=== PATIENT | female | born 2000 | race Caucasian/White ===

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

== ENCOUNTER 2019-03-15 00:27 | Outpatient (CLI) | payer OTHER ==
[~2019-03-15] VITALS: Ht 167.6 cm; Wt 113.6 kg
[~2019-03-15 00:27] MED LIST changes: -ALL10TAB28 PO; +ALL10TAB29 PO
[2019-03-15 00:36] VITALS: BP 109/69
[2019-03-15] MEDS ORDERED: MULTTAB20 PO (01:52)
[2019-03-15] MEDS ORDERED: VITA250T4 PO (01:52)
--- NOTE | 2019-03-15 02:44 | REPVR ---
PROCEDURE INFORMATION: Exam: US Biophysical Profile Without Non-Stress Test Exam date and time: 03/15/2019 2:12 AM Clinical history: 18 years old, female; Other: Contractions; ; Additional info: Non reactive nst TECHNIQUE: Imaging protocol: US biophysical profile without non-stress testing. COMPARISON: US OBS SINGEL GEST 12/10/2018 11:50 AM FINDINGS: Other findings: S/D ratio of cord is 2.59. Breathin/2 Gross body movements: 2/2 tone: 2/2 Qualitative amniotic fluid: 2/2 Biophysical Profile Score: 8/8 Gestation: Single intrauterine fetus in cephalic presentation Amniotic fluid: ABDIRIZAK of 10.5 cm. Placenta: Anterior placenta. heartbeat of 141 beats per minute. IMPRESSION: 1. Single live intrauterine fetus in cephalic presentation. 2. ABDIRIZAK 10.5 cm. 3. Normal biophysical profile score of 8/8. Electronically signed by: Jeffrey Ontiveros On 03/15/2019 02:43:41 AM
== END 2019-03-15 03:05 | disposition home or self-care (01) ==
LOC: M LDO 00:27
PROVIDERS: ATTEND Obstetrics & Gynecology
DX: O47.03 False labor before 37 completed weeks of gestation, third trimester (principal); Z3A.32 32 weeks gestation of pregnancy

== ENCOUNTER 2019-03-17 21:59 | Outpatient (CLI) | payer OTHER ==
[~2019-03-17] VITALS: Ht 157.5 cm; Wt 113.6 kg
[~2019-03-17 21:59] MED LIST changes: +VITA250T4 PO
[2019-03-17 22:16] VITALS: BP 113/65
[2019-03-17] MEDS ORDERED: ACETAMINOPHEN 500 MG TAB PO ONE (23:00)
--- NOTE | 2019-03-17 23:17 | IPN ---
DATE: 03/17/2019 A 18-year-old 2, para 1 female at 33-2/7 weeks gestation, estimated date of confinement (EDC) of 05/03/2019, presents by ambulance from [place], [place], for constant lower abdominal pressure, cramping. Denies vaginal bleeding. There is good movement. She was seen at [facility] 5 days prior to this evaluation for the same problem. She completed a course of betamethasone at that time. OBJECTIVE: Blood pressure 109/69, pulse 110, respiratory rate 16, afebrile, in no apparent distress. Head and neck exam: Normal. Lungs: Clear. Heart: Regular rate and rhythm. Abdomen: Nontender, gravid, soft. Mild pubic bone tenderness. Cervix: 1 cm, 50%, -3, vertex. heart tones: Category 1. Contractions: None. ASSESSMENT: A 18-year-old 2, para 1 female at 33-2/7 weeks gestation with pubic joint diastasis. PLAN: Tylenol for pain, rest. The patient will be sent home. She will followup with [facility] on 03/19/2019.
== END 2019-03-17 23:05 | disposition home or self-care (01) ==
LOC: M LDO 21:59
PROVIDERS: ATTEND Specialist
DX: O26.713 Subluxation of symphysis (pubis) in pregnancy, third trimester (principal); Z3A.33 33 weeks gestation of pregnancy

== ENCOUNTER 2019-12-07 19:16 | Emergency (ER) | payer OTHER ==
[~2019-12-07] VITALS: Ht 167.6 cm; Wt 121.7 kg
[2019-12-07] MEDS ORDERED: ARIP1TAB4 (19:30)
[2019-12-07] MEDS ORDERED: FLUO10CA15 (19:30)
[2019-12-07] MEDS ORDERED: FLUO20CA22 (19:30)
[2019-12-07] MEDS ORDERED: PREVTAB2 (19:30)
[2019-12-07] MEDS ORDERED: ALBU8.5H (19:30)
[2019-12-07 21:19] VITALS: BP 126/86
--- NOTE | 2019-12-08 08:00 | REP ---
Clinical: Trauma. Fall. Technique: AP and lateral views of the right tibia / fibula. Findings: Osseous structures, joint spaces, and surrounding soft tissues are normal. No acute fracture or dislocation. No subcutaneous emphysema or foreign body. Impression: No acute fracture or dislocation. Electronically Signed by Julio C Almeida MD 12/08/2019 07:52 A
== END 2019-12-07 21:20 | disposition home or self-care (01) ==
LOC: M ED 19:16
DX: S80.811A Abrasion, right lower leg, initial encounter (principal); W22.8XXA Striking against or struck by other objects, initial encounter; Y92.018 Other place in single-family (private) house as the place of occurrence of the external cause; Z79.3 Long term (current) use of hormonal contraceptives

== ENCOUNTER 2019-12-20 22:15 | Emergency (ER) | payer OTHER ==
[~2019-12-20 22:15] MED LIST changes: +ALBU8.5H; -ALL10TAB29 PO; +ARIP1TAB4; +CETI-24 PO; +FLUO10CA16; +FLUO20CA22; +PREVTAB2
[2019-12-20 22:58] LABS: HEMATOCRIT 38.9 % (36.0-47.0); HEMOGLOBIN 12.8 g/dl (12.0-15.5); MEAN CORPUSCULAR HEMOGLOBIN 27.1 pg (27.0-33.0); MEAN CORPUSCULAR HGB CONC 32.9 g/dl (32.0-36.5); MEAN CORPUSCULAR VOLUME 82.2 fl (80.0-96.0); PLATELET COUNT, AUTOMATED 281 10^3/uL (150-450); RED BLOOD COUNT 4.73 10^6/uL (4.00-5.40); WHITE BLOOD COUNT 9.1 10^3/uL (4.0-10.0)
[2019-12-20] MEDS ORDERED: IBUPROFEN 600MG TAB PO ONE (23:00)
[2019-12-20 23:16] LABS: BLOOD UREA NITROGEN 9 MG/DL (7-18); CALCIUM LEVEL 9.2 MG/DL (8.5-10.1); CARBON DIOXIDE LEVEL 25 MEQ/L (21-32); CHLORIDE LEVEL 105 MEQ/L (98-107); CREATININE FOR GFR 0.86 MG/DL (0.55-1.30); GLUCOSE, FASTING 112 MG/DL (70-100); SODIUM LEVEL 141 MEQ/L (136-145)
[2019-12-20] MEDS ORDERED: IBUP-1022 PO (23:17)
[2019-12-20] MEDS ORDERED: POTASSIUM CHLORIDE 10 MEQ SR TABLET PO ONE (23:30)
[2019-12-20 23:34] VITALS: BP 131/82
--- NOTE | 2019-12-21 08:44 | REP ---
REASON: Chest pain. COMPARISON: No priors. FINDINGS: The superior mediastinal structures are midline. The cardiac silhouette is unremarkable in size, shape, and position. The diaphragmatic surfaces of the lungs are regular, and the costophrenic angles are clear. The pulmonary molina are clear. The imaged osseous structures are intact. IMPRESSION: There is no acute cardiopulmonary disease. Electronically Signed by Ventura Perla DO 12/21/2019 09:55 A
== END 2019-12-21 00:17 | disposition home or self-care (01) ==
LOC: M ED 22:15
DX: R09.1 Pleurisy (principal); J45.909 Unspecified asthma, uncomplicated; Z79.899 Other long term (current) drug therapy; Z79.3 Long term (current) use of hormonal contraceptives

== ENCOUNTER 2020-01-06 09:15 | Emergency (ER) | payer OTHER ==
[~2020-01-06 09:15] MED LIST changes: +IBUP-1022 PO
[2020-01-06] MEDS ORDERED: MAALOX 30 ML SUSP *UDC As Ordered ONE (09:30)
[2020-01-06] MEDS ORDERED: KETOROLAC 60MG 2ML VIAL As Ordered ONE (10:42)
== END 2020-01-06 11:30 | disposition home or self-care (01) ==
LOC: M ED 09:15
DX: J06.9 Acute upper respiratory infection, unspecified (principal); B97.89 Other viral agents as the cause of diseases classified elsewhere; R11.2 Nausea with vomiting, unspecified; J45.909 Unspecified asthma, uncomplicated; K21.9 Gastro-esophageal reflux disease without esophagitis; E66.9 Obesity, unspecified; Z79.899 Other long term (current) drug therapy; Z79.2 Long term (current) use of antibiotics
CPT/HCPCS: 87486; 87581; 87633; 87798; 96372; 99283; J1885

== ENCOUNTER 2020-03-01 23:10 | Emergency (ER) | payer OTHER ==
[~2020-03-01] VITALS: Ht 167.6 cm; Wt 136.4 kg
[2020-03-01] MEDS ORDERED: ALPRAZolam 0.25 MG TAB PO ONE (23:45)
[2020-03-02 01:53] VITALS: BP 137/69
--- NOTE | 2020-03-02 17:28 | ECGEPIP ---
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
== END 2020-03-02 01:55 | disposition home or self-care (01) ==
LOC: M ED 23:10
DX: F45.0 Somatization disorder (principal); F41.9 Anxiety disorder, unspecified; E66.9 Obesity, unspecified; Z79.51 Long term (current) use of inhaled steroids; Z79.899 Other long term (current) drug therapy

== ENCOUNTER 2020-03-07 17:25 | Emergency (ER) | payer OTHER ==
[~2020-03-07] VITALS: Ht 167.6 cm; Wt 129.0 kg
[2020-03-07 17:25] VITALS: BP 126/72
[2020-03-07] MEDS ORDERED: BUPR1TAB52 (17:32)
[2020-03-07] MEDS ORDERED: VENTAER INH (20:03)
[2020-03-07] MEDS ORDERED: BENZ200C70 PO (20:03)
== END 2020-03-07 20:26 | disposition home or self-care (01) ==
LOC: M ED 17:25
DX: J06.9 Acute upper respiratory infection, unspecified (principal); B34.9 Viral infection, unspecified; Z11.59 Encounter for screening for other viral diseases; Z79.899 Other long term (current) drug therapy

== ENCOUNTER 2020-04-30 21:42 | Emergency (ER) | payer OTHER ==
[~2020-04-30] VITALS: Ht 167.6 cm; Wt 123.6 kg
[~2020-04-30 21:42] MED LIST changes: +BENZ200C70 PO; +BUPR1TAB52; +VENTAER INH
[2020-04-30] MEDS ORDERED: TRAZ-252 (21:56)
[2020-04-30] MEDS ORDERED: BUSP15TA47 (21:56)
[2020-04-30] MEDS ORDERED: BUPR150T3 (21:56)
[2020-04-30 22:08] LABS: BASO # 0.1 10^3/uL (0.0-0.2); BASO % 0.6 % (0.0-1.0); EOS # 0.2 10^3/uL (0.0-0.5); EOS % 2.5 % (0.0-3.0); HEMATOCRIT 36.1 % (36.0-47.0); HEMOGLOBIN 11.5 g/dl (12.0-15.5); LYMPH # 2.3 10^3/uL (1.5-5.0); LYMPH % 27.7 % (24.0-44.0); MEAN CORPUSCULAR HEMOGLOBIN 26.3 pg (27.0-33.0); MEAN CORPUSCULAR HGB CONC 31.9 g/dl (32.0-36.5); MEAN CORPUSCULAR VOLUME 82.4 fl (80.0-96.0); MONO # 0.7 10^3/uL (0.0-0.8); MONO % 8.3 % (0.0-5.0); NEUTROPHILS # 5.1 10^3/uL (1.5-8.5); NEUTROPHILS % 60.5 % (36.0-66.0); PLATELET COUNT, AUTOMATED 245 10^3/uL (150-450); RED BLOOD COUNT 4.38 10^6/uL (4.00-5.40); WHITE BLOOD COUNT 8.4 10^3/uL (4.0-10.0)
[2020-04-30] MEDS ORDERED: GI COCKTAIL 50ML BTL(HYOSCYAMINE/MAALOX/LIDOCAINE VISCOUS)(1:3:1) PO ONE (22:15)
[2020-04-30 22:38] LABS: HCG, SERUM QUALITATIVE NEGATIVE (NEGATIVE)
[2020-04-30 22:43] LABS: ALBUMIN 3.9 GM/DL (3.2-5.2); ALT/SGPT 44 U/L (12-78); BILIRUBIN,DIRECT < 0.1 MG/DL (0.0-0.2); BILIRUBIN,TOTAL 0.2 MG/DL (0.2-1.0); BLOOD UREA NITROGEN 10 MG/DL (7-18); CALCIUM LEVEL 8.6 MG/DL (8.5-10.1); CARBON DIOXIDE LEVEL 26 MEQ/L (21-32); CHLORIDE LEVEL 109 MEQ/L (98-107); CK-MB VALUE MASS 1.9 NG/ML (<3.6); CPK CREATINE PHOSPHOKINASE 92 U/L (26-192); CREATININE FOR GFR 0.72 MG/DL (0.55-1.30); GLUCOSE, FASTING 86 MG/DL (70-100); LIPASE 71 U/L (73-393); MB/CK RELATIVE INDEX 2.07 (< OR =4); POTASSIUM SERUM 3.8 MEQ/L (3.5-5.1); SODIUM LEVEL 141 MEQ/L (136-145); TOTAL PROTEIN 6.9 GM/DL (6.4-8.2); TROPONIN I < 0.02 NG/ML (< 0.10)
--- NOTE | 2020-04-30 22:59 | REPVR ---
PROCEDURE INFORMATION: Exam: US Duplex Lower Extremity Veins, Bilateral Exam date and time: 04/30/2020 10:48 PM Age: 19 years old Clinical indication: Pain; Leg, lower; Bilateral; Additional info: Leg pain R/O dvt TECHNIQUE: Imaging protocol: Real-time duplex ultrasound of the extremities with 2-D alicia scale, color Doppler flow and spectral waveform analysis with image documentation. Complete exam focused on the bilateral lower extremity veins. COMPARISON: US Duplex, Ext,LOWER veins,unilat 08/27/2018 4:59 PM FINDINGS: Right deep veins: Unremarkable. The common femoral, femoral, proximal profunda femoral and popliteal veins are patent without thrombus. Normal Doppler waveforms. Normal compressibility and/or augmentation response. Right superficial veins: Saphenofemoral junction is patent without thrombus. Left deep veins: Unremarkable. The common femoral, femoral, proximal profunda femoral and popliteal veins are patent without thrombus. Normal Doppler waveforms. Normal compressibility and/or augmentation response. Left superficial veins: Saphenofemoral junction is patent without thrombus. Soft tissues: Unremarkable. IMPRESSION: No evidence of deep vein thrombosis. Electronically signed by: Satya Alfaro On 04/30/2020 22:59:22 PM
[2020-04-30] MEDS ORDERED: ISOVUE-370 76% 100ML VIAL As Ordered ONE (23:10)
--- NOTE | 2020-04-30 23:55 | REPVR ---
PROCEDURE INFORMATION: Exam: CT Angiography Chest With Contrast Exam date and time: 04/30/2020 11:17 PM Age: 19 years old Clinical indication: Chest pain; Additional info: Pleuritic chest pain TECHNIQUE: Imaging protocol: Computed tomographic angiography of the chest with intravenous contrast. 3D rendering (Not supervised by radiologist): MIP and/or 3D reconstructed images were created by the technologist. Radiation optimization: All CT scans at this facility use at least one of these dose optimization techniques: automated exposure control; mA and/or kV adjustment per patient size (includes targeted exams where dose is matched to clinical indication); or iterative reconstruction. Contrast material: ISOVUE 370; Contrast volume: 75 ml; Contrast route: INTRAVENOUS (IV); COMPARISON: CR Chest, 2 view PA, Lat 12/20/2019 10:56 PM FINDINGS: Limitations: Examination is limited by motion artifact. Pulmonary arteries: No definite pulmonary emboli. Aorta: Unremarkable. No aortic aneurysm. No aortic dissection. Tracheobronchial tree: Visualized airway is unremarkable. Lungs: Unremarkable. No consolidation. No masses. Pleural space: Unremarkable. No pneumothorax. No pleural effusion. Heart: Unremarkable. No cardiomegaly. No pericardial effusion. Lymph nodes: Unremarkable. No enlarged lymph nodes. Bones/joints: Incidental left C7 rib. No acute fracture. Soft tissues: Unremarkable. IMPRESSION: 1. Limited evaluation. 2. No definite pulmonary emboli. 3. No CT findings to suggest source of chest pain. Electronically signed by: Reginald Moulton On 04/30/2020 23:54:56 PM
[2020-05-01] VITALS: BP 144/77
--- NOTE | 2020-05-01 06:40 | ECGEPIP ---
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
== END 2020-05-01 00:14 | disposition home or self-care (01) ==
LOC: M ED 21:42
DX: R07.9 Chest pain, unspecified (principal); R94.31 Abnormal electrocardiogram [ECG] [EKG]; J45.909 Unspecified asthma, uncomplicated; K21.9 Gastro-esophageal reflux disease without esophagitis; F33.9 Major depressive disorder, recurrent, unspecified; Z79.3 Long term (current) use of hormonal contraceptives; Z79.899 Other long term (current) drug therapy
CPT/HCPCS: 71275; 80048; 80076; 82550; 82553; 83690; 84703; 85025; 85379; 93005; 93041; 93970; 94760; 99285; Q9967

== ENCOUNTER 2020-05-13 22:10 | Emergency (ER) | payer OTHER ==
[~2020-05-13 22:10] MED LIST changes: +BUSP15TA47; +TRAZ-252
[2020-05-13] MEDS ORDERED: GI COCKTAIL 50ML BTL(HYOSCYAMINE/MAALOX/LIDOCAINE VISCOUS)(1:3:1) PO ONE (22:45)
[2020-05-13 23:02] LABS: BASO % 0.6 % (0.0-1.0); EOS # 0.2 10^3/uL (0.0-0.5); EOS % 2.8 % (0.0-3.0); HEMOGLOBIN 11.8 g/dl (12.0-15.5); LYMPH # 2.3 10^3/uL (1.5-5.0); LYMPH % 32.5 % (24.0-44.0); MEAN CORPUSCULAR HEMOGLOBIN 25.9 pg (27.0-33.0); MEAN CORPUSCULAR HGB CONC 31.1 g/dl (32.0-36.5); MEAN CORPUSCULAR VOLUME 83.3 fl (80.0-96.0); MONO # 0.6 10^3/uL (0.0-0.8); MONO % 8.5 % (0.0-5.0); NEUTROPHILS % 55.5 % (36.0-66.0); PLATELET COUNT, AUTOMATED 298 10^3/uL (150-450); RED BLOOD COUNT 4.56 10^6/uL (4.00-5.40); WHITE BLOOD COUNT 7.2 10^3/uL (4.0-10.0)
--- NOTE | 2020-05-13 23:06 | REPVR ---
PROCEDURE INFORMATION: Exam: XR Chest, 1 View Exam date and time: 05/13/2020 10:45 PM Age: 19 years old Clinical indication: Chest pain TECHNIQUE: Imaging protocol: XR of the chest Views: 1 view. COMPARISON: CT ANGIO CHEST 04/30/2020 11:13 PM FINDINGS: Lungs: Unremarkable. No consolidation. Pleural space: Unremarkable. No pleural effusion. No pneumothorax. Heart/Mediastinum: Unremarkable. No cardiomegaly. Bones/joints: Unremarkable. IMPRESSION: No acute findings. Electronically signed by: Satya Alfaro On 05/13/2020 23:06:32 PM
[2020-05-13 23:26] LABS: ERYTHROCYTE SEDIMENTATION RATE 13 mm/hr (0-20)
[2020-05-13 23:28] LABS: HCG, SERUM QUALITATIVE NEGATIVE (NEGATIVE)
[2020-05-13 23:29] LABS: ALBUMIN 3.3 GM/DL (3.2-5.2); ALT/SGPT 18 U/L (12-78); BILIRUBIN,DIRECT < 0.1 MG/DL (0.0-0.2); BILIRUBIN,TOTAL 0.1 MG/DL (0.2-1.0); BLOOD UREA NITROGEN 10 MG/DL (7-18); C REACTIVE PROTEIN QUANTITATIV 1.56 MG/DL (0.00-0.30); CARBON DIOXIDE LEVEL 27 MEQ/L (21-32); CHLORIDE LEVEL 108 MEQ/L (98-107); CK-MB VALUE MASS 1.1 NG/ML (<3.6); CPK CREATINE PHOSPHOKINASE 107 U/L (26-192); GLUCOSE, FASTING 96 MG/DL (70-100); LIPASE 84 U/L (73-393); MB/CK RELATIVE INDEX 1.03 (< OR =4); NT-PRO BNP 44 PG/ML (<125); POTASSIUM SERUM 3.9 MEQ/L (3.5-5.1); SODIUM LEVEL 141 MEQ/L (136-145); TOTAL PROTEIN 6.9 GM/DL (6.4-8.2); TROPONIN I < 0.02 NG/ML (< 0.10)
[2020-05-13 23:32] LABS: INR 0.92; PROTHROMBIN TIME 12.5 SECONDS (12.5-14.3)
[2020-05-13 23:33] LABS: PARTIAL THROMBOPLASTIN TIME 24.6 SECONDS (24.2-38.5)
[2020-05-13 23:35] LABS: D-DIMER QUANT 807.93 ng/ml (<500)
[2020-05-14] MEDS ORDERED: SUCR1TA PO (00:39)
[2020-05-14] MEDS ORDERED: OMEP40CA97 PO (00:39)
[2020-05-14] MEDS ORDERED: ISOVUE-370 76% 100ML VIAL As Ordered ONE (01:02)
--- NOTE | 2020-05-14 02:18 | REPVR ---
PROCEDURE INFORMATION: Exam: CT Abdomen And Pelvis With Contrast Exam date and time: 05/14/2020 1:30 AM Age: 19 years old Clinical indication: Abdominal pain; Localized; Upper; Additional info: Upper abdominal pain TECHNIQUE: Imaging protocol: Computed tomography of the abdomen and pelvis with intravenous contrast. Radiation optimization: All CT scans at this facility use at least one of these dose optimization techniques: automated exposure control; mA and/or kV adjustment per patient size (includes targeted exams where dose is matched to clinical indication); or iterative reconstruction. Contrast material: ISOVUE 370; Contrast volume: 100 ml; Contrast route: INTRAVENOUS (IV); COMPARISON: No relevant prior studies available. FINDINGS: Lungs: For details regarding the lungs, refer to the CTA chest report on 05/14/2020. Heart: For details regarding the heart, refer to the CTA chest report on 05/14/2020. Diaphragm: Intact. Liver: There are calcified granulomas in the liver. No liver mass is identified. The contour of the liver is smooth. No hepatomegaly. Gallbladder and bile ducts: No calcified gallstones are noted. No gallbladder wall thickening, pericholecystic fluid, or pericholecystic inflammatory changes are identified. No dilation of the bile ducts is noted. No calcified stones are seen in the common bile duct. Pancreas: Normal. No dilation of the main pancreatic duct is noted. There is no inflammatory fat stranding around the pancreas to suggest acute pancreatitis. Spleen: There is spleen is heterogeneous in appearance with multiple splenic lesions measuring up to 2 cm. The spleen is not enlarged and measures 9.5 cm. Adrenal glands: Normal. No adrenal mass is noted. Kidneys and ureters: The kidneys are normal in appearance. No renal lesion is noted. No stones are noted in the kidneys or ureters. There is no hydronephrosis or hydroureter. There are no wedge-shaped areas of low attenuation in the kidneys to suggest pyelonephritis. There is no renal abscess or perinephric fluid collection. Stomach and bowel: The stomach and small bowel are unremarkable. There is no evidence for a bowel obstruction, diverticulosis, diverticulitis, colitis, perforated viscus, pneumatosis intestinalis, intussusception, or volvulus. Appendix: Normal. There is no evidence for appendicitis. Intraperitoneal space: No free air. No ascites. No asbcess. Retroperitoneal space: No fluid collection. No mass. Vasculature: The abdominal aorta is patent, normal in caliber, and there is no dissection. The iliac arteries, common femoral arteries, renal arteries, celiac artery, superior mesenteric artery, and inferior mesenteric artery are patent. The iliac veins, inferior vena cava, portal veins, splenic vein, superior mesenteric vein, inferior mesenteric vein, and renal veins are patent. Lymph nodes: No enlarged lymph nodes. Urinary bladder: The urinary bladder is decompressed, limiting its optimal evaluation. No stones are seen in the bladder. Reproductive: The uterus is anterverted and unremarkable. The ovaries are unremarkable. Bones/joints: There is no fracture or dislocation. No suspicious osteolytic or osteoblastic lesion. There is a mild dextroscoliosis of the lumbar spine. Soft tissues: Unremarkable. No hernia. No soft tissue fluid collection. IMPRESSION: 1. No acute findings in the abdomen or pelvis. 2. Heterogeneous spleen with multiple splenic lesions. For patients without history of cancer, recommend follow-up MR in 6-12 months. With history of cancer, recommend evaluation with PET vs. MRI vs. biopsy. Electronically signed by: Cuauhtemoc Velásquez On 05/14/2020 02:18:39 AM
--- NOTE | 2020-05-14 02:18 | REPVR ---
PROCEDURE INFORMATION: Exam: CT Angiography Chest With Contrast Exam date and time: 05/14/2020 1:29 AM Age: 19 years old Clinical indication: Pain and abnormal findings; Abnormal diagnostic tests; Elevated d-dimer; Chest pain TECHNIQUE: Imaging protocol: Computed tomographic angiography of the chest with intravenous contrast. 3D rendering (Not supervised by radiologist): MIP and/or 3D reconstructed images were created by the technologist. Radiation optimization: All CT scans at this facility use at least one of these dose optimization techniques: automated exposure control; mA and/or kV adjustment per patient size (includes targeted exams where dose is matched to clinical indication); or iterative reconstruction. Contrast material: ISOVUE 370; Contrast volume: 100 ml; Contrast route: INTRAVENOUS (IV); COMPARISON: CT ANGIO CHEST 04/30/2020 11:13 PM FINDINGS: Pulmonary arteries: No pulmonary embolism. Aorta: The thoracic aorta is intact and patent. There is no thoracic aortic aneurysm, pseudoaneurysm, penetrating atherosclerotic ulcer, intramural hematoma, or dissection. Great vessels off aortic arch: The brachiocephalic artery, imaged proximal portions of the common carotid arteries, imaged proximal portions of the vertebral arteries, and left subclavian artery are intact. No stenosis or occlusion of these vessels is noted. 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 Tracheobronchial tree: Intact and patent. Lungs: The lungs are clear. There is no lung consolidation, pulmonary infarct, or mass. No emphysematous changes or interstitial lung disease is noted. Pleural space: Normal. No pneumothorax or pleural effusion. Heart: No cardiomegaly or pericardial effusion. The ratio of the diameter of the right ventricle to the diameter of the left ventricle measures less than 1, which is within normal limits and there is no CT evidence for a right ventricular strain. Mediastinal space: Incidental note is made of residual thymic tissue in the anterior mediastinum. No mediastinal fluid collection or pneumomediastinum is noted. Lymph nodes: No enlarged lymph nodes. Bones/joints: There is no fracture or dislocation. No suspicious osteolytic or osteoblastic lesion. There is a left cervical rib and hypertrophy of the right transverse process of C7. Soft tissues: Unremarkable. No soft tissue fluid collection. Other findings: For details regarding the abdominal and pelvic findings, refer to the CT abdomen and pelvis report on 05/14/2020. IMPRESSION: No acute findings in the chest. No pulmonary embolism. Electronically signed by: Cuauhtemoc Velásquez On 05/14/2020 02:18:56 AM
[2020-05-14 03:38] VITALS: BP 139/71
--- NOTE | 2020-05-14 08:55 | ED PDOC ---
Post-Departure [facility] faxed formal report of fu of ct antione/pTami Caballero MD May 14, 2020 08:55
--- NOTE | 2020-05-14 16:42 | ECGEPIP ---
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
== END 2020-05-14 03:45 | disposition home or self-care (01) ==
LOC: M ED 22:10
DX: R07.89 Other chest pain (principal); R93.5 Abnormal findings on diagnostic imaging of other abdominal regions, including retroperitoneum; J45.909 Unspecified asthma, uncomplicated; F33.9 Major depressive disorder, recurrent, unspecified; K21.9 Gastro-esophageal reflux disease without esophagitis; R01.1 Cardiac murmur, unspecified; Z79.899 Other long term (current) drug therapy; Z79.3 Long term (current) use of hormonal contraceptives
CPT/HCPCS: 36415; 71045; 71275; 74177; 80048; 80076; 82550; 82553; 83690; 83880; 84443; 84703; 85025; 85379; 85610; 85652; 85730; 86140; 93005; 93041; 94760; 99285; Q9967

== ENCOUNTER → 2020-06-17 | Outpatient (REF) | payer OTHER ==
[~2020-06-17] MED LIST changes: +OMEP40CA97 PO; +SUCR1TA PO
[2020-06-17 13:12] LABS: BASO # 0.1 10^3/uL (0.0-0.2); BASO % 0.7 % (0.0-1.0); EOS # 0.2 10^3/uL (0.0-0.5); EOS % 2.2 % (0.0-3.0); HEMOGLOBIN 12.5 g/dl (12.0-15.5); LYMPH # 2.8 10^3/uL (1.5-5.0); LYMPH % 28.5 % (24.0-44.0); MEAN CORPUSCULAR HEMOGLOBIN 26.9 pg (27.0-33.0); MEAN CORPUSCULAR HGB CONC 32.1 g/dl (32.0-36.5); MEAN CORPUSCULAR VOLUME 84.1 fl (80.0-96.0); MONO # 0.9 10^3/uL (0.0-0.8); MONO % 9.1 % (0.0-5.0); NEUTROPHILS # 5.8 10^3/uL (1.5-8.5); NEUTROPHILS % 59.3 % (36.0-66.0); PLATELET COUNT, AUTOMATED 258 10^3/uL (150-450); RED BLOOD COUNT 4.64 10^6/uL (4.00-5.40); WHITE BLOOD COUNT 9.7 10^3/uL (4.0-10.0)
[2020-06-17 13:17] LABS: APPEARANCE, URINE CLOUDY (CLEAR); BACTERIA, URINE AUTO NEGATIVE (NEGATIVE); BILIRUBIN, URINE AUTO NEGATIVE (NEGATIVE); BLOOD, URINE BLOOD NEGATIVE (NEGATIVE); COLOR, URINE YELLOW (YELLOW); GLUCOSE, URINE (UA) AUTO NEGATIVE (NEGATIVE); KETONE, URINE AUTO NEGATIVE (NEGATIVE); LEUKOCYTE ESTERASE, URINE AUTO 2+ (NEGATIVE); MUCUS, URINE SMALL (NEGATIVE); NITRITE, URINE AUTO NEGATIVE (NEGATIVE); PROTEIN, URINE AUTO NEGATIVE (NEGATIVE); RBC, URINE AUTO 3 /HPF (0-3); SPECIFIC GRAVITY URINE AUTO 1.024 (1.002-1.035); SQUAMOUS EPITHELIAL CELL UR AU 16 /HPF (0-6); UROBILINOGEN, URINE AUTO 0.2 mg/dL (0.0-2.0); WBC, URINE AUTO 8 /HPF (0-3)
[2020-06-17 13:37] LABS: ALT/SGPT 30 U/L (12-78); BILIRUBIN,TOTAL 0.3 MG/DL (0.2-1.0); BLOOD UREA NITROGEN 10 MG/DL (7-18); CALCIUM LEVEL 9.4 MG/DL (8.5-10.1); CARBON DIOXIDE LEVEL 27 MEQ/L (21-32); CHLORIDE LEVEL 107 MEQ/L (98-107); CHOLESTEROL LEVEL 209 MG/DL (<200); CHOLESTEROL RISK RATIO 4.446 (<5); CREATININE FOR GFR 0.62 MG/DL (0.55-1.30); FREE T4 0.94 NG/DL (0.76-1.46); GLOMERULAR FILTRATION RATE > 60.0 (>60); GLUCOSE, FASTING 84 MG/DL (70-100); HDL CHOLESTEROL 47 MG/DL (>40); LDL CHOLESTEROL 138 MG/DL (<100); NON-HDL-C 162 MG/DL; POTASSIUM SERUM 3.9 MEQ/L (3.5-5.1); SODIUM LEVEL 141 MEQ/L (136-145); TOTAL 25(OH) VITAMIN D 14.1 NG/ML (30.0-100.0); TOTAL PROTEIN 6.9 GM/DL (6.4-8.2); TRIGLYCERIDES LEVEL 118 MG/DL (<150)
[2020-06-17 13:56] LABS: HEMOGLOBIN A1c 5.3 %
== END ==
LOC: M SFHCPLAZ 09:21
PROVIDERS: ATTEND Nurse Practitioner Family
DX: Z13.228 Encounter for screening for other metabolic disorders (principal); Z13.220 Encounter for screening for lipoid disorders; R35.0 Frequency of micturition; E55.9 Vitamin D deficiency, unspecified

== ENCOUNTER → 2020-06-30 | Outpatient (REF) | payer OTHER ==
[~2020-06-30] MED LIST changes: -BUPR150T3; +BUPR150T4
[2020-06-30 17:43] LABS: HCG, SERUM QUALITATIVE POSITIVE (NEGATIVE)
== END ==
LOC: M SFHCPLAZ 14:31
PROVIDERS: ATTEND Physician Assistant Medical
DX: Z33.1 Pregnant state, incidental (principal)

== ENCOUNTER → 2020-07-26 | Outpatient (REF) | payer OTHER ==
[2020-07-26 13:34] LABS: HEMATOCRIT 36.5 % (36.0-47.0); HEMOGLOBIN 11.7 g/dl (12.0-15.5); MEAN CORPUSCULAR HEMOGLOBIN 26.4 pg (27.0-33.0); MEAN CORPUSCULAR HGB CONC 32.1 g/dl (32.0-36.5); MEAN CORPUSCULAR VOLUME 82.4 fl (80.0-96.0); PLATELET COUNT, AUTOMATED 255 10^3/uL (150-450); RED BLOOD COUNT 4.43 10^6/uL (4.00-5.40); WHITE BLOOD COUNT 8.7 10^3/uL (4.0-10.0)
[2020-07-26 14:04] LABS: HEMOGLOBIN A1c 5.3 %
[2020-07-26 14:17] LABS: FREE T4 0.74 NG/DL (0.76-1.46)
[2020-07-26 14:54] LABS: HEPATITIS C VIRUS ABY INDEX 0.1 INDEX (<0.8); HIV 1&2 SCREEN CENTAUR NEGATIVE (NEGATIVE)
[2020-07-26 15:44] LABS: CHLAMYDIA DNA AMPLIFICATION NEGATIVE (NEGATIVE); GC DNA AMPLIFICATION NEGATIVE (NEGATIVE)
== END ==
LOC: M PLALAB 11:46
PROVIDERS: ATTEND Advanced Practice Midwife
DX: Z36.89 Encounter for other specified antenatal screening (principal); Z3A.01 Less than 8 weeks gestation of pregnancy

== ENCOUNTER 2020-08-03 08:58 | Emergency (ER) | payer OTHER ==
[~2020-08-03] VITALS: Ht 167.6 cm; Wt 131.4 kg
[2020-08-03] MEDS ORDERED: PREN29CH2 PO (09:08)
[2020-08-03] MEDS ORDERED: ACETAMINOPHEN 325 MG TAB PO ONE (09:45)
[2020-08-03 09:50] LABS: BASO % 0.3 % (0.0-1.0); EOS # 0.2 10^3/uL (0.0-0.5); HEMATOCRIT 35.5 % (36.0-47.0); HEMOGLOBIN 11.8 g/dl (12.0-15.5); LYMPH # 1.8 10^3/uL (1.5-5.0); LYMPH % 19.4 % (24.0-44.0); MEAN CORPUSCULAR HEMOGLOBIN 27.1 pg (27.0-33.0); MEAN CORPUSCULAR HGB CONC 33.2 g/dl (32.0-36.5); MEAN CORPUSCULAR VOLUME 81.6 fl (80.0-96.0); MONO # 0.8 10^3/uL (0.0-0.8); MONO % 8.9 % (2.0-8.0); NEUTROPHILS # 6.3 10^3/uL (1.5-8.5); PLATELET COUNT, AUTOMATED 232 10^3/uL (150-450); RED BLOOD COUNT 4.35 10^6/uL (4.00-5.40); WHITE BLOOD COUNT 9.1 10^3/uL (4.0-10.0)
--- NOTE | 2020-08-03 10:06 | REP ---
INDICATION: fall, lower abd pain, 8 weeks . COMPARISON: None. TECHNIQUE: Transabdominal imaging FINDINGS: LMP 06/05/2020 = 8 weeks 3 days, This is a gestational sac in the body and fundus. The mean sac diameter is 30 mm corresponding to 8 weeks 5 days. There is a pole visible with a crown-rump length 22 mm corresponding to 9 weeks. heart rate 174 BPM. motion was observed. Posterior to the gestational sac is a curvilinear complex hypoechoic area measuring 3.6 x 1 x 1.5 cm suggestive of a subchorionic bleed. Cervix is 3.1 cm long. There is no free fluid in the cul-de-sac. Adnexal regions grossly unremarkable. IMPRESSION: 1. Gestational sac in the body and fundus the uterus with a pole consistent with 9 weeks gestational age. By LMP she is 8 weeks 3 days with EDC 03/12/2021. 2. Heart rate 174. motion observed. 3. Subchorionic bleed 3.6 x 1 x 1.5 cm around the posterior aspect of the gestational sac. Cervix 3.1 cm long and closed. No pelvic free fluid or adnexal abnormality suggested. <Electronically signed by Uriah Jose > 08/03/20 1002
--- NOTE | 2020-08-03 10:19 | REP ---
INDICATION: fall, knee double shield COMPARISON: None. TECHNIQUE: Four views left knee. FINDINGS: There is no evidence of acute fracture, dislocation, or intrinsic bone disease.There is no radiographic evidence of a significant joint effusion. IMPRESSION: No fracture or dislocation. <Electronically signed by Fabián Dias > 08/03/20 1016
--- NOTE | 2020-08-03 10:20 | REP ---
INDICATION: fall, please double shield. COMPARISON: None. TECHNIQUE: Four views with appropriate shielding provided. FINDINGS: Ankle mortise joint with symmetric and preserved. There is no talar dome osteochondral defect. Distal tibia and fibula without fracture. Some mild swelling about the ankle. Subtalar joints are intact. The talonavicular and calcaneocuboid joints are normal. No heel spurs. Tarsal bones and articulations as well as visualized portions of proximal metatarsals unremarkable. IMPRESSION: 1. Some soft tissue swelling about the ankle with no visible or displaced fracture, disruption of the ankle mortise joint, subtalar joint abnormality or other significant bony finding. <Electronically signed by Uriah Jose > 08/03/20 1016
--- OUTSIDE RECORDS SUMMARY | 2020-08-03 10:21 | CCD | Continuity of Care Document ---
Author Author Renee PAN Organization Unknown Address [address] [place] [id number] Phone [phone] Problems Description No Information Available Social History Type Date Description Comments Sex Unknown Tobacco Use Start: Unknown End: Unknown Quit Cigars Negative For Never Smoked Cigars Tobacco Use Start: Unknown Never Smoked A Pipe Tobacco Use Start: Unknown Never Used Smokeless Tobacco ETOH Use Denies alcohol use Tobacco Use Start: Unknown End: Unknown Patient is a former smoker quit 12/2016 Recreational Drug Use Denies Drug Use Exercise Type/Frequency Exercises sporadically Tattoo/Piercing Tattoo Tattoo/Piercing Pierced lower lip Tattoo/Piercing Pierced nasal area Tattoo/Piercing Pierced ears PRIYA: 05/03/2019 Estimated Date of Delivery Based on Final PRIYA Allergies, Adverse Reactions, Alerts Active Allergies Reaction Severity Comments Date NKDA 10/16/2018 NKFA 10/27/2018 Seasonal 10/27/2018 Medications Active Medications SIG Qnty Indications Ordering Provide r Date Albuterol Sulfate HFA 108(90Base) mcg/Act Aerosol Inhale 2 Puffs By Mouth Every 6 Hours as Needed Unknown Omeprazole 40mg Capsules DR Take One Capsule By Mouth Every Day Unknown Estarylla 0.25-35mg-mcg Tablets Take One Tablet By Mouth Every Day Unknown Buspirone HCL 15mg Tablets Take One Tablet By Mouth Twice A Day Unknown Trazodone HCL 50mg Tablets Take One Tablet By Mouth AT Bedtime as Needed Unknown Aripiprazole 2mg Tablets Take One Tablet By Mouth Every Day Unknown History Medications Cipro 250mg Tablets take one every 12 hour x 3 days 6tabs Masury F. Georgette, M.D. 11/25/19 20 - 2020 Immunizations CPT Code Status Date Vaccine Lot # [id number] Given 03/19/2019 Tdap (Boostrix/Adacel) Vacci ne [id number] Vital Signs Date Vital Result Comment 2020 10:36am BP Systolic 122 mmHg BP Diastolic 86 mmHg Heart Rate 88 /min Body Temperature 96.3 F Weight 290.00 lb Weight 131.544 kg Height 66 inches 5'6" BMI (Body Mass Index) 46.8 kg/m2 BSA (Body Surface Area) 2.34 m2 11/19/2019 10:56am BP Systolic 118 mmHg BP Diastolic 70 mmHg Heart Rate 62 /min Body Temperature 98.4 F Weight 274.00 lb Weight 124.286 kg Height 66 inches 5'6" BMI (Body Mass Index) 44.2 kg/m2 BSA (Body Surface Area) 2.29 m2 Results Test Acquired Date Facility Test Result H/L Range Note Affirm Vaginitis Panel 2020 [facility]#Other Observations <pending> Bacterial Vaginosis 2020 [facility] Source: Genital 1 Aileen species Negative Negative Gardnerella vaginalis Negative Negative Trichomonas vaginalis Negative Negative Cuture Urine 2020 [facility] Culture Urine (SEE NOTE) 2, 3 Laboratory test finding 2020 In Office Inhouse Urine Test negative 1 {SOURCE: Genital 2 {SPECIMEN TYPE: RANDOM~.~.~ R31.9 3 _CULTURE URINE_ ^$[id number] ^^[id number] $$[id number] ^^[id number] $$[id number] $$336610 $$026248 $$015465 $$560825 $$873794 $$087889 $$431439 $$706773 $$630518 $$[id number] $$514548 $$766522 $$306998 $$675291 $$724526 $$887212 $$403777 $$319133 $$008170 $$238283 $$128435 $$459442 ^^223363 $$186818 $$[id number] $$[id number] -- Continued on next page -- Patient: DORIAN Meyer: [id number] Page 2 Culture: CULTURE URINE Status: Final $$[id number] $$[id number] REPORTED DATE/TIME: 05/22/2020 07:05 Culture: CULTURE URINE Status: Final Urine Culture,Comprehensive: P1 Mixed urogenital jeff 10,000-25,000 colony forming units per m L P1 Test performed by: [facility] #: [id number] [address] [place] [address] [id number] [facility] [id number] Machine Ii Trimmer : Fransisco James MD NPI #: Commissions Analyst : 05/22/[email or web address] REF 05/22/20.07Edward. .to VAL ALFONSO via fax Procedures Description No Information Available Medical Devices Description No Information Available Encounters Type Date Location Provider Dx Diagnosis Office Visit 2020 10:45a [facility] Georgiana Nation NP B37.3 Candidiasis of vulva and vagina Assessments Date Code Description Provider 2020 B37.3 Candidiasis of vulva and vagina Georgiana Nation NP Plan of Treatment Future Appointment(s):* 06/09/2020 3:00 pm - Georgiana Nation NP at [facility] 2020 - Georgiana Nation NP* B37.3 Candidiasis of vulva and vagina* Follow up: * WW due , first pap * Recommendations:* I will notify lab result, continue bcp as neg test today Functional Status Description No Information Available Mental Status Description No Information Available Referrals Description No Information Available
--- OUTSIDE RECORDS SUMMARY | 2020-08-03 10:21 | CCD | Continuity of Care Document ---
Author Author Renee PAN Organization Unknown Address [address] [place] [address] Phone [phone] Problems Active Problems Provider Date Obesity Georgiana Nation NP Onset: 06/09/2020 Social History Type Date Description Comments Sex [...] Mouth Every Day Unknown Estarylla 0.25-35mg-mcg Tablets take one tablet by mouth every day 84tabs Patricia Damon Buspirone HCL 15mg Tablets Take One Tablet By Mouth Twice A Day Unknown Trazodone HCL 50mg Tablets Take One Tablet By Mouth AT Bedtime as Needed Unknown Aripiprazole 2mg Tablets Take One Tablet By Mouth Every Day Unknown Immunizations CPT Code Status Date Vaccine Lot # [id number] Given 03/19/2019 Tdap (Boostrix/Adacel) Vacci ne 2E3EH Vital Signs Date Vital Result Comment 06/09/2020 2:54pm BP Systolic 126 mmHg BP Diastolic 82 mmHg Heart Rate 78 /min Body Temperature 96.0 F Weight 285.25 lb Weight 129.389 kg Height 66 inches 5'6" BMI (Body Mass Index) 46.0 kg/m2 BSA (Body Surface Area) 2.33 m2 2020 10:36am BP Systolic 122 mmHg BP Diastolic 86 mmHg Heart Rate 88 /min Body Temperature 96.3 F Weight 290.00 lb Weight 131.544 kg Height 66 inches 5'6" BMI (Body Mass Index) 46.8 kg/m2 BSA (Body Surface Area) 2.34 m2 Results Test Acquired Date Facility Test Result H/L Range Note Laboratory test finding 06/09/2020 [facility] Pap Smear Thin Prep <pending> Affirm Vaginitis Panel 2020 [facility] Z#Other Observations <pending> Bacterial Vaginosis 2020 [facility] Source: Genital 1 Aileen species Negative Negative Gardnerella vaginalis Negative Negative Trichomonas vaginalis Negative Negative Cuture Urine 2020 [facility] Culture Urine (SEE NOTE) 2, 3 Laboratory test finding 2020 In Office Inhouse Urine Test negative 1 {SOURCE: Genital 2 {SPECIMEN TYPE: RANDOM~.~.~ R31.9 3 _CULTURE URINE_ ^$586472 ^^571667 $$063703 ^^160901 $$023142 $$183546 $$289865 $$227800 $$371470 $$716388 $$006969 $$643333 $$396909 $$526750 $$959182 $$907789 $$753527 $$384295 $$702582 $$166833 $$054329 $$516416 $$288202 $$467944 $$244106 $$692695 $$663344 ^^012681 $$415520 $$167923 $$342938 -- Continued on next page -- Patient: DORIAN Washington Order: [id number] Page 2 Culture: CULTURE URINE Status: Final $$[id number] $$[id number] REPORTED DATE/TIME: 05/22/2020 07:05 Culture: CULTURE URINE Status: Final Urine Culture,Comprehensive: P1 Mixed urogenital jeff 10,000-25,000 colony forming units per m L P1 [facility] #: [id number] [address] [place] [address] [id number] [facility] [address] Manager Engagement : Fransisco James MD NPI #: Orthopedically Impaired Teacher : 05/22/20.0726.XMT.SENT REF 05/22/2026. .to VAL ALFONSO via fax Procedures Description No Information Available Medical Devices Description No Information Available Encounters Type Date Location Provider Dx Diagnosis Office Visit 06/09/2020 3:[address] [facility] Georgiana Nation NP Z01.419 Encntr for hydrologic engineer exam (general) (routine) w/o abn findings Z30.41 Encounter for surveillance o f contraceptive pills Assessments Date Code Description Provider 06/09/2020 Z01.419 Encounter for gyneco logical examination (general) (routine) without abnormal findings Georgiana Nation NP 06/09/2020 Z30.41 Encounter for surveillance of co ntraceptive pills Georgiana Nation NP 2020 B37.3 Candidiasis of vulva and vagina Georgiana Nation NP Plan of Treatment 06/09/2020 - Georgiana Nation NP* Z01.419 Encounter for gynecological examination (general) (routine) without abnormal findings* Follow up:* 1 year. * Recommendations:* reviewed pap guidelines and SBE. * Instructions:* Call for problems or questions * Z30.41 Encounter for surveillance of contraceptive pills* Recommendations:* continue bcp as directed. Functional Status Description No Information Available Mental Status Description No Information Available Referrals Description No Information Available
--- OUTSIDE RECORDS SUMMARY | 2020-08-03 10:21 | CCD ---
Author Author [facility] Organization [facility] Address Unknown Phone Unavailable Care Team Providers Care Audiometrist Name Role Phone DougTaylor collins Unavailable PROBLEMS Type Condition ICD9-CM Code [id number] Code Onset Dates Condition S tatus SNOMED Code Notes Problem Major depressive disorder F32.9 Active 780830 000 Problem Hyperlipidemia E78.5 Active 58393656 Problem Vitamin D deficiency E55.9 Active 33696057 Problem Morbid (severe) obesity due to excess calories E66 .01 Active 841473166 Problem Body mass index [BMI] 45.0-49.9, adult Z68.42 A ctive 313780695 Problem KEVIN (generalized anxiety disorder) F41.1 Activ e 73078607 ALLERGIES No Known Allergies ENCOUNTERS from 1999 to 2020-07-07 Encounter Location Date Provider Diagnosis [address] [address] Jun, Taylor Jenkins IMMUNIZATIONS Vaccine Route Administration Date Status Influenza (36 months & up) (VFC) IM Intramuscular Mar 24, 2015 Administered Influenza (36 months & up) (VFC) IM Jul 28, 2013 Administered SOCIAL HISTORY Sex Assigned At : Social History Observation Description Sex Assigned At Unknown Education: Question Answer Notes Level of Education: Finished High School Language: Question Answer Notes Languages spoken: Armenian Sikhism: Question Answer Notes Sikhism 08 Amish Sexual Hx: Question Answer Notes Had sex in the last 12 months (vaginal, oral, or anal)? Yes LMP: 05/2020 with Men only Alcohol Screening: Question Answer Notes Did you have a drink containing alcohol in the past year? No Points 0 Interpretation Negative REASON FOR REFERRAL No Information VITAL SIGNS No information MEDICATIONS Medication SIG (Take, Route, Frequency, Duration) Notes Start Da te End Date Status BuPROPion HCl ER (XL) 150 MG TAKE ONE TABLET BY MOUTH EVERY MORNING FOR 15 DAYS Oral for 15 Active Albuterol Sulfate 108 (90 Base) MCG/ACT 1 puff as needed Inh alation every 4 hrs Active Vitamin D3 125 MCG (5000 UT) TAKE ONE CAPSULE BY MOUTH EVERY DAY DIRECTED Oral Active PROCEDURES No Information RESULTS No Results REASON FOR VISIT vitamin MEDICAL (GENERAL) HISTORY Type Description Date Medical History SEASONAL ALLERGIES/ALLERGIC RHINITIS Medical History URINARY URGENCY Medical History FREQ UTIS Medical History HX ADHD Medical History ACID REFLUX Medical History ASTHMA Medical History MDD Surgical History No Surgical history information Hospitalization History CHILD Goals Section No Information Health Concerns No Information MEDICAL EQUIPMENT No Information MENTAL STATUS No Information FUNCTIONAL STATUS No Information ASSESSMENTS No Information PLAN OF TREATMENT Medication Medication Name Sig Start Date Stop Date Vitamin D3 125 MCG (5000 UT) TAKE ONE CAPSULE BY MOUTH EVERY DAY DIRECTED Oral Next Appt Details Provider Name:She Serna, 2020-07-26 11:00:00 AM, [address] [place] [address], [phone], Provider Name:Mnóica Quinn, 07-07 02:30:00 PM, [address] [place] [address], [phone], Insurance Providers Payer Name Payer Address Payer Phone Insured Name Patient Relati onship to Insured Coverage Start Date Coverage End Date [facility] [address] [facility] [phone] DANA ALARCON self
--- OUTSIDE RECORDS SUMMARY | 2020-08-03 10:21 | CCD ---
Author Author [facility] Organization [facility] Address Unknown Phone Unavailable Care Team Providers Care Wound Nurse Name Role Phone Taylor Jenkins Unavailable PROBLEMS Type Condition ICD9-CM Code [id number] Code Onset Dates Condition S tatus SNOMED Code Notes Problem Vitamin D deficiency E55.9 Active 26386198 Problem Morbid (severe) obesity due to excess calories E66 .01 Active 871472092 Problem Body mass index [BMI] 45.0-49.9, adult Z68.42 A ctive 972607147 Problem KEVIN (generalized anxiety disorder) F41.1 Activ e 50463782 Problem Major depressive disorder F32.9 Active 735800 000 ALLERGIES No Known Allergies ENCOUNTERS from 1999 to 2020-07-02 Encounter Location Date Provider Diagnosis [address] [address] Jun, Taylor Jenkins test positive for incidental p regnancy Z33.1 IMMUNIZATIONS Vaccine Route Administration Date Status Influenza (36 months & up) (VFC) IM Intramuscular Mar 24, 2015 Administered Influenza (36 months & up) (VFC) IM Jul 28, 2013 Administered SOCIAL HISTORY Sex Assigned At : Social History Observation Description Sex Assigned At Unknown Education: Question Answer Notes Level of Education: Finished High School Language: Question Answer Notes Languages spoken: Turkmen Yazidism: Question Answer Notes Yazidism 08 Jewish Sexual Hx: Question Answer Notes Had sex [...] Notes Start Da te End Date Status Cholecalciferol 125 MCG (5000 UT) as directed Orally Daily for 9 0 day(s) Jun, Active Albuterol Sulfate 108 (90 Base) MCG/ACT 1 puff as needed Inh alation every 4 hrs Active PROCEDURES No Information RESULTS Component Value Reference Range HCG SERUM QUALITATIVE Reviewed date:07/01/2020 09:36:31 Interpretation: Performing Lab:[facility], [facility] [address] [facility] [address] , ,[place] [address] HCG, SERUM QUALITATIVE POSITIVE NEGATIVE REASON FOR VISIT blood work for MEDICAL (GENERAL) HISTORY Type Description Date Medical History SEASONAL ALLERGIES/ALLERGIC RHINITIS Medical History URINARY URGENCY Medical History FREQ UTIS Medical History HX ADHD Medical History ACID REFLUX Medical History ASTHMA Medical History MDD Surgical History No Surgical history information Hospitalization History CHILD Goals Section No Information Health Concerns No Information MEDICAL EQUIPMENT No Information MENTAL STATUS No Information FUNCTIONAL STATUS No Information ASSESSMENTS Encounter Date Diagnosis Assessment Notes Treatment Notes Treatm ent Clinical Notes Jun, test positive for incidental p regnancy (ICD-10 - Z33.1) PLAN OF TREATMENT Medication Medication Name Sig Start Date Stop Date Cholecalciferol 125 MCG (5000 UT) as directed Orally Daily f or 90 day(s) Jun, Next Appt Details Provider Name:Mónica Quinn, 07-06 10:45:00 AM, [address] [place], [address], Provider Name:She Serna, 2020-08-09 09:40:00 AM, [address] [place], [address], Insurance Providers Payer Name Payer Address Payer Phone Insured Name Patient Relati onship to Insured Coverage Start Date Coverage End Date [facility] [address] [facility] [address] [phone] DANA ALARCON self
--- OUTSIDE RECORDS SUMMARY | 2020-08-03 10:21 | CCD ---
Author Author [facility] Organization [facility] Address Unknown Phone Unavailable Care Team Providers Care Watch Crystal Cutter Name Role Phone Mónica Quinn Unavailable PROBLEMS Type Condition ICD9-CM Code DDA07-SI Code Onset Dates Condition S tatus SNOMED Code Notes Problem Vitamin D deficiency E55.9 Active 85316433 Problem Morbid (severe) obesity due to excess calories E66 .01 Active 235006125 Problem Body mass index [BMI] 45.0-49.9, adult Z68.42 A ctive 829890650 Problem KEVIN (generalized anxiety disorder) F41.1 Activ e 14594157 Problem Major depressive disorder F32.9 Active 450860 000 ALLERGIES No Known Allergies ENCOUNTERS from 1999 to 2020-06-24 Encounter Location Date Provider Diagnosis [address] [address] Jun, Mónica Quinn IMMUNIZATIONS Vaccine Route Administration Date Status Influenza (36 months & up) (VFC) IM Intramuscular Mar 24, 2015 Administered Influenza (36 months & up) (VFC) IM Jul 28, 2013 Administered SOCIAL HISTORY Sex Assigned At : Social History Observation Description Sex Assigned At Unknown Education: Question Answer Notes Level of Education: Finished High School Language: Question Answer Notes Languages spoken: Estonian Taoism: Question Answer Notes Taoism 08 Anabaptism Sexual Hx: Question Answer Notes Had sex [...] 4 hrs Active PROCEDURES No Information RESULTS No Results REASON FOR VISIT Vitamin D and something else from appointment 06/17/2020 MEDICAL (GENERAL) HISTORY Type Description Date Medical [...] Jun, Next Appt Details Provider Name:Mónica Quinn, 2020-0 07-06 10:45:00 AM, [address] [place], [address], Insurance Providers Payer Name Payer Address Payer Phone Insured Name Patient Relati onship to Insured Coverage Start Date Coverage End Date [facility] [address] [facility] [phone] DANA ALARCON
--- OUTSIDE RECORDS SUMMARY | 2020-08-03 10:21 | CCD | Continuity of Care Document ---
Author Author Renee PAN Organization Unknown Address [address] [place] [address] Phone [phone] Problems Description No Information Available Social History [...] CPT Code Status Date Vaccine Lot # [id number] Given 03/19/2019 Tdap (Boostrix/Adacel) Vacci ne 2E3EH [...] Choice Z#Other Observations <pending> Bacterial Vaginosis 2020 [facility] Source: Genital 1 Aileen species Negative Negative Gardnerella vaginalis Negative Negative Trichomonas vaginalis Negative Negative Cuture Urine 2020 [facility] Culture Urine (SEE NOTE) 2, 3 Laboratory test finding 2020 In Office Inhouse Urine Test negative 1 {SOURCE: Genital 2 {SPECIMEN TYPE: RANDOM~.~.~ R31.9 3 _CULTURE URINE_ ^$367449 ^^880069 $$043665 ^^717786 $$877384 $$326847 $$106935 $$715217 $$485960 $$026076 $$882308 $$126102 $$451134 $$477618 $$781900 $$692183 $$322139 $$451892 $$630625 $$425351 $$708238 $$620931 $$789457 $$499281 $$852910 $$664525 $$479318 ^^469996 $$628323 $$044200 $$445543 -- Continued on next page -- Patient: DORIAN Washington Order: [id number] Page 2 Culture: CULTURE URINE Status: Final $$106046 $$980444 REPORTED DATE/TIME: 05/22/2020 07:05 Culture: CULTURE URINE Status: Final Urine Culture,Comprehensive: P1 Mixed urogenital jeff 10,000-25,000 colony forming units per m L P1 Test performed by: [facility] #: [id number] [address] [id number] [facility] [address] Director Corporate : Fransisco James MD NPI #: Carpenter Helper : 05/22/20.725.XMT.SENT REF 05/22/20.725. .to VAL ALFONSO via fax Procedures Description No Information Available Medical Devices Description No Information Available Encounters Description No Information Available Assessments Date Code Description Provider 2020 B37.3 Candidiasis of vulva and vagina Georgiana Nation NP Plan of Treatment Future Appointment(s):* 06/09/2020 3:00 pm - Georgiana Nation NP [facility] 2020 - Georgiana Nation NP* B37.3 Candidiasis of vulva and vagina* Follow up: * WW due , first pap * Recommendations:* I will notify lab result, continue bcp as neg test today Functional Status Description No Information Available Mental Status Description No Information Available Referrals Description No Information Available
--- OUTSIDE RECORDS SUMMARY | 2020-08-03 10:21 | CCD ---
Author Author [facility] Organization [facility] Address Unknown Phone Unavailable Care Team Providers Care Research Administrator Name Role Phone Mónica Quinn Unavailable PROBLEMS Type Condition ICD9-CM Code PHZ39-DE Code Onset Dates Condition S tatus SNOMED Code Notes Problem Vitamin D deficiency E55.9 Active 55821257 Problem Morbid (severe) obesity due to excess calories E66 .01 Active 074929083 Problem Body mass index [BMI] 45.0-49.9, adult Z68.42 A ctive 455934011 Problem KEVIN (generalized anxiety disorder) F41.1 Activ e 05039370 Problem Major depressive disorder F32.9 Active 653066 000 ALLERGIES No Known Allergies ENCOUNTERS from 1999 to 2020-06-21 Encounter Location Date Provider Diagnosis [address] [address] 08 Jun, 2020 Mónica Lawtonoleg Major depressive disorder F32.9 ; KEVIN (g eneralized anxiety disorder) F41.1 ; Frequent urination R35.0 ; Morbid (severe) obesity due to excess calories E66.01 ; Body mass index [BMI] 45.0-49.9, adult Z68.42 ; Vitamin D deficiency E55.9 ; Screening for lipid disorders Z13.220 ; Encounter to establish care Z76.89 and Screening for metabolic disorder Z13.228 IMMUNIZATIONS Vaccine Route Administration Date Status Influenza (36 months & up) (VFC) IM Intramuscular Mar 24, 2015 Administered Influenza (36 months & up) (VFC) IM Jul 28, 2013 Administered SOCIAL HISTORY Sex Assigned At : Social History Observation Description Sex Assigned At Unknown Education: Question Answer Notes Level of Education: Finished High School Language: Question Answer Notes Languages spoken: Bruneian Jain: Question Answer Notes Jain 08 Jehovah'S Witness Sexual Hx: Question Answer Notes Had sex in the last 12 months (vaginal, oral, or anal)? Yes LMP: 05/2020 with Men only Alcohol Screening: Question Answer Notes Did you have a drink containing alcohol in the past year? No Points 0 Interpretation Negative REASON FOR REFERRAL No Information VITAL SIGNS Weight 291 lbs Jun, Height 64 in Jun, BMI 49.94 kg/m2 Jun, Heart Rate 110 /min Jun, Respiratory Rate 16 /min Jun, Temperature 98.5 degrees Fahrenheit Jun, Oximetry 99 Jun, Blood pressure systolic 124 mm Hg Jun, Blood pressure diastolic 78 mm Hg Jun, MEDICATIONS Medication SIG (Take, Route, Frequency, Duration) Notes Start Da te End Date Status Albuterol Sulfate 108 (90 Base) MCG/ACT 1 puff as needed Inh alation every 4 hrs Active PROCEDURES No Information RESULTS REASON FOR VISIT SPICE MIXER-To Establish Care MEDICAL (GENERAL) HISTORY Type Description Date Medical [...] Treatment Notes Treatm ent Clinical Notes Jun, Major depressive disorder (ICD-10 - F32.9) advised to comply with care [facility] Jun, KEVIN (generalized anxiety disorder) (ICD-10 - F41 .1) denies SI/HI Jun, Frequent urination (ICD-10 - R35.0) obtain UA/UC to r/o Jun, Morbid (severe) obesity due to excess calories ( ICD-10 - E66.01) Discussed life style changes/diet Needs jewel sorter consult to assist with choice of food groups Jun, Body mass index [BMI] 45.0-49.9, adult (ICD-10 - Z68.42) encouraged weight loss contingency: Foster Care Worker Jun, Vitamin D deficiency (ICD-10 - E55.9) screening Jun, Screening for lipid disorders (ICD-10 - Z13.220) screening Jun, Encounter to establish care (ICD-10 - Z76.89) Establishing care Jun, Screening for metabolic disorder (ICD-10 - Z13.2 28) screening PLAN OF TREATMENT Treatment Notes Assessment Notes Clinical Notes Major depressive disorder advised to com ply with care bartolome Marvin KEVIN (generalized anxiety disorder) denie s SI/HI Frequent urination obtain UA/UC to r/o Morbid (severe) obesity due to excess calories Discussed life style changes/dietNeeds jewel sorter consult to assist with choice of food groups Body mass index [BMI] 45.0-49.9, adult e ncouraged weight losscontingency: Foster Care Worker Vitamin D deficiency screening Screening for lipid disorders screening Encounter to establish care Establishing care Screening for metabolic disorder screeni ng Next Appt Details 2 Weeks Reason: Provider Name:Mónica Lawtonoleg, 07-06 10:45:00 AM, [address] [place], [address], Insurance Providers Payer Name Payer Address Payer Phone Insured Name Patient Relati onship to Insured Coverage Start Date Coverage End Date [facility] [address] [facility] [phone] DANA ALARCON self
--- OUTSIDE RECORDS SUMMARY | 2020-08-03 10:21 | CCD ---
Author Author [facility] Organization [facility] Address Unknown Phone Unavailable Care Team Providers Care Filter Worker Name Role Phone Mónica Quinn Unavailable PROBLEMS Type Condition ICD9-CM Code YPA38-DG Code Onset Dates Condition S tatus SNOMED Code Notes Problem Vitamin D deficiency E55.9 Active 68058502 Problem Morbid (severe) obesity due to excess calories E66 .01 Active 425282893 Problem Body mass index [BMI] 45.0-49.9, adult Z68.42 A ctive 128366843 Problem KEVIN (generalized anxiety disorder) F41.1 Activ e 48865555 Problem Major depressive disorder F32.9 Active 408969 000 ALLERGIES No Known Allergies ENCOUNTERS from 1999 to 2020-07-03 Encounter Location Date Provider Diagnosis [address] [address] Jun, Mónica Quinn IMMUNIZATIONS Vaccine Route Administration Date Status Influenza (36 months & up) (VFC) IM Intramuscular Mar 24, 2015 Administered Influenza (36 months & up) (VFC) IM Jul 28, 2013 Administered SOCIAL HISTORY Sex Assigned At : Social History Observation Description Sex Assigned At Unknown Education: Question Answer Notes Level of Education: Finished High School Language: Question Answer Notes Languages spoken: Irish Alevism: Question Answer Notes Alevism 08 Episcopal Sexual Hx: Question Answer Notes Had sex [...] Information RESULTS No Results REASON FOR VISIT HCG MEDICAL (GENERAL) HISTORY Type Description Date Medical [...] Details Provider Name:Mónica Quinn, 07-06 10:45:00 AM, [address] [place] [address], [address], Provider Name:She Serna, 2020-08-09 09:40:00 AM, [address] [place] [address], [address], Insurance Providers Payer Name Payer Address Payer Phone Insured Name Patient Relati onship to Insured Coverage Start Date Coverage End Date [facility] [address] [facility] [address] DANA ALARCON self
--- OUTSIDE RECORDS SUMMARY | 2020-08-03 10:21 | CCD ---
Author Author [facility] [employer] Organization [facility] [employer] Address Unknown Phone Unavailable Care Team Providers Care Senior Editor Name Role Phone Mónica Quinn Unavailable PROBLEMS Type Condition ICD9-CM Code [id number] Code Onset Dates Condition S tatus W/U Status Risk SNOMED Code Notes Problem Body mass index [BMI] 45.0-49.9, adult Z68.42 A ctive confirmed 359098640 Problem Vitamin D deficiency E55.9 Active confirmed 09894114 Problem Obesity complicating in first trimester O99.211 Active confirmed Problem Supervision of other normal Z34.80 Ac tive confirm 579468098 Problem Morbid (severe) obesity due to excess calories E66 .01 Active confirmed 730007025 Problem KEVIN (generalized anxiety disorder) F41.1 Activ e confirmed 50127464 Problem Major depressive disorder F32.9 Active confirmed 795893295 Problem Hyperlipidemia E78.5 Active confirmed 37135 004 ALLERGIES No Known Allergies ENCOUNTERS from 1999 to 2020-07-27 Encounter Location Date Provider Diagnosis [address] [address] 15 Jul, 2020 Mónica Aceyanna IMMUNIZATIONS Vaccine Route Administration Date Status Influenza (36 months & up) (VFC) IM Intramuscular Mar 24, 2015 Administered Influenza (36 months & up) (VFC) IM Jul 28, 2013 Administered SOCIAL HISTORY Sex Assigned At : Social History Observation Description Sex Assigned At Unknown Education: Question Answer Notes Level of Education: Finished High School Language: Question Answer Notes Languages spoken: Occitan Alevism: Question Answer Notes Alevism 08 Anglican REASON FOR REFERRAL No Information VITAL SIGNS No information MEDICATIONS Medication SIG (Take, Route, Frequency, Duration) Notes Start Da te End Date Status BuPROPion HCl ER (XL) 150 MG TAKE ONE TABLET BY MOUTH EVERY MORNING FOR 15 DAYS Oral for 15 Not-Taking 27-1 MG 1 tablet Orally Once a day Active Albuterol Sulfate 108 (90 Base) MCG/ACT 1 puff as needed Inh alation every 4 hrs Active Vitamin D3 125 MCG (5000 UT) TAKE ONE CAPSULE BY MOUTH EVERY DAY DIRECTED Oral Active PROCEDURES No Information RESULTS No Results REASON FOR VISIT sore throat/painful to swallow MEDICAL (GENERAL) HISTORY Type Description Date Medical History SEASONAL ALLERGIES/ALLERGIC RHINITIS Medical History URINARY URGENCY Medical History FREQ UTIS Medical History HX ADHD Medical History ACID REFLUX Medical History ASTHMA Medical History MDD Surgical History No know Surgical history Hospitalization History CHILD Goals Section No Information Health Concerns No Information MEDICAL EQUIPMENT No Information MENTAL STATUS No Information FUNCTIONAL STATUS No Information ASSESSMENTS No Information PLAN OF TREATMENT Next Appt Details Provider Name:Frances Escalante, 2020-08-24 03:40:00 PM, [address] [place] [address], [phone], Provider Name:Mónica Quinn, 07-07 02:30:00 PM, [address] [place], [address], Insurance Providers Payer Name Payer Address Payer Phone Insured Name Patient Relati onship to Insured Coverage Start Date Coverage End Date [facility] [address] [facility] [phone] DANA ALARCON self
--- OUTSIDE RECORDS SUMMARY | 2020-08-03 10:21 | CCD | Continuity of Care Document ---
Author Author Renee PAN Organization Unknown Address [address] [place] [address] Phone [phone] Problems Description No Information Available Social History [...] every 12 hour x 3 days 6tabs [place] F. Georgette, M.D. 11/25/19 20 - 2020 Immunizations CPT Code Status Date Vaccine Lot # [id number] Given 03/19/2019 Tdap (Boostrix/Adacel) Vacci ne 2E3EH [...] Result H/L Range Note Laboratory test finding 2020 In Office Inhouse Urine Test negative Laboratory test finding 11/19/2019 In Office Inhouse Wet Mount + wbcs Chlamydia GC/Trich 11/19/2019 [facility] Source: Random Void 1 Chlamydia by Myriam Negative Negative Gonococcus by Myriam Negative Negative Trich vag by Myriam Negative Negative Culture Urine 11/19/2019 [facility] Culture Urine (SEE NOTE) 2 Xray 11/19/[address] [place] [id number] [phone] US Breast Left <pending> 1 {SOURCE: Random Void 2 _CULTURE URINE_ ^$373499 ^^221921 $$797606 ^^193695 $$468848 $$615706 $$030479 $$775235 $$932295 $$665912 $$279558 $$109661 $$543699 $$004266 $$217204 $$124456 $$540767 $$665974 $$754760 $$885407 $$885841 $$474251 $$891275 $$304327 $$576379 $$823762 $$331215 ^^371914 $$556051 $$375179 $$259101 -- Continued on next page -- Patient: DORIAN Washington Order: [id number] Page 2 Culture: CULTURE URINE Status: Final -- Continued on next page -- Patient: DORIAN [place] Order: [id number] Page 2 Culture: CULTURE URINE Status: Prelim $$[id number] $$[id number] REPORTED DATE/TIME: 11/24/2019 12:06 Culture: CULTURE URINE Status: Final Isolate 1 Enterococcus faecalis Flag: A . . . . . . .7 50,000-100,000 colony forming units per mL Previous result entered on 11/22/2019 07:38 ET Microbiological testing to rule out the presence of possible pathogens is in progress. Urine Culture,Comprehensive: P1 Enterococcus faecalis Flag: A Patient: DORIAN Washington Order: [id number] Page 3 Culture: CULTURE URINE Status: Final ISOLATE 1 Enterococcus faecalis Isolate 1 Antibiotic CHARLENE Int Units ug/mL Ciprofloxacin S S . . . . . .185-9 Levofloxacin S S . . . . . .65109-9 Nitrofurantoin S S . . . . . .363-2 Penicillin S S . . . . . .6932-8 Tetracycline R R . . . . . .496-0 Vancomycin S S . . . . . .524-9 P1 Test performed by: [facility] #: [id number] [address] [place] [id number] [facility] [address] Payroll And Benefits Assistant : Fransisco James MD NPI #: Chain Splitter : 11/23/19.0620.XMT.SENT REF 11/24/19.1340.XMT.SENT REF 11/24/19.1340. .to VAL ALFONSO via fax Procedures Description No Information Available Medical Devices Description No Information Available Encounters Type Date Location Provider Dx Diagnosis Office Visit 2020 10:45a [facility] Georgiana Nation NP B37.3 Candidiasis of vulva and vagina Assessments Date Code Description Provider 2020 B37.3 Candidiasis of vulva and vagina Georgiana Nation NP 11/19/2019 R30.0 Dysuria Georgiana Nation NP 11/19/2019 N64.4 Mastodynia Georgiana Nation NP 11/19/2019 E66.9 Obesity, unspecified Georgiana echeverria NP 11/19/2019 Z30.41 Encounter for surveillance of co ntraceptive pills Georgiana Nation NP Plan of Treatment Future Appointment(s):* 06/09/2020 3:00 pm - Georgiana Nation NP at [facility] 2020 - Georgiana Nation NP* B37.3 Candidiasis of vulva and vagina* New Labs: * Affirm Vaginitis Panel, Ordered: 05/19/20 Functional Status Description No Information Available Mental Status Description No Information Available Referrals Refer to Reason for Referral Status Appt Date [facility] Nutrition Services WEIGHT GAIN Sent [address] [place] [address] [phone]
--- OUTSIDE RECORDS SUMMARY | 2020-08-03 10:21 | CCD ---
Author Author [facility] [employer] Organization [facility] [employer] Address Unknown Phone Unavailable Care Team Providers Care Block Press Operator Name Role Phone Mónica Quinn Unavailable PROBLEMS Type Condition ICD9-CM Code [id number] Code Onset Dates Condition S tatus SNOMED Code Notes Problem Vitamin D deficiency E55.9 Active 39741401 Problem Morbid (severe) obesity due to excess calories E66 .01 Active 055856791 Problem Body mass index [BMI] 45.0-49.9, adult Z68.42 A ctive 694089069 Problem KEVIN (generalized anxiety disorder) F41.1 Activ e 80109285 Problem Major depressive disorder F32.9 Active 907297 000 ALLERGIES No Known Allergies ENCOUNTERS from 1999 to 2020-06-30 Encounter Location Date Provider Diagnosis [address] [address] Jun, Mónica uQinn IMMUNIZATIONS Vaccine Route Administration Date Status Influenza (36 months & up) (VFC) IM Intramuscular Mar 24, 2015 Administered Influenza (36 months & up) (VFC) IM Jul 28, 2013 Administered SOCIAL HISTORY Sex Assigned At : Social History Observation Description Sex Assigned At Unknown Education: Question Answer Notes Level of Education: Finished High School Language: Question Answer Notes Languages spoken: Albanian Scientologist: Question Answer Notes Scientologist 08 Synagogue Sexual Hx: Question Answer Notes Had sex [...] Information RESULTS No Results REASON FOR VISIT 2014 form MEDICAL (GENERAL) HISTORY Type Description Date Medical [...] day(s) Jun, Next Appt Details Provider Name:Mónica Packerlavern, 2020-0 07-06 10:45:00 AM, [address] [place] [address], [phone], Insurance Providers Payer Name Payer Address Payer Phone Insured Name Patient Relati onship to Insured Coverage Start Date Coverage End Date [facility] [place] [address] [facility] [phone] DANA ALARCON self
--- OUTSIDE RECORDS SUMMARY | 2020-08-03 10:21 | CCD | Continuity of Care Document ---
Author Author Renee PAN Organization Unknown Address [address] [place] [address] Phone [phone] Problems Active Problems Provider Date Obesity Georgiana [...] CPT Code Status Date Vaccine Lot # [id number] Given 03/19/2019 Tdap (Boostrix/Adacel) Vacci ne 2E3EH [...] Date Facility Test Result H/L Range Note Chlamydia GC/Am 06/09/2020 [facility] Source: Genital 1 Chlamydia trachomatis,Myriam Negative Negative Neisseria gonorrhoeae,Myriam Negative Negative Affirm Vaginitis Panel 2020 [facility] Z#Other Observations <pending> Bacterial Vaginosis 2020 [facility] Source: Genital 2 Aileen species Negative Negative Gardnerella vaginalis Negative Negative Trichomonas vaginalis Negative Negative Cuture Urine 2020 [facility] Culture Urine (SEE NOTE) 3, 4 Laboratory test finding 2020 In Office Inhouse Urine Test negative 1 {SOURCE: Genital~.~.~<DG1.3 .1>Z01.419</DG1.3.1><DG1.3.1>Z01.419</DG1.3.1> 2 {SOURCE: Genital 3 {SPECIMEN TYPE: RANDOM~.~.~ R31.9 4 _CULTURE URINE_ ^$205524 ^^605828 $$393297 ^^676324 $$953311 $$442989 $$090910 $$081691 $$576749 $$040947 $$324264 $$067063 $$585059 $$981567 $$271999 $$409630 $$959858 $$190815 $$557764 $$043074 $$032206 $$876856 $$849604 $$507927 $$236097 $$591401 $$202981 ^^615877 $$939565 $$935278 $$313473 -- Continued on next page -- Patient: DORIAN Washington Order: [id number] Page 2 Culture: CULTURE URINE Status: Final $$[id number] $$762443 REPORTED DATE/TIME: 05/22/2020 07:05 Culture: CULTURE URINE Status: Final Urine Culture,Comprehensive: P1 Mixed urogenital jeff 10,000-25,000 colony forming units per m L P1 Test performed by: [facility] #: [id number] [address] [place] [id number] [facility] [address] School Child Care Attendant : Fransisco James MD NPI #: Vest Tailor : 05/22/20.0726.XMT.SENT REF 05/22/20.0726. .to VAL ALFONSO via fax Procedures Description No Information Available Medical Devices Description No Information Available Encounters Description No Information Available Assessments Date Code Description Provider 06/09/2020 Z01.419 Encounter for gyneco logical examination (general) (routine) without abnormal findings Georgiana Nation NP 06/09/2020 Z30.41 Encounter for surveillance of co ntraceptive pills Georgiana Nation NP 2020 B37.3 Candidiasis of vulva and vagina Georgiana Nation NP Plan of Treatment No Information Available Functional Status Description No Information Available Mental Status Description No Information Available Referrals Description No Information Available
--- OUTSIDE RECORDS SUMMARY | 2020-08-03 10:21 | CCD ---
Author Author [facility] [employer] Organization [facility] [employer] Address Unknown Phone Unavailable Care Team Providers Care Eap Clinician Name Role Phone KareemSilvioShe Unavailable PROBLEMS Type Condition ICD9-CM Code MVI31-WP Code Onset Dates Condition S tatus W/U Status Risk SNOMED Code Notes Problem Body mass index [BMI] 45.0-49.9, adult Z68.42 A ctive confirmed 629993297 Problem Vitamin D deficiency E55.9 Active confirmed 65900445 Problem Obesity complicating in first trimester O99.211 Active confirmed Problem Supervision of other normal Z34.80 Ac tive confirm 072979988 Problem Morbid (severe) obesity due to excess calories E66 .01 Active confirmed 617236551 Problem KEVIN (generalized anxiety disorder) F41.1 Activ e confirmed 06515988 Problem Major depressive disorder F32.9 Active confirmed 234439968 Problem Hyperlipidemia E78.5 Active confirmed 50366 004 ALLERGIES No Known Allergies ENCOUNTERS from 1999 to 2020-07-30 Encounter Location Date Provider Diagnosis [facility] [address] [place] [phone] 16 Jul, 2020 She Serna 7 weeks gestation of Z3A.01 and Obesity complicating in first trimester O99.211 IMMUNIZATIONS Vaccine Route Administration Date Status Influenza 36 months & up VFC IM Intramuscular Mar 24, 2015 Ad ministered Influenza 36 months & up VFC IM Jul 28, 2013 Adm inistered SOCIAL HISTORY Sex Assigned At : Social History Observation Description Sex Assigned At Unknown Education: Question Answer Notes Level of Education: Finished High School Language: Question Answer Notes Languages spoken: Israeli Church: Question Answer Notes Church 08 [employer] REASON FOR REFERRAL No Information VITAL SIGNS Weight 289.8 lbs Jul, Weight-kg 131.45 kg Jul, Height 64 in Jul, BMI 49.744 kg/m2 Jul, Blood pressure systolic 124 mm Hg Jul, Blood pressure diastolic 76 mm Hg Jul, MEDICATIONS Medication SIG (Take, Route, Frequency, Duration) [...] DIRECTED Oral Active PROCEDURES No Information RESULTS REASON FOR VISIT 1ST PN MEDICAL (GENERAL) HISTORY Type Description Date Medical [...] Notes Treatment Notes Treatm ent Clinical Notes Jul, 7 weeks gestation of (ICD-10 - Z3A.01) Jul, Obesity complicating pregnan cy in first trimester (ICD-10 - O99.211) PLAN OF TREATMENT Next Appt Details 4 Weeks Reason:return ob Provider Name:Frances Escalante, 2020-08-24 03:40:00 PM, [address] [place], [address], Provider Name:Mónica Quinn, 07-07 02:30:00 PM, [facility] [place], [address], Follow Up:4 Weeksreturn ob Insurance Providers Payer Name Payer Address Payer Phone Insured Name Patient Relati onship to Insured Coverage Start Date Coverage End Date [facility] [address] [facility] [phone] DANA ALARCON self
--- OUTSIDE RECORDS SUMMARY | 2020-08-03 10:21 | CCD ---
Author Author [employer] Organization [employer] Address Unknown Phone Unavailable Care Team Providers Care Shop Director Name Role Phone Mónica Quinn Unavailable PROBLEMS Type Condition ICD9-CM Code [id number] Code Onset Dates Condition S tatus W/U Status Risk SNOMED Code Notes Problem Major depressive disorder F32.9 Active confirmed 679808441 Problem Hyperlipidemia E78.5 Active confirmed 63076 004 Problem Vitamin D deficiency E55.9 Active confirmed 35212662 Problem Morbid (severe) obesity due to excess calories E66 .01 Active confirmed 216323557 Problem Body mass index [BMI] 45.0-49.9, adult Z68.42 A ctive confirmed 086389923 Problem KEVIN (generalized anxiety disorder) F41.1 Activ e confirmed 45289967 ALLERGIES No Known Allergies ENCOUNTERS from 1999 to 2020-07-11 Encounter Location Date Provider Diagnosis [address] [address] Jun, Mónica Quinn Vitamin D deficiency E55.9 ; Hyperlipide frantz E78.5 and First trimester Z34.91 IMMUNIZATIONS Vaccine Route Administration Date Status Influenza (36 months & up) (VFC) IM Intramuscular Mar 24, 2015 Administered Influenza (36 months & up) (VFC) IM Jul 28, 2013 Administered SOCIAL HISTORY Sex Assigned At : Social History Observation Description Sex Assigned At Unknown Education: Question Answer Notes Level of Education: Finished High School Language: Question Answer Notes Languages spoken: Irish Denominational: Question Answer Notes Denominational 08 Evangelical Sexual Hx: Question Answer Notes Had sex in the last 12 months (vaginal, oral, or anal)? Yes LMP: 05/2020 with Men only Alcohol Screening: Question Answer Notes Did you have a drink containing alcohol in the past year? No Points 0 Interpretation Negative REASON FOR REFERRAL No Information VITAL SIGNS Weight 294.6 lbs Jun, Height 64 in Jun, BMI 50.56 kg/m2 Jun, Heart Rate 96 /min Jun, Respiratory Rate 18 /min Jun, Temperature 97.6 degrees Fahrenheit Jun, Oximetry 99% Jun, Blood pressure systolic 118 mm Hg Jun, Blood pressure diastolic 77 mm Hg Jun, MEDICATIONS Medication SIG (Take, [...] Information RESULTS No Results REASON FOR VISIT 2WEEK F/U MEDICAL (GENERAL) HISTORY Type Description Date Medical [...] Treatment Notes Treatm ent Clinical Notes Jun, Vitamin D deficiency (ICD-10 - E55.9) 06/2020 14 Jun, Hyperlipidemia (ICD-10 - E78.5) continue diet/lifestyle modification 06/2020 138, 47, 118 Jun, First trimester (ICD-10 - Z34.91) 06/2020 HCG qualitative: positive continue vitamin And Vitamin D advised caution on Bupropion/Trazodone. PLAN OF TREATMENT Medication Medication Name Sig Start Date Stop Date Vitamin D3 125 MCG (5000 UT) TAKE ONE CAPSULE BY MOUTH EVERY DAY DIRECTED Oral Treatment Notes Assessment Notes Clinical Notes Vitamin D deficiency 06/2020 14 Hyperlipidemia continue diet/lifest yle modification06/2020 138, 47, 118 First trimester 06/2020 HCG kevyn litative: positivecontinue vitamin And Vitamin Dadvised caution on Bupropion/Trazodone. Next Appt Details 1 Year Reason: Provider Name:She Serna, 2020-07-26 11:00:00 AM, [address] [place], [address], Provider Name:Mónica Quinn, 07-07 02:30:00 PM, [address] [place], [address], Insurance Providers Payer Name Payer Address Payer Phone Insured Name Patient Relati onship to Insured Coverage Start Date Coverage End Date [facility] [address] [facility] [address] DANA ALARCON self
--- OUTSIDE RECORDS SUMMARY | 2020-08-03 10:23 | CCD ---
Author Author [facility] Organization [facility] Address Unknown Phone Unavailable Care Team Providers Care Owner Spa Director Name Role Phone ENAL SR, KARLEY WAN MD Unavailable Unavailable NEAL SR, KARLEY WAN MD Unavailable Unavailable NEAL SR, KARLEY WAN MD Unavailable Unavailable NEAL SR, KARLEY WAN MD Unavailable Unavailable NEAL SR, KARLEY WAN MD Unavailable Unavailable NEAL SR, KARLEY WAN MD Unavailable Unavailable NEAL SR, KARLEY WAN MD Unavailable Unavailable NEAL SR, KARLEY WAN MD Unavailable Unavailable NEAL SR, KARLEY WAN MD Unavailable Unavailable NEAL SR, KARLEY WAN MD Unavailable Unavailable NEAL SR, KARLEY WAN MD Unavailable Unavailable NEAL SR, KARLEY WAN MD Unavailable Unavailable NEAL SR, KARLEY WAN MD Unavailable Unavailable NEAL SR, KARLEY WAN MD Unavailable Unavailable NEAL SR, KARLEY WAN MD Unavailable Unavailable NEAL SR, KARLEY WAN MD Unavailable Unavailable NEAL SR, KARLEY WAN MD Unavailable Unavailable NEAL SR, KARLEY WAN MD Unavailable Unavailable NEAL SR, KARLEY WAN MD Unavailable Unavailable NEAL SR, KARLEY WAN MD Unavailable Unavailable NEAL SR, KARLEY WAN MD Unavailable Unavailable NEAL SR, KARLEY WAN MD Unavailable Unavailable NEAL SR, KARLEY WAN MD Unavailable Unavailable NEAL SR, KARLEY WAN MD Unavailable Unavailable NEAL SR, KARLEY WAN MD Unavailable Unavailable NEAL SR, KARLEY WAN MD Unavailable Unavailable NEAL SR, KARLEY WAN MD Unavailable Unavailable NEAL SR, KARLEY WAN MD Unavailable Unavailable NEAL SR, KARLEY WAN MD Unavailable Unavailable NEAL SR, KARLEY WAN MD Unavailable Unavailable NEAL SR, KARLEY WAN MD Unavailable Unavailable NEAL SR, KARLEY WAN MD Unavailable Unavailable NEAL SR, KARLEY WAN MD Unavailable Unavailable NEAL SR, KARLEY WAN MD Unavailable Unavailable NEAL SR, KARLEY WAN MD Unavailable Unavailable NEAL SR, KARLEY WAN MD Unavailable Unavailable NEAL SR, KARLEY WAN MD Unavailable Unavailable NEAL SR, KARLEY WAN MD Unavailable Unavailable NEAL SR, KARLEY WAN MD Unavailable Unavailable NEAL SR, KARLEY WAN MD Unavailable Unavailable NEAL SR, KARLEY WAN MD Unavailable Unavailable NEAL SR, KARLEY WAN MD Unavailable Unavailable NEAL SR, KARLEY WAN MD Unavailable Unavailable NEAL SR, KARLEY WAN MD Unavailable Unavailable NEAL SR, KARLEY WAN MD Unavailable Unavailable NEAL SR, KARLEY WAN MD Unavailable Unavailable NEAL SR, KARLEY WAN MD Unavailable Unavailable NEAL SR, KARLEY WAN MD Unavailable Unavailable NEAL SR, KARLEY WAN MD Unavailable Unavailable NEAL SR, KARLEY WAN MD Unavailable Unavailable NEAL SR, KARLEY WAN MD Unavailable Unavailable NEAL SR, KARLEY WAN MD Unavailable Unavailable NEAL SR, KARLEY WAN MD Unavailable Unavailable NEAL SR, KARLEY WAN MD Unavailable Unavailable HOBBS, W MARIELA PA Unavailable Unavailable HOBBS, W MARIELA PA Unavailable Unavailable HOBBS, W MARIELA PA Unavailable Unavailable HOBBS, W MARIELA PA Unavailable Unavailable HOBBS, W MARIELA PA Unavailable Unavailable HOBBS, W MARIELA PA Unavailable Unavailable HOBBS, W MARIELA PA Unavailable Unavailable HOBBS, W MARIELA PA Unavailable Unavailable HOBBS, W MARIELA PA Unavailable Unavailable HOBBS, W MARIELA PA Unavailable Unavailable HOBBS, W MARIELA PA Unavailable Unavailable HOBBS, W MARIELA PA Unavailable Unavailable HOBBS, W MARIELA PA Unavailable Unavailable HOBBS, W MARIELA PA Unavailable Unavailable KAMLA, CECE MARIA EUGENIA PA Unavailable Unavailable KAMLA, CECE MARIA EUGENIA PA Unavailable Unavailable KAMLA, CECE MARIA EUGENIA PA Unavailable Unavailable KAMLA, CECE MARIA EUGENIA PA Unavailable Unavailable KAMLA, CECE MARIA EUGENIA PA Unavailable Unavailable KAMLA, CECE MARIA EUGENIA PA Unavailable Unavailable KAMLA, CECE MARIA EUGENIA PA Unavailable Unavailable KAMLA, CECE MARIA EUGENIA PA Unavailable Unavailable KAMLA, CECE MARIA EUGENIA PA Unavailable Unavailable KAMLA, CECE MARIA EUGENIA PA Unavailable Unavailable KAMLA, CECE MARIA EUGENIA PA Unavailable Unavailable KAMLA, CECE MARIA EUGENIA PA Unavailable Unavailable KAMLA, CECE MARIA EUGENIA PA Unavailable Unavailable KAMLA, CECE MARIA EUGENIA PA Unavailable Unavailable KAMLA, CECE MARIA EUGENIA PA Unavailable Unavailable KAMLA, CECE MARIA EUGENIA PA Unavailable Unavailable KAMLA, CECE MARIA EUGENIA PA Unavailable Unavailable KAMLA, CECE MARIA EUGENIA PA Unavailable Unavailable KAMLA, CECE MARIA EUGENIA PA Unavailable Unavailable KAMLA, CECE MARIA EUGENIA PA Unavailable Unavailable KAMLA, CECE MARIA EUGENIA PA Unavailable Unavailable KAMLA, CECE MARIA EUGENIA PA Unavailable Unavailable ANEL GAMEZ Unavailable Unavailable MIKAYLA SHIRLEY MD Unavailable Unavailable MIKAYLA SHIRLEY MD Unavailable Unavailable MIKAYLA SHIRLEY MD Unavailable Unavailable MIKAYLA SHIRLEY MD Unavailable Unavailable MIKAYLA SHIRLEY MD Unavailable Unavailable MIKAYLA SHIRLEY MD Unavailable Unavailable MIKAYLA SHIRLEY MD Unavailable Unavailable MIKAYLA SHIRLEY MD Unavailable Unavailable MIKAYLA SHIRLEY MD Unavailable Unavailable MIKAYLA SHIRLEY MD Unavailable Unavailable MIKAYLA SHIRLEY MD Unavailable Unavailable MIKAYLA SHIRLEY MD Unavailable Unavailable MIKAYLA SHIRLEY MD Unavailable Unavailable MIKAYLA SHIRLEY MD Unavailable Unavailable MIKAYLA SHIRLEY MD Unavailable Unavailable MIKAYLA SHIRLEY MD Unavailable Unavailable MIKAYLA SHIRLEY MD Unavailable Unavailable MIKAYLA SHIRLEY MD Unavailable Unavailable MIKAYLA SHIRLEY MD Unavailable Unavailable MIKAYLA SHIRLEY MD Unavailable Unavailable MIKAYLA SHIRLEY MD Unavailable Unavailable MIKAYLA SHIRLEY MD Unavailable Unavailable MIKAYLA SHIRLEY MD Unavailable Unavailable MIKAYLA SHIRLEY MD Unavailable Unavailable MIKAYLA SHIRLEY MD Unavailable Unavailable MIKAYLA SHIRLEY MD Unavailable Unavailable MIKAYLA SHIRLEY MD Unavailable Unavailable MIKAYLA SHIRLEY MD Unavailable Unavailable MIKAYLA SHIRLEY MD Unavailable Unavailable MIKAYLA SHIRLEY MD Unavailable Unavailable MIKAYLA SHIRLEY MD Unavailable Unavailable MIKAYLA SHIRLEY MD Unavailable Unavailable MIKAYLA SHIRLEY MD Unavailable Unavailable MIKAYLA SHIRLEY MD Unavailable Unavailable MIKAYLA SHIRLEY MD Unavailable Unavailable MIKAYLA SHIRLEY MD Unavailable Unavailable MIKAYLA SHIRLEY MD Unavailable Unavailable FERN, MIKAYLA LAWRENCE MD Unavailable Unavailable FERN, MIKAYLA LAWRENCE MD Unavailable Unavailable FERN, MIKAYLA LAWRENCE MD Unavailable Unavailable NEAL SR, KARLEY WAN MD Unavailable Unavailable NEAL SR, KARLEY WAN MD Unavailable Unavailable NEAL SR, KARLEY WAN MD Unavailable Unavailable NEAL SR, KARLEY WAN MD Unavailable Unavailable NEAL SR, KARLEY WAN MD Unavailable Unavailable NEAL SR, KARLEY WAN MD Unavailable Unavailable NEAL SR, KARLEY WAN MD Unavailable Unavailable NEAL SR, KARLEY WAN MD Unavailable Unavailable NEAL SR, KARLEY WAN MD Unavailable Unavailable NEAL SR, KARLEY WAN MD Unavailable Unavailable NEAL SR, KARLEY WAN MD Unavailable Unavailable NEAL SR, KARLEY WAN MD Unavailable Unavailable NEAL SR, KARLEY WAN MD Unavailable Unavailable NEAL SR, KARLEY WAN MD Unavailable Unavailable NEAL SR, KARLEY WAN MD Unavailable Unavailable NEAL SR, KARLEY WAN MD Unavailable Unavailable NEAL SR, KARLEY WAN MD Unavailable Unavailable NEAL SR, KARLEY WAN MD Unavailable Unavailable NEAL SR, KARLEY WAN MD Unavailable Unavailable NEAL SR, KARLEY WAN MD Unavailable Unavailable NEAL SR, KARLEY WAN MD Unavailable Unavailable NEAL SR, KARLEY WAN MD Unavailable Unavailable NEAL SR, KARLEY WAN MD Unavailable Unavailable NEAL SR, KARLEY WAN MD Unavailable Unavailable NEAL SR, KARLEY WAN MD Unavailable Unavailable NEAL SR, KARLEY WAN MD Unavailable Unavailable NEAL SR, KARLEY WAN MD Unavailable Unavailable NEAL SR, KARLEY WAN MD Unavailable Unavailable NEAL SR, KARLEY WAN MD Unavailable Unavailable NEAL SR, KARLEY WAN MD Unavailable Unavailable NEAL SR, KARLEY WAN MD Unavailable Unavailable NEAL SR, KARLEY WAN MD Unavailable Unavailable NEAL SR, KARLEY WAN MD Unavailable Unavailable NEAL SR, KARLEY WAN MD Unavailable Unavailable NEAL SR, KARLEY WAN MD Unavailable Unavailable NEAL SR, KARLEY WAN MD Unavailable Unavailable NEAL SR, KARLEY WAN MD Unavailable Unavailable NEAL SR, KARLEY WAN MD Unavailable Unavailable NEAL SR, KARLEY WAN MD Unavailable Unavailable NEAL SR, KARLEY WAN MD Unavailable Unavailable NEAL SR, KARLEY WAN MD Unavailable Unavailable NEAL SR, KARLEY WAN MD Unavailable Unavailable NEAL SR, KARLEY WAN MD Unavailable Unavailable NEAL SR, KARLEY WAN MD Unavailable Unavailable NEAL SR, KARLEY WAN MD Unavailable Unavailable NEAL SR, KARLEY WAN MD Unavailable Unavailable NEAL SR, KARLEY WAN MD Unavailable Unavailable NEAL SR, KARLEY WAN MD Unavailable Unavailable NEAL SR, KARLEY WAN MD Unavailable Unavailable NEAL SR, KARLEY WAN MD Unavailable Unavailable NEAL SR, KARLEY WAN MD Unavailable Unavailable NEAL SR, KARLEY WAN MD Unavailable Unavailable NEAL SR, KARLEY WAN MD Unavailable Unavailable NEAL SR, KARLEY WAN MD Unavailable Unavailable BROOKLYN, F VANESSA Unavailable Unavailable BROOKLYN, F VANESSA Unavailable Unavailable BROOKLYN, F VANESSA MD Unavailable Unavailable BROOKLYN, F VANESSA MD Unavailable Unavailable BROOKLYN, F VANESSA MD Unavailable Unavailable BROOKLYN, F VANESSA MD Unavailable Unavailable BROOKLYN, F VANESSA MD Unavailable Unavailable BROOKLYN, F VANESSA MD Unavailable Unavailable BROOKLYN, F VANESSA MD Unavailable Unavailable BROOKLYN, F VANESSA MD Unavailable Unavailable BROOKLYN, F VANESSA MD Unavailable Unavailable BROOKLYN, F VANESSA MD Unavailable Unavailable BROOKLYN, F VANESSA MD Unavailable Unavailable BROOKLYN, F VANESSA MD Unavailable Unavailable BROOKLYN, F VANESSA MD Unavailable Unavailable BROOKLYN, F VANESSA MD Unavailable Unavailable BROOKLYN, F VANESSA MD Unavailable Unavailable BROOKLYN, F VANESSA MD Unavailable Unavailable BROOKLYN, F VANESSA MD Unavailable Unavailable BROOKLYN, F VANESSA MD Unavailable Unavailable BROOKLYN, F VANESSA Unavailable Unavailable BROOKLYN, F VANESSA MD Unavailable Unavailable BROOKLYN, F VANESSA Unavailable Unavailable BROOKLYN, F VANESSA Unavailable Unavailable BROOKLYN, F VANESSA Unavailable Unavailable BROOKLYN, F VANESSA MD Unavailable Unavailable BROOKLYN, F VANESSA Unavailable Unavailable BROOKLYN, F VANESSA Unavailable Unavailable DANIEL CHAPA MD Unavailable Unavailable DANIEL CHAPA MD Unavailable Unavailable DANIEL CHAPA MD Unavailable Unavailable DANIEL CHAPA MD Unavailable Unavailable DANIEL CHAPA MD Unavailable Unavailable DANIEL CHAPA MD Unavailable Unavailable DANIEL CHAPA MD Unavailable Unavailable DANIEL CHAPA MD Unavailable Unavailable DANIEL CHAPA MD Unavailable Unavailable DANIEL CHAPA MD Unavailable Unavailable MARGO GUPTA Unavailable Unavailable Shanta RIVERA Unavailable [phone] Shanta RIVERA Unavailable [phone] Shanta RIVERA Unavailable [phone] Shanta RIVERA Unavailable [phone] Shanta RIVERA Unavailable [phone] Husam Bal DO Unavailable Unavailable JepmaHusam DO Unavailable Unavailable Jepma, W Nino DO Unavailable Unavailable Jepma, W Nino DO Unavailable Unavailable Jepma, W Nino DO Unavailable Unavailable Jepma, W Nino DO Unavailable Unavailable Jepma, W Nino DO Unavailable Unavailable Jepma, W Nino DO Unavailable Unavailable Jepma, W Nino DO Unavailable Unavailable Jepma, W Nino DO Unavailable Unavailable Jepma, W Nino DO Unavailable Unavailable Jepma, W Nino DO Unavailable Unavailable Jepma, W Nino DO Unavailable Unavailable Jepma, W Nino DO Unavailable Unavailable Jepma, W Nino DO Unavailable Unavailable Jepma, W Nino DO Unavailable Unavailable Jepma, W Nino DO Unavailable Unavailable Jepma, W Nino DO Unavailable Unavailable Jepma, W Nino DO Unavailable Unavailable Jepma, W Nino DO Unavailable Unavailable Jepma, W Nino DO Unavailable Unavailable Jepma, W Nino DO Unavailable Unavailable Jepma, W Nino DO Unavailable Unavailable Jepma, W Nino DO Unavailable Unavailable Jepma, W Nino DO Unavailable Unavailable Jepma, W Nino DO Unavailable Unavailable Jepma, W Nino DO Unavailable Unavailable Jepma, W Nino DO Unavailable Unavailable Jepma, W Nino DO Unavailable Unavailable Jepma, W Nino DO Unavailable Unavailable Jepma, W Nino DO Unavailable Unavailable Jepma, W Nino DO Unavailable Unavailable Jepma, W Nino DO Unavailable Unavailable Jepma, W Nino DO Unavailable Unavailable Jepma, W Nino DO Unavailable Unavailable Jepma, W Nino DO Unavailable Unavailable Jepma, W Nino DO Unavailable Unavailable Jepma, W Nino DO Unavailable Unavailable Jepma, W Nino DO Unavailable Unavailable Jepma, W Nino DO Unavailable Unavailable Jepma, W Nino DO Unavailable Unavailable Jepma, W Nino DO Unavailable Unavailable Jepma, W Nino DO Unavailable Unavailable Jepma, W Nino DO Unavailable Unavailable Jepma, W Nino DO Unavailable Unavailable Jepma, W Nino DO Unavailable Unavailable Jepma, W Nino DO Unavailable Unavailable Jepma, W Nino DO Unavailable Unavailable Jepma, W Nino DO Unavailable Unavailable Jepma, W Nino DO Unavailable Unavailable Jepma, W Nino DO Unavailable Unavailable Jepma, W Nino DO Unavailable Unavailable Jepma, W Nino DO Unavailable Unavailable Jepma, W Nino DO Unavailable Unavailable Jepma, W Nino DO Unavailable Unavailable Jepma, W Nino DO Unavailable Unavailable Jepma, W Nino DO Unavailable Unavailable Jepma, W Nino DO Unavailable Unavailable Jepma, Husam Oneill DO Unavailable Unavailable CONTRERAS, KITTY EULALIA QUALITY COMPLIANCE COORDINATOR Unavailable Unavailable CONTRERAS, KITTY EULALIA QUALITY COMPLIANCE COORDINATOR Unavailable Unavailable CONTRERAS, KITTY EULALIA QUALITY COMPLIANCE COORDINATOR Unavailable Unavailable CONTRERAS, KITTY EULALIA QUALITY COMPLIANCE COORDINATOR Unavailable Unavailable CONTRERAS, KITTY EULALIA QUALITY COMPLIANCE COORDINATOR Unavailable Unavailable CONTRERAS, KITTY EULALIA QUALITY COMPLIANCE COORDINATOR Unavailable Unavailable CONTRERAS, KITTY EULALIA QUALITY COMPLIANCE COORDINATOR Unavailable Unavailable CONTRERAS, KITTY UELALIA QUALITY COMPLIANCE COORDINATOR Unavailable Unavailable CONTRERAS, KITTY EULALIA QUALITY COMPLIANCE COORDINATOR Unavailable Unavailable CONTRERAS, KITTY EULALIA QUALITY COMPLIANCE COORDINATOR Unavailable Unavailable CONTREARS, KITTY EULALIA QUALITY COMPLIANCE COORDINATOR Unavailable Unavailable CONTRERAS, KITTY EULALIA QUALITY COMPLIANCE COORDINATOR Unavailable Unavailable CONTRERAS, KITTY EULALIA QUALITY COMPLIANCE COORDINATOR Unavailable Unavailable CONTRERAS, KITTY EULALIA QUALITY COMPLIANCE COORDINATOR Unavailable Unavailable CONTRERAS, KITTY EULALIA QUALITY COMPLIANCE COORDINATOR Unavailable Unavailable CONTRERAS, KITTY EULALIA QUALITY COMPLIANCE COORDINATOR Unavailable Unavailable CONTRERAS, KITTY EULALIA QUALITY COMPLIANCE COORDINATOR Unavailable Unavailable CONTRERAS, KITTY EULALIA QUALITY COMPLIANCE COORDINATOR Unavailable Unavailable CONTRERAS, KITTY EULALIA QUALITY COMPLIANCE COORDINATOR Unavailable Unavailable CONTRERAS, KITTY EULALIA QUALITY COMPLIANCE COORDINATOR Unavailable Unavailable CONTRERAS, KITTY EULALIA QUALITY COMPLIANCE COORDINATOR Unavailable Unavailable CONTRERAS, KITTY EULALIA QUALITY COMPLIANCE COORDINATOR Unavailable Unavailable CONTRERAS, KITTY EULALIA QUALITY COMPLIANCE COORDINATOR Unavailable Unavailable SYMENOW, G CHRISTOPHER PA Unavailable Unavailable SYMENOW, G CHRISTOPHER PA Unavailable Unavailable SYMENOW, G CHRISTOPHER PA Unavailable Unavailable SYMENOW, G CHRISTOPHER PA Unavailable Unavailable SYMENOW, G CHRISTOPHER PA Unavailable Unavailable SYMENOW, G CHRISTOPHER PA Unavailable Unavailable SYMENOW, G CHRISTOPHER PA Unavailable Unavailable SYMENOW, G CHRISTOPHER PA Unavailable Unavailable SYMENOW, G CHRISTOPHER PA Unavailable Unavailable SYMENOW, G CHRISTOPHER PA Unavailable Unavailable SYMENOW, G CHRISTOPHER PA Unavailable Unavailable SYMENOW, G CHRISTOPHER PA Unavailable Unavailable SYMENOW, G CHRISTOPHER PA Unavailable Unavailable SYMENOW, G CHRISTOPHER PA Unavailable Unavailable SYMENOW, G CHRISTOPHER PA Unavailable Unavailable SYMENOW, G CHRISTOPHER PA Unavailable Unavailable SYMENOW, G CHRISTOPHER PA Unavailable Unavailable CRICKET, L RAPHAEL PA Unavailable Unavailable CRICKETDimitri PA Unavailable Unavailable CRICKETDimitri PA Unavailable Unavailable CRICKETDimitri PA Unavailable Unavailable CRICKET, Dimitri LIM PA Unavailable Unavailable CRICKET, L RAPHAEL PA Unavailable Unavailable CRICKET, L RAPHAEL PA Unavailable Unavailable CRICKET, Dimitri LIM PA Unavailable Unavailable CRICKET, L RAPHAEL PA Unavailable Unavailable CRICKET, Dimitri LIM PA Unavailable Unavailable CRICKET, L RAPHAEL PA Unavailable Unavailable CRICKET, L RAPHAEL PA Unavailable Unavailable CRICKET, L RAPHAEL PA Unavailable Unavailable CRICKET, L RAPHAEL PA Unavailable Unavailable CRICKET, L RAPHAEL PA Unavailable Unavailable CRICKET, L RAPHAEL PA Unavailable Unavailable CRICKET, L RAPHAEL PA Unavailable Unavailable CRICKET, L RAPHAEL PA Unavailable Unavailable CRICKET, L RAPHAEL PA Unavailable Unavailable KRISTI CHEUNG MD Unavailable Unavailable KRISTI CHEUNG MD Unavailable Unavailable KRISTI CHEUNG MD Unavailable Unavailable KRISTI CHEUNG MD Unavailable Unavailable KRISTI CHEUNG MD Unavailable Unavailable KRISTI CHEUNG MD Unavailable Unavailable KRISTI CHEUNG MD Unavailable Unavailable KRISTI CHEUNG MD Unavailable Unavailable KRISTI CHEUNG MD Unavailable Unavailable LUCY DILLON Unavailable Unavailable Dimitri PARRA BELKIS Unavailable Unavailable CAT OREILLY Unavailable Unavailable Dille, E Judy DDS Unavailable Unavailable Dille, E Judy DDS Unavailable Unavailable Dille, E Judy DDS Unavailable Unavailable Dille, E Judy DDS Unavailable Unavailable Marin, L Marcos CNM Unavailable Unavailable Mairn, L Marcos CNM Unavailable Unavailable Marin, L Marcos CNM Unavailable Unavailable Marin, L Marcos CNM Unavailable Unavailable Marin, L Marcos CNM Unavailable Unavailable Marin, L Marcos CNM Unavailable Unavailable Marin, L Marcos CNM Unavailable Unavailable Marin, L Marcos CNM Unavailable Unavailable Marin, L Marcos CNM Unavailable Unavailable Marin, L Marcos CNM Unavailable Unavailable Marin, L Marcos CNM Unavailable Unavailable Marin, L Marcos CNM Unavailable Unavailable Marin, L Marcos CNM Unavailable Unavailable Marin, L Marcos CNM Unavailable Unavailable Marin, L Marcos CNM Unavailable Unavailable Marin, L Marcos CNM Unavailable Unavailable Marin, L Marcos CNM Unavailable Unavailable Marin, L Marcos CNM Unavailable Unavailable Marin, L Marcos CNM Unavailable Unavailable Marin, L Marcos CNM Unavailable Unavailable Marin, L Marcos CNM Unavailable Unavailable Marin, L Marcos CNM Unavailable Unavailable Marin, L Marcos CNM Unavailable Unavailable Marin, L Marcos CNM Unavailable Unavailable Marin, L Marcos CNM Unavailable Unavailable Marin, L Marcos CNM Unavailable Unavailable Marin, L Marcos CNM Unavailable Unavailable Marin, L Marcos CNM Unavailable Unavailable Glenda HARRISON DO Unavailable Unavailable JEREMYIZEGlenda SHIRLEYON DO Unavailable Unavailable HUIZENGAGlendaON DO Unavailable Unavailable HUIZENGAGlenda NICO DO Unavailable Unavailable HUIZENGAGlenda NICO DO Unavailable Unavailable HUIZENGA, Glenda WALSH DO Unavailable Unavailable HUIZENGA, Glenda WALSH DO Unavailable Unavailable HUIZENGA, Glenda WALSH DO Unavailable Unavailable HUIZENGA, Glenda WALSH DO Unavailable Unavailable HUIZENGA, Glenda WALSH DO Unavailable Unavailable HUIZENGA, Glenda WALSH DO Unavailable Unavailable HUIZENGA, Glenda WALSH DO Unavailable Unavailable HUIZENGA, Glenda WALSH DO Unavailable Unavailable HUIZENGA, Glenda WALSH DO Unavailable Unavailable HUIZENGA, Glenda WALSH DO Unavailable Unavailable HUIZENGA, Glenda WALSH DO Unavailable Unavailable HUIZENGA, Glenda WALSH DO Unavailable Unavailable HUIZENGA, Glenda WALSH DO Unavailable Unavailable HUIZENGA, Glenda WALSH DO Unavailable Unavailable HUIZENGA, Glenda WALSH DO Unavailable Unavailable HUIZENGA, Glenda WALSH DO Unavailable Unavailable HUIZENGA, Glenda WALSH DO Unavailable Unavailable HUIZENGA, Glenda WALSH DO Unavailable Unavailable HUIZENGA, Glenda WALSH DO Unavailable Unavailable HUIZENGA, Glenda WALSH DO Unavailable Unavailable HUIZENGA, Glenda WALSH DO Unavailable Unavailable HUIZENGA, Glenda WALSH DO Unavailable Unavailable HUIZENGA, Glenda WALSH DO Unavailable Unavailable HUIZENGA, Glenda WALSH DO Unavailable Unavailable HUIZENGA, Glenda WALSH DO Unavailable Unavailable HUIZENGA, Glenda WALSH DO Unavailable Unavailable HUIZENGA, Glenda WALSH DO Unavailable Unavailable HUIZENGA, Glenda WALSH DO Unavailable Unavailable HUIZENGA, Glenda WALSH DO Unavailable Unavailable HUIZENGA, Glenda WALSH DO Unavailable Unavailable HUIZENGA, Glenda WALSH DO Unavailable Unavailable HUIZENGA, Glenda WALSH DO Unavailable Unavailable HUIZENGA, Glenda WALSH DO Unavailable Unavailable HUIZENGA, Glenda WALSH DO Unavailable Unavailable HUIZENGA, Glenda WALSH DO Unavailable Unavailable HUIZENGA, Glenda WALSH DO Unavailable Unavailable HUIZENGA, Glenda WALSH DO Unavailable Unavailable HUIZENGA, Glenda WALSH DO Unavailable Unavailable HUIZENGA, Glenda WALSH DO Unavailable Unavailable HUIZENGA, Glenda WALSH DO Unavailable Unavailable HUIZENGA, Glenda WALSH DO Unavailable Unavailable HUIZENGA, Glenda WALSH DO Unavailable Unavailable HUIZENGA, Glenda WALSH DO Unavailable Unavailable HUIZENGA, Glenda WALSH DO Unavailable Unavailable HUIZENGA, Glenda WALSH DO Unavailable Unavailable HUIZENGA, Glenda WALSH DO Unavailable Unavailable HUIZENGA, Glenda WALSH DO Unavailable Unavailable HUIZENGA, Glenda WALSH DO Unavailable Unavailable HUIZENGA, Glenda WALSH DO Unavailable Unavailable HUIZENGA, Glenda WALSH DO Unavailable Unavailable HUIZENGA, Glenda WALSH DO Unavailable Unavailable HUIZENGA, Glenda WALSH DO Unavailable Unavailable HUIZENGA, Glenda WALSH DO Unavailable Unavailable HUIZENGA, Glenda WALSH DO Unavailable Unavailable HUIZENGA, Glenda WALSH DO Unavailable Unavailable HUIZENGA, Glenda WALSH DO Unavailable Unavailable HUIZENGA, Glenda WALSH DO Unavailable Unavailable HUIZENGA, Glenda WALSH DO Unavailable Unavailable HUIZENGA, Glenda WALSH DO Unavailable Unavailable HUIZENGA, Glenda WALSH DO Unavailable Unavailable HUIZENGA, Glenda WALSH DO Unavailable Unavailable HUIZENGA, Glenda WALSH DO Unavailable Unavailable HUIZENGA, Glenda WALSH DO Unavailable Unavailable HUIZENGA, Glenda WALSH DO Unavailable Unavailable HUIZENGA, Glenda WALSH DO Unavailable Unavailable HUIZENGA, Glenda WALSH DO Unavailable Unavailable HUIZENGA, Glenda WALSH DO Unavailable Unavailable HUIZENGA, Glenda WALSH DO Unavailable Unavailable DESJARLAIS, MARGARITA QUALITY COMPLIANCE COORDINATOR Unavailable Unavailable DESJARLAIS, MARGARITA QUALITY COMPLIANCE COORDINATOR Unavailable Unavailable DESJARLAIS, MARGARITA QUALITY COMPLIANCE COORDINATOR Unavailable Unavailable DESJARLAIS, MARGARITA QUALITY COMPLIANCE COORDINATOR Unavailable Unavailable DESJARLAIS, MARGARITA QUALITY COMPLIANCE COORDINATOR Unavailable Unavailable DESJARLAIS, MARGARITA QUALITY COMPLIANCE COORDINATOR Unavailable Unavailable DESJARLAIS, MARGARITA QUALITY COMPLIANCE COORDINATOR Unavailable Unavailable DESJARLAIS, MARGARITA QUALITY COMPLIANCE COORDINATOR Unavailable Unavailable DESJARLAIS, MARGARITA QUALITY COMPLIANCE COORDINATOR Unavailable Unavailable Molly CASAS MD Unavailable Unavailable Molly CASAS MD Unavailable Unavailable Molly CASAS MD Unavailable Unavailable Molly CASAS MD Unavailable Unavailable Molly CASAS MD Unavailable Unavailable Molly CASAS MD Unavailable Unavailable Molly CASAS MD Unavailable Unavailable Molly CASAS MD Unavailable Unavailable Molly CASAS MD Unavailable Unavailable HONG, F RICHARD DO Unavailable Unavailable HONG, F RICHARD DO Unavailable Unavailable HONG, F RICHARD DO Unavailable Unavailable HONG, F RICHARD DO Unavailable Unavailable HONG, F RICHARD DO Unavailable Unavailable HONG, F RICHARD DO Unavailable Unavailable HONG, F RICHARD DO Unavailable Unavailable HONG, F RICHARD DO Unavailable Unavailable HONG, F RICHARD DO Unavailable Unavailable HONG, F RICHARD DO Unavailable Unavailable HONG, F RICHARD DO Unavailable Unavailable HONG, F RICHARD DO Unavailable Unavailable HONG, F RICHARD DO Unavailable Unavailable HONG, F RICHARD DO Unavailable Unavailable HONG, F RICHARD DO Unavailable Unavailable HONG, F RICHARD DO Unavailable Unavailable HONG, F RICHARD DO Unavailable Unavailable HONG, F RICHARD DO Unavailable Unavailable HONG, F RICHARD DO Unavailable Unavailable HONG, F RICHARD DO Unavailable Unavailable HONG, F RICHARD DO Unavailable Unavailable HONG, F RICHARD DO Unavailable Unavailable HONG, F RICHARD DO Unavailable Unavailable HONG, F RICHARD DO Unavailable Unavailable HONG, F RICHARD DO Unavailable Unavailable HONG, F RICHARD DO Unavailable Unavailable HONG, F RICHARD DO Unavailable Unavailable HONG, F RICHARD DO Unavailable Unavailable HONG, F RICHARD DO Unavailable Unavailable HONG, F RICHARD DO Unavailable Unavailable HONG, F RICHARD DO Unavailable Unavailable HONG, F RICHARD DO Unavailable Unavailable CABELLO, ANAHI Unavailable Unavailable Re-disclosure Warning The records that you are about to access may contain information from federally-assisted alcohol or drug abuse programs. If such information is present, then the following federally mandated warning applies: This information has been disclosed to you from records protected by federal confidentiality rules (42 CFR part 2). The federal rules prohibit you from making any further disclosure of this information unless further disclosure is expressly permitted by the written consent of the person to whom it pertains or as otherwise permitted by 42 CFR part 2. A general authorization for the release of medical or other information is NOT sufficient for this purpose. The Federal rules restrict any use of the information to criminally investigate or prosecute any alcohol or drug abuse patient.The records that you are about to access may contain highly sensitive health information, the redisclosure of which is protected by Article 27-F of the [place] State Public Health law. If you continue you may have access to information: Regarding HIV / AIDS; Provided by facilities licensed or operated by the [facility] Office of Mental Health; or Provided by the [facility] Office for People With Developmental Disabilities. If such information is present, then the following [facility] mandated warning applies: This information has been disclosed to you from confidential records which are protected by state law. State law prohibits you from making any further disclosure of this information without the specific written consent of the person to whom it pertains, or as otherwise permitted by law. Any unauthorized further disclosure in violation of state law may result in a fine or skilled nursing sentence or both. A general authorization for the release of medical or other information is NOT sufficient authorization for further disc losure. Allergies and Adverse Reactions Type Description Substance Reaction Status Data Source(s ) No Known Drug Allergies No Known Drug Allergies [facility] No Known Food Allergies No Known Food Allergies [facility] ENVIRONMENTAL seasonal seasonal SNEEZING [facility] seasonal seasonal seasonal Unknown Active eCW1 ([facility]) Family History Family Member Name Family Member Gender Family Member Status Date o f Status Description Data Source(s) Unknown Male Problem MEDENT ([facility]) Unknown Male Problem MEDENT ([facility] ) Encounters Encounter Providers Location Date Indications Data Source(s ) Outpatient Attender: FERNANDO GAMEZ 07/29/2020 04:00:00 PM [facility] ( [facility]) [facility] OB Visit [address] [place] [address] 07/26/2020 12:00:00 AM EST eCW1 ([facility]) Unknown [address] [facility] [place] [address] 07/25/2020 12:00:00 AM EST eCW1 ([facility]) Outpatient Attender: FERNANDO GAMEZ 07/12/2020 10:00:00 AM [facility] Unknown [address] [facility] [place] [address] 07/07/2020 12:00:00 AM EST [facility]CW1 [facility]) Outpatient Attender: MARGARITA BARNARD NP 07/06/2020 02: 00:00 PM [facility] Outpatient [address] [facility] [place] [address] 07/06/2020 12:00:00 AM EST eCW1 ([facility]) Unknown [address] [facility] [place] [address] 07/01/2020 12:00:00 AM EST eCW1 ([facility]) Unknown [address] [facility] [place] [address] 06/30/2020 12:00:00 AM EST eCW1 ([facility]) Unknown [address] [facility] [place] [address] 06/29/2020 12:00:00 AM EST eCW1 ([facility]) Outpatient Attender: FERNANDO GAMEZ 06/24/2020 08:11:00 AM [facility] Unknown [address] [facility] [place] [address] 06/24/2020 12:00:00 AM EST eCW1 ([facility]) Outpatient [address] [facility] [place] [address] 06/17/2020 12:00:00 AM EST eCW1 ([facility]) Outpatient Attender: EULALIA CONTRERAS NPConsultant: SOCO Prieto SR 06/09/2020 02:53:00 PM EST - 06/09/2020 02:53:00 PM [facility] Outpatient Attender: EULALIA CONTRERAS NP Family Practice 06/09/2020 02 :00:00 PM EST MEDENT ([facility]) Outpatient Attender: FERNANDO GAMEZ 06/08/2020 08:05:00 AM [facility] Outpatient Attender: FERNANDO GAMEZ 05/20/2020 03:00:00 PM [facility] Outpatient Attender: EULALIA CONTRERAS NPConsultant: SOCO Prieto SR 2020 10:32:00 AM EST - 2020 10:32:00 AM [facility] Outpatient Attender: EULALIA CONTRERAS NP Family Practice 2020 09 :45:00 AM EST MEDENT ([facility]) Outpatient Attender: FERNANDO GAMEZ 05/04/2020 03:00:00 PM [facility] Outpatient Attender: ANAHI CABELLO 04/25/2020 02:30:00 PM [facility] Outpatient Attender: FERNANDO GAMEZ 04/15/2020 09:10:00 AM [facility] Outpatient Attender: FERNANDO GAMEZ 04/07/2020 10:00:00 AM [facility] Outpatient Attender: ANAHI CABELLO 03/14/2020 10:30:00 AM ED [facility] Outpatient Attender: FERNANDO GAMEZ 02/25/2020 01:00:00 PM E [facility] Emergency Attender: RICHARD PITTS DOConsultant: SOCO LEONG SR 01/16/2020 09:00:00 PM EDT - 01/16/2020 11:53:00 PM EDT [facility] Patient discharged. Emergency Attender: ITALO CASAS MDConsultant: SOCO ANGELA ACE SR 01/10/2020 12:56:00 PM EDT - 01/10/2020 02:26:00 PM EDT [facility] Patient discharged. Outpatient [facility] 01/07/2020 12:00:00 AM EDT eCW1 ([facility]) Outpatient Attender: ANAHI CABELLO 01/04/2020 03:30:00 PM ED [facility] Emergency Attender: RICHARD PITTS DOConsultant: SOCO LEONG SR 01/02/2020 05:10:00 PM EDT - 01/03/2020 12:34:00 AM EDT [facility] Patient discharged. Outpatient Attender: FERNANDO GAMEZ 12/23/2019 11:00:00 AM E [facility] Outpatient Attender: ANAHI CABELLO 12/21/2019 04:30:00 PM ED [facility] Outpatient Attender: FERNANDO GAMEZ 12/01/2019 10:00:00 AM E [facility] Outpatient Attender: ANAHI CABELLO 11/23/2019 02:25:00 PM ED [facility] Outpatient Attender: EULALIA CONTRERAS Family Practice 11/19/2019 11 :00:00 AM EDT MEDENT ([facility]) Outpatient Attender: EULALIA CONTRERAS NPConsultant: SOCO Prieto SR 11/19/2019 10:35:00 AM EDT - 11/19/2019 10:35:00 AM EDT [facility] Outpatient Attender: Judy HERNANDEZ 11/17/2019 07:54:22 P M EDT [facility] Outpatient Attender: MARGO GUPTA 11/16/2019 10:00:00 AM EDT [facility] 11/16/2019 12:00:00 AM EDT eCW1 ([facility]) [facility] 10/28/2019 12:00:00 AM EDT eCW1 ([facility]) Outpatient Attender: SOCO NEAL 10/02/2019 09:29:00 AM EDT [facility] C ENTER 10/02/2019 12:00:00 AM EDT eCW1 ([facility]) [facility] 08/31/2019 12:00:00 AM EDT eCW1 ([facility]) Outpatient Attender: Marcos ARMIJOMConsultant: SOCO LEONG 08/05/2019 09:44:00 AM EST - 08/05/2019 09:44:00 AM [facility] Outpatient Attender: Marcos ARMIJO Family Practice 08/05/2019 0 9:00:00 AM [facility] Outpatient Attender: Marcos ARMIJOMConsultant: SOCO LEONG 06/04/2019 10:53:00 AM EST - 06/04/2019 10:53:00 AM [facility] Outpatient Attender: SOCO NEAL 05/29/2019 08:13:00 AM [facility] Outpatient Attender: Marcos JONESonsultant: SOCO LEONG 05/13/2019 11:04:00 AM EST - 05/13/2019 11:04:00 AM [facility] Outpatient Attender: SOCO NEAL 04/30/2019 09:26:00 AM [facility] Inpatient Attender: BELKIS PARRAConsultant: SOCO NEAL 04/22/2019 12:40:00 AM EST - 04/24/2019 01:15:00 PM [facility] Patient discharged. Outpatient Attender: VANESSA BARAHONA MDConsultant: SOCO MILLER 04/21/2019 02:38:00 PM EST - 04/21/2019 03:38:00 PM [facility] Outpatient Attender: VANESSA BARAHONA MDConsultant: SOCO MILLER 04/20/2019 02:26:00 PM EST - 04/20/2019 02:26:00 PM [facility] Outpatient Attender: SOCO NEAL 02/27/2019 10:44:00 AM [facility] Emergency Attender: SAL OREILLYReferrer: SOCO Brasher EMERGENCY ROOM-ER 12/25/2018 09:33:00 PM EDT - 12/25/2018 10:30:00 PM [facility] Outpatient Attender: MARIA EUGENIA REEVESeferrer: SOCO MILLER 08/28/2018 10:00:00 AM EDT - 08/28/2018 10:00:00 AM EDT [facility] Emergency Attender: MARIA EUGENIA CASON PAReferrer: SOCO MILLER 08/27/2018 10:35:00 PM EDT - 08/27/2018 11:19:00 PM EDT [facility] Emergency Attender: MARIA EUGENIA REEVESeferrer: SOCO MILLER 08/22/2017 03:18:00 PM EDT - 08/22/2017 04:57:00 PM EDT [facility] Emergency Attender: RAPHAEL REEVESeferrer: PEDRO NEAL EMERGENCY ROOM-ER 07/27/2017 09:35:00 AM [facility] - 07/11/2017 10:05:00 PM [facility] Emergency Attender: KRISTI RIVERAReferrer: SOCO NEAL SR EMERGENCY ROOM-ER 07/24/2017 02:04:00 PM [facility] - 07/21/2017 08:22:00 PM [facility] Emergency Attender: RAPHAEL HARLEY [place] EMERGENCY ROOM-ER 08:55:00 AM [facility] - 07/02/2017 11:29:00 PM [facility] Emergency Attender: ZOHREH PIZARRO EMERGENCY ROOM- ER 05/08/2017 11:02:00 PM [facility] - 05/06/2017 09:09:00 PM [facility] Emergency Attender: ZOHREH PIZARRO EMERGENCY ROOM- ER 03/05/2017 09:23:00 AM EDT - 03/04/2017 12:35:00 AM [facility] Emergency Attender: ZOHREH PIZARRO EMERGENCY ROOM- ER 06/29/2016 05:05:00 PM [facility] - 06/29/2016 09:10:00 PM [facility] Emergency Attender: MARIELA Hill tiff: MARIA EUGENIA REEVESeferrer: Nino aBl DO EMERGENCY ROOM-ER 02/07/2015 08:32:00 PM EDT - 02/07/2015 09:32:00 PM [facility] Emergency Attender: ZOHREH REEVESeferrer : Nino Bal DO EMERGENCY ROOM-ER 10/19/2014 08:44:00 PM EDT - 10/19/2014 10:00:00 PM [facility] Emergency Attender: ZOHREH Burnetterrer : Nino Bal DO EMERGENCY ROOM-ER 12/26/2013 12:07:00 PM EDT - 12/26/2013 01:03:00 PM [facility] Emergency Attender: ANGEL CHEUNG MD 2012 10:40:00 AM EST - 05/21/2013 11:46:00 AM [facility] Outpatient Attender: DANIEL CHAPA MD 02/26/2013 04:21:00 PM [facility] Emergency Attender: ANGEL CHEUNG MD 2012 10:32:00 AM EDT - 02/22/2013 05:40:00 PM [facility] Emergency Attender: LUCY DILLON 3 07:36:00 PM EDT - 11/08/2012 09:20:00 PM [facility] Emergency Attender: ZOHREH PIZARRO 09/05/2012 09:33:00 AM EDT - 09/05/2012 11:09:00 AM [facility] Outpatient Attender: HOWARD SHIRLEY MD 08/21/2012 03:32:00 P M [facility] Emergency Attender: ZOHREH REEVESeferrer : NICO HARRISON DO EMERGENCY ROOM-ER 06/19/2012 10:11:00 AM EST - 06/19/2012 11:00:00 AM [facility] Medications Medication Brand Name Start Date Product Form Dose Route Admi nistrative Instructions Pharmacy Instructions Status Indications Reaction Description Data Source(s) 1,250 mcg (50,000 unit) 08/02/2020 12:00:00 AM EST capsule 4 TAKE ONE CAPSULE BY MOUTH ONCE WEEKLY DIRECTED TAKE ONE CAPSULE BY MOUTH ONCE WEEKLY DIRECTED SOLD: 08/02/2020 [facility] 0.25-35 mg-mcg 07/19/2020 12:00:00 AM EST tablet 84 TAKE ONE TABLET BY MOUTH EVERY DAY TAKE ONE TABLET BY MOUTH EVERY DAY SOLD: 08/02/2020 [facility] Cholecalciferol 125 MCG (5000 UT) UNK 06/24/2020 12:00:00 AM EST active Cholecalciferol 125 MCG (5000 UT ) eCW1 ([facility]) 50 mg 06/24/2020 12:00:00 AM EST tablet 15 TAKE ONE-HALF TO ONE TABLET BY MOUTH AT BEDTIME TAKE ONE-HALF TO ONE TABLET BY MOUTH AT BEDTIME SOLD: 06/25/2020 [facility] Cholecalciferol 125 MCG (5000 UT) UNK 06/24/2020 12:00:00 AM EST active Cholecalciferol 125 MCG (5000 UT ) eCW1 ([facility]) 125 mcg (5,000 unit) 06/24/2020 12:00:00 AM EST capsule 30 TAKE ONE CAPSULE BY MOUTH EVERY DAY DIRECTED TAKE ONE CAPSULE BY MOUTH EVERY DAY DIRECTED SOLD: 06/25/2020 [facility] Cholecalciferol 125 MCG (5000 UT) UNK 06/24/2020 12:00:00 AM EST active Cholecalciferol 125 MCG (5000 UT ) eCW1 ([facility]) Cholecalciferol 125 MCG (5000 UT) UNK 06/24/2020 12:00:00 AM EST active Cholecalciferol 125 MCG (5000 UT ) eCW1 ([facility]) 24 HR Bupropion Hydrochloride 150 MG Extended Release Oral T ablet BUPROPION HCL 06/24/2020 12:00:00 AM EST tablet extended release 24 hr 15 TAKE ONE TABLET BY MOUTH EVERY MORNING FOR 15 DAYS TAKE ONE TABLET BY MOUTH EVERY MORNING F OR 15 DAYS SOLD: 06/25/2020 [facility] meloxicam 7.5 MG Oral Tablet MELOXICAM 05/30/2020 12:00:00 AM EST tabl et 20 TAKE 1 TABLET BY MOUTH ONCE PER DAY FOR 20 DAYS TAKE 1 TABLET BY MOUTH ONCE PER DAY FOR 20 DAYS SOLD: 05/31/2020 [facility] 1 gram 05/14/2020 12:00:00 AM EST tablet 40 TAKE ONE TABLET BY MOUTH FOUR TIMES A DAY TAKE ONE TABLET BY MOUTH FOUR TIMES A DAY SOLD: 05/14/2020 [facility] 40 mg 05/14/2020 12:00:00 AM EST capsule,delayed release (DR/EC) 30 TAKE ONE CAPSULE BY MOUTH EVERY DAY TAKE ONE CAPSULE BY MOUTH EVERY DAY SOLD: 05/14/2020 [facility] buspirone hydrochloride 15 MG Oral Tablet BUSPIRONE HCL 05/03/2020 12:00:00 AM EST tablet 60 TAKE ONE TABLET BY MOUTH TWI CE A DAY TAKE ONE TABLET BY MOUTH TWICE A DAY SOLD: 05/13/2020 [facility] 24 HR Bupropion Hydrochloride 150 MG Extended Release Oral T ablet BUPROPION HCL 04/27/2020 12:00:00 AM EST tablet extended release 24 hr 30 TAKE ONE TABLET BY MOUTH EVERY MORNING TAKE ONE TABLET BY MOUTH EVERY MORNING SOLD: 04/27/2020 [facility] 50 mg 04/26/2020 12:00:00 AM EST tablet 30 TAKE ONE TABLET BY MOUTH AT BEDTIME NEEDED TAKE ONE TABLET BY MOUTH AT BEDTIME NEEDED SOLD: [facility] buspirone hydrochloride 15 MG Oral Tablet BUSPIRONE HCL 04/07/2020 12:00:00 AM EDT tablet 60 TAKE ONE TABLET BY MOUTH TWI CE A DAY TAKE ONE TABLET BY MOUTH TWICE A DAY SOLD: 04/07/2020 [facility] 2 mg 03/15/2020 12:00:00 AM EDT tablet 30 TAKE ONE TABLET BY MOUTH EVERY DAY TAKE ONE TABLET BY MOUTH EVERY DAY SOLD: 04/07/2020 [facility] 200 mg 03/08/2020 12:00:00 AM EDT capsule 30 TAKE ONE CAPSULE BY MOUTH THREE TIMES A DAY NEEDED FOR COUGH TAKE ONE CAPSULE BY MOUTH THREE TIMES A DAY NEEDED FOR COUGH SOLD: 03/08/2020 [facility] 90 mcg/actuation 03/08/2020 12:00:00 AM EDT HFA aerosol inha ler 18 INHALE 2 PUFFS BY MOUTH EVERY 4 TO 6 HOURS NEEDED FOR WHEEZING INHALE 2 PUFFS BY MOUTH EVERY 4 TO 6 HOURS NEEDED FOR WHEEZING SOLD: 03/08/2020 [facility] 250 mg 01/17/2020 12:00:00 AM EDT tablet 4 TAKE ONE TABLET BY MOUTH EVERY DAY TAKE ONE TABLET BY MOUTH EVERY DAY SOLD: 01/17/2020 [facility] 50 mg 01/17/2020 12:00:00 AM EDT tablet 5 TAKE ONE TABLET BY MOUTH EVERY DAY TAKE ONE TABLET BY MOUTH EVERY DAY SOLD: 01/17/2020 [facility] 4 mg 01/10/2020 12:00:00 AM EDT tablets,dose pack 21 TAKE BY MOUTH DIRECTED TAKE BY MOUTH DIRECTED SOLD: 01/10/2020 [facility] 800 mg 01/10/2020 12:00:00 AM EDT tablet 45 TAKE ONE TABLET BY MOUTH THREE TIMES A DAY TAKE ONE TABLET BY MOUTH THREE TIMES A DAY SOLD: 01/10/2020 [facility] 100 mcg 01/10/2020 12:00:00 AM EDT tablet 30 TAKE ONE TABLET BY MOUTH EVERY DAY TAKE ONE TABLET BY MOUTH EVERY DAY SOLD: 01/10/2020 [facility] buspirone hydrochloride 15 MG Oral Tablet BusPIRone HC l 15 MG BusPIRone HCl 15 MG 01/04/2020 12:00:00 AM EDT 1.0 {tablet} activ e BusPIRone HCl 15 MG eCW1 ([facility]) 12 HR Bupropion Hydrochloride 100 MG Ext ended Release Oral Tablet [Wellbutrin] Wellbutrin SR 100 MG Wellbutrin SR 100 MG 12/21/2019 12:00:00 AM EDT 1.0 {tablet_in_the_morning} active Wellbutr in SR 100 MG eCW1 ([facility]) Ciprofloxacin 250 MG Oral Tablet [Cipro] Cipro 11/25/2019 12:00:00 AM EDT completed MEDENT ([facility]) aripiprazole 2 MG Oral Tablet [Abilify] Abilify 2 MG Abilify 2 MG 11/23/2019 12:00:00 AM EDT 1.0 {tablet} active Ab ilify 2 MG eCW1 ([facility]) Fluoxetine 20 MG Oral Capsule [Prozac] Prozac 20 MG Prozac 2 0 MG 10/29/2019 12:00:00 AM EDT active 1 capsul e eCW1 ([facility]) 0.25-35 mg-mcg 06/22/2019 12:00:00 AM EST tablet 168 TAKE ONE TABLET BY MOUTH EVERY DAY TAKE ONE TABLET BY MOUTH EVERY DAY SOLD: 06/22/2019 [facility] Sprintec 28 Sprintec 28 06/04/2019 12:00:00 AM EST ORAL completed MEDENT ([facility]) Insurance Providers Payer name Policy type / Coverage type Policy ID Covered alliance party ID Covered alliance party's relationship to azul Policy Azul Plan Information [employer] COMMUNITY PLAN MCDHMO [id number] SP [id number] UNHC FBH [id number] S [id number] [facility] MED[facility] [id number] S [id number] SELF PAY ONLY [id number] [place] [id number] 18 [id number] [facility] COMMUNTY PLAN [id number] 18 [id number] UNHC COMMUNITY PLAN XIX [id number] 18 [id number] [facility](MCA[facility]) O [id number] S [id number] [employer] COMMUNITY PLAN MCDHMO [id number] SP [id number] [employer] COMMUNITY PLAN MCDHMO [id number] SP [id number] [facility] MEDICAID [id number] S [id number] [facility] MEDICAID [id number] S [id number] [facility] MEDICAID [id number] S [id number] [facility] MEDICAID [id number] S [id number] MEDICAID [id number] S [id number] [facility] [id number] S [id number] BCBS [facility] PLUS [id number] S [id number] [facility] MEDICAID [id number] S [id number] [facility] MEDICAID [id number] S [id number] [facility] MEDICAID [id number] S [id number] PUPILS BENEFIT PLAN [id number] S [id number] UNHC COMMUNITY PLAN XIX -I/P [id number] 18 [id number] [employer] COMMUNITY PLAN XIX [id number] 18 [id number] [facility] Communty Plan Medicaid [id number] Self [id number] [facility] Communty Plan Medicaid [id number] Self 10 [id number] [facility]-Medicaid [id number] [facility]-Medicaid [id number] [facility]-Medicaid [id number] [facility] Commun Plan Medicaid [id number] Self [id number] ANSI-Medicaid [id number] ANSI-Commercial [id number] ANSI-Medicaid [id number] ANSI-Commercial [id number] ANSI-Medicaid [id number] ANSI-Medicaid [id number] ANSI-Medicaid [id number] ANSI-Medicaid [id number] ANSI-Commercial [id number] ANSI-Medicaid [id number] ANSI-Commercial [id number] ANSI-Medicaid [id number] ANSI-Medicaid [id number] ANSI-Commercial [id number] ANSI-Medicaid [id number] ANSI-Medicaid [id number] ANSI-Medicaid [id number] ANSI-Commercial [id number] ANSI-Medicaid [id number] ANSI-Medicaid [id number] ANSI-Commercial [id number] ANSI-Medicaid [id number] ANSI-Medicaid [id number] ANSI-Commercial [id number] ANSI-Medicaid [id number] ANSI-Commercial [id number] ANSI-Medicaid [id number] ANSI-Commercial [id number] ANSI-Medicaid [id number] ANSI-Medicaid [id number] ANSI-Medicaid [id number] ANSI-Medicaid [id number] ANSI-Commercial [id number]-i223-3p8f-[id number] ANSI-Commercial [id number]-[id number]-[id number]-[id number]-h1rw-02a0-3f00-[id number] ANSI-Medicaid [id number] ANSI-Medicaid [id number] ANSI-Medicaid [id number] ANSI-Medicaid [id number] ANSI-Commercial [id number]-[id number]-[id number]-hjwr-[id number] ANSI-Commercial [id number]-[id number] ANSI-Medicaid [id number] ANS-Medicaid [id number] ANSI-Commercial [id number] [facility]-Medicaid [id number] [facility]-Medicaid [id number] [facility]-Medicaid [id number] [facility]-Medicaid [id number] ANSI-Commercial [id number] [facility]-Medicaid [id number] ANSI-Commercial [id number] [facility]-Medicaid [id number] ANSI-Commercial [id number] ANSI-Medicaid [id number] ANSI-Commercial [id number] ANSI-Medicaid [id number] [facility] [id number] S [id number] [employer] MEDICAID [id number] S [id number] ANSI-Commercial [id number] ANSI-Medicaid [id number] ANSI-Medicaid [id number] ANSI-Medicaid [id number] ANSI-Medicaid [id number] ANSI-Commercial [id number] [facility] [id number] SP [id number] SELF PAY [id number] S [id number] SELF-PAY [id number] S [id number] SELF-PAY UNAVAILABLE M UNAVAILA BLE Pupil Benefits (pr) Commercial [id number] Family Dependent [id number] BS Mel Hmo Blue Option Commercial [id number] Family Depend ent [id number] MEDICAID [id number] SP [id number] MEDICAID [id number] SP [id number] Problems, Conditions, and Diagnoses Code Display Name Description Problem Type Effective Dates Data Source(s) O99.211 Obesity complicating , first tr imester Obesity complicating in first trimester Problem 07/26/2020 12:00:00 AM EST eCW1 ([facility]) Z34.80 care Supervision of other normal P lounba 07/25/2020 12:00:00 AM EST eCW1 ([facility]) E78.5 Hyperlipidemia Hyperlipidemia Problem 07/06/2020 12:00: 00 AM EST eCW1 ([facility]) F32.9 Major depressive disorder Major depressive disorder Pr oblem 06/17/2020 12:00:00 AM EST eCW1 ([facility]) F41.1 [id number] KEVIN (generalized anxiety disorder) Proble m 06/17/2020 12:00:00 AM EST eCW1 ([facility]) E66.01 [id number] Morbid (severe) obesity due to excess sreekanth ories Problem 06/17/2020 12:00:00 AM EST eCW1 ([facility]) E55.9 Vitamin D deficiency Vitamin D deficiency Problem 06/17/2020 12:00:00 AM EST eCW1 ([facility]) Z68.42 [id number] Body mass index [BMI] 45.0-49.9, adult Pr oblem 06/17/2020 12:00:00 AM EST eCW1 ([facility]) [id number] Obesity Obesity Problem 06/09/2020 12:00:00 AM ES Lillian MEDKALEIGH ([facility]) F41.9 [id number] Anxiety disorder, unspecified type Proble m 01/04/2020 12:00:00 AM EDT eCW1 ([facility]) F32.3 [id number] Major depressive disorder with psychotic features Problem 12/01/2019 12:00:00 AM EDT eCW1 ([facility]) Z68.42 267023986 Body mass index (BMI) 45.0-49.9, adult Pr oblem 10/02/2019 12:00:00 AM EDT eCW1 ([facility]) Z68.42 758935839 Body mass index (BMI) 45.0-49.9, adult Pr oblem 10/02/2019 12:00:00 AM EDT eCW1 ([facility]) Z3A.00 Weeks of gestation of not spec ified WEEKS OF GESTATION OF NOT SPECIFIED Diagnosis 07/12/2020 10:00:00 AM [facility] F32.3 Major depressive disorder, single episod e, severe with psychotic features MAJOR DEPRESSV DISORD, SINGLE EPSD, SEVERE W PSYCH Diagnosis 07/2020 10:00:00 AM [facility] O99.340 Other mental disorders complicating preg robbi, unspecified trimester OTH MENTAL DISORDERS COMPLICATING , UNSP TRIMESTER Diagnosis 07/12/2020 10:00:00 AM [facility] B373 Candidiasis of vulva and vagina Candidiasis of vulva a nd vagina Diagnosis 2020 10:32:00 AM [facility] F32.9 Major depressive disorder, single episod e, unspecified MAJOR DEPRESSIVE DISORDER, SINGLE EPISODE, UNSPECIFIED Diagnosis 04/25/2020 02:30:00 PM [facility] F41.9 Anxiety disorder, unspecified ANXIETY DISORDER, UNSPEC IFIED Diagnosis 03/14/2020 10:30:00 AM [facility] E039 Hypothyroidism, unspecified Hypothyroidism, unspecifie d Diagnosis 01/16/2020 09:00:00 PM [facility] L56092 Unspecified asthma, uncomplicated Unspecified as thma, uncomplicated Diagnosis 01/16/2020 09:00:00 PM [facility] B9689 Other specified bacterial ag ents as the cause of diseases classified elsewhere Other specified bacterial agents as the cause of diseases classified elsewhere Diagnosis 01/16/2020 09:00:00 PM [facility] R0781 Pleurodynia Pleurodynia Diagnosis 01/16/2020 09:00:00 PM EDT [facility] J208 Acute bronchitis due to other specified organisms Acute bronchitis due to other specified organisms Diagnosis 01/16/2020 09:00:00 PM EDT [facility] R0789 Other chest pain Other chest pain Diagnosis 01/16/2020 09 :00:00 PM EDT [facility] J69459 Personal history of nicotine dependence Personal history of nicotine dependence Diagnosis 01/10/2020 12:56:00 PM EDT [facility] E031 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 Diagnosis 01/10/2020 12:56:00 PM EDT [facility] M940 Chondrocostal junction syndrome [Tietze] Chondrocostal junction syndrome [Tietze] Diagnosis 01/10/2020 12:56:00 PM EDT [facility] R946 Abnormal results of thyroid function ameya dies Abnormal results of thyroid function studies Diagnosis 01/02/2020 05:10:00 PM EDT [facility] N3090 Cystitis, unspecified without hematuria Cystitis, unspecified without hematuria Diagnosis 01/02/2020 05:10:00 PM EDT [facility] J069 Acute upper respiratory infection, unspe cified Acute upper respiratory infection, unspecified Diagnosis 01/02/2020 05:10:00 PM EDT [facility] R0600 Dyspnea, unspecified Dyspnea, unspecified Diagnosis 01/02/2020 05:10:00 PM EDT [facility] Z3041 Encounter for surveillance of contracept prerna pills Encounter for surveillance of contraceptive pills Diagnosis 11/19/2019 10:35:00 AM E [facility] Z6841 Body mass index (BMI) 40.0-44.9, adult B chris mass index (BMI) 40.0-44.9, adult Diagnosis 11/19/2019 10:35:00 AM EDT [facility] E669 Obesity, unspecified Obesity, unspecified Diagnosis 11/19/2019 10:35:00 AM EDT [facility] N644 Mastodynia Mastodynia Diagnosis 11/19/2019 10:35:00 AM ED T [facility] R300 Dysuria Dysuria Diagnosis 11/19/2019 10:35:00 AM ED T [facility] Z71.89 Other specified counseling OTHER SPECIFIED COUNSELING Diagnosis 10/02/2019 09:29:00 AM [facility] Z13.220 Encounter for screening for lipoid disor ders ENCOUNTER FOR SCREENING FOR LIPOID DISORDERS Diagnosis 10/02/2019 09:29:[facility] Z[facility].42 Body mass index (BMI) 45.0-49.9, adult B CHRIS MASS INDEX (BMI) 45.0-49.9, ADULT Diagnosis 10/02/2019 09:29:00 AM [facility] E66.01 Morbid (severe) obesity due to excess ca lories MORBID (SEVERE) OBESITY DUE TO EXCESS CALORIES Diagnosis 10/02/2019 09:29:00 AM [facility] J06.9 Acute upper respiratory infection, unspe cified ACUTE UPPER RESPIRATORY INFECTION, UNSPECIFIED Diagnosis 10/02/2019 09:29:00 AM [facility] Z00.00 Encounter for general adult medical examination without abnormal findings ENCNTR FOR GENERAL ADULT MEDICAL EXAM W/O ABNORMAL FINDINGS Diagnosis 10/02/2019 09:29:00 AM [facility] N926 Irregular menstruation, unspecified Irregular me nstruation, unspecified Diagnosis 08/05/2019 09:44:00 AM EST [facility] Surgeries/Procedures Procedure Description Date Indications Data Source(s) TOBACCO NON-USER 10/02/2019 12:00:00 AM EDT eCW1 ([facility]) Results ID Date Data Source HBSAG 07/26/2020 12:00:00 AM EST eCW1 ([facility]) Name Value Range Interpretation Code Description Data Candy rce(s) Supporting Document(s) NEGATIVE NEGATIVE eCW1 ([facility]) ID Date Data Source URINE CULTURE 07/26/2020 12:00:00 AM EST eCW1 ([facility]) Name Value Range Interpretation Code Description Data Candy rce(s) Supporting Document(s) eCW1 ([facility]) ID Date Data Source FREE T4 & TSH PANEL 07/26/2020 12:00:00 AM EST eCW1 ([facility]) Name Value Range Interpretation Code Description Data Candy rce(s) Supporting Document(s) 0.74 0.76-1.46 eCW1 ([facility]) 2.220 0.358-3.740 eCW1 ([facility]) ID Date Data Source [id number] 07/26/2020 12:00:00 AM EST eCW1 ([facility]) Name Value Range Interpretation Code Description Data Candy rce(s) Supporting Document(s) Hemoglobin A1c/Hemoglobin.total in Blood 5.3 eCW1 ([facility]) ID Date Data Source HEPATITIS C ANTIBODY INDEX 07/26/2020 12:00:00 AM EST eCW1 ( [facility]) Name Value Range Interpretation Code Description Data Candy rce(s) Supporting Document(s) 0.1 <0.8 W1 ([facility]) ID Date Data Source RUBELLA IMMUNE STATUS IgG 07/26/2020 12:00:00 AM EST eCW1 ([facility]) Name Value Range Interpretation Code Description Data Candy rce(s) Supporting Document(s) IMMUNE IMMUNE eCW1 ([facility]) ID Date Data Source SYPHILIS ANTIBODY (RPR SCREEN) 07/26/2020 12:00:00 AM EST eC W1 ([facility]) Name Value Range Interpretation Code Description Data Candy rce(s) Supporting Document(s) NONREACTIVE NONREACTIVE eCW1 ([facility]) ID Date Data Source [id number] 07/26/2020 12:00:00 AM EST eCW1 ([facility]) Name Value Range Interpretation Code Description Data Candy rce(s) Supporting Document(s) eCW1 ([facility]) ID Date Data Source CHLAMYDIA & GC DNA AMPLIFICAT 07/26/2020 12:00:00 AM EST eCW 1 ([facility]) Name Value Range Interpretation Code Description Data Candy rce(s) Supporting Document(s) Chlamydia trachomatis rRNA [Presence] in Unspecified specimen by Probe and target amplification method NEGATIVE NEGATIVE eCW1 ([facility]) ID Date Data Source CBC - Complete Blood Count 07/26/2020 12:00:00 AM EST eCW1 ( [facility]) Name Value Range Interpretation Code Description Data Candy rce(s) Supporting Document(s) 8.7 4.0-10.0 eCW1 ([facility]) 11.7 12.0-15.5 eCW1 ([facility]) 4.43 4.00-5.40 eCW1 ([facility]) 26.4 27.0-33.0 eCW1 ([facility]) 32.1 32.0-36.5 eCW1 ([facility]) 82.4 80.0-96.0 eCW1 ([facility]) 36.5 36.0-47.0 eCW1 ([facility]) 13.3 11.5-14.5 eCW1 ([facility]) 255 150-450 eCW1 ([facility]) ID Date Data Source Type and Screen Prenatal1 07/26/2020 12:00:00 AM EST eCW1 ([facility]) Name Value Range Interpretation Code Description Data Candy rce(s) Supporting Document(s) NEGATIVE eCW1 ([facility]) ID Date Data Source HCG SERUM QUALITATIVE 06/30/2020 12:00:00 AM EST eCW1 [facility] Name Value Range Interpretation Code Description Data Candy rce(s) Supporting Document(s) POSITIVE NEGATIVE HCG, SERUM QUALITATIVE eC W1 ([facility]) ID Date Data Source VITAMIN D 25-HYDROXY 06/17/2020 12:00:00 AM EST eCW1 ([facility]) Name Value Range Interpretation Code Description Data Candy rce(s) Supporting Document(s) 14.1 30.0-100.0 eCW1 ([facility]) ID Date Data Source LIPID PANEL (CARDIAC RISK) 06/17/2020 12:00:00 AM EST eCW1 ( [facility]) Name Value Range Interpretation Code Description Data Candy rce(s) Supporting Document(s) Triglyceride [Mass/volume] in Serum or Plasma by calculation 118 <150 eCW1 ([facility]) Cholesterol [Moles/volume] in Serum or Plasma 209 <200 eCW1 ([facility]) Cholesterol in HDL [Moles/volume] in Serum or Plasma 47 >40 eCW1 ([facility]) 162 eCW1 ([facility]) Cholesterol in LDL [Mass/volume] in Serum or Plasma by calculation 13 8 <100 eCW1 ([facility]) 4.446 <5 eCW1 ([facility]) ID Date Data Source UA URINALYSIS 06/17/2020 12:00:00 AM EST eCW1 ([facility]) Name Value Range Interpretation Code Description Data Candy rce(s) Supporting Document(s) eCW1 ([facility]) ID Date Data Source Comprehensive Metabolic Profile (CMP) 06/17/2020 12:00:00 AM EST eCW1 ([facility]) Name Value Range Interpretation Code Description Data Candy rce(s) Supporting Document(s) 10 7-18 eCW1 ([facility]) 84 70-100 eCW1 ([facility]) 107 98-107 eCW1 ([facility]) > 60.0 >60 eCW1 ([facility]) 141 136-145 eCW1 ([facility]) 3.9 3.5-5.1 eCW1 ([facility]) 0.62 0.55-1.30 eCW1 ([facility]) 75 45-117 eCW1 ([facility]) 27 21-32 eCW1 ([facility]) 30 12-78 eCW1 ([facility]) 10 7-37 eCW1 ([facility]) 9.4 8.5-10.1 eCW1 ([facility]) 1.4 1.2-2.2 eCW1 ([facility]) 6.9 6.4-8.2 [facility]CW1 [facility]) 4.0 3.2-5.2 [facility]CW1 [facility] 0.3 0.2-1.0 eCW1 [facility]) ID Date Data Source CBC with Differential 06/17/2020 12:00:00 AM EST eCW1 ([facility] Name Value Range Interpretation Code Description Data Candy rce(s) Supporting Document(s) 39.0 36.0-47.0 [facility]CW1 [facility] 12.5 12.0-15.5 eCW1 ([facility]) 9.7 4.0-10.0 eCW1 ([facility]) 84.1 80.0-96.0 eCW1 ([facility]) 4.64 4.00-5.40 eCW1 ([facility]) 32.1 32.0-36.5 eCW1 [facility] 258 150-450 eCW1 ([facility]) 12.8 11.5-14.5 eCW1 ([facility]) 26.9 27.0-33.0 eCW1 ([facility]) 9.1 0.0-5.0 eCW1 ([facility]) 59.3 36.0-66.0 eCW1 ([facility]) 2.2 0.0-3.0 eCW1 ([facility]) 28.5 24.0-44.0 eCW1 ([facility]) 0.2 0.0-0.5 eCW1 ([facility]) 5.8 1.5-8.5 eCW1 ([facility]) 0.9 0.0-0.8 eCW1 ([facility]) 2.8 1.5-5.0 eCW1 [facility]) 0.7 0.0-1.0 eCW1 ([facility]) 0.1 0.0-0.2 eCW1 ([facility]) ID Date Data Source [id number] 06/09/2020 03:30:00 PM EST MEDENT ([facility]) Name Value Range Interpretation Code Description Data Candy rce(s) Supporting Document(s) Source: Laboratory test result MEDENT ([facility]) {SOURCE: Genital~.~.~Z01.419Z01.419 Neisseria gonorrhoeae,Myriam Laboratory test result [facility] ([facility]) {SOURCE: Genital~.~.~Z01.419Z01.419 Chlamydia trachomatis,Myriam Laboratory test result [facility] ([facility]) {SOURCE: Genital~.~.~Z01.419Z01.419 ID Date Data Source [id number] 06/09/2020 03:30:00 PM EST [facility] ([facility]) Name Value Range Interpretation Code Description Data Candy rce(s) Supporting Document(s) Cytology report of Cervical or vaginal smear or scrapi ng Cyto stain.thin prep Laboratory test result [facility] ([facility]) ID Date Data Source [id number] 06/12/2020 02:22:00 PM EST [facility] Name Value Range Interpretation Code Description Data Candy rce(s) Supporting Document(s) SOURCE: Genital [facility] Chlamydia trachomatis rRNA [Presence] in Unspecified specimen by Probe and target amplification method Negative Negative [facility] Neisseria gonorrhoeae rRNA [Presence] in Unspecified specimen by Probe and target amplification method Negative Negative [facility] ID Date Data Source [id number] 05/30/2020 12:00:00 AM EST [facility] Name Value Range Interpretation Code Description Data Candy rce(s) Supporting Document(s) SARS coronavirus 2 RNA [Presence] in Res piratory specimen by MYRIAM with probe detection [facility] This lab was ordered by Anne Mills and reported by [employer]. ID Date Data Source [id number] 2020 11:12:00 AM EST [facility] ([facility]) Name Value Range Interpretation Code Description Data Candy rce(s) Supporting Document(s) Source: Laboratory test result [facility] ([facility]) {SOURCE: Genital Aileen species Laboratory test result [facility] ([facility]) {SOURCE: Genital Gardnerella vaginalis Laboratory test result [facility] ([facility]) {SOURCE: Genital Trichomonas vaginalis Laboratory test result [facility] ([facility]) {SOURCE: Genital ID Date Data Source [id number] 2020 11:12:00 AM EST [facility] ([facility]) Name Value Range Interpretation Code Description Data Candy rce(s) Supporting Document(s) Z#Other Observations Laboratory test result [facility] ([facility]) ID Date Data Source [id number] 05/21/2020 04:33:00 PM [facility] Name Value Range Interpretation Code Description Data Candy rce(s) Supporting Document(s) SOURCE: Genital [facility] Aileen sp rRNA [Presence] in Vaginal fluid by DNA probe Negative N egative [facility] Gardnerella vaginalis rRNA [Presence] in Genital specimen by DNA probe Negative Negative [facility] Trichomonas vaginalis rRNA [Presence] in Genital specimen by DNA probe Negative Negative [facility] ID Date Data Source [id number] 2020 11:05:00 AM EST [facility] ([facility]) Name Value Range Interpretation Code Description Data Candy rce(s) Supporting Document(s) Culture Urine Laboratory test result [facility] ([facility]) {SPECIMEN TYPE: RANDOM~.~.~R31.9 ID Date Data Source [id number] 05/22/2020 07:26:00 AM [facility] Name Value Range Interpretation Code Description Data Candy rce(s) Supporting Document(s) CULTURE URINE [facility] _CULTURE URINE_$$[id number]$$[id number]$$858348$$791406$$965183$$734278$$903617$$330438$$814738$$ 518254$$184858$$629571$$852094$$396058$$951164$$430824$$060105$$376529$$592142$$ 857012$$534689$$438587$$723373$$536464$$513838$$028065$$646273 -- Continued on next page --Patient: DORIAN [place] Order: [id number] Page 2Culture: CULTURE URINE Status: Final ====$$[id number]$$[id number] DATE/TIME: 05/22/2020 07:05Culture: CULTURE URINE Status: FinalUrine Culture,Comprehensive: G0Smxnl urogenital flora10,000-25,000 colony forming units per mLP1 Test performed by: [facility] #: [id number] [address] [place] [address] [id number] [facility] [id number] Director : Fransisco James MD NPI #:Cotton Machine Operator : 05/22/20.0726.XMT.SENT REF 05/22/20.0726.MD De Leonto VAL ALFONSO via fax ID Date Data Source [id number] 2020 10:55:00 AM EST [facility] ([facility]) Name Value Range Interpretation Code Description Data Candy rce(s) Supporting Document(s) Inhouse Urine Test [facility] ID Date Data Source [id number] 01/18/2020 09:35:00 AM EDT [facility] [address] [place] [address] PHONE: [phone] FAX: [phone] Name .................. : DORIAN [place] Acct Number.................. : [id number] ROOM. ................. : TR-08 Number ................... : [id number] Stay type ............. : E/R Discharge Date......... ... : 01/16/20 Admit Date ......... : 01/16/20 Admit Phys .................... : HONG PIZARRO Date of ....... : 2000 Family Phys ................... : VAL ALFONSO Phone .................. : [phone] Age ................................ : 19 Film# .................. .:[id number] Sex ................................. : F Unsigned transcriptions are preliminary reports and do not represent a medical or legal document CHEST 2 VIEWS [id number] COMPLETE:01/16/20 22:30 KJE 50309 Reas on(s): Chest Pain CHEST X-RAY: 2-VIEWS COMPARISON: 01/10/20 FINDINGS: The cardiac and mediastinal silhouettes appear normal and the lungs are clear. The bones and soft tissues are normal. The upper abdomen is unremarkable. IMPRESSION: No acute disease identifiable. Electronically Reviewed and Signed By Aminata Shukla MD , 01/18/20 09:35, KGG Transcribe Initials: DANIEL , Transcribe Date: 01/17/20 10:50, Dictation Date: Copy for: [facility] via fax Copy for: EMERGENCY DEPT via modem Copy for: 710 MED REC DISCHARGED Page 1 of 1 Name Value Range Interpretation Code Description Data Candy rce(s) Supporting Document(s) ID Date Data Source [id number] 01/17/2020 02:49:00 [place] [address] RESPIRATORY CARE REPORT ==== ---------NAME------- NUMBER SEX AGE ADMIT DISC. XRAY# F/C TYPEDORIAN [place] [id number] 01/16/20 01/16/20 [id number] X6B E/R DATE OF : 2000 M/R# [id number] #: [id number] TR-08 LOCATION: EMERGENCY DEPT EKG 61666 COMP LETE:01/17/20 01:26 T [id number] PHYSICIAN: HONG PIZARRO Name Value Range Interpretation Code Description Data Candy rce(s) Supporting Document(s) ID Date Data Source [id number] 01/16/2020 09:00:00 PM EDT [facility] 1 OrderSheet [facility] Emergency Department [address] [place] [address] Phone #: ext- [phone] 01/16/2020 20:56 Patient: DANA ALARCON Sex: F : 2000 Age: 19yWEIGHT:123.3 kg (S) HEIGHT:66 inches (S) BMI:43.9ALLERGIES: No Known Drug AllergyCHIEF COMPLAINT: chest painDIAGNOSIS: Bronchitis, PleurisyLAB ORDERSOrder Description Priority Entered Acknowledged InitialedBeta-HCG, Qual STAT 21:18 01/16/2020 Initialed: 21:40 Eulalia [place]as R.N.Urine Richard Pitts Cancelled: Wrong Order 21:53 Richard Physician; Hong WhiteC w Diff STAT 21:18 01/16/2020 21:40 Eulalia [place]as R.N. Physician;CMP STAT 21:01/16/2020 21:40 Eulalia [place]as R.N. Physician;D-Dimer STAT 21:18 01/16/2020 21:40 Eulalia [place]as R.N. Physician;Beta-HCG, Qual STAT 21:01/16/2020 21:40 Eulalia [place]as R.N. Physician;Sed. Rate STAT :01/16/2020 21:40 Eulalia [place]as R.N. Physician;Troponin-T STAT 21:01/16/2020 21:40 Eulalia [place]as R.N. Physician;Urinalysis (Clean STAT :01/16/2020 Ack'd: 21:40 Eulalia 21:54 NikhilenCatch) Richard [place]as RN Physician;DIAGNOSTIC STUDY ORDERSOrder Description Priority Entered Acknowledged InitialedChest 2 View STAT :01/16/2020 Ack'd: 21:32 21:54 Alejandro(Oxygen?(No)) Richard [place]as RN Physician; Reason for Study: Chest Pain 2 OrderSheet [facility] Emergency Department [address] [place] [address] Phone #: ext- [phone] 01/16/2020 20:56 Patient: DANA ALARCON Sex: F : 2000 Age: 19yCT Chest W/O Cont STAT 22:10 01/16/2020 Ack'd: 22:11 22:13 Eulalia Egan(Oxygen?(No)) Richard Salas R.N. Physician; Reason for Study: Chest PainMEDICATION/IV/DRIP/FLUID ORDERSOrder Description Priority Entered Acknowledged InitialedAzithromycin PO 23:35 01/16/2020 00:03 01/17/2020500 mg X1 Dose: Richard Salas500 mg (NOW x1) Physician; R.NMoisespredniSONE PO 50 23:35 01/16/2020 00:02 01/17/2020mg (NOW) Richard Salas Physician; R.N.GENERAL ORDERSOrder Description Priority Entered Acknowledged InitialedEKG 21:18 01/16/2020 21:32 Alejandro Salas RN Physician;[Electronically signed by Richard Pitts (00:43 01/17/2020)][Electronically signed by Eulalia Rivera R.N. (03:28 01/17/2020)][Electronically locked by Eulalia Rivera R.N. (03:01/17/2020)] Name Value Range Interpretation Code Description Data Candy rce(s) Supporting Document(s) ID Date Data Source [id number] 01/16/2020 09:00:00 PM EDT [facility] 1 Medication Reconciliation Report [facility] Emergency Department [address] [place] [address] Phone #: ext- [phone] 01/16/2020 20:56 Patient: DANA ALARCON Sex: F : 2000 Age: 19yWeight: 123.3 kgHeight/Length: 66 in.BMI: 43.9ALLERGIES: No Known Drug AllergyThe patient's Home Medications are listed below:CONTINUE TAKING THE FOLLOWING MEDICATIONS: Albuterol Sulfate ER Oral Buprenorphine HCl Sublingual busPIRone HCl Oral Levothyroxine Sodium OralThe source(s) of the original Home Medication information:Not obtained.The following Medications were given to the patient in the Emergency Department:Prednisone [PO] PO 50 mg, administered: 01/16/2020 11:52:00 PMZithromax [PO] PO 500 mg, administered: 01/16/2020 11:53:00 PMThe following Medications were prescribed to the patient:azithromycin 250 mg tablet Take 1 tablet once a day for 4 days -- Dispense 4 tablet. Refills: 0.Substitution permitted.[facility] #80 - [id number] ; [place], [place] [id number]. .prednisone 50 mg tablet Take 1 tablet once a day for 5 days -- Dispense 5 tablet. Refills: 0.Substitution permitted.[facility] #05 - [id number] ; [place], [place] [id number]. Phone: . -- Richard Pitts, Physician Name Value Range Interpretation Code Description Data Candy rce(s) Supporting Document(s) ID Date Data Source [id number] 01/16/2020 09:00:00 PM EDT [facility] 1 Medication Administration Record [facility] Emergency Department [address] [place] [address] Phone #: ext- [phone] 01/16/2020 20:56 Patient: DANA ALARCON Sex: F : 2000 Age: 19yWeight: 123.3 kgHeight/Length: 66 inBMI: 43.9ALLERGIES: No Known Drug Allergy Date/Time Medication Administered Medication OrderedGiven ZITHROMAX [PO] (AZITHROMYCIN) Azithromycin PO 500 mg X1 Dose:23:53 01/16/2020 Dose: 500 mg Tablets PO 500 mg (NOW x1)Eulalia Salas R.N.Given PREDNISONE [PO] predniSONE PO 50 mg (NOW)23:52 01/16/2020 Dose: 50 mg Tablets Martinez Salas R.N. Name Value Range Interpretation Code Description Data Candy e(s) Supporting Document(s) ID Date Data Source [id number] 01/16/2020 09:00:00 PM EDT [facility] 1 General Instructions [facility] Emergency Department [address] [place] [address] Phone #: ext- [phone] 01/16/2020 20:56 Patient: DANA ALARCON Sex: F : 2000 Age: 19yAcute bacterial bronchitis.Pleurisy. No effusion.INSTRUCTIONSNo strenuous activity.(Prednisone with food, finish all antibiotics.).Warnings: Further evaluation is necessary.GENERAL WARNINGS: Return or contact your physician immediately if your condition worsens orchanges unexpectedly, if not improving as expected, or if other problems arise.Your Current Medications: Your current home medications have been reviewed.CONTINUE TAKING THE FOLLOWING MEDICATIONS:Albuterol Sulfate ER Oral.Buprenorphine HCl Sublingual.busPIRone HCl Oral.Levothyroxine Sodium Oral.Prescription Medications:azithromycin 250 mg tablet Take 1 tablet once a day for 4 days -- Dispense 4 tablet. Refills: 0.Substitution permitted.[facility] #23 - [id number] ; [place], [place] [id number]. FaxNumber: [phone].prednisone 50 mg tablet Take 1 tablet once a day for 5 days -- Dispense 5 tablet. Refills: 0.Substitution permitted.[facility] #58 - [address] ; [place], [place] [id number]. .Follow-up:Follow up with your doctor Saturday. Call for the next available appointment. Reason for referral: evaluation.Summary of care provided to patient via paper.Understanding of the discharge instructions verbalized by patient. ADDITIONAL INFORMATION 2 General Instructions [facility] Emergency Department [address] [place] [address] Phone #: ext- [phone] 01/16/2020 20:56 Patient: DANA ALARCON Sex: F : 2000 Age: 19yBronchitis, Antibiotic Treatment (Adult)Bronchitis is an infection of the air passages (bronchial tubes) in your lungs. It often occurs when youhave a cold. This illness is contagious during the first few days and is spread through the air bycoughing and sneezing, or by direct contact (touching the sick person and then touching your owneyes, nose, or mouth).Symptoms of bronchitis include cough with mucus (phlegm) and low-grade fever. Bronchitis usuallylasts 7 to 14 days. Mild cases can be treated with simple home remedies. More severe infection istreated with an antibiotic.Home careFollow these guidelines when caring for yourself at home: If your symptoms are severe, rest at home for the first 2 to 3 days. When you go back to your usual activities, don't let yourself get too tired. 3 General Instructions [facility] Emergency Department [address] [place] [address] Phone #: ext- [phone] 01/16/2020 20:56 Patient: DANA ALARCON Sex: F : 2000 Age: 19y Don't smoke. Also stay away from secondhand smoke. You may use qcdz-xws-peyegyc medicines to control fever or pain, unless another medicine was prescribed. If you have chronic liver or kidney disease or have ever had a stomach ulcer or gastrointestinal bleeding, talk with your healthcare provider before using these medicines. Also talk to your provider if you are taking medicine to prevent blood clots. Aspirin should never be given to anyone younger than 18 who is ill with a viral infection or fever. It may cause severe liver or brain damage. Your appetite may be low, so a light diet is fine. Stay well hydrated by drinking 6 to 8 glasses of fluids per day. This includes water, soft drinks, sports drinks, juices, tea, or soup. Extra fluids will help loosen mucus in your nose and lungs. Weip-qlp-wtbtjww cough, cold, and sore-throat medicines will not shorten the length of the illness, but they may be helpful to reduce your symptoms. Don't use decongestants if you have high blood pressure. Finish all antibiotic medicine. Do this even if you are feeling better after only a few days.Follow-up careFollow up with your healthcare provider, or as advised. If you had an X-ray or ECG(electrocardiogram), a specialist will review it. You will be told of any new test results that may affectyour care.If you are age 65 or older, if you smoke, or if you have a chronic lung disease or condition that affectsyour immune system, ask your healthcare provider about getting a pneumococcal vaccine and ayearly flu shot (influenza vaccine).When to seek medical adviceCall your healthcare provider right away if any of these occur: Fever of 100.4F (38C) or higher, or as directed by your healthcare provider Coughing up more sputum Weakness, drowsiness, headache, facial pain, ear pain, or a stiff neckCall 911Call 911 if any of these occur. Coughing up blood Weakness, drowsiness, headache, or stiff neck that get worse 4 General Instructions [facility] Emergency Department [address] [place] [address] Phone #: ext- [phone] 01/16/2020 20:56 Patient: DANA ALARCON Sex: F : 2000 Age: 19y Trouble breathing, wheezing, or pain with breathing [phone] [employer]. [address] [place] [address]. All rights reserved. This information is not intended as asubstitute for professional medical care. Always follow your healthcare professional's instructions.PleurisyIf you have pleurisy, the lining around your lungs is inflamed. This is most often due to a viral infectionor pneumonia. It usually lasts for 10 to 14 days. It may cause sharp pain with breathing, coughing,sneezing, and movement. Antibiotics are usually not prescribed for this condition unless bacterialpneumonia is also present.The following tips will help you care for your condition at home: If symptoms are severe, rest at home for the first 2 to 3 days. When you resume activity, don't let yourself get too tired. Don't smoke. Also stay away from secondhand smoke. You may use lvmz-wtp-yzsyvoe medicines to control pain, unless another pain medicine was prescribed. (Note: If you have chronic liver or kidney disease or have ever had a stomach ulcer or gastrointestinal bleeding, talk with your healthcare provider before using these medicines. Also talk to your provider if you are taking medicine to prevent blood clots.) Aspirin should never be given to anyone younger than 18 years of age who is ill with a viral infection or fever. It may cause severe liver or brain damage.Follow- up care 5 General Instructions [facility] Emergency Department [address] [place] [address] Phone #: ext- [phone] 01/16/2020 20:56 Patient: DANA ALARCON Sex: F : 2000 Age: 19yFollow up with your healthcare provider, or as advised.When to seek medical adviceCall your healthcare provider right away if any of these occur: Fever of 100.4F (38C) or higher, or as directed by your healthcare provider Coughing up lots of colored sputum (mucus) or light, blood-tinged sputum Redness, pain, or swelling of the legCall 911Call 911 if any of these occur: Increasing shortness of breath Increasing chest pain, or pain that spreads to the neck, arm, or back Coughing up blood [phone] [employer]. [address] [place] [address]. All rights reserved. This information is not intended as asubstitute for professional medical care. Always follow your healthcare professional's instructions. You have been given the following additional inform ation: Bronchitis, Antibiotic Treatment (Adult) Pleurisy No strenuous activity.(Electronically signed by Richard Pitts, Physician 01/17/2020 00:43) Name Value Range Interpretation Code Description Data Candy rce(s) Supporting Document(s) ID Date Data Source [id number] 01/16/2020 09:00:00 PM EDT [facility] 1 Clinical Report - Nurses [facility] Emergency Department [address] [place] [address] Phone #: ext- [phone] 01/16/2020 20:56 Patient: DANA ALARCON Sex: F : 2000 Age: 19yTRIAGEArrived by EMS. Historian: patient.Acuity: LEVEL 3.Chief Complaint: CHEST PAIN and DISCOMFORT.Alert. No acute distress.This started yesterday. Reports experiencing sweating episodes. She has had nausea. --21:06 01/16/20Nino Garcia R.N.20:58 01/16/20. BP: 139/87. MAP: 104. HR: 81. RR: 14. O2 saturation: 98%. Temp: 98.1 F. Pain levelnow: 02/17. --21:06 01/16/20 Nino Garcia R.N.Weight: 123.3 kg stated. Height/Length: 66 inches Per Patient. BMI: 43.9. --21:00 01/16/20 Nino Garcia R.N.MedicationsAlbuterol Sulfate ER Oral. --21:05 01/16/20 Nino Garcia R.N. Levothyroxine Sodium Oral. --21:01/16/20 Nino Garcia R.N. Buprenorphine HCl Sublingual. --21:01/16/20 Nino Garcia R.N. busPIRone HCl Oral. --21:06 01/16/20 Nino Garcia R.N.AllergiesNo Known Drug Allergy. --21:07 01/16/20 Nino Garcia R.N.PROBLEMS:Asthma.Depression. --22:00 01/16/20 Physician PadmaThe following entry was modified by Physician Padma, 22:00 01/16/20Depression. --21:01/16/20 Nino Garcia R.N.The following entry was modified by Physician Padma, 22:00 01/16/20Asthma. --21:01/16/20 Nino Garcia R.N..HistoryPAST MEDICAL HX: Lung disease. No history of diabetes mellitus, hypertension or heart disease.SOCIAL HX: Never smoker. No alcohol use or drug use. She has not traveled outside the [place]Infectious disease exposure: No infectious disease exposure.ABUSE ASSESSMENT: Abuse assessment. No report of abuse. 2 Clinical Report - Nurses [facility] Emergency Department [address] [place] [address] Phone #: ext- [phone] 01/16/2020 20:56 Patient: DANA ALARCON [facility]#: [id number] Sex: F : 2000 Age: 19y NUTRITIONAL RISK ASSESSMENT: The nutritional risk assessment revealed no deficiencies. FUNCTIONAL ASSESSMENT: Functional assessment: no impairments noted . LEARNING NEEDS ASSESSMENT: The learning needs assessment revealed no barriers. FALL RISK ASSESSMENT: Fall risk assessment completed. No risk factors identified. SKIN INTEGRITY ASSESSMENT: Skin integrity risk assessment completed. No skin integrity risk identified. --21:01/16/20 Nino Garcia R.N. SELF HARM ASSESSMENT: Self harm assessment was performed. The patient answered "no" to the question(s) "Have you recently felt down, depressed, or hopeless?" and "Do you have thoughts of harming or killing yourself?". --21:01/16/20 Nino Garcia R.N. FAMILY HX: Negative - denies family medical history. --22:01 01/16/20 Richard Pitts Physician.PHYSICAL QOEKTNINBJ27:49 01/16/20. Ambulatory to room.GENERAL / NEURO / PSYCH: Alert. Oriented X 4. Appears in no acute distress.HEENT: Mucous membranes are pink.RESPIRATORY: Respirations not labored.CVS: Pulses within normal limits. Capillary refill less than 2 seconds.GI / : Abdomen soft.SKIN: Skin is warm and dry. --22:14 01/16/20 Eulalia Salas R.N.NURSING PROGRESS NOTESBed placed in lowest position. Brakes of bed on. --21:07 01/16/20 Nino Garcia R.N. Patient transported to CT by wheelchair with photographic laboratory technician. --22:14 01/16/20 Eulalia Salas R.N. 21:49 01/16/20. Call light placed in reach. Bed placed in lowest position. Brakes of bed on. --22:14 01/16/20 Eulalia Salas R.N. Patient transported to CT by wheelchair with photographic laboratory technician. ( (Prior trip with [employer] was to xray.)). --22:20 01/16/20 Eulalia Salas R.N. 23:52 01/16/2020 Prednisone PO Tablets 50 mg given. Allergies verified and confirmed 5 rights. Information reviewed with patient including reason for taking this medication. Verbalizes understanding. --00:02 01/17/20 Eulalia Salas R.N. 23:53 01/16/2020 Zithromax (Azithromycin) PO Tablets 500 mg given. Allergies verified and confirmed 5 rights. Information reviewed with patient including reason for taking this medication. Verbalizes understanding. --00:03 01/17/20 Eulalia Salas R.N. 3 Clinical Report - Nurses [facility] Emergency Department [address] [place] [address] Phone #: ext- [phone] 01/16/2020 20:56 Patient: DANA ALARCON Sex: F : 2000 Age: 19yDISPOSITION / DISCHARGE Departure time: 22:53 01/17/2020. Condition at [facility]: improved and stable. Reviewed medication(s). Prescription(s) sent electronically to pharmacy. Medication(s) for home use given to the patient per protocol. Patient verbalized understanding. Written instructions provided in Vietnamese. The patient was discharged by the physician. She was discharged home. She left ambulatory and via taxi. --00:15 01/17/20 Eulalia Salas R.N. 23:50 01/16/20. BP: 118/75. MAP: 89. HR: 79. RR: 22. O2 saturation: 99%. Temp: 98 F. Pain level now: 0/10. --00:15 01/17/20 Eulalia Salas R.N.Locked/Released at 01/17/2020 03:28 by Eulalia Salas R.N. Name Value Range Interpretation Code Description Data Candy rce(s) Supporting Document(s) ID Date Data Source [id number] 01/16/2020 09:00:00 PM EDT [facility] 1 Clinical Report - Physicians/Mid Levels [facility] Emergency Department [address] [place] [address] Phone #: ext- [phone] 01/16/2020 20:56 Patient: DANA ALARCON Sex: F : 2000 Age: 19y Time Seen: 21:15 01/16/2020. Arrived- By ambulance. Historian- patient. Disposition decision: 23:38 01/16/2020.HISTORY OF PRESENT ILLNESS Chief Complaint: CHEST PAIN. It is described as sharp and it is described as located in the right chest and left chest area. This started yesterday and is still present and worsening. It is not gone now. At its maximum, severity described as 6 / 10. When seen in the E.D., severity described as 4 / 10. No nausea, vomiting, difficulty breathing or diaphoresis. No additional chest pain. Similar symptoms previously. None. Recent medical care: The patient was seen recently in the office.REVIEW OF SYSTEMS Denies current . No fever, chills, cough, pedal edema or missed periods. No fainting episodes, headache, sore throat, blurred vision or abdominal pain. No black stools, difficulty with urination, skin rash, enlarged lymph nodes or joint pain. No bloody stools. The patient has had calf pain.PAST HISTORY See nurses notes. Problems: Bronchitis. Hypothyroidism. Cystitis. Medications: bus PIRone HCl Oral. Buprenorphine HCl Sublingual. Levothyroxine Sodium Oral. Albuterol Sulfate ER Oral. Allergies: No Known Drug Allergy.SOCIAL HISTORY Never smoker. No alcohol use or drug use. No recent travel.FAMILY HISTORY Negative - denies family medical history.ADDITIONAL NOTES 2 Clinical Report - Physicians/Mid Levels [facility] Emergency Department [address] [place] [address] Phone #: ext- [phone] 01/16/2020 20:56 Patient: DANA ALARCON Sex: F : 2000 Age: 19y The nursing notes have been reviewed with agreement regarding the chief complaint, HPI, ROS, PMH and patient medications and allergies.PHYSICAL EXAM Vital Signs: 01/16/2020 20:58 BP: 139/87. MAP: 104. HR: 81. RR: 14. O2 saturation: 98%. Temp: 98.1 F. Pain level now: 02/17. Have been reviewed as normal. Blood pressure normal. Heart rate normal. Respiratory rate normal. Temperature normal. Oxygen saturation normal. Appearance: Alert. Eyes: Pupils equal, round and reactive to light. Eyes normal inspection. ENT: Ears normal. Nose normal. Pharynx normal. Neck: Normal inspection. Neck supple. CVS: Normal heart rate and rhythm. Heart sounds normal. Pulses normal. Respiratory: No respiratory distress. Chest pain reproducible. Breath sounds normal. Abdomen: Soft and nontender. Bowel sounds normal. No organomegaly. No mass. Femoral pulses equal. Back: Normal external inspection. Skin: Skin warm and dry. Normal skin color. No rash. Normal skin turgor. Extremities: Mild right-sided and left- sided calf tenderness. Extremities exhibit normal ROM. No lower extremity edema. Neuro: Oriented X 3. No motor deficit. No sensory deficit.LABS, X-RAYS, AND EKG EKG: EKG time: 21:04 01/16/2020. Normal sinus rhythm. Rate: 81. Normal P waves. Normal EMILY. Normal QRS complex. Normal axis. Normal ST and T waves. The study has been interpreted contemporaneously by me. The EKG appears to be a good tracing. I agree with and confirm the computer reading of the EKG. Interpretation time: 21:15 01/16/2020. Laboratory Tests: Laboratory tests have been ordered, with results reviewed and considered in the medical decision making process. CT Chest W/O Cont: (COLLIN: 01/16/2020 22:10) ( MsgRcvd 01/16/2020 23:31) Final results Exam CT THORAX W/O CONTRAST [facility] [address] [place] [address] ---------NAME--------- NUMBER SEX AGE ADMIT DISC. XRAY# F/C TYPE DORIAN [place] [id number] F 19 01/16/20 [id number] [id number] E/R DATE OF : 2000 M/R# [id number] #: [id number] TR-08 LOCATION: EMERGENCY DEPT TRANSCRIBED: 01/16/20 23:[address] THORAX W/O CONTRAST [id number] COMPLETED:01/16/20 22:34 KJE [id number] Reason(s): Chest Pain PHYSICIAN: HONG PIZARRO R A D I O L O G Y R E P O R T PATIENT HISTORY: Chest Pain [facility] DLP- 662.6mGy*cm 3 Clinical Report - Physicians/Mid Levels [facility] Emergency Department [address] [place] [address] Phone #: ext- [phone] 01/16/2020 20:56 Patient: DANA ALARCON Sex: F : 2000 Age: 19y PT NEG BETA. VERIFIED 2 IDENTIFIERS. SENT TO [facility] CLARISSA / LUNG (DICOM Hx) EXAM: CT Chest Without IV contrast. CLINICAL HISTORY: Chest Pain ACC DLP- 662.6mGy*cm PT NEG BETA. VERIFIED 2 IDENTIFIERS. SENT TO [facility] CLARISSA TECHNIQUE: Axial computed tomography images of the chest without intravenous contrast. COMPARISON: None provided. FINDINGS: LUNGS: No pulmonary mass. The lungs appear essentially clear. PLEURAL SPACES: No pneumothorax evident. No pleural effusions. HEART: No cardiomegaly. No significant pericardial effusion. LYMPH NODES: No lymphadenopathy is evident. UPPER ABDOMEN: Prominent liver noted in the upper abdomen. BONES: No acute osseous abnormality. MISCELLANEOUS: Noncontrast study without direct assessment of vascular structures. IMPRESSIONS: Unremarkable noncontrast CT of the chest. While performing the above CT examination, radiation dose reduction was accomplished utilizing automated exposure control, adjusting of the mA and kV based on the patient's body size and/or the use of imperative reconstructive techniques. Electronically Signed By: Heath Michaels M.D. , Radiologist Date/Time: 01/16/20 23:.2331.KJE.to EMERGENCY via modemBeta-HCG, Qual Urine: (COLLIN: 01/16/2020 21:45) ( MsgRcvd 01/16/2020 21:53) CanceledCBC w Diff: (COLLIN: 01/16/2020 21:45) ( MsgRcvd 01/16/2020 22:57) Correction to results Test Result Flag Units (Reference) CBC W/AUTOMATED DIFF CORRECTED REPORT COMPLETE BLOOD COUNT WBC 18.1 H 10/uL (4.2 - 11.0) RBC 4.34 10/uL (4.20 - 5.40) HEMOGLOBIN 11.7 L g/dL (12.0 - 16.0) HEMATOCRIT 35.9 L % (37.0 - 47.0) MCV 82.7 fL (81.0 - 101) MCH 27.0 pg (27.0 - 34.0) MCHC 32.6 g/dL (31.0 - 36.0) RDW 13.3 % (11.5 - 14.5) 4 Clinical Report - Physicians/Mid Levels [facility] Emergency Department [address] [place] [address] Phone #: ext- [phone] 01/16/2020 20:56 Patient: DANA ALARCON Sex: F : 2000 Age: 19y PLATELETS 297 10/uL (150 - 450) MPV 11.3 H fL (7.4 - 10.4) NEUT 73.9 % (37.0 - 80.0) LYMPH 15.9 L % (25.0 - 40.0) MONO 7.6 % (3.0 - 8.0) EOS 0.4 % (0.0 - 7.0) BASO 0.5 % (0.0 - 2.5) %IG 1.7 H % (0.0 - 0.0) %NRBC 0.0 % (0.0 - 0.0) #NEUT 13.37 H 10/uL (2.00 - 6.90) #LYMPH 2.87 10/uL (0.60 - 3.40) #MONO 1.38 H 10/uL (0.00 - 0.90) #EOS 0.08 10/uL (0.00 - 0.70) #BASO 0.09 10/uL (0.00 - 0.20) #IG 0.31 H 10/uL (0.00 - 0.10) #NRBC 0.00 10/uL (0.00 - 0.00) MANUAL DIFF SEE BELOW Above is a corrected result. Previously reported on ( MsgRcvd 01/16/2020 21:57) as: MANUAL DIFF NOT INDICATED SEGS 76 % (37 - 80) BAND 2 % (0 - 5) %LYMPH 13 L % (25 - 40) %MONO 9 H % (3 - 8) RBC MORPH MORPH IS NORMAL FOLLOWING RESULTS REPORTED IN ERROR MANUAL DIFFRBC MORPH { CORRECT INDICATEDCMP: (COLLIN: 01/16/2020 21:45) ( MsgRcvd 01/16/2020 22:09) Final results Test Result Flag Units (Reference) COMPREHENSIVE METABOLIC PANEL COMPREHENSIVE METABOLIC PANEL SODIUM 135 mEq/L (134 - 153) POTASSIUM 3.9 mEq/L (3.6 - 5.0) CHLORIDE 100 mEq/L (98 - 107) CO2 23 MEQ/L (22 - 30) GLUCOSE 108 MG/DL (65 - 110) BUN 18 MG/DL (7 - 21) CREATININE 0.6 L MG/DL (0.7 - 1.5) BUN/CREAT 30 H (8 - 27) TOTAL PROTEIN 6.7 G/DL (6.3 - 8.2) ALBUMIN 4.3 G/DL (3.9 - 5.0) GLOBULIN 2.4 GM/DL (2.4 - 3.2) A/G RATIO 1.8 (0.8 - 2.0) CALCIUM 9.2 MG/DL (8.4 - 10.2) TOTAL BILI <0.7 MG/DL (0.2 - 1.3) ALKALINE PHOS 63 U/L (38 - 126) SGOT/AST 8 U/L (5 - 40) SGPT/ALT 14 U/L (7 - 56) ANION GAP 12.0 mmol/L (8.0 - 16.0) AGE 19 yrs NON-AA GFR >60 mL/min AFR AMER GFR >60 mL/min Male GFR Interprentation 20-49 yrs >60 mL/min Malwom20-07 yrs >56 mL/min Normal 60-69 yrs >49 mL/min Normal 70-79yrs>42 mL/min Normal 80 and above >35 mL/min Normal Female GFRInterpretation 20-39 yrs >60 mL/min Normal 40-49 yrs >58 mL/minNormal 50-59 yrs >51 mL/min Normal 60-69 yrs >45 mL/min Normal 5 Clinical Report - Physicians/Mid Levels [facility] Emergency Department [address] [place] [address] Phone #: ext- [phone] 01/16/2020 20:56 Patient: DANA ALARCON Sex: F : 2000 Age: 19y 70-79 yrs >39 mL/min Normal 80 and above >32 mL/min Normal D-Dimer: (COLLIN: 01/16/2020 21:45) ( MsgRcvd 01/16/2020 22:03) Final results Test Result Flag Units (Reference) D-DIMER QUANT 0.49 ug/mL (0.27 - 0.50) Beta- HCG, Qual Serum: (COLLIN: 01/16/2020 21:45) ( MsgRcvd 01/16/2020 22:03) Final results Test Result Flag Units (Reference) HCG SERUM QUAL NEGATIVE (NORMAL: NEGAT HCG SERUM QL REENTER NEGATIVE (NORMAL: NEGAT { KIT LOT # [id number] ){ KIT EXP DATE 03-22-21 ){ PROCEDURAL CONTROL VALID ) Sed. Rate: (COLLIN: 01/16/2020 21:45) ( MsgRcvd 01/16/2020 22:39) Final results Test Result Flag Units (Reference) SED RATE 9 mm/hr (0 - 20) SED RATE REENTER 9 Troponin-T: (COLLIN: 01/16/2020 21:45) ( MsgRcvd 01/16/2020 22:22) Final results Test Result Flag Units (Reference) TROPONIN T <0.01 NG/ML (0.00 - 0.10) TROPONIN T0.1 ng/ml Recommended as the clinical threshold value forTroponin T. Urinalysis: (COLLIN: 01/16/2020 21:50) ( MsgRcvd 01/16/2020 22:00) Final results Test Result Flag Units (Reference) URINALYSIS URINALYSIS SOURCE R COLOR yellow (NORMAL: Yello CLARITY clear (NORMAL: Clear SPEC GRAVITY 1.015 (1.001 - 1.030 pH 6.5 (5 - 9) GLUCOSE NORM (NORMAL: Negat BILIRUBIN NEG (NORMAL: Negat KETONE NEG (NORMAL: Negat PROTEIN NEG (NORMAL: Negat NITRITE NEG (NORMAL: Negat BLOOD NEG (NORMAL: Negat LEUK EST NEG (NORMAL: Negat UROBILINOGEN NOR (less than 1.0 MICROSCOPIC Not Indicate Chest 2 View: (COLLIN: 01/16/2020 21:28) ( MagRcvd 01/16/2020 22:30) In Progress CHEST 2 VIEWS Reason(s): Chest Pain TRANSPORTATION: IV? O2? Oxygen?(No) Room: ED. 6 Clinical Report - Physicians/Mid Levels [facility] Emergency Department [address] [place] [address] Phone #: ext- [phone] 01/16/2020 20:56 Patient: DANA ALARCON Sex: F : 2000 Age: 19yPROGRESS AND PROCEDURES Course of Care: 22:06 Jan 16 2020. (Patient's history obtained and exam completed. Treatment plan discussed and agreed upon.. Work up including EKG chest x-ray labs ordered.). 23:35 Jan 16 2020. (reviewed labs and studies. Diagnosis discussed. Will treat with Zithromax 500 mg now and prednisone 50 mg now. With follow up rx's sent in. Will return if worsen and follow up on Saturday with her doctor.). Disposition: Condition: stable.CLINICAL IMPRESSION Acute bacterial bronchitis. Pleurisy. No effusion.INSTRUCTIONS No strenuous activity. (Prednisone with food, finish all antibiotics.). Warnings: Further evaluation is necessary. GENERAL WARNINGS: Return or contact your physician immediately if your condition worsens or changes unexpectedly, if not improving as expected, or if other problems arise. Your Current Medications: Your current home medications have been reviewed. CONTINUE TAKING THE FOLLOWING MEDICATIONS: Albuterol Sulfate ER Oral. Buprenorphine HCl Sublingual. busPIRone HCl Oral. Levothyroxine Sodium Oral. Prescription Medications: azithromycin 250 mg tablet Take 1 tablet once a day for 4 days -- Dispense 4 tablet. Refills: 0. Substitution permitted. [facility] #[facility] - [id number] ; [place] [address]. . prednisone 50 mg tablet Take 1 tablet once a day for 5 days -- Dispense 5 tablet. Refills: 0. Substitution permitted. [facility] #02 - [id number] ; [place] [address]. . 7 Clinical Report - Physicians/Mid Levels [facility] Emergency Department [address] [place] [address] Phone #: ext- [phone] 01/16/2020 20:56 Patient: DANA ALARCON Sex: F : 2000 Age: 19y Follow-up: Follow up with your doctor Saturday. Call for the next available appointment. Reason for referral: evaluation. Summary of care provided to patient via paper. Understanding of the discharge instructions verbalized by patient.(Electronically signed by Richard Pitts, Physician 01/17/2020 00:43) Name Value Range Interpretation Code Description Data Candy rce(s) Supporting Document(s) ID Date Data Source [id number] 01/16/2020 11:31:00 PM EDT [facility] [address] [place] [address] ---------NAME--------- NUMBER SEX AGE ADMIT DISC. XRAY# F/C TYPE DORIAN [place] [id number] F 19 01/16/[id number] X6B E/R DATE OF : 2000 M/R# [id number] #: [id number] TR-08 LOCATION: EMERGENCY DEPT TRANSCRIBED: 01/16/20 23:[address] THORAX W/O CONTRAST [id number] COMPLETED:01/16/20 22:34 KJE [id number] Reason(s): Chest Pain PHYSICIAN: HONG PA R A D I O L O G Y R E P O R T PATIENT HISTORY:Chest Pain ACC DLP- 662.6mGy*cmPT NEG BETA. VERIFIED 2 IDENTIFIERS. SENT TO [facility]. CLARISSA / LUNG (DICOM Hx)EXAM: CT Chest Without IV contrast.CLINICAL HISTORY: Chest Pain ACC DLP- 662.6mGy*cm PT NEG BETA. VERIFIED 2IDENTIFIERS. SENT TO [facility] TERRIEETECHNIQUE: Axial computed tomography images of the chest without intravenouscontrast.COMPARISON: None provided.FINDINGS:LUNGS: No pulmonary mass. The lungs appear essentially clear.PLEURAL SPACES: No pneumothorax evident. No pleural effusions.HEART: No cardiomegaly. No significant pericardial effusion.LYMPH NODES: No lymphadenopathy is evident.UPPER ABDOMEN: Prominent liver noted in the upper abdomen.BONES: No acute osseous abnormality.MISCELLANEOUS: Noncontrast study without direct assessment of vascularstructures.IMPRESSIONS:Unremarkable no ncontrast CT of the chest.While performing the above CT examination, radiation dose reduction wasaccomplished utilizing automated exposure control, adjusting of the mA and kVbased on the patient's body size and/or the use of imperative reconstructivetechniques.Electronically Signed By:Heath Michaels M.D. , RadiologistDate/Time: 01/16/20 23:31 01/16/[email or web address].to EMERGENCY via modem Name Value Range Interpretation Code Description Data Candy rce(s) Supporting Document(s) ID Date Data Source [id number] 01/16/2020 10:00:00 PM EDT [facility] Name Value Range Interpretation Code Description Data Candy rce(s) Supporting Document(s) URINALYSIS [facility] kali URINALYSIS SOURCE R [facility] COLOR yellow NORMAL: Yellow [facility] CLARITY clear NORMAL: Clear [facility] Specific gravity of Urine by Test strip 1.015 1.001 - 1.030 [facility] pH 6.5 5 - 9 [facility] Glucose [Mass/volume] in Urine by Test strip NORM NORMAL: Negat [facility] Bilirubin.total [Presence] in Urine by Test strip NEG NORMAL: Negative [facility] Ketones [Presence] in Urine by Test strip NEG NORMAL: Negative [facility] Protein [Mass/volume] in Urine by Test strip NEG NORMAL: Negat [facility] Nitrite [Presence] in Urine by Test strip NEG NORMAL: Negative [facility] BLOOD NEG NORMAL: Negative [facility] Leukocyte esterase [Presence] in Urine by Test strip NEG SÁNCHEZ L: Negative [facility] Urobilinogen [Mass/volume] in Urine by Test strip NOR less wu n 1.0 mg/dL [facility] MICROSCOPIC Not Indicate [facility] ID Date Data Source [id number] 01/16/2020 10:57:00 PM EDT [facility] Name Value Range Interpretation Code Description Data Candy rce(s) Supporting Document(s) CBC W/AUTOMATED DIFF [facility] CORRECTE D REPORT COMPLETE BLOOD COUNT Leukocytes [#/volume] in Blood by Automated count 18.1 10^3/uL 4.2 - 11.0 H [facility] Erythrocytes [#/volume] in Blood by Automated count 4.34 10^6/uL 4. 20 - 5.40 [facility] Hemoglobin [Mass/volume] in Blood 11.7 g/dL 12.0 - 16.0 L [facility] Hematocrit [Volume Fraction] of Blood by Automated count 35.9 % 3 7.0 - 47.0 L [facility] Erythrocyte mean corpuscular volume [Entitic volume] by Auto mated count 82.7 fL 81.0 - 101 [facility] Erythrocyte mean corpuscular hemoglobin [Entitic mass] by Automated count 27.0 pg 27.0 - 34.0 [facility] Erythrocyte mean corpuscular hemoglobin concentration [Mass/volume] by Automated count 32.6 g/dL 31.0 - 36.0 [facility] Erythrocyte distribution width [Ratio] by Automated count 13.3 % 11.5 - 14.5 [facility] Platelets [#/volume] in Blood by Automated count 297 10^3/uL 150 - 45 0 [facility] Platelet mean volume [Entitic volume] in Blood by Automated count 11.3 fL 7.4 - 10.4 H [facility] Neutrophils/100 leukocytes in Blood by Automated count 73.9 % 37. 0 - 80.0 [facility] Lymphocytes/100 leukocytes in Blood by Manual count 15.9 % 25.0 - 40.0 L [facility] Monocytes/100 leukocytes in Blood by Automated count 7.6 % 3.0 - 8.0 [facility] Eosinophils/100 leukocytes in Blood by Automated count 0.4 % 0.0 - 7.0 [facility] Basophils/100 leukocytes in Blood by Automated count 0.5 % 0.0 - 2.5 [facility] %IG 1.7 % 0.0 - 0.0 H [facility] %NRBC 0.0 % 0.0 - 0.0 [facility] Neutrophils [#/volume] in Blood by Automated count 13.37 10^3/uL 2. 00 - 6.90 H [facility] Lymphocytes [#/volume] in Blood by Automated count 2.87 10^3/uL 0.60 - 3.40 [facility] Monocytes [#/volume] in Blood by Automated count 1.38 10^3/uL 0.00 - 0.90 H [facility] Eosinophils [#/volume] in Blood by Automated count 0.08 10^3/uL 0.00 - 0.70 [facility] Basophils [#/volume] in Blood by Automated count 0.09 10^3/uL 0.00 - 0.20 [facility] #IG 0.31 10^3/uL 0.00 - 0.10 H [facility] #NRBC 0.00 10^3/uL 0.00 - 0.00 [facility] MANUAL DIFF SEE BELOW [facility] Segmented neutrophils/100 leukocytes in Blood by Manual count 76 % 37 - 80 [facility] BAND 2 % 0 - 5 [facility] %LYMPH 13 % 25 - 40 L [facility] %MONO 9 % 3 - 8 H [facility] RBC MORPH MORPH IS NORMAL [facility] FOLLOWING RESULTS REPORTED IN ERROR MANUAL DIFF RBC MORPH { CORRECT INDICATED ID Date Data Source [id number] 01/16/2020 10:39:00 PM EDT [facility] Name Value Range Interpretation Code Description Data Candy rce(s) Supporting Document(s) Erythrocyte sedimentation rate by Westergren method 9 mm/hr 0 - 20 [facility] SED RATE REENTER 9 [facility] ID Date Data Source [id number] 01/16/2020 10:22:00 PM EDT [facility] Name Value Range Interpretation Code Description Data Candy rce(s) Supporting Document(s) TROPONIN T <0.01 NG/ML 0.00 - 0.10 [facility] TROPONIN T0.1 ng/ml Recommended as the c linical threshold value forTroponin T. ID Date Data Source [id number] 01/16/2020 10:09:00 PM EDT [facility] Name Value Range Interpretation Code Description Data [facility](s) Supporting Document(s) COMPREHENSIVE METABOLIC PANEL [facility] COMPREHENSIVE METABOLIC PANEL Sodium [Moles/volume] in Serum or Plasma 135 mEq/L 134 - 153 [facility] Potassium [Moles/volume] in Serum or Plasma 3.9 mEq/L 3.6 - 5.0 [facility] Chloride [Moles/volume] in Serum or Plasma 100 mEq/L 98 - 107 [facility] Carbon dioxide, total [Moles/volume] in Serum or Plasma 23 MEQ/L 22 - 30 [facility] Glucose [Mass/volume] in Serum or Plasma 108 MG/DL 65 - 110 [facility] BUN 18 MG/DL 7 - 21 [facility] Creatinine [Mass/volume] in Serum or Plasma 0.6 MG/DL 0.7 - 1.5 L [facility] BUN/CREAT 30 8 - [address] [facility] Protein [Mass/volume] in Serum or Plasma 6.7 G/DL 6.3 - 8.2 [facility] Albumin [Mass/volume] in Serum or Plasma 4.3 G/DL 3.9 - 5.0 [facility] Globulin [Mass/volume] in Serum by calculation 2.4 GM/DL 2.4 - 3.2 [facility] A/G RATIO 1.8 0.8 - 2.0 [facility] Calcium [Mass/volume] in Serum or Plasma 9.2 MG/DL 8.4 - 10.2 [facility] Bilirubin.total [Mass/volume] in Serum or Plasma <0.7 MG/DL 0.2 - 1.3 [facility] Alkaline phosphatase [Enzymatic activity/volume] in Serum or Plasma 63 U/L 38 - 126 [facility] Aspartate aminotransferase [Enzymatic activity/volume] in Se rum or Plasma 8 U/L 5 - 40 [facility] Alanine aminotransferase [Enzymatic activity/volume] in Seru m or Plasma 14 U/L 7 - 56 [facility] Anion gap 3 in Serum or Plasma 12.0 mmol/L 8.0 - 16.0 [facility] AGE 19 yrs [facility] NON-AA GFR >60 mL/min [facility] AFR AMER GFR >60 mL/min [facility] Male GFR In terprentation 20-49 yrs >60 mL/min Normal 50-59 yrs >56 mL/min Normal 60-69 yrs >49 mL/min Normal 70-79yrs >42 mL/min Normal 80 and above >35 mL/min Normal Female GFR Interpretation 20-39 yrs >60 mL/min Normal 40-49 yrs >58 mL/min Normal 50-59 yrs >51 mL/min Normal 60-69 yrs >45 mL/min Normal 70-79 yrs >39 mL/min Normal 80 and above >32 mL/min Normal ID Date Data Source [id number] 01/16/2020 10:03:00 PM EDT [facility] Name Value Range Interpretation Code Description Data Candy rce(s) Supporting Document(s) Fibrin D-dimer FEU [Mass/volume] in Platelet poor plasma 0.49 ug /mL 0.27 - 0.50 [facility] ID Date Data Source [id number] 01/16/2020 10:03:00 PM EDT [facility] Name Value Range Interpretation Code Description Data Candy rce(s) Supporting Document(s) HCG SERUM QUAL NEGATIVE NORMAL: NEGATIVE [facility] HCG SERUM QL REENTER NEGATIVE NORMAL: NEGATIVE [facility] { KIT LOT # [id number] ){ KIT EXP DATE 03-22-21 ){ PROCEDURAL CONTROL VALID ) ID Date Data Source [id number] 01/02/2020 05:10:00 PM EDT [facility] 1 OrderSheet [facility] Emergency Department [address] [place] [address] Phone #: ext- [phone] 01/02/2020 17:09 Patient: DANA ALARCON Sex: F : 2000 Age: 19yWEIGHT:123.3 kg (S) HEIGHT:66 inches (S) BMI:43.9ALLERGIES: No Known Drug AllergyCHIEF COMPLAINT: dyspneaDIAGNOSIS: Problem, Severe acute respiratory syndrome coronavirus, CystitisLAB ORDERSOrder Description Priority Entered Acknowledged InitialedCBC w Diff STAT 18:19 01/02/2020 19:24 Luz Cox RN P.A.-C;CMP STAT 18:19 01/02/2020 19:24 Luz Cox RN P.A.-C;Lipase STAT 18:19 01/02/2020 19:24 Luz Cox RN P.A.-C;PT/PTT STAT 18:19 01/02/2020 19:24 Luz Cox RN P.A.-C;Troponin-T STAT 18:19 01/02/2020 19:24 Luz Cox RN P.A.-C;D-Dimer STAT 18:19 01/02/2020 19:24 Luz Cox RN P.A.-C;PT/INR STAT 18:19 01/02/2020 19:24 Luz Cox RN P.A.-C;Lactic Acid STAT 18:19 01/02/2020 19:24 Luz Cox RN P.A.-C;TSH STAT 18:19 01/02/2020 19:24 Luz Cox RN P.A.-C;Urinalysis (Clean STAT 18:19 01/02/2020 22:29 StevenCatch) Zohreh Salas RN P.A.-C;CORONAVIRUS STAT 18:19 01/02/2020 19:24 Luz 2 OrderSheet [facility] Emergency Department [address] [place] [address] Phone #: ext- [phone] 01/02/2020 17:09 Patient: DANA ALARCON Sex: F : 2000 Age: 19yCOVID-19 Zohreh Cox RN P.A.-C;Venous Blood Gas STAT 18:19 01/02/2020 19:24 Luz Cox RN P.A.-C;HCG Serum Qual STAT 19:15 01/02/2020 19:24 Luz Cox RN P.A.-C;Culture, Urine STAT 22:50 01/02/2020 22:52 Alejandro(Urine, Clean Zohreh Salas RNCatisaac) P.A.-C;DIAGNOSTIC STUDY ORDERSOrder Description Priority Entered Acknowledged InitialedCT CTA CHEST STAT 19:30 01/02/2020 Ack'd: 20:18 22:29 Chino reymundo(NONCOR) W CON Zohreh Salas RNINC PAVITHRA P.A.-C;(Oxygen?(No))(IV?(Yes)) Reason for Study: dyspnea w/ chest discofort with elevated d- dimerMEDICATION/IV/DRIP/FLUID ORDERSOrder Description Priority Entered Acknowledged InitialedIV NS : Bolus 500 18:19 01/02/2020 19:26 DorismL, then 100 mL/hr Zohreh Cox RN P.A.-C;Zofran IVP 4 mg 18:19 01/02/2020 19:26 Luz Cox RN P.A.-C;Macrobid PO 100 22:50 01/02/2020 23:02 Kirsty Salas RN P.A.- C;GENERAL ORDERSOrder Description Priority Entered Acknowledged InitialedBlood Pressure 18:19 01/02/2020 19:24 DorisMonitor Zohreh Cox RN P.A.-C;Metal Finisher 18:19 01/02/2020 19:24 Luz(continuous) Zohreh Cox RN P.A.-C;EKG 18:19 01/02/2020 19:31 Luz Cox RN 3 OrderSheet [facility] Emergency Department [address] [place] [address] Phone #: ext- [phone] 01/02/2020 17:09 Patient: DANA ALARCON Sex: F : 2000 Age: 19y P.A.-C;NPO 18:19 01/02/2020 19:24 Luz Cox RN P.A.-C;Obtain Old EKG 18:19 01/02/2020 19:28 Luz Cox RN P.A.-C;Obtain Old Records 18:19 01/02/2020 19:28 Luz Cox RN P.A.-C;Pulse oximeter 18:19 01/02/2020 19:24 Luz(Continuous) Zohreh Cox RN P.A.-C;Saline Lock 18:19 01/02/2020 19:24 Luz Cox RN P. A.-C;Vitals 18:19 01/02/2020 19:24 Luz Cox RN P.A.- C;[Electronically signed by Alejandro Salas RN (00:34 01/03/2020)][Electronically signed by Zohreh Pinedo P.A.-C (11:26 01/03/2020)][Electronically locked by Alejandro Salas RN (00:34 01/03/2020)] Name Value Range Interpretation Code Description Data Candy rce(s) Supporting Document(s) ID Date Data Source [id number] 01/02/2020 05:10:00 PM EDT [facility] 1 Medication Reconciliation Report [facility] Emergency Department [address] [place] [address] Phone #: ext [phone] 01/02/2020 17:09 Patient: DANA ALARCON Sex: F : 2000 Age: 19yWeight: 123.3 kgHeight/Length: 66 in.BMI: 43.9ALLERGIES: No Known Drug AllergyThe patient's Home Medications are listed below:THE FOLLOWING MEDICATIONS NEED TO BE RECONCILED: Abilify Oral (2 mg) 1 tablet, daily Albuterol Sulfate HFA Inhalation (108 (90 Base) mcg/act) 2 puffs, last dose: 1100, prn Control Pills 1 pill, dailyThe source(s) of the original Home Medication information:Not obtained.The following Medications were given to the patient in the Emergency Department:IV NS IV Fluids bolus 500 mL over 30 minute(s), then 100 mL/hr, administered: 01/02/2020 7:12:00 PMZofran [IVP] IVP 4 mg, administered: 01/02/2020 7:11:00 PMMacrobid [PO] PO 100 mg, administered: 01/02/2020 11:02:00 PMThe following Medications were prescribed to the patient:Macrobid 100 mg capsule Take 1 capsule twice a day for 7 days -- Dispense 14 capsule. Refills: 0.Substitution permitted.Pharmacy - [facility] - [id number] ; [place], [place] [id number]. . -- Zohreh Pinedo P.A.-C Name Value Range Interpretation Code Description Data Candy rce(s) Supporting Document(s) ID Date Data Source [id number] 01/02/2020 05:10:00 PM EDT [facility] 1 Medication Administration Record [facility] Emergency Department [address] [place] [address] Phone #: ext- [phone] 01/02/2020 17:09 Patient: DANA ALARCON Sex: F : 2000 Age: 19yWeight: 123.3 kgHeight/Length: 66 inBMI: 43.9ALLERGIES: No Known Drug Allergy Date/Time Medication Administered Medication OrderedStart IV NS IV NS : Bolus 500 mL, then 85172:12 01/02/2020 Dose: IV Fluids mL/hrLuz Cox RN Rate: 100 mL/hr over 5 hour(s)---- Bolus: 500 mL over 30 minute(s)Stop Dispensed: 1000 mL bag22:52 01/02/2020 Site: #1 right Sourav Salas RNGiven ZOFRAN [IVP] (ONDANSETRON HCL) Zofran IVP 4 mg19:11 01/02/2020 Dose: 4 mg IVPDlobo Cox RN Site: #1 right ACGiven MACROBID [PO] (NITROFURANTOIN Macrobid PO 100 mg23:02 01/02/2020 MONOHYD MACRO)Alejandro Salas RN Dose: 100 mg Capsules PO Name Value Range Interpretation Code Description Data Candy rce(s) Supporting Document(s) ID Date Data Source [id number] 01/02/2020 05:10:00 PM EDT [facility] 1 General Instructions [facility] Emergency Department [address] [place] [address] Phone #: ext [phone] 01/02/2020 17:09 Patient: DANA ALARCON Sex: F : 2000 Age: 19y Coronavirus COVID-19 presumed (confirmatory testing pending) with upper respiratory infection. Acute cystitis. No hematuria present. Abnormal tests; (TSH slighly elevated. recommend to f/u with PCP for repeat.).INSTRUCTIONS Take Tylenol (Acetaminophen) or Motrin (Ibuprofen) as needed for fever control. Take medication according to label instructions. Rest at home for one weeks (You are on a self quarantine x 1 week. This may be extended or decreased by [facility].). Follow a low cholesterol diet. ([facility]: [phone]. Please contact them in approx 3-4 days if you have not heard from them. You are on a self quarantine x 1 week. This may be extended or decreased by [facility]. I recommend to purchase a small finger pulse oximeter to monitor your O2 saturation at home. If becomes too low (<90%), please contact your PCP or return to the ER. F/U wiht PCP for repeat TSH). Warnings: GENERAL WARNINGS: Return or contact your physician immediately if your condition worsens or changes unexpectedly, if not improving as expected, or if other problems arise. Prescription Medications: Macrobid 100 mg capsule Take 1 capsule twice a day for 7 days -- Dispense 14 capsule. Refills: 0. Substitution permitted. Pharmacy - [facility] - [id number] ; [place], [place] [id number]. . Follow-up: Return to the emergency department. Follow up with your healthcare provider in about two days if not better. Call for an appointment. Understanding of the discharge instructions verbalized by patient. ADDITIONAL INFORMATION 2 General Instructions [facility] Emergency Department [address] [place] [address] Phone #: ext- [phone] 01/02/2020 17:09 Patient: DANA ALARCON Sex: F : 2000 Age: 19yBladder Infection, Female (Adult)Urine is normally doesn't have any bacteria in it. But bacteria can get into the urinary tract from theskin around the rectum. Or they can travel in the blood from elsewhere in the body. Once they are inyour urinary tract, they can cause infection in the urethra (urethritis), the bladder (cystitis), or thekidneys (pyelonephritis).The most common place for an infection is in the bladder. This is called a bladder infection. This isone of the most common infections in women. Most bladder infections are easily treated. They arenot serious unless the infection spreads to the kidney.The phrases "bladder infection," "UTI," and "cystitis" are often used to describe the same thing. Butthey are not always the same. Cystitis is an inflammation of the bladder. The most common cause ofcystitis is an infection.SymptomsThe infection causes inflammation in the urethra and bladder. This causes many of the symptoms.The most common symptoms of a bladder infection are: Pain or burning when urinating Having to urinate more often than usual Urgent need to urinate Only a small amount of urine comes out 3 General Instructions [facility] Emergency Department [address] [place] [address] Phone #: ext- [phone] 01/02/2020 17:09 Patient: DANA ALARCON Sex: F : 2000 Age: 19y Blood in urine Abdominal discomfort. This is usually in the lower abdomen above the pubic bone. Cloudy urine Strong- or bad- smelling urine Unable to urinate (urinary retention) Unable to hold urine in (urinary incontinence) Fever Loss of appetite Confusion (in older adults)CausesBladder infections are not contagious. You can't get one from someone else, from a toilet seat, orfrom sharing a bath.The most common cause of bladder infections is bacteria from the bowels. The bacteria get onto theskin around the opening of the urethra. From there, they can get into the urine and travel up to thebladder, causing inflammation and infection. This usually happens because of: Wiping improperly after urinating. Always wipe from front to back. Bowel incontinence Procedures such as having a catheter inserted Older age Not emptying your bladder. This can allow bacteria a chance to grow in your urine. Dehydration Constipation Sex Use of a diaphragm for controlTreatmentBladder infections are diagnosed by a urine test. They are treated with antibiotics and usually clear up 4 General Instructions [facility] Emergency Department [address] [place] [address] Phone #: ext- [phone] 01/02/2020 17:09 Patient: DANA ALARCON Sex: F : 2000 Age: 19yquickly without complications. Treatment helps prevent a more serious kidney infection.MedicinesMedicines can help in the treatment of a bladder infection: Take antibiotics until they are used up, even if you feel better. It is important to finish them to make sure the infection has cleared. You can use acetaminophen or ibuprofen for pain, fever, or discomfort, unless another medicine was prescribed. If you have chronic liver or kidney disease, talk with your healthcare provider before using these medicines. Also talk with your provider if you've ever had a stomach ulcer or gastrointestinal bleeding, or are taking blood-thinner medicines. If you are given phenazopydridine to reduce burning with urination, it will cause your urine to become a bright orange color. This can stain clothing.Care and preventionThese self-care steps can help prevent future infections: Drink plenty of fluids to prevent dehydration and flush out your bladder. Do this unless you must restrict fluids for other health reasons, or your doctor told you not to. Proper cleaning after going to the bathroom is important. Wipe from front to back after using the toilet to prevent the spread of bacteria. Urinate more often. Don't try to hold urine in for a long time. Wear loose-fitting clothes and cotton underwear. Avoid tight-fitting pants. Improve your diet and prevent constipation. Eat more fresh fruit and vegetables, and fiber, and less junk and fatty foods. Avoid sex until your symptoms are gone. Avoid caffeine, alcohol, and spicy foods. These can irritate your bladder. Urinate right after intercourse to flush out your bladder. If you use control pills and have frequent bladder infections, discuss it with your doctor.Follow-up careCall your healthcare provider if all symptoms are not gone after 3 days of treatment. This is especiallyimportant if you have repeat infections.If a culture was done, you will be told if your treatment needs to be changed. If directed, you can 5 General Instructions [facility] Emergency Department [address] [place] [address] Phone #: ext- [phone] 01/02/2020 17:09 Patient: DANA ALARCON Sex: F : 2000 Age: 19ycall to find out the results.If X-rays were done, you will be told if the results will affect your treatment.Call [phone] if any of the following occur: Trouble breathing Hard to wake up or confusion Fainting or loss of consciousness Rapid heart rateWhen to seek medical adviceCall your healthcare provider right away if any of these occur: Fever of 100.4F (38.0C) or higher, or as directed by your healthcare provider Symptoms are not better by the third day of treatment Back or belly (abdominal) pain that gets worse Repeated vomiting, or unable to keep medicine down Weakness or dizziness Vaginal discharge Pain, redness, or swelling in the outer vaginal area (labia) [id number] [employer]. [address] [place] [address], [place] [address]. All rights reserved. This information is not intended as asubstitute for professional medical care. Always follow your healthcare professional's instructions. Prevention steps for People with confirmed or suspected COVID-19 (including persons under investigation) who do not need to be hospitalized A nd People with confirmed COVID-19 who were hospitalized and determined to be medically stable to go home Your healthcare provider and public health staff will evaluate whether you can be cared for at home. If it isdetermined that you do not need to be hospitalized and can be iso lated at home, you will [facility]. You should follow the prevention steps below until a healthcare provider orlds hospital or critical access hospital health department says you can return to your normal activities. 6 General Instructions [facility] Emergency Department [address] [place] [address] Phone #: ext- [phone] 01/02/2020 17:09 Patient: DANA ALARCON Sex: F : 2000 Age: 19y and water are not readily available, use an alcohol-based hand Stay home except to get medical care security checker with at least 60% alcohol, covering all surfaces of your hands People who are mildly ill with COVID-19 a re able to isolate at and rubbing them together until they feel dry.home during their illness. You should restrict activities outside your Soap and water are the best option if hands are visibl y dirty.home, except for getting medical care. Do not go to work, school, or Avoid touching your eyes, nose, and mouth with unwashedpublic areas. Avoid using public transportation, ride-sharing, or hands.taxis. Separate yourself fro m other people and animals in your Flu Like Symptoms / Coronavirus Exposure - 30a Page 1 of 2home People: As much as possible, you should stay in a specificroom and away from other people in your home. Also, you shoulduse a separate bathroom, if available.Animals: You should restrict contact with pets and othe r animalswhile you are sick with COVID-19, just like you would around otherpeople. Although there have not been reports of pets or other animalsbecoming sick with COVID-19, it is still recommended that people sickwith COVID-19 limit contact with anima l s until more information isknown about the virus. When possible, have another member of yourhousehold care for your animals while you are sick. If you are sickwith COVID-19, avoid contact with your pet, including petting,snuggling, being kissed or lic ked, and sharing food. If you must carefor your pet or be around animals while you are sick, wash yourhands before and after you interact with pets and wear a facemask.See https:// www.cdc.gov/coronavirus/2019-ncov/faq.html#0826-zXhF-kus-animals for more information. Call ahead before visiting your doctor If you have a medical appointment, call the healthcare providerand tell them that you have or may have COVID-19. This will helpthe healthcare pro vider's office take steps to keep other peoplefrom getting infected or exposed. Wear a facemask You should wear a facemask when you are around otherpeople {e.g., sharing a room or vehicle} or pets and before youenter a healthcare provider' s office. If you are not able to weara facemask {for example, because it causes trouble breathing},then people who live with you should not stay in the same roomwith you, or they should wear a facemask if they enter yourroom. Cover your coughs and sneezes Cover your mouth and nose with a tissue when you cough orsneeze. Throw used tissues in a lined trash can. Immediatelywash your hands with soap and water for at least 20 seconds or, ifsoap and water are not available, clean your hands with an alcohol-based hand security checker that contains at least 60% alcohol. Clean your hands often Wash your hands often with soap and water for at least 20seconds, especially after blowing your nose, coughing, or sneezing;going to the bathroom; and before eating or prepa ring food. If soap 7 General Instructions [facility] Emergency Department [address] [place] [address] Phone #: ext- [phone] 01/02/2020 17:09 Patient: DANA ALARCON Sex: F : 2000 Age: 19yAvoid sharing personal household items hours. You should not share dishes, drinking glasses, cups, eating If you have a medical emergency and need to call 911, notify theutensils, towels, or bedding with other people or pets in your dispatch personnel that you have, or are being evaluated forhome. After using these items, they should be washed COVID-19. If possible, put on a facemask before emergencythoroughly with soap and water. medical services arrive.Clean all "high-touch" surfaces everyday Discontinuing home isolationHigh to uch surfaces include counters, tabletops, doorknobs,bathroom fixtures, toilets, phones, keyboards, tablets, and Patients with confirmed COVID-19 should remain under homebedside tables. Also, clean any surfaces that may have blood, isolation precautions until the risk of secondary transmission tostool, or body fluids on them. Use a household cleaning spray or others is thought to be low. The decision to discontinue homewipe, according to the label instructions. isolation precautions should be made on a [id number] basis, inLabels contain instructions for safe and effective use of the consultation with healthcarecleaning product including precautions you should take when providers and state and local health departments.applying the product, such as wearing gloves and making sure Contactsyou have good ventilation during use of the pr oduct. Online information 2020 T System,Monitor your symptoms https:// www.cdc.gov/coronavirus/2019-ncov/about/index.html Seek prompt medical attention if your illness is worsening {e.g., difficulty breathing}. Before seeking care, call yourhealthcare provider and tell them that you have, or are beingevaluated for, COVID-19. Put on a facemask before you enterthe facility. These steps will help the healthcare provider's officeto keep other people in the office or wa i ting room from gettinginfected or exposed. Ask your healthcare provider to call [facility] or [facility] department. Persons who are placed underactive monitoring or facilitated self-monitoring should followinstructions provided by their local health department or Content source: National Center for Immunization andoccupational health professionals, as appropriate. When Respiratory Diseases (NCIRD), Division of Viral Diseasesworking with your local health department check their available https://www.Apartment List.ITegris/index.php 8 General Instructions [facility] Emergency Department [address] [place] [address] Phone #: ext- [phone] 01/01 17:09 Patient: DANA ALARCON Sex: F : 2000 Age: 19y Recommended precautions for household members,intimate partners, and caregivers in a nonhealthcare setting1 of A patient with symptomatic laboratory- confirmed COVID-19 or A patient under investigation Household members, intimate partners, and caregivers in a nonhealthcare setting may have close contact2 with a person with symptomatic, laboratory-confirmed COVID-19 or a person under investigation. Closecontacts should monitor their health; they should call their healthcare provider right away if they develop symptoms suggestive of COVID-19 {e.g., fever, cough, shortness of breath}{see Interim [place] Guidance for Risk Assessment and Public Health Management of Persons with Potential Coronavirus Disease 2019 { COVID-19} Exposure in Travel-associated or Community Settings.}Close contacts should also follow these recommendations: Avoid touching your eyes, nose, and mouth with unwashed hands. Make sure that you understand and can help the patient follow their healthcare provider's instructions for medication{s} The patient sh ould wear a facemask when you are around other and care. You should help the patient with basic needs in the people. If the patient is not able to wear a facemask {for home and provide support for getting groceries, prescriptions, example, because it causes trouble breathing}, you, as the and other personal needs. caregiver, should wear a mask when you are in the same room Monitor the patient's symptoms. If the patient is getting sicker, as the patient. call his or her healthcare provider and tell them that the patient Wear a disposab le facemask and gloves when you touch or have has laboratory-confirmed COVID-19. This will help the contact with the patient's blood, stool, or body fluids, such as healthcare provider' s office take steps to keep other people in saliva, sputum, nasal mucus, vomit, urine. the office or waiting room from getting infected. Ask the Throw out disposable facemasks and gloves after using healthcare provider to call the local or critical access hospital health department them. Do not reuse. for additional guidance. If the patient has a medical emergency When removing personal prote ctive equipment, first remove and you need to call 911 , notify the dispatch personnel that and dispose of gloves. Then, immediately clean your hands the patient has, or is being evaluated for COVID-19. with soap and water or alcohol-based hand security checker. Next, Household members should stay in another room or be remove and dispose of facemask, and immediately clean your hands again with soap and water or alcohol-based from the patient as much as possible. Household hand security checker. members should use a separate bedroom and bathroom, if Avoid sharing household items with the patient. You should not available. share dishes, drinking glasses, cups, eating utensils, towels, Prohibit visitors who do not have an essential need to be bedding, or other items. After the patient uses these items, you in the home. should wash them thoroughly {see below " Wash laundry Household members should care for any pets in the home. thoroughly"}. Do not handle pets or other animals while sick. For more information, see COVID-19 and Animals. Flu Like Symptoms / Coronavirus Exposure - 30a Page 2 of Make sure that shared sp aces in the home have good air flow, such as by an air conditioner or an opened window, weather permitting. Perform hand hygiene frequently. Wash your hands often with soap and water for at least 20 seconds or use an alcohol-based hand security checker that conta ins 60 to 95% alcohol, covering all surfaces of your hands and rubbing them together until they feel dry. Soap and water should be used preferentially if hands are visibly dirty. 9 General Instructions [facility] Emergency Department [address] [place] [address] Phone #: ext- [phone] 01/02/2020 17:09 Patient: DANA ALARCON Sex: F : 2000 Age: 19y Clean all "high-touch" surfaces, such as counters, soap and water or an alcohol-based hand security checker} tabletops, doorknobs, bathroom fixtures, toilets, immediately after handling these items. Soap and water should phones, keyboards, tablets, and bedside tables, every be used preferentially if hands are visibly dirty. day. Also, clean any surfaces that may have blood, Discuss any additional questions with your state or local stool, or body fluids on them. health department or healthcare provider. Check available Use a household cleaning spray or wipe, hours when contacting your local health department. according to the label instructions. Labels contain Contacts instructions for safe and effective use of the Online information cleaning product including precautions you should https:// www.cdc.gov/coronavirus/2019-ncov/about/index.html take when applying the product, such as wearing gloves and making sure you have good ventilation during use of the product. Wash laundry thoroughly. 2019 T System, Immediately remove and wash clothes or bedding that have blood, stool, or body fluids on them. Content source: National Center for Immunization and Respiratory Diseases Wear disposable gloves while handling soiled (NCIRD), Division of Viral Diseases items and keep soiled items away from your body. Clean your hands {with soap and water or an Footnotes alcohol-based hand security checker} immediately after 1 Home healthcare personnel should refer to I nterim Infection Prevention and removing your gloves. Read and follow directions on labels of laundry Control Recommendations for Patients with Known or Patients Under Investigation for Coronavirus Disease 2019 (COVID-19) in a Healthcare Setting . or clothing items and detergent. In general, using a normal laundry detergent according to washing 2Cl os e con ta ct i s defi sherry a s- machine instructions and dry thoroughly using the warmest temperatures recommended on the being within approximately 6 feet (2 meters) of a COVID-19 case for a prolonged period of time; close contact can occur while caring for, living clothing label. with, visiting, or sharing a health care waiting area or room with a COVID-[address] all used disposable gloves, facemasks, and other case - or - www.Apartment List.ITegris/index.php contaminated items in a lined container before disposing of h aving direct contact with infectious secretions of a COVID-19 case (e.g., being them with other household waste. Clean your hands {with coughed on https:// You have been given the following additional information: Bladder Infection, Female (Adult) COVID-19 Rest at home for one weeks (You are on a self quarantine x 1 week. This may be extended or decreased by [facility].).(Electronically signed by Zohreh Pinedo P.A.-C 01/03/2020 11:26) 10 General Instructions [facility] Emergency Department [address] [place] [address] Phone #: ext- [phone] 01/02/2020 17:09 Patient: DANA ALARCON Sex: F : 2000 Age: 19y Name Value Range Interpretation Code Description Data Candy rce(s) Supporting Document(s) ID Date Data Source [id number] 01/02/2020 05:10:00 PM EDT [facility] 1 Clinical Report - Nurses [facility] Emergency Department [address] [place] [address] Phone #: ext- [phone] 01/02/2020 17:09 Patient: DANA ALARCON Sex: F : 2000 Age: 19yTRIAGEArrived by EMS. Historian: patient.Triage time: 17:17 01/02/2020. Acuity: LEVEL 3.Chief Complaint: COUGH and SORE THROAT.17:17 01/02/20. Alert. No acute distress.This started yesterday. ( Ate this am then vomited). She has had chest congestion, nasal congestionand vomiting. The vomiting has occurred only once. She has had pleuritic central chest pain (with deepbreath).SEPSIS SCREEN: SIRS Screen negative. Sepsis Screen negative. No suspected or confirmed signs ofinfection present. --17:44 01/02/20 Luz Cox RN17:34 01/02/20. BP: 109/66. MAP: 80. HR: 107. RR: 18. O2 saturation: 97%. Temp: 98.1 F. Pain levelnow: 12/17. --17:44 01/02/20 Luz Cox RN.Weight: 123.3 kg stated. Hei ght/Length: 66 inches Per Patient. BMI: 43.9. --17:33 01/02/20 CAS Blas.MedicationsAbilify Oral (Tablet 2 mg) 1 tablet, daily. --17:48 01/02/20 Luz Cox RN Control Pills 1 pill, daily. --17:48 01/02/20 Luz Cox RN Albuterol Sulfate HFA Inhalation (Aerosol Solution 108 (90 Base) mcg/act) 2 puffs, as needed, last [id number]. --17:49 01/02/20 Luz Cox RN.AllergiesNo Known Drug Allergy. --17:48 01/02/20 Luz Cox RN.PROBLEMS:Asthma.Anxiety Reaction.Depression. --17:50 01/02/20 Luz Cox RN.ADDITIONAL SURGERIES:no known surgeries.Epmyeee72:17 01/02/20.PAST MEDICAL HX: Immunizations: up-to-date. 2 Clinical Report - Nurses [facility] Emergency Department [address] [place] [address] Phone #: ext- [phone] 01/02/2020 17:09 Patient: DANA ALARCON Sex: F : 2000 Age: 19y SOCIAL HX: Never smoker. Occasional alcohol use. No drug use. She was offered HIV testing but declined and hepatitis C testing but declined. She has not traveled outside the [place] Infectious disease exposure: No infectious disease exposure. (Denies contact with PUI for COVID-19). Patient is not a known carrier of tuberculosis, hepatitis, HIV, MRSA or VRE. Patient is not a known carrier of CRE. SELF HARM ASSESSMENT: Self harm assessment was performed. The patient answered "no" to the question(s) "Do you have thoughts of harming or killing yourself?" and "Have you recently had thoughts about harming or killing others?". ABUSE ASSESSMENT: Abuse assessment. The patient had positive responses to the question(s) "Do you feel safe in your home?" (yes). No report of abuse. NUTRITIONAL RISK ASSESSMENT: The nutritional risk assessment revealed no deficiencies. FUNCTIONAL ASSESSMENT: Functional assessment: no impairments noted. LEARNING NEEDS ASSESSMENT: The learning needs assessment revealed no barriers. FALL RISK ASSESSMENT: Fall risk assessment completed. No risk factors identified. SKIN INTEGRITY ASSESSMENT: Skin integrity risk assessment completed. No skin integrity risk identified. --17:44 01/02/20 Luz Cox RN.PHYSICAL NNTKEFLFNK52:39 01/02/20. Ambulatory to room.GENERAL / NEURO / PSYCH: Alert. Oriented X 4. Appears in no acute distress.HEENT: Nares within normal limits. Mouth within normal limits upon inspection. Pharyngeal erythema.Voice within normal limits. Mucous membranes are pink.RESPIRATORY: Respirations not labored. Decreased breath sounds bilaterally.CVS: Cardiac rhythm: normal sinus rhythm; no ectopy noted (97).SKIN: Skin is warm and dry. Normal skin turgor. --17:48 01/02/20 Luz Cox RN.NURSING PROGRESS NOTES17:20 01/02/20. manager monitoring, NIBP monitor and pulse oximeter placed on patient; cardiac exercise specialist-Lead II; monitor alarms on; see monitor strips. Patient gowned. Head of bed elevated. Two patientidentifiers checked. Call light placed in reach. Side rails up. Bed placed in lowest position. Brakes ofbed on. Patient ready for evaluation- ED physician and PA notified. --17:44 01/02/20 uLz Cox RN 18:00 01/02/20. The patient reports no complaints and she is calm and resting quietly. CVS: Cardiac rhythm: normal sinus rhythm; (97). --19:33 01/02/20 Luz Cox RN 18:20 01/02/20. The patient is calm. ( Patient on stretcher ,8 month old lying on chest, 1 year old lying 3 Clinical Report - Nurses [facility] Emergency Department [address] [place] [address] Phone #: ext- [phone] 01/02/2020 17:09 Patient: DANA ALARCON Sex: F : 2000 Age: 19yon stretcher at patient's side (both children also being seen for cold s ymptoms)).RESPIRATORY: No respiratory distress. Breath sounds normal.SKIN: Skin is warm and dry. --19:38 01/02/20 Luz Cox RN19:10 01/02/2020 Site #1 started via IV in the right antecubital space with an 20g angiocath, with aseptictechnique and good blood return; one attempt. Saline lock flushed with 10 mL saline. --19:25 01/02/20Luz Cox RN19:11 01/02/2020 Zofran (Ondansetron HCl) IVP 4 mg given over 1 minute(s) via site #1. Allergies verifiedand confirmed 5 rights. IV patency established. IV site checked: no pain, redness, or swelling. IV flushedthoroughly pre- and post-medication ad ministration. IVP given by RN. Information reviewed with patientincluding reason for taking this medication, signs of allergic reaction and precautions. Verbalizesunderstanding. --19:26 01/02/20 Luz Cox RN19:12 01/02/2020 Started bag #1 1000 mL IV Fluids IV NS; bolus of 500 mL over 30 minute(s) then at 100mL/hr over 5 hour(s) via site #1 via IV pump. Allergies verified and confirmed 5 rights. IV patencyestablished. IV site checked: no pain, redness, or swelling. IV flushed thoroughly pre- and post-medicationadministration. Information reviewed with patient including reason for taking this medication, signs ofallergic reaction and precautions. Verbalizes understanding. Completed per protocol. --19:26 01/02/20Luz Cox RN18:15 01/02/20. BP: 104/78. MAP: 86. HR: 102. RR: 16. O2 saturation: 99%. Pain level now: 11/17.--19:38 01/02/20 Luz Cox RN19:15 01/02/20. Patient ID band checked for patient name and birthdate: patient confirmed. COVID-19specimen obtained by RN via nasopharyngeal swab. Labeled in the presence of the patient and sent to lab.Reassessment after medication administered and fluids administered. She has had no adverse reaction.--19:39 01/02/20 Luz Cox RN19:01/02/20. Care transferred and report given (to Raji Salas RN). --19:39 01/02/20 CAS Blas20:18 01/02/2020 IV Fluids IV NS via IV site #1 Rate Changed: bag #2 100 mL/hr via IV pump. IV patencyestablished. IV site checked: no pain, redness, or swelling. IV flushed thoroughly. --20:18 01/02/20 PIYUSH Guerreroatikaleigh transported to [place] by wheelchair with photographic laboratory technician. --21:45 01/02/20 PIYUSH Hillatikaleigh returned from [place] by wheelchair with photographic laboratory technician. --21:55 01/02/20 Alejandro Salas RN22:52 01/02/2020 IV Fluids IV NS via IV site #1 Discontinued: bag #2 discontinued upon discharge. Totalamount infused: 400 mL. IV patency established. IV site checked: no pain, redness, or swelling. IV flushedthoroughly. --23:02 01/02/20 Alejandro Salas RN 4 Clinical Report - Nurses [facility] Emergency Department [address] [place] [address] Phone #: ext- [phone] 01/02/2020 17:09 Patient: DANA ALARCON Sex: F : 2000 Age: 19y 23:02 01/02/2020 Macrobid (Nitrofurantoin Monohyd Macro) PO Capsules 100 mg given. Allergies verified and confirmed 5 rights. Information reviewed with patient including reason for taking this medication, signs of allergic reaction and precautions. Verbalizes understanding. --23:02 01/02/20 Alejandro Salas RN.DISPOSITION / DISCHARGE 23:03 01/02/2020 Site #1 removed upon discharge. Bandage applied. --23:03 01/02/20 Alejandro Salas RN Condition at departure: improved. No learning barriers present. Reviewed medication(s) side effects, precautions, dosing and course information. Prescription(s) sent electronically to pharmacy. Reviewed referral to family practice for followup. Activity restrictions reviewed (quarantine x 1 week). Patient verbalized understanding. Written instructions provided in Vietnamese. The patient was discharged home. She left ambulatory and via taxi. --23:05 01/02/20 Alejandro Salas RN 23:03 01/02/20. BP: 134/78 (regular adult cuff) taken on the left arm, via an automated monitor, while lying. MAP: 96. HR: 72 (regular, normal rate and strong). RR: 16 (regular, unlabored and normal). O2 saturation: 98% on room air. Temp: 98.2 F (oral). Pain level now: 0/10. --23:05 01/02/20 Alejandro Salas RN Departure time: 23:05 01/02/2020. --23:05 01/02/20 Alejandro Salas RN.Locked/Released at 12/09 00:34 by Alejandro Salas RN Name Value Range Interpretation Code Description Data Candy rce(s) Supporting Document(s) ID Date Data Source [id number] 01/02/2020 05:10:00 PM EDT [facility] 1 Clinical Report - Physicians/Mid Levels [facility] Emergency Department [address] [place] [address] Phone #: ext- [phone] 01/02/2020 17:09 Patient: DANA ALARCON Sex: F : 2000 Age: 19y Time Seen: 18:17 01/02/2020; initial patient contact, initial documentation. Arrived- By private vehicle. Historian- patient.HISTORY OF PRESENT ILLNESS Chief Complaint: DYSPNEA. This started yesterday and is still present. The dyspnea is described as mild. The patient has had a cough and chest discomfort. No sputum production, fever, wheezing, calf pain or foot swelling. (Pt sts that s/s started yesterday. Has had a chest congestion with nasal discharge and only vomited once. Sts that she has a chest discomfort; especially with a deep breath. [facility], but indicates that she did go out to [employer] store. ? exposure.). Similar symptoms previously. None. Recent medical care: Not recently seen/assessed.REVIEW OF SYSTEMSThe patient has had a nasal discharge and nausea but not had weight loss. No muscle aches, eyeirritation, sore throat, sinus drainage or abdominal pain. No diarrhea, black stools, bloody stools,headache or fainting episodes. No blurred vision, difficulty with urination, excessive urination, skin rash orenlarged lymph nodes. No joint pain. All other systems reviewed and are negative.PAST HISTORYSee nurses notes. Problems: Bronchitis. Gastritis. Asthma. Anxiety Reaction. Depression. Pharyngitis [Resolved]. [Resolved]. Sinusitis [Resolved]. Additional Surgeries: no known surgeries. Medications: Albuterol Sulfate HFA Inhalation (Aerosol Solution 108 (90 Base) mcg/act) 2 puffs, as needed, last dose 1100. 2 Clinical Report - Physicians/Mid Levels [facility] Emergency Department [address] [place] [address] Phone #: ext- [phone] 01/02/2020 17:09 Patient: DANA ALARCON Sex: F : 2000 Age: 19y Control Pills 1 pill, daily. Abilify Oral (Tablet 2 mg) 1 tablet, daily. Allergies: No Known Drug Allergy.SOCIAL HISTORYNever smoker. Occasional alcohol use. No drug use.ADDITIONAL NOTESThe nursing notes have been reviewed.PHYSICAL EXAMVital Signs: 01/02/2020 17:34 BP: 109/66. MAP: 80. HR: 107. RR: 18. O2 saturation: 97%. Temp: 98.1 F.Pain level now: 12/17. Have been reviewed. Tachycardic. Oxygen saturation normal.Appearance: Alert. No acute distress.Eyes: Eyelids appear normal to inspection. Conjunctivae and sclerae appear normal to inspection.Corneas appear normal to inspection. Pupils equal, round and reactive to light. EOMs intact. Periorbitalareas appear normal to inspection. Anterior chambers clear.ENT: Normal ENT inspection. Airway intact. Ears normal. Nose normal. Nares normal. Pharynxnormal. Moist mucous membranes. Uvula midline. Voice normal.Neck: Normal inspection. No jugular venous distention. Neck supple.CVS: Normal heart rate and rhythm. No JVD present. Pulses normal. Capillary refill normal. Strongperipheral pulses. Heart sounds normal. Pulses: right radial 2+; left radial 2+; right dorsalis pedis 2+; leftdorsalis pedis 2+; right posterior tibial 2+; left posterior tibial 2+.Respiratory: Chest normal on inspection. No respiratory distress. Unlabored respirations. Lungs clear.Good chest movement. Breath sounds normal and equal. Chest nontender.Abdomen: Normal inspection. Soft and nontender. Bowel sounds normal. No distention.Skin: Skin warm and dry.Extremities: Extremities exhibit normal ROM. No lower extremity edema. No calf tenderness. No lowerextremity edema.Neuro: Awake. Alert. Mood/affect normal. Speech normal. No motor deficit. No sensory deficit.Psych: Cognition normal. Thought process and content normal. Insight and judgement normal.LABS, X-RAYS, AND EKGEKG: Normal sinus rhythm. Rate: 96. NSR; cannot r/o anterioer infarct, age undetermined; abnormalECG. Discussed and reviewed with/by attending. CTA Pulmonary Arteries: EXAM: CTA Chest with Intravenous Contrast for PE evaluation CLINICAL HISTORY: DYSPNEA WITH CHEST DISCOMFORT, ELEVATED D-DIMER, CT DOSE- 894.7mGy*cm, 75ML ISOVUE 370 LOT [id number] EXP 07/2022 USED. VERIFIED 2 IDENTIFIERS, TIMEOUT PERFORMED, NEG HCG, SENT TO [facility]. 3 Clinical Report - Physicians/Mid Levels [facility] Emergency Department [address] [place] [address] Phone #: ext- [phone] 01/02/2020 17:09 Patient: DANA ALARCON Sex: F : 2000 Age: 19yTECHNIQUE: Axial CTA images of the chest with intravenous contrast using a pulmonary embolismprotocol. Multiplanar reconstructed images were created and reviewed.CONTRAST: With; 75ML ISOVUE 370 LOT [id number] EXP 07/2022 was administered without incident.COMPARISON: None provided.FINDINGS:PULMONARY ARTERIES: No evidence of central or segmental pulmonary embolism is seen.AORTA: There is no evidence for aneurysm or dissection of the thoracic aorta.LUNGS: The lungs appear clear.PLEURAL SPACES: No evidence of pneumothorax. No pleural effusion.HEART: Heart size is within normal limits. No significant pericardial effusion.LYMPH NODES: No lymphadenopathy is evident.BONES: No focal osseous abnormality or acute fracture.UPPER ABDOMEN: Images of the upper abdomen are unremarkable.ImpressionNo evidence of pulmonary embolus.Electronically signed on Jan 02, 2020 10:30:11 PM EDT by:Elton Barfield, [place] [employer]. The study was interpreted by the radiologist.Laboratory Tests:CT CTA CHEST NON-CORONARY W CON INC PP: (COLLIN: 01/02/2020 19:30) ( MsgRcvd 01/02/2020 22:30)Final results Test Result Flag Units (Reference) CT CTA CHEST NON- CORONARY [place] [address] ---------NAME--------- NUMBER SEX AGE ADMIT DISC. XRAY# F/C TYPE DORIAN [place] [id number] F 19 01/02/20 [id number] X6B E/R DATE OF : 2000 M/R# [id number] PH#: [phone] TR-1B LOCATION: EMERGENCY DEPT TRANSCRIBED: 01/02/20 22:[address] CTA CHEST NON-CORONARY W [id number] COMPLETED:01/02/20 22:08 TRAVIS [id number] Reason(s): dyspnea w/ chest discofort with elevated d-dimer -- PHYSICIAN: HONG PINEDO CH -- 4 Clinical Report - Physicians/Mid Levels [facility] Emergency Department [address] [place] [address] Phone #: ext- [phone] 01/02/2020 17:09 Patient: DANA ALARCON [facility]#: [id number] Sex: F : 2000 Age: 19y -- R A D I O L O G Y R E P O R T -- PATIENT HISTORY: DYSPNEA WITH CHEST DISCOMFORT, ELEVATED D-DIMER, CT DOSE- 894.7mGy*cm, 75ML ISOVUE 370 LOT [id number] EXP 07/2022 USED. VERIFIED 2 IDENTIFIERS, TIMEOUT PERFORMED, NEG HCG, SENT TO [facility]. / [facility] (DICOM Hx) EXAM: CTA Chest with Intravenous Contrast for PE evaluation -- CLINICAL HISTORY: DYSPNEA WITH CHEST DISCOMFORT, ELEVATED D-DIMER, CT DOSE- 894.7mGy*cm, 75ML ISOVUE 370 LOT [id number] EXP 07/2022 USED. VERIFIED 2 IDENTIFIERS, TIMEOUT PERFORMED, NEG HCG, SENT TO [facility]. -- TECHNIQUE: Axial CTA images of the chest with intravenous contrast using a pulmonary embolism protocol. Multiplanar reconstructed images were created and -- reviewed. -- CONTRAST: With; 75ML ISOVUE 370 LOT [id number] EXP 07/2022 was administered without -- incident. -- COMPARISON: None provided. -- -- FINDINGS: -- PULMONARY ARTERIES: No evidence of central or segmental pulmonary embolism is -- seen. -- AORTA: There is no evidence for aneurysm or dissection of the thoracic aorta. -- LUNGS: The lungs appear clear. -- PLEURAL SPACES: No evidence of pneumothorax. No pleural effusion. -- HEART: Heart size is within normal limits. No significant pericardial effusion. -- LYMPH NODES: No lymphadenopathy is evident. -- BONES: No focal osseous abnormality or acute fracture. -- UPPER ABDOMEN: Images of the upper abdomen are unremarkable. -- -- IMPRESSIONS: -- No evidence of pulmonary embolus. -- While performing the above CT examination, radiation dose reduction was accomplished utilizing automated exposure control, adjusting of the mA and kV based on the patient's body size and/or the use of imperative reconstructive -- techniques. -- -- -- Electronically Signed By: Heath Michaels M.D. , Radiologist Date/Time: 01/02/20 22:.[facility]AVIS.to [facility] via fax01/02/20.TRAVIS.to EMERGENCY via [employer] 5 Clinical Report - Physicians/Mid Levels [facility] Emergency Department [address] [place] [address] Phone #: ext- [phone] 01/02/2020 17:09 Patient: DANA ALARCON Sex: F : 2000 Age: 19yBeta-HCG, Qual Serum: (COLLIN: 01/02/2020 18:30) ( [facility] 01/02/2020 19:25) Final results Test Result Flag Units (Reference) HCG SERUM QUAL NEGATIVE (NORMAL: NEGAT HCG SERUM QL REENTER NEGATIVE (NORMAL: NEGAT { KIT LOT # [id number] ){ KIT EXP [id number] ){ PROCEDURAL CONTROL VALID)CBC w Diff: (COLLIN: 01/02/2020 18:30) ( MsgRcvd 01/02/2020 18:51) Final results Test Result Flag Units (Reference) CBC W/AUTOMATED DIFF COMPLETE BLOOD COUNT WBC 11.8 H 10/uL (4.2 - 11.0) RBC 4.84 10/uL (4.20 - 5.40) HEMOGLOBIN 12.9 g/dL (12.0 - 16.0) HEMATOCRIT 40.2 % (37.0 - 47.0) MCV 83.1 fL (81.0 - 101) MCH 26.7 L pg (27.0 - 34.0) MCHC 32.1 g/dL (31.0 - 36.0) RDW 13.2 % (11.5 - 14.5) PLATELETS 299 10/uL (150 - 450) MPV 11.0 H fL (7.4 - 10.4) NEUT 74.6 % (37.0 - 80.0) LYMPH 16.6 L % (25.0 - 40.0) MONO 7.2 % (3.0 - 8.0) EOS 1.0 % (0.0 - 7.0) BASO 0.4 % (0.0 - 2.5) %IG 0.2 H % (0.0 - 0.0) %NRBC 0.0 % (0.0 - 0.0) #NEUT 8.82 H 10/uL (2.00 - 6.90) #LYMPH 1.96 10/uL (0.60 - 3.40) #MONO 0.85 10/uL (0.00 - 0.90) #EOS 0.12 10/uL (0.00 - 0.70) #BASO 0.05 10/uL (0.00 - 0.20) #IG 0.02 10/uL (0.00 - 0.10) #NRBC 0.00 10/uL (0.00 - 0.00) MANUAL DIFF NOT INDICATED RBC MORPH NOT INDICATEDCMP: (COLLIN: 01/02/2020 18:30) ( MsgRcvd 01/02/2020 19:09) Final results Test Result Flag Units (Reference) COMPREHENSIVE METABOLIC PANEL COMPREHENSIVE METABOLIC PANEL SODIUM 137 mEq/L (134 - 153) POTASSIUM 3.9 mEq/L (3.6 - 5.0) CHLORIDE 102 mEq/L (98 - 107) CO2 24 MEQ/L (22 - 30) GLUCOSE 85 MG/DL (65 - 110) BUN 14 MG/DL (7 - 21) CREATININE 0.6 L MG/DL (0.7 - 1.5) BUN/CREAT 23 (8 - 27) TOTAL PROTEIN 6.9 G/DL (6.3 - 8.2) ALBUMIN 4.2 G/DL (3.9 - 5.0) GLOBULIN 2.7 GM/DL (2.4 - 3.2) A/G RATIO 1.6 (0.8 - 2.0) CALCIUM 9.5 MG/DL (8.4 - 10.2) 6 Clinical Report - Physicians/Mid Levels [facility] Emergency Department [address] [place] [address] Phone #: ext- [phone] 01/02/2020 17:09 Patient: DANA ALARCON Sex: F : 2000 Age: 19y TOTAL BILI <0.7 MG/DL (0.2 - 1.3) ALKALINE PHOS 59 U/L (38 - 126) SGOT/AST 11 U/L (5 - 40) SGPT/ALT 16 U/L (7 - 56) ANION GAP 11.0 mmol/L (8.0 - 16.0) AGE 20 yrs NON-AA GFR >60 mL/min AFR AMER GFR >60 mL/min Male GFR Interprentation 20-49 yrs >60 mL/min Ppxbbu86-30 yrs >56 mL/min Normal 60-69 yrs >49 mL/min Normal 70-79yrs>42 mL/min Normal 80 and above >35 mL/min Normal Female GFRInterpretation 20-39 yrs >60 mL/min Normal 40-49 yrs >58 mL/minNormal 50-59 yrs >51 mL/min Normal 60-69 yrs >45 mL/min Dfbwes85-96 yrs >39 mL/min Normal 80 and above >32 mL/min NormalLipase: (COLLIN: 01/02/2020 18:30) ( [facility] 01/02/2020 19:06) Final results Test Result Flag Units (Reference) LIPASE 18 U/L (13 - 60)PT/PTT: (COLLIN: 01/02/2020 18:30) ( [facility] 01/02/2020 19:01) Final results Test Result Flag Units (Reference) PROTIME 12.2 SECONDS (11.0 - 15.5) INR 0.90 L (0.93 - 1.23) PTT 25.2 SECONDS (24.8 - 36.7) \\BLDo\\INR INTERPRETATION\\BLDx\\ Therapeutic range for Coumadin andrelated oral anticoagulants. -International Normalized Ratio (INR): 2.0 - 3.0 for VenousThrombosis, Pulmonary Embolus, Tissue heart valves, Acute IN Atrial Fibrillation, Valvular heart diseaseand recurrent Systemic Embolism. -International Normalized Ratio (INR): 2.5 - 3.5 forMechanical Prosthetic valve.Troponin-T: (COLLIN: 18:30) ( [facility] 01/02/2020 19:09) Final results Test Result Flag Units (Reference) TROPONIN T <0.01 NG/ML (0.00 - 0.10) TROPONIN T0.1 ng/ml Recommended as the clinical threshold value forTroponin T.D-Dimer: (COLLIN: 01/02/2020 18:30) ( [facility] 01/02/2020 19:09) Final results Test Result Flag Units (Reference) D- DIMER QUANT 0.68 H ug/mL (0.27 - 0.50)PT/INR: (COLLIN: 01/02/2020 18:30) ( [facility] 01/02/2020 19:01) Final results Test Result Flag Units (Reference) PROTIME 12.2 SECONDS (11.0 - 15.5) INR 0.90 L (0.93 - 1.23) \\BLDo\\INR INTERPRETATION\\BLDx\\ Therapeutic range for Coumadin andrelated oral anticoagulants. -International Normalized Ratio (INR): 2.0 - 3.0 for VenousThrombosis, Pulmonary Embolus, Tissue heart valves, Acute IN, Atrial Fibrillation, Valvular heartdisease and recurrent Systemic Embolism. -International Normalized Ratio (INR): 2.5 - 3.5for Mechanical Prosthetic valve.Lactic Acid: (COLLIN: 01/02/2020 18:30) ( [facility] 01/02/2020 18:51) Final results Test Result Flag Units (Reference) LACTIC ACID 1.4 MMOL/L (0.2 - 2.2) 7 Clinical Report - Physicians/Mid Levels [facility] Emergency Department [address] [place] [address] Phone #: ext- [phone] 01/02/2020 17:09 Patient: DANA ALARCON Sex: F : 2000 Age: 19y TSH: (COLLIN: 01/02/2020 18:30) ( [facility] 01/02/2020 20:23) Final results Test Result Flag Units (Reference) TSH 6.31 H uIU/mL (0.47 - 5.01) Urinalysis: (COLLIN: 01/02/2020 21:10) ( MsgRcvd 01/02/2020 21:22) Final results Test Result Flag Units (Reference) URINALYSIS URINALYSIS SOURCE R COLOR yellow (NORMAL: Yello CLARITY clear (NORMAL: Clear SPEC GRAVITY 1.020 (1.001 - 1.030 pH 6 (5 - 9) GLUCOSE NORM (NORMAL: Negat BILIRUBIN NEG (NORMAL: Negat KETONE NEG (NORMAL: Negat PROTEIN NEG (NORMAL: Negat NITRITE NEG (NORMAL: Negat BLOOD NEG (NORMAL: Negat LEUK EST 100 A (NORMAL: Negat UROBILINOGEN NOR (less than 1.0 MICROSCOPIC See Below WBC 7 - 10 A (NORMAL: NONE RBC None Seen (NORMAL: NONE EPITHELIAL MODERATE A (NORMAL: NONE BACTERIA Trace (NORMAL: NONE Venous Blood Gas: (COLLIN: 01/02/2020 18:30) ( MsgRcvd 01/02/2020 18:51) Final results Test Result Flag Units (Reference) pH V 7.40 (7.32 - 7.43) pCO2 V 36.1 L mm/HG (38.0 - 51.0) pO2 V 46.4 mm/HG (30.0 - 55.0) HCO3 V 21.9 L meq/L (22.0 - 29.0) TCO2 V 23.0 meq/L (22.0 - 29.0) BASE EXCESS -2.3 L (-2.0 - 2.0) O2 SAT V 81.8 % (40.0 - 85.0).PROGRESS AND PROCEDURESCourse of Care: VSS, NAD, AOx3, interacting well and appropriately, no use of accessory muscle, able tospeak full sentences, stable, non-toxic looking. Enter room and pt lying peacefully in bed in NAD. Patient stable. Denies any new issues, concerns, or complaints. PE demos NV intact b/l UE. Noted chest discomfort as per pt yesterday that has not improved. Will botina labs and imaging for furhter eval. Pending resutls. Reviewed resutls. 8 Clinical Report - Physicians/Mid Levels [facility] Emergency Department [address] [place] [address] Phone #: ext- [phone] 01/02/2020 17:09 Patient: DANA ALARCON Sex: F : 2000 Age: 19y Enter room and patient lying peacefully in bed in NAD. Patient stable. Denies any new issues, concerns, or complaints. Discussed results with pt. Discussed tx plan with pt. Discussed and counseled on stable condition. Discussed importance of a f/u with PCP. Discussed return to ER criteria. Answered their questions. Indicates and verbalizes that they understand, agree, and will comply with above. Denies any new questions or concerns. Patient has capacity to understand. Discharge decision based on the following: patient's condition is stable; patient's exam is stable; social support is adequate; transportation is available; follow-up is available. Discussed of OTC Motrin and Tylenol to control inflammation and pain management. Informed to follow directions on bottle that are appropriate for age and/or weight. Discussed case with health care provider (Hong). Disposition: Discharged home in good and improved condition. Condition: good and stable.CLINICAL IMPRESSION Coronavirus COVID-19 presumed (confirmatory testing pending) with upper respiratory infection. Acute cystitis. No hematuria present. Abnormal tests; (TSH slighly elevated. recommend to f/u with PCP for repeat.).INSTRUCTIONS Take Tylenol (Acetaminophen) or Motrin (Ibuprofen) as needed for fever control. Take medication according to label instructions. Rest at home for one weeks (You are on a self quarantine x 1 week. This may be extended or decreased by [facility].). Follow a low cholesterol diet. ([facility]: [phone]. Please contact them in approx 3-4 days if you have not heard from them. You are on a self quarantine x 1 week. This may be extended or decreased by [facility]. I recommend to purchase a small finger pulse oximeter to monitor your O2 saturation at home. If becomes too low (<90%), please contact your PCP or return to the ER. F/U wiht PCP for repeat TSH). Warnings: GENERAL WARNINGS: Return or contact your physician immediately if your condition worsens or changes unexpectedly, if not improving as expected, or if other problems arise. 9 Clinical Report - Physicians/Mid Levels [facility] Emergency Department [address] [place] [address] Phone #: ext- [phone] 01/02/2020 17:09 Patient: DANA ALARCON Sex: F : 2000 Age: 19y Prescription Medications: Macrobid 100 mg capsule Take 1 capsule twice a day for 7 days -- Dispense 14 capsule. Refills: 0. Substitution permitted. Pharmacy - [facility] - [id number] ; [place], [place] [id number]. . Follow-up: Return to the emergency department. Follow up with your healthcare provider in about two days if not better. Call for an appointment. Understanding of the discharge instructions verbalized by patient.(Electronically signed by Zohreh Pinedo P.A.-C 01/03/2020 11:26) Name Value Range Interpretation Code Description Data Candy e(s) Supporting Document(s) ID Date Data Source [id number] 01/02/2020 05:10:00 PM EDT [facility] for DANA ALARCON VisitID: [id number] Date: 11:23urine culture positive for enterococcus faecalis, sensitive to macrobid which pt was d/c on(Electronically signed by Merna Dow RN - 01/08/2020 11:23)01/11/2020 20:03urine culture grew out Enteroccus faecalis pt sent home on Macrobid 100mg bid(Electronically signed by Rahel Mayers R.N. - 01/11/2020 20:03) Name Value Range Interpretation Code Description Data Candy rce(s) Supporting Document(s) ID Date Data Source [id number] 01/11/2020 08:54:00 [place] [address] PHONE: [phone] FAX: [phone] Name .................. : DORIAN [place] Acct Number.................. : [id number] ROOM. ................. : [id number] MR Number ................... : [id number] Stay type ............. : E/R Discharge Date......... ... : 01/10/20 Admit Date ......... : 01/10/20 Admit Phys .................... : AUGUSTO SALTER Date of ....... : 2000 Family Phys ................... : [employer] Phone .................. : [phone] Age ................................ : 19 Film# .................. .:[id number] Sex ................................. : F Unsigned transcriptions are preliminary reports and do not represent a medical or legal document CHEST PORTABLE [id number] COMPLETE:01/10/20 14:17 [facility] [place] [facility] [address] Reason(s): Chest Pain PORTABLE CHEST X-RAY: INDICATION: Chest pain. FINDINGS: The cardiac and mediastinal silhouettes appear normal and the lungs are clear. The bones and soft tissues are normal. The upper abdomen is unremarkable. IMPRESSION: No acute disease identifiable. Electronically Reviewed and Signed By Erfa Garcia MD , 01/11/20 08:54, VITA Transcribe Initials: DANIEL , Transcribe Date: 01/10/20 15:22, Dictation Date: Copy for: ARTURO LOERA via fax Copy for: VAL CRANDALL via fax Copy for: EMERGENCY DEPT via modem Copy for: 710 MED REC DISCHARGED Page 1 of 1 Name Value Range Interpretation Code Description Data Candy rce(s) Supporting Document(s) ID Date Data Source [id number] 01/11/2020 02:36:00 [place] [address] RESPIRATORY CARE REPORT ==== ---------NAME------- NUMBER SEX AGE ADMIT DISC. XRAY# F/C TYPEKRGURWINDER [place] [id number] 01/10/20 01/10/20 [id number] X6B E/R DATE OF : 2000 M/R# [id number] #: [id number] TR-08 LOCATION: EMERGENCY DEPT EKG [id number] COMP LETE:01/10/20 14:43 [facility] [id number] PHYSICIAN: AUGUSTO JENKINS Name Value Range Interpretation Code Description Data Candy rce(s) Supporting Document(s) ID Date Data Source [id number] 01/10/2020 12:56:00 PM EDT [facility] 1 OrderSheet [facility] Emergency Department [address] [place] [address] Phone #: ext- [phone] 01/10/2020 12:53 Patient: DANA ALARCON Sex: F : 2000 Age: 19yWEIGHT:130.9 kg (M) HEIGHT:66 inches (S) BMI:46.6ALLERGIES: No Known Drug AllergyCHIEF COMPLAINT: chest painDIAGNOSIS: Costal chondritis, HypothyroidismLAB ORDERSOrder Description Priority Entered Acknowledged InitialedCBC w Diff STAT 13:08 01/10/2020 13:10 Valentino Gary RN PA;CMP STAT 13:08 01/10/2020 13:10 Valentino Gary RN PA;Lipase STAT 13:08 01/10/2020 13:10 Valentino Gary RN PA;PT/PTT STAT 13:08 01/10/2020 13:10 Valentino Gary RN PA;Troponin-T STAT 13:08 01/10/2020 13:10 Valentino Gary RN PA;TSH STAT 13:08 01/10/2020 13:10 Valentino Gary RN PA;Urinalysis (Clean STAT 13:08 01/10/2020 14:24 Gurvinderch) Devin Gary RN PA;D-Dimer STAT 13:08 01/10/2020 13:10 Valentino Gary RN PA;Beta-HCG, Qual STAT 13:08 01/10/2020 13:10 Zion Gary RN PA;DIAGNOSTIC STUDY ORDERSOrder Description Priority Entered Acknowledged InitialedChest Portable 1 STAT 13:08 01/10/2020 13:10 Valentino Lloyd OrderSheet [facility] Emergency Department [address] [place] [address] Phone #: ext- [phone] 01/10/2020 12:53 Patient: DANA ALARCON Sex: F : 2000 Age: 19yViehusam Gary RN(Oxygen?(No)) PA; Reason for Study: Chest PainMEDICATION/IV/DRIP/FLUID ORDERSOrder Description Priority Entered Acknowledged InitialedAspirin PO 13:08 01/10/2020 13:15 ValentinoChewable 81 mg Devin Gary RN324 mg PA;Morphine IVP 2 mg 13:08 01/10/2020 13:16 Valentino(HIGH ALERT Devin Gary RNMEDICATION) PA;Zofran IVP 8 mg 13:08 01/10/2020 13:16 Valentino Gary RN PA;GENERAL ORDERSOrder Description Priority Entered Acknowledged InitialedBlood Pressure 13:08 01/10/2020 13:10 Monica Gary RN PA;Metal Finisher 13:08 01/10/2020 13:10 Valentino(continuous) Devin Gary RN PA;EKG 13:08 01/10/2020 13:10 Valentino Gary RN PA;Obtain Old EKG 13:08 01/10/2020 13:10 Valentino Gary RN PA;Pulse oximeter 13:08 01/10/2020 13:10 Valentino(Continuous) Devin Gary RN PA;Saline Lock 13:08 01/10/2020 13:10 Valentino Gary RN PA;Vitals 13:01/10/2020 13:10 Valentino Gary RN PA;[Electronically signed by Valentino Gary RN (14:26 01/10/2020)][Electronically signed by Devin Jenkins (21:34 01/10/20 20)][Electronically locked by Valentino Gary RN (14:01/10/2020)] 3 OrderSheet [facility] Emergency Department [address] [place] [address] Phone #: ext- [phone] 01/10/2020 12:53 Patient: DANA ALARCON Sex: F : 2000 Age: 19y Name Value Range Interpretation Code Description Data Candy rce(s) Supporting Document(s) ID Date Data Source [id number] 01/10/2020 12:56:00 PM EDT [facility] 1 Medication Reconciliation Report [facility] Emergency Department [address] [place], [place] [id number] Phone #: ext- [phone] 01/10/2020 12:53 Patient: DANA ALARCON Sex: F : 2000 Age: 19yWeight: 130.9 kgHeight/Length: 66 in.BMI: 46.6ALLERGIES: No Known Drug AllergyThe patient's Home Medications are listed below:CONTINUE TAKING THE FOLLOWING MEDICATIONS: Abilify Oral (2 mg) 1 tablet, daily Albuterol Sulfate HFA Inhalation (108 (90 Base) mcg/act) 2 puffs, last dose: 1100, prn Control Pills 1 pill, dailyThe source(s) of the original Home Medication information:Not obtained.The following Medications were given to the patient in the Emergency Department:ASPIRIN CHEWABLE 81 MG [PO] PO 324 mg, administered: 01/10/2020 1:15:00 PMZofran [IVP] IVP 8 mg, administered: 01/10/2020 1:16:00 PMMorphine [IVP] IVP 2 mg, administered: 01/10/2020 1:16:00 PMThe following Medications were prescribed to the patient:Medrol (Skip) 4 mg tablets in a dose pack Take 1 tablet as directed for 6 days -- Dispense 1 pack.Refills: 0. Substitution permitted.[facility] #02 - [address] ; [place], [place] [id number]. .IBU 800 mg tablet Take 1 tablet three times a day for 15 days -- Dispense 45 tablet. Refills: 0.Substitution permitted.[facility] #64 - [address] ; [place], [place] [id number]. FaxNumber: [phone]. 2 Medication Reconciliation Report [facility] Emergency Department [address] [place] [address] Phone #: ext- [phone] 01/10/2020 12:53 Patient: DANA ALARCON Sex: F : 2000 Age: 19ySynthroid 100 mcg tablet Take 1 tablet once a day for 30 days -- Dispense 30 tablet. Refills: 0.Substitution permitted.Pharmacy - [facility] #08 - [address] ; [place], [place] [id number]. . -- JUARZE Armendariz Name Value Range Interpretation Code Description Data Candy rce(s) Supporting Document(s) ID Date Data Source [id number] 01/10/2020 12:56:00 PM EDT [facility] 1 Medication Administration Record [facility] Emergency Department [address] [place] [address] Phone #: ext- [phone] 01/10/2020 12:53 Patient: DANA ALARCON Sex: F : 2000 Age: 19yWeight: 130.9 kgHeight/Length: 66 inBMI: 46.6ALLERGIES: No Known Drug Allergy Date/Time Medication Administered Medication OrderedGiven ASPIRIN CHEWABLE 81 MG [PO] Aspirin PO Chewable 81 mg 07663:15 01/10/2020 Dose: 324 mg Tablets PO Sarah Gary RNGiven MORPHINE [IVP] Morphine IVP 2 mg (HIGH ALERT13:16 01/10/2020 Dose: 2 mg IVP MEDICATION)Valentino Gary RN Site: #1 left ACGiven ZOFRAN [IVP] (ONDANSETRON HCL) Zofran IVP 8 mg13:16 01/10/2020 Dose: 8 mg IVPPeter CAS Gary Site: #1 left AC Name Value Range Interpretation Code Description Data Candy rce(s) Supporting Document(s) ID Date Data Source [id number] 01/10/2020 12:56:00 PM EDT [facility] 1 General Instructions [facility] Emergency Department [address] [place] [address] Phone #: ext- [phone] 01/10/2020 12:53 Patient: DANA ALARCON Sex: F : 2000 Age: 19yCostochondritisCongenital hypothyroidism without goiter.INSTRUCTIONSYour Current Medications: Your current home medications have been reviewed.CONTINUE TAKING THE FOLLOWING MEDICATIONS:Abilify Oral : Tablet 2 mg, 1 tablet daily.Albuterol Sulfate HFA Inhalation : Aerosol Solution 108 (90 Base) mcg/act, 2 puffs, Last: 1100, prn. Control Pills* : 1 pill daily.Prescription Medications:Medrol (Skip) 4 mg tablets in a dose pack Take 1 tablet as directed for 6 days -- Dispense 1 pack.Refills: 0. Substitution permitted.[facility] #14 - [address] ; [place], [place] [id number]. .IBU 800 mg tablet Take 1 tablet three times a day for 15 days -- Dispense 45 tablet. Refills: 0.Substitution permitted.[facility] #47 - [address] ; [place], [place] [phone]. FaxNumber: .Synthroid 100 mcg tablet Take 1 tablet once a day for 30 days -- Dispense 30 tablet. Refills: 0.Substitution permitted.[facility] #86 - [address] ; [place], [place] [id number]. .Follow-up:Follow up with your doctor Saturday. Call for an appointment. Reason for referral: evaluation and treatment.Summary of care provided to patient.Understanding of the discharge instructions verbalized by patient. ADDITIONAL INFORMATIONChest Wall Pain: Costochondritis 2 General Instructions [facility] Emergency Department [address] [place] [address] Phone #: ext- [phone] 01/09 12:53 Patient: DANA ALARCON Sex: F : 2000 Age: 19yThe chest pain that you have had today is caused by costochondritis. This condition is caused by aninflammation of the cartilage joining your ribs to your breastbone. It is not caused by heart or lungproblems. Your healthcare team has made sure that the chest pain you feel is not from a lifethreatening cause of chest pain such as heart attack, collapsed lung, blood clot in the lung, tear in theaorta, or esophageal rupture. The inflammation may have been brought on by a blow to the chest,lifting heavy objects, intense exercise, or an illness that made you cough and sneeze a lot. It oftenoccurs during times of emotional stress. It can be painful, but it is not dangerous. It usually goes awayin 1 to 2 weeks. But it may happen again. Rarely, a more serious condition may cause symptomssimilar to costochondritis. That's why it's important to watch for the warning signs listed below.Home careFollow these guidelines when caring for yourself at home: If you feel that emotional stress is a cause of your condition, try to figure out the sources of that stress. It may not be obvious. Learn ways to deal with the stress in your life. This can include regular exercise, muscle relaxation, meditation, or simply taking time out for yourself. You may use acetaminophen, ibuprofen, or naproxen to control pain, unless another pain medicine was prescribed. If you have liver or kidney disease or ever had a stomach ulcer, talk with your healthcare provider before using these medicines. You can also help ease pain by using a hot, wet compress or heating pad. Use this with or without a medicated skin cream that helps relieves pain. Do stretching exercise as advised by your provider. 3 General Instructions [facility] Emergency Department [address] [place] [address] Phone #: ext- [phone] 01/10/2020 12:53 [id number] Sex: F : 2000 Age: 19y Take any prescribed medicines as directed.Follow- up careFollow up with your healthcare provider, or as advised, if you do not start to get better in the next 2days.When to seek medical adviceCall your healthcare provider right away if any of these occur: A change in the type of pain. Call if it feels different, becomes more serious, lasts longer, or spreads into your shoulder, arm, neck, jaw, or back. Shortness of breath or pain gets worse when you breathe Weakness, dizziness, or fainting Cough with dark-colored sputum (phlegm) or blood Abdominal pain Dark red or black stools Fever of 100.4F (38C) or higher, or as directed by your healthcare provider [phone] [employer]. [address] [place] [address], [place] [address]. All rights reserved. This information is not intended as asubstitute for professional medical care. Always follow your healthcare professional's instructions.Hypothyroidism 4 General Instructions [facility] Emergency Department [address] [place] [address] Phone #: ext- [phone] 01/10/2020 12:53 Patient: DANA ALARCON Sex: F : 2000 Age: 19yYou have hypothyroidism. This means your thyroid gland is not making enough thyroid hormone. Thishormone is vital to body growth and metabolism. If you don't make enough, many body processesslow down. This can cause symptoms throughout the body. Hypothyroidism can range from mild tosevere. The most severe form is called myxedema.There are a number of causes of hypothyroidism. A common cause is Yeimi's disease. Thisdisease causes the body's own immune system to attack the thyroid gland. When you have certaintreatments, such as surgery to remove the thyroid gland, this can also cause hypothyroidism.Sometimes the thyroid gland is not functioning because of lack of stimulation from the pituitary gland.Symptoms of hypothyroidism can include: Fatigue Trouble concentrating or thinking clearly; forgetfulness Dry skin Hair loss Weight gain Low tolerance to cold Constipation Depression Personality changes Tingling or prickling of the hands or feet 5 General Instructions [facility] Emergency Department [address] [place] [address] Phone #: ext- [phone] 01/10/2020 12:53 Patient: DANA ALARCON Sex: F : 2000 Age: 19y Heavy, absent, or irregular periods (women only)Older adults may sometimes have other symptoms. These can include: Muscle aches and weakness Confusion Incontinence (unable to control urine or stool) Trouble moving around FallingTreatment for hypothyroidism involves taking thyroid hormone pills daily. These pills replace thehormone your thyroid doesn't make. You will likely need to take a daily pill for the rest of your life.Tips for taking this medicine are given below.Home careTips for taking your medicine Take your thyroid hormone pills as prescribed by your healthcare provider. This is most often 1 pill a day on an empty stomach. Use a pillbox labeled with the days of the week. This will help you remember to take your pill each day. Don't take products that contain iron and calcium or antacids within 4 hours of taking your thyroid hormone pills. Don't take other medicines with your thyroid hormone pill without checking with your provider first. Tell your provider if you have any side effects from your medicines that bother you, especially any chest pain or irregular heartbeats. Never change the dosage or stop taking your thyroid pills without talking to your provider first.General care Always talk with your provider before trying other medicines or treatments for your thyroid problem. If you see other healthcare providers, be sure to let them know about your thyroid problem. Let your healthcare provider know if you become because your dose of thyroid hormone will need to be adjusted. 6 General Instructions [facility] Emergency Department [address] [place] [address] Phone #: ext- [phone] 01/10/2020 12:53 Patient: DANA ALARCON Sex: F : 2000 Age: 19yFollow-up careSee your healthcare provider for checkups as advised. You may need regular tests to check the levelof thyroid hormone in your blood.When to seek medical adviceCall your healthcare provider right away if any of these occur: New symptoms develop Symptoms return, continue, or worsen even after treatment Extreme fatigue Puffy hands, face, or feet Fast or irregular heartbeat ConfusionCall 911Call 911 if any of these occur: Fainting Chest pain Shortness of breath or trouble breathing [phone] [employer]. [address] [place] [address], [place] [address]. All rights reserved. This information is not intended as asubstitute for professional medical care. Always follow your healthcare professional's instructions. You have been given the following additional information: Chest Wall Pain, Costochondritis Hypothyroidism(Electronically signed by JUAREZ Armendariz 01/10/2020 21:34) Name Value Range Interpretation Code Description Data Candy rce(s) Supporting Document(s) ID Date Data Source [id number] 01/10/2020 12:56:00 PM EDT [facility] 1 Clinical Report - Nurses [facility] Emergency Department [address] [place] [address] Phone #: ext- [phone] 01/10/2020 12:53 Patient: DANA ALARCON Sex: F : 2000 Age: 19yTRIAGEArrived by private vehicle. Historian: patient.Triage time: 12:54 01/10/2020. Acuity: LEVEL 3.Chief Complaint: CHEST PAIN.12:54 01/10/20. Alert. No acute distress.This started last night. Onset. (2229). ( Recurrent chest pain x 2 weeks, no provoking or relievingfactors, denies injury). Reports experiencing sweating episodes (since last night). She has had vomiting(this am). The vomiting has occurred twice.Treatment MENTAL RETARDATION AIDE:Took Tylenol. (Seen here 2 weeks ago, seen at [facility] all for same complaint).EMS Treatment MENTAL RETARDATION AIDE:Received prehospital notification of patient arrival. EMS treatment verbally communicated. Thepre-hospital EKG has been interpreted by the ED nurse. The pre- hospital EKG appears to be a goodtracing. Normal sinus rhythm.SEPSIS SCREEN: SIRS Screen negative. Sepsis Screen negative. No suspected or confirmed signs ofinfection present. --13:04 01/10/20 Luz Cox RN12:54 01/10/20. BP: 133/83. MAP: 99. HR: 64. RR: 18. O2 saturation: 98%. Temp: 97.6 F. Pain level now:8/10. Describes the quality as sharp (stabbing). It has been constant. Pain level at maximum: 8/10.(occasionally radiates from left anterior chest to right anterior chest). (pain increases with palpation).--13:04 01/10/20 Luz Cox RN.Weight: 130.9 kg measured. Height/Length: 66 inches Per Patient. BMI: 46.6. --12:53 01/10/20 CAS Blas.MedicationsAbilify Oral (Tablet 2 mg) 1 tablet, daily. Albuterol Sulfate HFA Inhalation (Aerosol Solution 108 (90 Base) mcg/act) 2 puffs, as needed, last [id number]. Control Pills 1 pill, daily. --13:06 01/10/20 Luz Cox RN.AllergiesNo Known Drug Allergy. --13:06 01/10/20 Luz Cox RN.PROBLEMS:Depression. 2 Clinical Report - Nurses [facility] Emergency Department [address] [place] [address] Phone #: ext- [phone] 01/10/2020 12:53 Patient: DANA ALARCON Sex: F : 2000 Age: 19y Anxiety Reaction. --13:19 01/10/20 JUAREZ Armendariz The following entry was modified by JUAREZ Armendariz, 13:19 01/10/20 Depression. --12:56 01/10/20 Luz Cox RN The following entry was modified by JUAREZ Armendariz, 13:19 01/10/20 Anxiety Reaction. --12:56 01/10/20 Luz Cox RN. ADDITIONAL DEMETRIUS GERIES: no known surgeries. History 12:54 01/10/20. PAST MEDICAL HX: Immunizations: up-to-date. SOCIAL HX: Never smoker. No alcohol use or drug use. She was offered HIV testing but declined and hepatitis C testing but declined. She has not traveled outside the [place] Infectious disease exposure: No infectious disease exposure. (Negative COVID-19 screen, tested last week results negative). Patient is not a known carrier of tuberculosis, hepatitis, HIV, MRSA or VRE. Patient is not a known carrier of CRE. SELF HARM ASSESSMENT: Self harm assessment was performed. The patient answered "no" to the question(s) "Do you have thoughts of harming or killing yourself?" and "Have you recently had thoughts about harming or killing others?". ABUSE ASSESSMENT: Abuse assessment. The patient had positive responses to the question(s) "Do you feel safe in your home?" (yes). No report of abuse. NUTRITIONAL RISK ASSESSMENT: The nutritional risk assessment revealed no deficiencies. FUNCTIONAL ASSESSMENT: Functional assessment: no impairments noted. LEARNING NEEDS ASSESSMENT: The learning needs assessment revealed no barriers. FALL RISK ASSESSMENT: Fall risk assessment completed. No risk factors identified. SKIN INTEGRITY ASSESSMENT: Skin integrity risk assessment completed. No skin integrity risk identified. --13:04 01/10/20 Luz Cox RN PAST MEDICAL HX: Last normal menstrual period- January 06. SOCIAL HX: Former smoker, end date 2016. --13:06 01/10/20 Luz Cox RN.PHYSICAL ASSESSMENTTo room via stretcher.GENERAL / NEURO / PSYCH: Alert. Oriented X 4. Appears in pain. 3 Clinical Report - Nurses [facility] Emergency Department [address] [place] [address] Phone #: ext- [phone] 01/10/2020 12:53 Patient: DANA ALARCON Sex: F : 2000 Age: 19y HEENT: Mucous membranes are pink. RESPIRATORY: Respirations not labored. Chest pain reproducible. Left upper, mid- and anterior chest wall tenderness. Breath sounds within normal limits. CVS: Normal sinus rhythm noted. Heart sounds within normal limits. Pulses within normal limits. Capillary refill less than 2 seconds. GI / : Abdomen soft and nontender. EXTREMITIES: No lower extremity edema. SKIN: Skin is warm and dry. Normal skin turgor. Skin is non-tender. --13:09 01/10/20 Valentino Gary RN.NURSING PROGRESS NOTES12:54 01/10/20. manager monitoring, NIBP monitor and pulse oximeter placed on patient; cardiac exercise specialist-Lead II; monitor alarms on; see monitor strips. Patient gowned. Head of bed elevated. Two patientidentifiers checked. Call light placed in reach. Side rails up. Bed placed in lowest position. Brakes ofbed on. Patient ready for evaluation- ED physician and PA notified. --13:05 01/10/20 Luz Cox RN EKG time: (12:56 01/10/2020). EKG was ordered, performed by a tech and shown to the PA. --13:01/10/20 Luz Cox RN 13:10 01/10/2020 Site #1 started via IV in the left antecubital space with an 20g angiocath, with aseptic technique and good blood return; one attempt. Blood drawn: rainbow set and green tube(s). Sent to the lab. Saline lock flushed with 10 mL saline. --13:10 01/10/20 Valentino Gary RN 13:15 01/10/2020 ASPIRIN CHEWABLE 81 MG PO Tablets 324 mg given. Allergies verified and confirmed 5 rights. Information reviewed with patient including reason for taking this medication. Verbalizes understanding. --13:15 01/10/20 Valentino Gary RN 13:16 01/10/2020 Zofran (Ondansetron HCl) IVP 8 mg given over 3 minute(s) via site #1. Allergies verified and confirmed 5 rights. IV patency established. IV site checked: no pain, redness, or swelling. IV flushed thoroughly pre- and post-medication administration. IVP given by RN. Information reviewed with patient including reason for taking this medication. Verbalizes understanding. --13:16 01/10/20 Valentino Gary RN 13:16 01/10/2020 Morphine IVP 2 mg given over 3 minute(s) via site #1. Allergies verified and confirmed 5 rights. IV patency established. IV site checked: no pain, redness, or swelling. IV flushed thoroughly pre- and post-medication administration. IVP given by RN. Information reviewed with patient including reason for taking this medication and sedative warning. Verbalizes understanding. --13:16 01/10/20 Valentino Gary RN 13:58 01/10/20. BP: 120/70. MAP: 86. HR: 69. RR: 16. O2 saturation: 98%. Pain level now: 12/17. --13:59 01/10/20 Valentino Gary RN ( pt remains awake, waiting on final labs results, voices she still has chest pressure, medication did help some). --13:59 01/10/20 Valentino Gary RN 13:59 01/10/2020 Morphine IVP Response: pain is improving. Symptoms have improved the patient feels 4 Clinical Report - Nurses [facility] Emergency Department [address] [place] [address] Phone #: ext- [phone] 01/10/2020 12:53 ------ Patient: DANA ALARCON Sex: F : 2000 Age: 19y better. --13:59 01/10/20 Valentino Gary RN 14:24 01/10/2020 Site #1 removed upon discharge. Catheter intact. Manual pressure and bandage applied. --14:24 01/10/20 Valentino Gary RN.DISPOSITION / DISCHARGE Condition at departure: improved and stable. Discharge instructions provided and reviewed with the patient. Reviewed medication(s). Prescription(s) sent electronically to pharmacy. Patient verbalized understanding. Written instructions provided in Vietnamese. The patient was discharged by the physician pastry assistant. She was discharged home and accompanied by churn tender. She left ambulatory and via private vehicle. [employer]oom Starter driving. --14:25 01/10/20 Valentino Gary RN 14:24 01/10/20. BP: 133/51. MAP: 78. HR: 59. RR: 16. O2 saturation: 98%. Pain level now: 12/17. --14:25 01/10/20 Valentino orellana RN.Locked/Released at 01/10/2020 14:26 by Valentino Gary RN Name Value Range Interpretation Code Description Data Candy rce(s) Supporting Document(s) ID Date Data Source [id number] 01/10/2020 12:56:00 PM EDT [facility] 1 Clinical Report - Physicians/Mid Levels [facility] Emergency Department [address] [place] [address] Phone #: ext- [phone] 01/10/2020 12:53 Patient: DANA ALARCON Sex: F : 2000 Age: 19y Time Seen: 13:06 01/10/2020. Arrived- By ambulance. Historian- patient and EMS personnel.HISTORY OF PRESENT ILLNESS Chief Complaint: CHEST PAIN. It is described as pressure and it is described as located in the left chest area. This started last night and is still present. It was abrupt in onset and has been constant. At its maximum, severity described as moderate. When seen in the E.D., severity described as moderate. The patient has had nausea and vomiting. No difficulty breathing or diaphoresis. (Recurrent chest pain x 2 weeks, no provoking or relieving factors, denies injury). Reports experiencing sweating episodes (since last night). She has had vomiting (this am). The vomiting has occurred twice.). Similar symptoms previously. Patient has had similar symptoms several times. Recent medical care: The patient was seen recently at this facility and another facility in the emergency department.REVIEW OF SYSTEMSLast normal menstrual period now. No fever, chills, cough, pedal edema or calf pain. No faintingepisodes, headache, sore throat, blurred vision or abdominal pain. No black stools, difficulty withurination, skin rash, enlarged lymph nodes or joint pain. No bloody stools.PAST HISTORYAdditional Surgeries:no known surgeries. Medications: Abilify Oral (Tablet 2 mg) 1 tablet, daily. Albuterol Sulfate HFA Inhalation (Aerosol Solution 108 (90 Base) mcg/act) 2 puffs, as needed, last dose 1100. Control Pills 1 pill, daily. Allergies: No Known Drug Allergy.SOCIAL HISTORYFormer smoker. No alcohol use or drug use.PHYSICAL EXAMVital Signs: 01/10/2020 12:54 BP: 133/83. MAP: 99. HR: 64. RR: 18. O2 saturation: 98%. Temp: 97.6 F.Pain level now: 01/17. Have been reviewed as normal. Oxygen saturation normal.Appearance: Alert. Oriented X3. No acute distress. 2 Clinical Report - Physicians/Mid Levels [facility] Emergency Department [address] [place] [address] Phone #: ext- [phone] 01/10/2020 12:53 Patient: DANA ALARCON Sex: F : 2000 Age: 19y Eyes: Pupils equal, round and reactive to light. Eyes normal inspection. ENT: Ears normal. Nose normal. Pharynx normal. Neck: Normal inspection. CVS: Normal heart rate. Heart sounds normal. Respiratory: No respiratory distress. Chest pain reproducible. Breath sounds normal. Abdomen: Soft and nontender. Bowel sounds normal. No organomegaly. No mass. Back: Normal external inspection. Skin: Skin warm and dry. Normal skin color. No rash. Normal skin turgor. Extremities: Extremities exhibit normal ROM. No lower extremity edema. Neuro: Oriented X 3.LABS, X-RAYS, AND EKGChest X-ray: No acute disease. Views: AP (portable). The X-rays were interpreted by the radiologistand contemporaneously by me. Interpretation time: 14:13 01/10/2020.Laboratory Tests: Laboratory tests have been ordered, with results reviewed and considered in themedical decision making process. CBC w Diff: (COLLIN: 01/10/2020 13:00) ( MsgRcvd 01/10/2020 13:23) Final results Test Result Flag Units (Reference) CBC W/AUTOMATED DIFF COMPLETE BLOOD COUNT WBC 7.1 10/uL (4.2 - 11.0) RBC 4.50 10/uL (4.20 - 5.40) HEMOGLOBIN 12.1 g/dL (12.0 - 16.0) HEMATOCRIT 37.3 % (37.0 - 47.0) MCV 82.9 fL (81.0 - 101) MCH 26.9 L pg (27.0 - 34.0) MCHC 32.4 g/dL (31.0 - 36.0) RDW 13.1 % (11.5 - 14.5) PLATELETS 283 10/uL (150 - 450) MPV 11.1 H fL (7.4 - 10.4) NEUT 64.0 % (37.0 - 80.0) LYMPH 23.8 L % (25.0 - 40.0) MONO 9.3 H % (3.0 - 8.0) EOS 2.2 % (0.0 - 7.0) BASO 0.4 % (0.0 - 2.5) %IG 0.3 H % (0.0 - 0.0) %NRBC 0.0 % (0.0 - 0.0) #NEUT 4.56 10/uL (2.00 - 6.90) #LYMPH 1.70 10/uL (0.60 - 3.40) #MONO 0.66 10/uL (0.00 - 0.90) #EOS 0.16 10/uL (0.00 - 0.70) #BASO 0.03 10/uL (0.00 - 0.20) #IG 0.02 10/uL (0.00 - 0.10) #NRBC 0.00 10/uL (0.00 - 0.00) MANUAL DIFF NOT INDICATED RBC MORPH NOT INDICATED CMP: (COLLIN: 01/10/2020 13:00) ( MsgRcvd 01/10/2020 13:45) Final results Test Result Flag Units (Reference) COMPREHENSIVE METABOLIC PANEL COMPREHENSIVE METABOLIC PANEL 3 Clinical Report - Physicia ns/Mid Levels [facility] [facility] [address] [place] [address] Phone #: ext- [phone] 01/10/2020 12:53 [id number] Sex[facility] F : 2000 Age: 19y SODIUM 138 mEq/L (134 - 153) POTASSIUM 5.0 mEq/L (3.6 - 5.0) CHLORIDE 103 mEq/L (98 - 107) CO2 25 MEQ/L (22 - 30) GLUCOSE 76 MG/DL (65 - 110) BUN 12 MG/DL (7 - 21) CREATININE 0.8 MG/DL (0.7 - 1.5) BUN/CREAT 15 (8 - 27) TOTAL PROTEIN 7.2 G/DL (6.3 - 8.2) ALBUMIN 4.3 G/DL (3.9 - 5.0) GLOBULIN 2.9 GM/DL (2.4 - 3.2) A/G RATIO 1.5 (0.8 - 2.0) CALCIUM 9.8 MG/DL (8.4 - 10.2) TOTAL BILI <0.7 MG/DL (0.2 - 1.3) ALKALINE PHOS 78 U/L (38 - 126) SGOT/AST 17 U/L (5 - 40) SGPT/ALT 16 U/L (7 - 56) ANION GAP 10.0 mmol/L (8.0 - 16.0) AGE 19 yrs NON-AA GFR >60 mL/min AFR AMER GFR >60 mL/min Male GFR Interprentation 20-49 yrs >60 mL/min Normal 50-59 yrs >56 mL/min Normal 60- 69 yrs >49 mL/min Normal 70-79yrs >42 mL/min Normal 80 and above >35 mL/min Normal Female GFR Interpretation 20-39 yrs >60 mL/min Normal 40-49 yrs >58 mL/min Normal 50-59 yrs >51 mL/min Normal 60-69 yrs >45 mL/min Normal 70-79 yrs >39 mL/min Normal 80 and above >32 mL/min Normal Lipase: (COLLIN: 01/10/2020 13:00) ( MsgRcvd 01/10/2020 13:45) Final results Test Result Flag Units (Reference) LIPASE 15 U/L (13 - 60) PT/PTT: (COLLIN: 01/10/2020 13:00) ( [facility] 01/10/2020 13:35) Final results Test Result Flag Units (Reference) PROTIME 12.5 SECONDS (11.0 - 15.5) INR 0.92 L (0.93 - 1.23) PTT 26.5 SECONDS (24.8 - 36.7) \\BLDo\\INR INTERPRETATION\\BLDx\\ Therapeutic range for Coumadin and related oral anticoagulants. -International Normalized Ratio (INR): 2.0 - 3.0 for Venous Thrombosis, Pulmonary Embolus, Tissue heart valves, Acute IN Atrial Fibrillation, Valvular heart disease and recurrent Systemic Embolism. -International Normalized Ratio (INR): 2.5 - 3.5 for Mechanical Prosthetic valve. Troponin-T: (COLLIN: 01/10/2020 13:00) ( [facility] 01/10/2020 13:45) Final results Test Result Flag Units (Reference) TROPONIN T <0.01 NG/ML (0.00 - 0.10) TROPONIN T0.1 ng/ml Recommended as the clinical threshold value forTroponin T. TSH: (COLLIN: 01/10/2020 13:00) ( [facility] 01/10/2020 13:56) Final results Test Result Flag Units (Reference) TSH 8.63 H uIU/mL (0.47 - 5.01). 4 Clinical Report - Physicians/Mid Levels [facility] Emergency Department [address] [place] [address] Phone #: ext- [phone] 01/10/2020 12:53 Patient: DANA ALARCON Sex: F : 2000 Age: 19yPROGRESS AND PROCEDURESCourse of Care: 14:13 Jan 10 2020. Evaluation after cardiac monitoring and test results returned.(Discussed risk, benefit options a nd pt needs to follow up with her PCP.). Patient counseled in person regarding the patient's stable condition, test results, diagnosis and need for follow-up. Patient agrees with plan of care. 14:Jan 10 2020. Disposition: Discharged home in good and improved condition (14:Jan 10 2020).CLINICAL IMPRESSION Costochondritis Congenital hypothyroidism without goiter.INSTRUCTIONS Your Current Medications: Your current home medications have been reviewed. CONTINUE TAKING THE FOLLOWING MEDICATIONS: Abilify Oral : Tablet 2 mg, 1 tablet daily. Albuterol Sulfate HFA Inhalation : Aerosol Solution 108 (90 Base) mcg/act, 2 puffs, Last: 1100, prn. Control Pills* : 1 pill daily. Prescription Medications: Medrol (Skip) 4 mg tablets in a dose pack Take 1 tablet as directed for 6 days -- Dispense 1 pack. Refills: 0. Substitution permitted. [facility] #[phone] - [id number] ; [place] [address]. . IBU 800 mg tablet Take 1 tablet three times a day for 15 days -- Dispense 45 tablet. Refills: 0. Substitution permitted. [facility] #66 - [id number] ; [place] [address]. . Synthroid 100 mcg tablet Take 1 tablet once a day for 30 days -- Dispense 30 tablet. Refills: 0. Substitution permitted. [facility] #61 - [id number] ; [place] [address]. . Follow-up: Follow up with your doctor Saturday. Call for an appointment. Reason for referral: evaluation and treatment. Summary of care provided to patient. 5 Clinical Report - Physicians/Mid Levels [facility] Emergency Department [address] [place] [address] Phone #: ext- [phone] 01/10/2020 12:53 Patient: DANA ALARCON [facility]#: [id number] Sex: F : 2000 Age: 19y Understanding of the discharge instructions verbalized by patient.(Electronically signed by JUAREZ Armendariz 01/10/2020 21:34) Name Value Range Interpretation Code Description Data Candy rce(s) Supporting Document(s) ID Date Data Source [id number] 01/10/2020 03:25:00 PM EDT [facility] Name Value Range Interpretation Code Description Data Candy rce(s) Supporting Document(s) Fibrin D-dimer FEU [Mass/volume] in Platelet poor plasma 0.53 ug /mL 0.27 - 0.50 H [facility] ID Date Data Source [id number] 01/10/2020 01:56:00 PM EDT [facility] Name Value Range Interpretation Code Description Data Candy rce(s) Supporting Document(s) Thyrotropin [Units/volume] in Serum or Plasma by Detec tion limit <= 0.05 mIU/L 8.63 uIU/mL 0.47 - 5.01 H [facility] ID Date Data Source [id number] 01/10/2020 01:45:00 PM EDT [facility] Name Value Range Interpretation Code Description Data Candy rce(s) Supporting Document(s) Lipase [Enzymatic activity/volume] in Serum or Plasma 15 U/L 13 - 60 [facility] ID Date Data Source [id number] 01/10/2020 01:45:00 PM EDT [facility] Name Value Range Interpretation Code Description Data Candy rce(s) Supporting Document(s) COMPREHENSIVE METABOLIC PANEL [facility] COMPREHENSIVE METABOLIC PANEL Sodium [Moles/volume] in Serum or Plasma 138 mEq/L 134 - 153 [facility] Potassium [Moles/volume] in Serum or Plasma 5.0 mEq/L 3.6 - 5.0 [facility] Chloride [Moles/volume] in Serum or Plasma 103 mEq/L 98 - 107 [facility] Carbon dioxide, total [Moles/volume] in Serum or Plasma 25 MEQ/L 22 - 30 [facility] Glucose [Mass/volume] in Serum or Plasma 76 MG/DL 65 - 110 [facility] BUN 12 MG/DL 7 - 21 [facility] Creatinine [Mass/volume] in Serum or Plasma 0.8 MG/DL 0.7 - 1.5 [facility] BUN/CREAT 15 8 - 27 [facility] Protein [Mass/volume] in Serum or Plasma 7.2 G/DL 6.3 - 8.2 [facility] Albumin [Mass/volume] in Serum or Plasma 4.3 G/DL 3.9 - 5.0 [facility] Globulin [Mass/volume] in Serum by calculation 2.9 GM/DL 2.4 - 3.2 [facility] A/G RATIO 1.5 0.8 - 2.0 [facility] Calcium [Mass/volume] in Serum or Plasma 9.8 MG/DL 8.4 - 10.2 [facility] Bilirubin.total [Mass/volume] in Serum or Plasma <0.7 MG/DL 0.2 - 1.3 [facility] Alkaline phosphatase [Enzymatic activity/volume] in Serum or Plasma 78 U/L 38 - 126 [facility] Aspartate aminotransferase [Enzymatic activity/volume] in Serum or Plasma 17 U/L 5 - 40 [facility] Alanine aminotransferase [Enzymatic activity/volume] in Seru m or Plasma 16 U/L 7 - 56 [facility] Anion gap 3 in Serum or Plasma 10.0 mmol/L 8.0 - 16.0 [facility] AGE [address] [facility] al NON-AA GFR >60 mL/min [facility] ital AFR AMER GFR >60 mL/min [facility] Male GFR In terprentation 20-49 yrs >60 mL/min Normal 50-59 yrs >56 mL/min Normal 60-69 yrs >49 mL/min Normal 70-79yrs >42 mL/min Normal 80 and above >35 mL/min Normal Female GFR Interpretation 20-39 yrs >60 mL/min Normal 40-49 yrs >58 mL/min Normal 50-59 yrs >51 mL/min Normal 60-69 yrs >45 mL/min Normal 70-79 yrs >39 mL/min Normal 80 and above >32 mL/min Normal ID Date Data Source [id number] 01/10/2020 01:45:00 PM EDT [facility] Name Value Range Interpretation Code Description Data Candy rce(s) Supporting Document(s) TROPONIN T <0.01 NG/ML 0.00 - 0.10 [facility] ospital TROPONIN T0.1 ng/ml Recommended as the c linical threshold value forTroponin T. ID Date Data Source [id number] 01/10/2020 01:35:00 PM EDT [facility] Name Value Range Interpretation Code Description Data Candy rce(s) Supporting Document(s) Prothrombin time (PT) 12.5 SECONDS 11.0 - 15.5 [facility] INR in Platelet poor plasma by Coagulation assay 0.92 0.93 - 1. 23 L [facility] aPTT in Blood by Coagulation assay 26.5 SECONDS 24.8 - 36.7 [facility] \\BLDo\\INR INTERPRETATION\\BLDx\\ Therapeutic range for Coumadin and related oral anticoagulants. - International Normalized Ratio (INR): 2.0 - 3.0 for Venous Thrombosis, Pulmonary Embolus, Tissue heart valves, Acute IN Atrial Fibrillation, Valvular heart disease and recurrent Systemic Embolism. - International Normalized Ratio (INR): 2.5 - 3.5 for Mechanical Prosthetic valve. ID Date Data Source [id number] 01/10/2020 01:23:00 PM EDT [facility] Name Value Range Interpretation Code Description Data Candy e(s) Supporting Document(s) CBC W/AUTOMATED DIFF [facility] COMPLETE BLOOD COUNT Leukocytes [#/volume] in Blood by Automated count 7.1 10^3/uL 4.2 - 1 1.0 [facility] Erythrocytes [#/volume] in Blood by Automated count 4.50 10^6/uL 4. 20 - 5.40 [facility] Hemoglobin [Mass/volume] in Blood 12.1 g/dL 12.0 - 16.0 [facility] Hematocrit [Volume Fraction] of Blood by Automated count 37.3 % 3 7.0 - 47.0 [facility] Erythrocyte mean corpuscular volume [Entitic volume] by Auto mated count 82.9 fL 81.0 - 101 [facility] Erythrocyte mean corpuscular hemoglobin [Entitic mass] by Automated count 26.9 pg 27.0 - 34.0 L [facility] Erythrocyte mean corpuscular hemoglobin concentration [Mass/volume] by Automated count 32.4 g/dL 31.0 - 36.0 [facility] Erythrocyte distribution width [Ratio] by Automated count 13.1 % 11.5 - 14.5 [facility] Platelets [#/volume] in Blood by Automated count 283 10^3/uL 150 - 45 0 [facility] Platelet mean volume [Entitic volume] in Blood by Automated count 11.1 fL 7.4 - 10.4 H [facility] Neutrophils/100 leukocytes in Blood by Automated count 64.0 % 37. 0 - 80.0 [facility] Lymphocytes/100 leukocytes in Blood by Manual count 23.8 % 25.0 - 40.0 L [facility] Monocytes/100 leukocytes in Blood by Automated count 9.3 % 3.0 - 8.0 H [facility] Eosinophils/100 leukocytes in Blood by Automated count 2.2 % 0.0 - 7.0 [facility] Basophils/100 leukocytes in Blood by Automated count 0.4 % 0.0 - 2.5 [facility] %IG 0.3 % 0.0 - 0.[address] [facility] %NRBC 0.0 % 0.0 - 0.0 [facility] Neutrophils [#/volume] in Blood by Automated count 4.56 10^3/uL 2.00 - 6.90 [facility] Lymphocytes [#/volume] in Blood by Automated count 1.70 10^3/uL 0.60 - 3.40 [facility] Monocytes [#/volume] in Blood by Automated count 0.66 10^3/uL 0.00 - 0.90 [facility] Eosinophils [#/volume] in Blood by Automated count 0.16 10^3/uL 0.00 - 0.70 [facility] Basophils [#/volume] in Blood by Automated count 0.03 10^3/uL 0.00 - 0.20 [facility] #IG 0.02 10^3/uL 0.00 - 0.10 [facility] #NRBC 0.00 10^3/uL 0.00 - 0.00 [facility] MANUAL DIFF NOT INDICATED [facility] RBC MORPH NOT INDICATED [facility] ID Date Data Source [id number] 01/06/2020 10:35:00 AM EDT [facility] Name Value Range Interpretation Code Description Data Candy rce(s) Supporting Document(s) LAB - SPECIMEN REJECTION [facility] Specimen Integrity/Specimen Recollection The patient sample needs to be resubmitted for the following reason: Test(s) Ordered COVID [facility] Rejection Reason Wrong transport Tube [facility] { One or more of the tests you ordered cannot be performed.{ Please recollect, reorder, and resubmit if needed. ID Date Data Source [id number] 01/03/2020 01:15:00 [place] [address] RESPIRATORY CARE REPORT ==== ---------NAME------- NUMBER SEX AGE ADMIT DISC. XRAY# F/C TYPEKRAUSE DANA M [id number] 01/02/20 01/03/[id number] X6B E/R DATE OF : 2000 M/R# [id number] #: [id number] TR-1B LOCATION: EMERGENCY DEPT EKG [id number] COMP LETE:01/03/20 01:05 T [id number] PHYSICIAN: HONG PINEDO CH Name Value Range Interpretation Code Description Data Candy rce(s) Supporting Document(s) ID Date Data Source [id number] 01/02/2020 10:30:00 PM EDT [facility] [place] [address] ---------NAME--------- NUMBER SEX AGE ADMIT DISC. XRAY# F/C TYPE DORIAN [place] [id number] F 01/02/[id number] X6B E/R DATE OF : 2000 M/R# [id number] PH#: [phone] TR-1B LOCATION: EMERGENCY DEPT TRANSCRIBED: 01/02/20 22:[address] CTA CHEST NON-CORONARY W [id number] COMPLETED:01/02/20 22:08 TRAVIS [id number] Reason(s): dyspnea w/ chest discofort with elevated d-dimer PHYSICIAN: HONG PINEDO CH = R A D I O L O G Y R E P O R T PATIENT HISTORY:DYSPNEA WITH CHEST DISCOMFORT, ELEVATED D-DIMER, CT DOSE- 894.7mGy*cm, 75MLISOVUE 370 LOT [id number] EXP 07/2022 USED.VERIFIED 2 IDENTIFIERS, TIMEOUT PERFORMED, NEG HCG, SENT TO [place]. /Executed [place] (DICOM Hx)EXAM: CTA Chest with Intravenous Contrast for PE evaluationCLINICAL HISTORY: DYSPNEA WITH CHEST DISCOMFORT, ELEVATED D- DIMER, CT DOSE-894.7mGy*cm, 75ML ISOVUE 370 LOT [id number] EXP 07/2022 USED. VERIFIED 2IDENTIFIERS, TIMEOUT PERFORMED, NEG HCG, SENT TO [place].TECHNIQUE: Axial CTA images of the chest with intravenous contrast using apulmonary embolism protocol. Multiplanar reconstructed images were created andreviewed.CONTRAST: With; 75ML ISOVUE 370 LOT [id number] EXP 07/2022 was administered withoutincident.COMPARISON: None provided.FINDINGS:PULMONARY ARTERIES: No evidence of central or segmental pulmonary embolism isseen.AORTA: There is no evidence for aneurysm or dissection of the thoracic aorta.LUNGS: The lungs appear clear.PLEURAL SPACES: No evidence of pneumothorax. No pleural effusion.HEART: Heart size is within normal limits. No significant pericardial effusion.LYMPH NODES: No lymphadenopathy is evident.BONES: No focal osseous abnormality or acute fracture.UPPER ABDOMEN: Images of the upper abdomen are unremarkable.IMPRESSIONS:No evidence of pulmonary embolus.While performing the above CT examination, radiation dose reduction wasaccomplished utilizing automated exposure control, adjusting of the mA and kVbased on the patient's body size and/or the use of imperative reconstructivetechniques.Electronically Signed By:Heath Michaels M.D. , RadiologistDate/Time: 01/02/20 22:30 01/02/20.[email or web address].to [facility] via fax 01/02/20.[email or web address] EMERGENCY via modem Name Value Range Interpretation Code Description Data Candy rce(s) Supporting Document(s) ID Date Data Source [id number] 01/07/2020 02:29:00 PM EDT [facility] Name Value Range Interpretation Code Description Data Candy rce(s) Supporting Document(s) CULTURE URINE [facility] spital _CULTURE URINE_$$[id number]$$[id number]$$946881$$350951$$653031$$293401$$669744$$365904$$444850$$ 097577$$814549$$452684$$469939$$867327$$067313$$882057$$476869$$763765$$654967$$ 060758$$227471$$983176$$139087$$877355$$075557$$052334$$208968 -- Continued on next page --Patient: DORIAN Washington Order: [id number] Page 2Culture: CULTURE URINE Status: Final ==== -- Continued on next page --Patient: DORIAN Washington Order: [id number] Page 2Culture: CULTURE URINE Status: Prelim =====$$[id number]$$[id number] DATE/TIME: 01/07/2020 13:06Culture: CULTURE URINE Status: FinalIsolate 1 Enterococcus faecalis Flag: A . . . . . . .710,000-25,000 colony forming units per mL Previous result entered on 01/06/2020 05:02 ET Microbiological testing to rule out the presence of possible pathogensis in progress.Urine Culture,Comprehensive: M1Flnybffxgfut faecalis Flag: APatient: DORIAN Washington Order: [id number] Page 3Culture: CULTURE URINE Status: Final ISOLATE 1 Enterococcus faecalis Isolate 1Antibiotic CHARLENE IntUnits ug/mL Ciprofloxacin S S . . . . . .185-9Levofloxacin S S . . . . . .78388- 8Nitrofurantoin S S . . . . . .363-2Penicillin S S . . . . . .6932-8Tetracycline R R . . . . . .496-0Vancomycin S S . . . . . .524-9P1 Test performed by: [facility] #: [id number] [address] [id number] [facility] [id number] Director : Fransisco James MD NPI #:Cotton Machine Operator : 01/06/20.28.XMT.SENT REF 01/07/20.1429.XMT.SENT REF 01/11/20.0658.XMT.SENT REF ID Date Data Source [id number] 01/02/2020 09:22:00 PM EDT [facility] Name Value Range Interpretation Code Description Data Candy rce(s) Supporting Document(s) URINALYSIS [facility] UR[facility]ALYSIS SOURCE R [facility] COL[facility] yellow NORMAL: Yellow [facility] CLARITY clear NORMAL: Clear [facility] Specific gravity of Urine by Test strip 1.020 1.001 - 1.030 [facility] pH 6 5 - [address] [facility] Glucose [Mass/volume] in Urine by Test strip NORM NORMAL: Negat [facility] Bilirubin.total [Presence] in Urine by Test strip NEG NORMAL: Negative [facility] Ketones [Presence] in Urine by Test strip NEG NORMAL: Negative [facility] Protein [Mass/volume] in Urine by Test strip NEG NORMAL: Negat [facility] Nitrite [Presence] in Urine by Test strip NEG NORMAL: Negative [facility] BLOOD NEG NORMAL: Negative [facility] Leukocyte esterase [Presence] in Urine by Test strip 100 SÁNCHEZ L: Negative [facility] Urobilinogen [Mass/volume] in Urine by Test strip NOR less wu n 1.0 mg/dL [facility] MICROSCOPIC See Below [facility] ital WBC 7 - 10 NORMAL: NONE SEEN A Health system Erythrocytes [#/volume] in Urine by Test strip None Seen NORMAL: NON E SEEN [facility] EPITHELIAL MODERATE NORMAL: NONE SEEN A [facility] Bacteria [Presence] in Urine sediment by Light microscopy Tr halley NORMAL: NONE SEEN [facility] ID Date Data Source [id number] 01/06/2020 06:22:00 AM EDT [facility] Name Value Range Interpretation Code Description Data Candy rce(s) Supporting Document(s) SARS-CoV-2, MYRIAM COMMENT [facility] The specimen submitted does not meet the laboratory's criteria foracceptability. Refer to [facility]'s Directory of Services for specimenacceptability criteria. ID Date Data Source [id number] 01/02/2020 08:23:00 PM EDT [facility] Name Value Range Interpretation Code Description Data Candy rce(s) Supporting Document(s) Thyrotropin [Units/volume] in Serum or Plasma by Detec tion limit <= 0.05 mIU/L 6.31 uIU/mL 0.47 - 5.01 H [facility] ID Date Data Source [id number] 01/02/2020 07:24:00 PM EDT [facility] Name Value Range Interpretation Code Description Data Candy rce(s) Supporting Document(s) HCG SERUM QUAL NEGATIVE NORMAL: NEGATIVE [facility] HCG SERUM QL REENTER NEGATIVE NORMAL: NEGATIVE [facility] { KIT LOT # [id number] ){ KIT EXP DATE 03-22-21 ){ PROCEDURAL CONTROL VALID ) ID Date Data Source [id number] 01/02/2020 07:09:00 PM T [facility] Name Value Range Interpretation Code Description Data Candy rce(s) Supporting Document(s) TROPONIN T <0.01 NG/ML 0.00 - 0.10 [facility] ospital TROPONIN T0.1 ng/ml Recommended as the c linical threshold value forTroponin T. ID Date Data Source [id number] 01/02/2020 07:09:00 PM [facility] Name Value Range Interpretation Code Description Data Candy rce(s) Supporting Document(s) COMPREHENSIVE METABOLIC PANEL [facility] COMPREHENSIVE METABOLIC PANEL Sodium [Moles/volume] in Serum or Plasma 137 mEq/L 134 - 153 [facility] Potassium [Moles/volume] in Serum or Plasma 3.9 mEq/L 3.6 - 5.0 [facility] Chloride [Moles/volume] in Serum or Plasma 102 mEq/L 98 - 107 [facility] Carbon dioxide, total [Moles/volume] in Serum or Plasma 24 MEQ/L 22 - 30 [facility] Glucose [Mass/volume] in Serum or Plasma 85 MG/DL 65 - 110 [facility] BUN 14 MG/DL 7 - 21 [facility] Creatinine [Mass/volume] in Serum or Plasma 0.6 MG/DL 0.7 - 1.5 L [facility] BUN/CREAT 23 8 - 27 [facility] Protein [Mass/volume] in Serum or Plasma 6.9 G/DL 6.3 - 8.2 [facility] Albumin [Mass/volume] in Serum or Plasma 4.2 G/DL 3.9 - 5.0 [facility] Globulin [Mass/volume] in Serum by calculation 2.7 GM/DL 2.4 - 3.2 [facility] A/G RATIO 1.6 0.8 - 2.0 [facility] Calcium [Mass/volume] in Serum or Plasma 9.5 MG/DL 8.4 - 10.2 [facility] Bilirubin.total [Mass/volume] in Serum or Plasma <0.7 MG/DL 0.2 - 1.3 [facility] Alkaline phosphatase [Enzymatic activity/volume] in Serum or Plasma 59 U/L 38 - 126 [facility] Aspartate aminotransferase [Enzymatic activity/volume] in Serum or Plasma 11 U/L 5 - 40 [facility] Alanine aminotransferase [Enzymatic activity/volume] in Seru m or Plasma 16 U/L 7 - 56 [facility] Anion gap 3 in Serum or Plasma 11.0 mmol/L 8.0 - 16.0 [facility] AGE [address] [facility] NON-AA GFR >60 mL/min [facility] ital AFR AMER GFR >60 mL/min [facility] Male GFR In terprentation 20-49 yrs >60 mL/min Normal 50-59 yrs >56 mL/min Normal 60-69 yrs >49 mL/min Normal 70-79yrs >42 mL/min Normal 80 and above >35 mL/min Normal Female GFR Interpretation 20-39 yrs >60 mL/min Normal 40-49 yrs >58 mL/min Normal 50-59 yrs >51 mL/min Normal 60-69 yrs >45 mL/min Normal 70-79 yrs >39 mL/min Normal 80 and above >32 mL/min Normal ID Date Data Source [id number] 01/02/2020 07:09:00 PM EDT [facility] Name Value Range Interpretation Code Description Data Candy rce(s) Supporting Document(s) Fibrin D-dimer FEU [Mass/volume] in Platelet poor plasma 0.68 ug /mL 0.27 - 0.50 H [facility] ID Date Data Source [id number] 01/02/2020 07:06:00 PM EDT [facility] Name Value Range Interpretation Code Description Data Candy rce(s) Supporting Document(s) Lipase [Enzymatic activity/volume] in Serum or Plasma 18 U/L 13 - 60 [facility] ID Date Data Source [id number] 01/02/2020 07:01:00 PM EDT [facility] Name Value Range Interpretation Code Description Data Candy rce(s) Supporting Document(s) Prothrombin time (PT) 12.2 SECONDS 11.0 - 15.5 [facility] INR in Platelet poor plasma by Coagulation assay 0.90 0.93 - 1. 23 L [facility] aPTT in Blood by Coagulation assay 25.2 SECONDS 24.8 - 36.7 [facility] \\BLDo\\INR INTERPRETATION\\BLDx\\ Therapeutic range for Coumadin and related oral anticoagulants. - International Normalized Ratio (INR): 2.0 - 3.0 for Venous Thrombosis, Pulmonary Embolus, Tissue heart valves, Acute IN Atrial Fibrillation, Valvular heart disease and recurrent Systemic Embolism. - International Normalized Ratio (INR): 2.5 - 3.5 for Mechanical Prosthetic valve. ID Date Data Source [id number] 01/02/2020 07:01:00 PM EDT [facility] Name Value Range Interpretation Code Description Data Candy rce(s) Supporting Document(s) Prothrombin time (PT) 12.2 SECONDS 11.0 - 15.5 [facility] INR in Platelet poor plasma by Coagulation assay 0.90 0.93 - 1. 23 L [facility] \\BLDo\\INR INTERPRETATION\\BLDx\\ Therapeutic range for Coumadin and related oral anticoagulants. - International Normalized Ratio (INR): 2.0 - 3.0 for Venous Thrombosis, Pulmonary Embolus, Tissue heart valves, Acute IN, Atrial Fibrillation, Valvular heart disease and recurrent Systemic Embolism. -International Normalized Ratio (INR): 2.5 - 3.5 for Mechanical Prosthetic valve. ID Date Data Source [id number] 01/02/2020 06:51:00 PM EDT [facility] Name Value Range Interpretation Code Description Data Candy rce(s) Supporting Document(s) pH of Serum or Plasma 7.40 7.32 - 7.43 [facility] pCO2 V 36.1 mm/HG 38.0 - 51.0 L [facility] pO2 V 46.4 mm/HG 30.0 - 55.0 [facility] Bicarbonate [Moles/volume] in Venous blood 21.9 meq/L 22.0 - 29.0 L [facility] TCO2 V 23.0 meq/L 22.0 - 29.0 [facility] Base excess in Blood by calculation -2.3 -2.0 - 2.0 L [facility] O2 SAT V 81.8 % 40.0 - 85.0 [facility] ID Date Data Source [id number] 01/02/2020 06:51:00 PM EDT [facility] Name Value Range Interpretation Code Description Data Candy rce(s) Supporting Document(s) Lactate [Moles/volume] in Serum or Plasma 1.4 MMOL/L 0.2 - 2.2 [facility] ID Date Data Source [id number] 01/02/2020 06:51:00 PM EDT [facility] Name Value Range Interpretation Code Description Data Candy rce(s) Supporting Document(s) CBC W/AUTOMATED DIFF [facility] COMPLETE BLOOD COUNT Leukocytes [#/volume] in Blood by Automated count 11.8 10^3/uL 4.2 - 11.0 H [facility] Erythrocytes [#/volume] in Blood by Automated count 4.84 10^6/uL 4. 20 - 5.40 [facility] Hemoglobin [Mass/volume] in Blood 12.9 g/dL 12.0 - 16.0 [facility] Hematocrit [Volume Fraction] of Blood by Automated count 40.2 % 3 7.0 - 47.0 [facility] Erythrocyte mean corpuscular volume [Entitic volume] by Auto mated count 83.1 fL 81.0 - 101 [facility] Erythrocyte mean corpuscular hemoglobin [Entitic mass] by Automated count 26.7 pg 27.0 - 34.0 L [facility] Erythrocyte mean corpuscular hemoglobin concentration [Mass/volume] by Automated count 32.1 g/dL 31.0 - 36.0 [facility] Erythrocyte distribution width [Ratio] by Automated count 13.2 % 11.5 - 14.5 [facility] Platelets [#/volume] in Blood by Automated count 299 10^3/uL 150 - 45 0 [facility] Platelet mean volume [Entitic volume] in Blood by Automated count 11.0 fL 7.4 - 10.4 H [facility] Neutrophils/100 leukocytes in Blood by Automated count 74.6 % 37. 0 - 80.0 [facility] Lymphocytes/100 leukocytes in Blood by Manual count 16.6 % 25.0 - 40.0 L [facility] Monocytes/100 leukocytes in Blood by Automated count 7.2 % 3.0 - 8.0 [facility] Eosinophils/100 leukocytes in Blood by Automated count 1.0 % 0.0 - 7.0 [facility] Basophils/100 leukocytes in Blood by Automated count 0.4 % 0.0 - 2.5 [facility] %IG 0.2 % 0.0 - 0.[address] [facility] %NRBC 0.0 % 0.0 - 0.0 [facility] Neutrophils [#/volume] in Blood by Automated count 8.82 10^3/uL 2.00 - 6.90 H [facility] Lymphocytes [#/volume] in Blood by Automated count 1.96 10^3/uL 0.60 - 3.40 [facility] Monocytes [#/volume] in Blood by Automated count 0.85 10^3/uL 0.00 - 0.90 [facility] Eosinophils [#/volume] in Blood by Automated count 0.12 10^3/uL 0.00 - 0.70 [facility] Basophils [#/volume] in Blood by Automated count 0.05 10^3/uL 0.00 - 0.20 [facility] #IG 0.02 10^3/uL 0.00 - 0.10 [facility] #NRBC 0.00 10^3/uL 0.00 - 0.00 [facility] MANUAL DIFF NOT INDICATED [facility] RBC MORPH NOT INDICATED [facility] spital ID Date Data Source [id number] 11/19/2019 11:55:00 AM EDT [facility] ([facility]) Name Value Range Interpretation Code Description Data Candy rce(s) Supporting Document(s) Inhouse Wet Mount Laboratory test result [facility] ([facility]) ID Date Data Source [id number] 11/19/2019 11:53:00 AM EDT [facility] ([facility]) Name Value Range Interpretation Code Description Data Candy rce(s) Supporting Document(s) US Breast Left Laboratory test result [facility] ([facility]) ID Date Data Source [id number] 11/19/2019 11:51:00 AM EDT [facility] ([facility]) Name Value Range Interpretation Code Description Data Candy rce(s) Supporting Document(s) Chlamydia sp DNA [Presence] in Urine by Probe and targ et amplification method Laboratory test result [facility] ([facility]) ID Date Data Source [id number] 11/19/2019 11:40:00 AM EDT [facility] ([facility]) Name Value Range Interpretation Code Description Data Candy rce(s) Supporting Document(s) Culture Urine Laboratory test result [facility] ([facility]) {SOURCE: Random Void ID Date Data Source [id number] 11/19/2019 11:40:00 AM EDT [facility] ([facility]) Name Value Range Interpretation Code Description Data Candy rce(s) Supporting Document(s) Source: Laboratory test result [facility] ([facility]) {SOURCE: Random Void Gonococcus by Myriam Laboratory test result [facility] ([facility]) {SOURCE: Random Void Chlamydia by Myriam Laboratory test result [facility] ([facility]) {SOURCE: Random Void Trich vag by Myriam Laboratory test result [facility] ([facility]) {SOURCE: Random Void ID Date Data Source [id number] 11/24/2019 01:40:00 PM EDT [facility] Name Value Range Interpretation Code Description Data Candy rce(s) Supporting Document(s) CULTURE URINE [facility] _CULTURE URINE_$$[id number]$$[id number]$$[id number]$$[id number]$$[id number]$$[id number]$$[id number]$$[id number]$$[id number]$$ [id number]$$888669$$726926$$089028$$[id number]$$577576$$031927$$051404$$029424$$770710$$ 094250$$199280$$468923$$875900$$880158$$879266$$544515$$[id number] -- Continued on next page --Patient: DORIAN Washington Order: [id number] Page 2Culture: CULTURE URINE Status: Final ==== -- Continued on next page --Patient: DORIAN Washington Order: [id number] Page 2Culture: CULTURE URINE Status: Prelim =====$$[id number]$$[id number] DATE/TIME: 11/24/2019 12:06Culture: CULTURE URINE Status: FinalIsolate 1 Enterococcus faecalis Flag: A . . . . . . .750,000-100,000 colony forming units per mL Previous result entered on 11/22/2019 07:38 ET Microbiological testing to rule out the presence of possible pathogensis in progress.Urine Culture,Comprehensive: [id number] faecalis Flag: APatient: DORIAN Washington Order: [id number] Page 3Culture: CULTURE URINE Status: Final ISOLATE 1 Enterococcus faecalis Isolate 1Antibiotic CHARLENE IntUnits ug/mL Ciprofloxacin S S . . . . . .185-9Levofloxacin S S . . . . . .95432- 8Nitrofurantoin S S . . . . . .363-2Penicillin S S . . . . . .6932-8Tetracycline R R . . . . . .496-0Vancomycin S S . . . . . .524-9P1 Test performed by: [facility] #: [id number] [address] [place] [address] [id number] [facility] [id number] Director : Fransisco James MD NPI #:Cotton Machine Operator : 11/23/19.0620.XMT.SENT REF 11/24/19.1340.DAVID.SENT REF 11/24/191340. .to VAL ALFONSO via fax ID Date Data Source [id number] 11/22/2019 08:31:00 AM EDT [facility] Name Value Range Interpretation Code Description Data Candy rce(s) Supporting Document(s) SOURCE: Random Void [facility] Chlamydia trachomatis rRNA [Presence] in Unspecified specimen by Probe and target amplification method Negative Negative [facility] Neisseria gonorrhoeae rRNA [Presence] in Unspecified specimen by Probe and target amplification method Negative Negative [facility] Trichomonas vaginalis DNA [Presence] in Unspecified specimen by Probe and target amplification method Negative Negative [facility] Procedure Vital Signs ID Date Data Source [id number] Name Value Range Interpretation Code Description Data Source(s) Diastolic blood pressure 76 mm[Hg] 76 mm[Hg] eCW1 ([facility]) Systolic blood pressure 124 mm[Hg] 124 mm[Hg] e CW1 ([facility]) Body mass index (BMI) [Ratio] 49.744 kg/m2 49.7 44 kg/m2 W1 ([facility]) Body height 64 [in_i] 64 [in_i] eCW1 ([facility]) Body weight 131.45 kg 131.45 kg eCW1 ([facility]) Body weight 289.8 [lb_av] 289.8 [lb_av] eCW1 ([facility]) Diastolic blood pressure 77 mm[Hg] 77 mm[Hg] eCW1 ([facility]) Systolic blood pressure 118 mm[Hg] 118 mm[Hg] e CW1 ([facility]) Body temperature 97.6 [degF] 97.6 [degF] eCW1 ( [facility]) Respiratory rate 18 /min 18 /min eCW1 ([facility]) Heart rate 96 /min 96 /min eCW1 ([facility] Body mass index (BMI) [Ratio] 50.56 kg/m2 50.56 kg/m2 W1 ([facility]) Body height 64 [in_i] 64 [in_i] eCW1 ([facility]) Body weight 294.6 [lb_av] 294.6 [lb_av] eCW1 ([facility]) Diastolic blood pressure 78 mm[Hg] 78 mm[Hg] eCW1 ([facility]) Systolic blood pressure 124 mm[Hg] 124 mm[Hg] e CW1 ([facility]) Body temperature 98.5 [degF] 98.5 [degF] eCW1 ( [facility]) Respiratory rate 16 /min 16 /min eCW1 ([facility]) Heart rate 110 /min 110 /min eCW1 ([facility]) Body mass index (BMI) [Ratio] 49.94 kg/m2 49.94 kg/m2 eCW1 ([facility]) Body height 64 [in_i] 64 [in_i] eCW1 ([facility]) Body weight 291 [lb_av] 291 [lb_av] eCW1 ([facility]) Body surface area Derived from formula 2.33 m2 2.33 m2 [facility] Body mass index (BMI) [Ratio] 46.0 kg/m2 46.0 k g/m2 [facility] ([facility]) Body height 66 [in_i] 66 [in_i] [facility] 5'6" Body weight 129.389 kg 129.389 kg [facility] ([facility]) Body weight 285.25 [lb_av] 285.25 [lb_av] MEDEN T ([facility]) Body temperature 96.0 [degF] 96.0 [degF] [facility] Heart rate 78 /min 78 /min [facility] ([facility]) Diastolic blood pressure 82 mm[Hg] 82 mm[Hg] [facility] ([facility]) Systolic blood pressure 126 mm[Hg] 126 mm[Hg] M EDENT ([facility]) Body mass index (BMI) [Ratio] 46.8 kg/m2 46.8 k g/m2 [facility] ([facility]) Body height 66 [in_i] 66 [in_i] [facility] ([facility]) 5'6" Body weight 131.544 kg 131.544 kg [facility] ([facility]) Body weight 290.00 [lb_av] 290.00 [lb_av] MEDEN T ([facility]) Body temperature 96.3 [degF] 96.3 [degF] [facility] ([facility]) Heart rate 88 /min 88 /min [facility] ([facility]) Diastolic blood pressure 86 mm[Hg] 86 mm[Hg] [facility] ([facility]) Systolic blood pressure 122 mm[Hg] 122 mm[Hg] M EDENT ([facility]) Body surface area Derived from formula 2.34 m2 2.34 m2 [facility] ([facility]) Body surface area Derived from formula 2.29 m2 2.29 m2 [facility] Body mass index (BMI) [Ratio] 44.2 kg/m2 44.2 k g/m2 [facility] ([facility]) Body height 66 [in_i] 66 [in_i] [facility] ([facility]) 5'6" Body weight 124.286 kg 124.286 kg [facility] ([facility]) Body weight 274.00 [lb_av] 274.00 [lb_av] MEDEN T ([facility]) Body temperature 98.4 [degF] 98.4 [degF] [facility] ([facility]) Heart rate 62 /min 62 /min [facility] ([facility]) Diastolic blood pressure 70 mm[Hg] 70 mm[Hg] [facility] ([facility]) Systolic blood pressure 118 mm[Hg] 118 mm[Hg] M EDENT ([facility]) Body surface area 2.29 m2 2.29 m2 [facility] ([facility]) Deprecated Oxygen saturation in Capillary blood by Oximetry 98 % 98 % eCW1 ([facility]) Respiratory rate 20 /min 20 /min eCW1 ([facility]) Heart rate 85 /min 85 /min eCW1 ([facility]) Body temperature 98.5 [degF] 98.5 [degF] eCW1 ( [facility]) Body mass index (BMI) [Ratio] 45.19 kg/m2 45.19 kg/m2 eCW1 ([facility]) Body weight Measured 271.6 [lb_av] 271.6 [lb_av ] eCW1 ([facility]) Body height 65 [in_us] 65 [in_us] eCW1 ([facility]) Body surface area 2.26 m2 2.26 m2 [facility] ([facility]) Body mass index (BMI) [Ratio] 42.9 kg/m2 42.9 k g/m2 [facility] ([facility]) Body height 66 [in_i] 66 [in_i] [facility] ([facility]) 5'6" Body weight 120.658 kg 120.658 kg [facility] ([facility]) Body weight 266.00 [lb_av] 266.00 [lb_av] MEDEN T ([facility]) Heart rate 70 /min 70 /min [facility] ([facility]) Diastolic blood pressure 80 mm[Hg] 80 mm[Hg] [facility] ([facility]) Systolic blood pressure 122 mm[Hg] 122 mm[Hg] M EDENT ([facility]) Body surface area 2.22 m2 2.22 m2 [facility] ([facility]) Body mass index (BMI) [Ratio] 41.3 kg/m2 41.3 k g/m2 [facility] ([facility]) Body height 66 [in_i] 66 [in_i] [facility] ([facility]) 5'6" Body weight 116.122 kg 116.122 kg [facility] ([facility]) Body weight 256.00 [lb_av] 256.00 [lb_av] MEDEN T ([facility]) Heart rate 75 /min 75 /min [facility] ([facility]) Diastolic blood pressure 71 mm[Hg] 71 mm[Hg] [facility] ([facility]) Systolic blood pressure 119 mm[Hg] 119 mm[Hg] M EDENT ([facility]) ID Date Data Source [id number] 06/04/2019 10:53:33 AM EST [facility] Name Value Range Interpretation Code Description Data Source(s) WEIGHT RECORDED 260.[address] [facility] Height 66 Inches 066 Inches [facility] ID Date Data Source [id number] 11/25/2019 03:58:00 PM EDT [facility] Name Value Range Interpretation Code Description Data Source(s) WEIGHT 83.824783 kilos 83.304435 [facility] HEIGHT 157.48 centimeters 157.48 centimeter [facility] WEIGHT 83.000198 kilos 83.799487 [facility] HEIGHT 157.48 centimeters 157.48 centimeter [facility] ID Date Data Source [id number] 12/23/2019 12:13:00 PM T [facility] Name Value Range Interpretation Code Description Data Source(s) WEIGHT 68.94 kilos 68.94 kilos [facility] HEIGHT 157.48 centimeters 157.48 centimeter [facility] WEIGHT 68.94 kilos 68.94 kilos [facility] HEIGHT 157.48 centimeters 157.48 centimeter [facility] ID Date Data Source [id number] 12/23/2019 12:13:00 PM [facility] Name Value Range Interpretation Code Description Data Source(s) WEIGHT 81.64 [facility] 81.[facility] HEIGHT 160.02 centimeters 160.02 centimeter [facility] HEIGHT 160.02 centimeters 160.02 centimeter [facility] WEIGHT 81.64 kilos 81.64 kilos [facility] ID Date Data Source [id number] 12/23/2019 12:13:00 PM [facility] Name Value Range Interpretation Code Description Data Source(s) WEIGHT 77.2418[address] [facility] HEIGHT 160.02 centimeters 160.02 centimeter [facility] WEIGHT 77.3866[address] [facility] HEIGHT 160.02 centimeters 160.02 centimeter [facility] Patient Treatment Plan of Care Planned Activity Planned Date Details Description Data Source (s) Cholecalciferol 125 MCG (5000 UT) 06/24/2020 12:00:00 AM EST eCW1 ([facility]) Cholecalciferol 125 MCG (5000 UT) 06/24/2020 12:00:00 AM EST eCW1 ([facility]) Cholecalciferol 125 MCG (5000 UT) 06/24/2020 12:00:00 AM EST eCW1 ([facility]) Cholecalciferol 125 MCG (5000 UT) 06/24/2020 12:00:00 AM EST eCW1 ([facility]) buspirone hydrochloride 15 MG Oral Tablet 01/04/2020 12:00:00 AM ED T eCW1 ([facility]) 12 HR Bupropion Hydrochloride 100 MG Extended Release Oral Tablet [Wellbutrin] 12/21/2019 12:00:00 AM EDT eCW1 ([facility]) aripiprazole 2 MG Oral Tablet [Abilify] 11/23/2019 12:00:00 AM EDT eCW1 ([facility]) Fluoxetine 20 MG Oral Capsule [Prozac] 10/29/2019 12:00:00 AM EDT eCW1 ([facility])
[2020-08-03 10:27] LABS: BLOOD UREA NITROGEN 8 MG/DL (7-18); CALCIUM LEVEL 9.1 MG/DL (8.5-10.1); CARBON DIOXIDE LEVEL 22 MEQ/L (21-32); CHLORIDE LEVEL 109 MEQ/L (98-107); CREATININE FOR GFR 0.62 MG/DL (0.55-1.30); GLOMERULAR FILTRATION RATE > 60.0 (>60); GLUCOSE, FASTING 106 MG/DL (70-100); HCG, SERUM QUANTITATIVE 45247 MIU/ML; POTASSIUM SERUM 3.9 MEQ/L (3.5-5.1); SODIUM LEVEL 140 MEQ/L (136-145)
[2020-08-03 10:57] VITALS: BP 124/64
== END 2020-08-03 11:03 | disposition home or self-care (01) ==
LOC: M ED 08:58 → EDBD 08:58 → M ED 11:03
DX: O9A.211 Injury, poisoning and certain other consequences of external causes complicating pregnancy, first trimester (principal); S83.92XA Sprain of unspecified site of left knee, initial encounter; S93.402A Sprain of unspecified ligament of left ankle, initial encounter; W00.0XXA Fall on same level due to ice and snow, initial encounter; Y92.480 Sidewalk as the place of occurrence of the external cause; O99.511 Diseases of the respiratory system complicating pregnancy, first trimester; J45.909 Unspecified asthma, uncomplicated; O99.341 Other mental disorders complicating pregnancy, first trimester; F33.9 Major depressive disorder, recurrent, unspecified; F41.9 Anxiety disorder, unspecified; O99.611 Diseases of the digestive system complicating pregnancy, first trimester; K21.9 Gastro-esophageal reflux disease without esophagitis; Z3A.08 8 weeks gestation of pregnancy

== ENCOUNTER 2020-08-08 00:03 | Emergency (ER) | payer OTHER ==
[~2020-08-08] VITALS: Ht 167.6 cm; Wt 127.3 kg
[~2020-08-08 00:03] MED LIST changes: +BUPR150T12; -BUPR150T4; +PREN29CH2 PO
[2020-08-08] MEDS ORDERED: NOXI1TAB PO (00:22)
[2020-08-08] MEDS ORDERED: ACET-897 PO (00:22)
[2020-08-08] MEDS ORDERED: ACETAMINOPHEN TAB 650MG DOSE (2X325MG) PO ONE (00:55)
[2020-08-08 01:41] LABS: HEMATOCRIT 37.4 % (36.0-47.0); HEMOGLOBIN 12.2 g/dl (12.0-15.5); MEAN CORPUSCULAR HEMOGLOBIN 26.7 pg (27.0-33.0); MEAN CORPUSCULAR HGB CONC 32.6 g/dl (32.0-36.5); MEAN CORPUSCULAR VOLUME 81.8 fl (80.0-96.0); PLATELET COUNT, AUTOMATED 243 10^3/uL (150-450); RED BLOOD COUNT 4.57 10^6/uL (4.00-5.40); WHITE BLOOD COUNT 9.7 10^3/uL (4.0-10.0)
--- NOTE | 2020-08-08 01:45 | REPVR ---
PROCEDURE INFORMATION: Exam: US First Trimester, Transabdominal Exam date and time: 08/08/2020 1:20 AM Age: 20 years old Clinical indication: Lmp or gestational age (in weeks): 10w 1d; Other: Bleeding; ; Additional info: Vaginal bleeding TECHNIQUE: Imaging protocol: Real-time transabdominal obstetrical ultrasound of the maternal pelvis and a first trimester , less than 14 weeks 0 days, with image documentation. COMPARISON: No relevant prior studies available. FINDINGS: Gestation: Single live intrauterine gestation. Embryonic/ heart rate: heart rate measures 163 bpm. Placenta: Placenta is located posterior and to the left. Amniotic fluid: Amniotic fluid is normal for gestational age. BIOMETRY: Gestational age (AUA): Estimated gestational age is 10 weeks 0 days. Estimated due date (AUA): Estimated due date is 03/12/2021. Mean sac diameter: Mean sac diameter is 36 mm. Matador-Rump length: Matador rump length measures 30 mm. MATERNAL: Uterus: Uterus measures 10.9 x 6.0 x 7.5 cm. Uterus is anteverted. No uterine masses. Cervix: Cervix measures 3.2 cm in length. Cervix is closed. Right adnexa: Right ovary measures 2.8 x 1.5 x 2.6 cm. No masses. Left adnexa: Left ovary measures 2.5 x 2.3 x 2.6 cm. Anechoic cyst in the left ovary measuring 2.2 x 2.9 x 1.8 cm. Intraperitoneal space: No free fluid. IMPRESSION: 1. Single live intrauterine gestation. 2. Estimated gestational age is 10 weeks 0 days. 3. Estimated due date is 03/12/2021. 4. Recommend routine follow-up full anatomical survey at 19-20 weeks gestational age or earlier as clinically warranted. 5. Anechoic cyst in the left ovary. No follow-up is necessary. Electronically signed by: Reginald Moulton On 08/08/2020 01:46:02 AM
--- NOTE | 2020-08-08 02:17 | REPVR ---
PROCEDURE INFORMATION: Exam: XR Left Ankle Exam date and time: 08/08/2020 1:32 AM Age: 20 years old Clinical indication: Pain; Ankle; Left; Additional info: Ankle pain TECHNIQUE: Imaging protocol: XR Left ankle. Views: 1 or 2 views. COMPARISON: CR Ankle, complete 08/03/2020 9:54 AM FINDINGS: Bones/joints: No acute fracture. No dislocation. Soft tissues: Soft tissue swelling in the lateral aspect of the hindfoot. IMPRESSION: 1. No acute fracture. 2. Soft tissue swelling in the lateral aspect of the hindfoot. Electronically signed by: Reginald Moulton On 08/08/2020 02:18:05 AM
[2020-08-08 02:32] LABS: BLOOD UREA NITROGEN 9 MG/DL (7-18); CALCIUM LEVEL 9.6 MG/DL (8.5-10.1); CARBON DIOXIDE LEVEL 24 MEQ/L (21-32); CHLORIDE LEVEL 107 MEQ/L (98-107); CREATININE FOR GFR 0.55 MG/DL (0.55-1.30); GLOMERULAR FILTRATION RATE > 60.0 (>60); GLUCOSE, FASTING 79 MG/DL (70-100); HCG, SERUM QUANTITATIVE 42235 MIU/ML; POTASSIUM SERUM 4.1 MEQ/L (3.5-5.1); SODIUM LEVEL 137 MEQ/L (136-145)
[2020-08-08 03:18] VITALS: BP 132/86
== END 2020-08-08 03:21 | disposition home or self-care (01) ==
LOC: M ED 00:03
DX: O20.0 Threatened abortion (principal); O26.891 Other specified pregnancy related conditions, first trimester; M25.572 Pain in left ankle and joints of left foot; Z3A.10 10 weeks gestation of pregnancy; O99.511 Diseases of the respiratory system complicating pregnancy, first trimester; J45.909 Unspecified asthma, uncomplicated

== ENCOUNTER 2020-08-16 23:06 | Emergency (ER) | payer OTHER ==
[~2020-08-16] VITALS: Ht 167.6 cm; Wt 131.2 kg
[~2020-08-16 23:06] MED LIST changes: +ACET-897 PO; +NOXI1TAB PO
[2020-08-17] MEDS ORDERED: AUGMENTIN 875 MG TAB PO ONE (01:05)
[2020-08-17] MEDS ORDERED: NEOSPORIN OINT 0.9 GM PKT TOP ONE (01:25)
[2020-08-17] MEDS ORDERED: BACI50OI TOP (01:44)
[2020-08-17] MEDS ORDERED: AUGM875T28 PO (01:44)
[2020-08-17 01:54] VITALS: BP 128/79
== END 2020-08-17 02:09 | disposition home or self-care (01) ==
LOC: M ED 23:06
DX: O9A.211 Injury, poisoning and certain other consequences of external causes complicating pregnancy, first trimester (principal); S61.432A Puncture wound without foreign body of left hand, initial encounter; W55.01XA Bitten by cat, initial encounter; Y92.018 Other place in single-family (private) house as the place of occurrence of the external cause; O99.511 Diseases of the respiratory system complicating pregnancy, first trimester; J45.909 Unspecified asthma, uncomplicated; Z3A.10 10 weeks gestation of pregnancy

== ENCOUNTER 2020-08-18 14:37 | Emergency (ER) | payer OTHER ==
[~2020-08-18] VITALS: Ht 167.6 cm; Wt 131.1 kg
[~2020-08-18 14:37] MED LIST changes: +AUGM875T28 PO; +BACI50OI TOP
[2020-08-18] MEDS ORDERED: RABIES VACCINE HUMAN 2.5 INTERNATIONAL UNITS/ML VIAL (90675) IM ONE (15:40)
[2020-08-18] MEDS ORDERED: RABIES IMMUNE GLOBULIN 1500 INTERNATIONAL UNIT/5ML VIAL (90375) IM ONE ×2 (15:40→16:00)
[2020-08-18] MEDS ORDERED: RABIES IMMUNE GLOBULIN 300 INTERNATIONAL UNITS/1ML VIAL (90375) IM ONE (16:00)
[2020-08-18 17:06] VITALS: BP 115/68
== END 2020-08-18 17:09 | disposition home or self-care (01) ==
LOC: M ED 14:37
DX: O9A.212 Injury, poisoning and certain other consequences of external causes complicating pregnancy, second trimester (principal); S60.572A Other superficial bite of hand of left hand, initial encounter; W55.01XA Bitten by cat, initial encounter; Y92.89 Other specified places as the place of occurrence of the external cause; Z3A.14 14 weeks gestation of pregnancy

== ENCOUNTER 2020-08-21 15:01 | Emergency (ER) | payer OTHER ==
[~2020-08-21] VITALS: Ht 167.6 cm; Wt 130.6 kg
[2020-08-21] MEDS ORDERED: RABIES VACCINE HUMAN 2.5 INTERNATIONAL UNITS/ML VIAL (90675) IM ONE (15:20)
[2020-08-21 16:27] VITALS: BP 128/71
== END 2020-08-21 16:55 | disposition home or self-care (01) ==
LOC: M ED 15:01
DX: Z20.3 Contact with and (suspected) exposure to rabies (principal); Z23 Encounter for immunization; Z3A.16 16 weeks gestation of pregnancy

== ENCOUNTER 2020-08-25 14:26 | Emergency (ER) | payer OTHER ==
[~2020-08-25] VITALS: Ht 167.6 cm; Wt 130.0 kg
[2020-08-25] MEDS ORDERED: BACI500O21 TOP (14:52)
[2020-08-25] MEDS ORDERED: ONDANSETRON 4 MG ORAL DISINTEGRATING TAB PO ONE (14:55)
[2020-08-25] MEDS ORDERED: RABIES VACCINE HUMAN 2.5 INTERNATIONAL UNITS/ML VIAL (90675) IM ONE (14:55)
[2020-08-25 15:19] LABS: AMORPHOUS SEDIMENT MODERATE (NEGATIVE); APPEARANCE, URINE TURBID (CLEAR); BACTERIA, URINE AUTO NEGATIVE (NEGATIVE); BILIRUBIN, URINE AUTO NEGATIVE (NEGATIVE); BLOOD, URINE BLOOD NEGATIVE (NEGATIVE); COLOR, URINE YELLOW (YELLOW); GLUCOSE, URINE (UA) AUTO NEGATIVE (NEGATIVE); KETONE, URINE AUTO NEGATIVE (NEGATIVE); LEUKOCYTE ESTERASE, URINE AUTO 3+ (NEGATIVE); MUCUS, URINE SMALL (NEGATIVE); NITRITE, URINE AUTO NEGATIVE (NEGATIVE); PROTEIN, URINE AUTO NEGATIVE (NEGATIVE); RBC, URINE AUTO 2 /HPF (0-3); SPECIFIC GRAVITY URINE AUTO 1.017 (1.002-1.035); SQUAMOUS EPITHELIAL CELL UR AU 3 /HPF (0-6); WBC, URINE AUTO 5 /HPF (0-3)
[2020-08-25] MEDS ORDERED: ONDA4TAB6 PO (16:07)
[2020-08-25 16:27] VITALS: BP 119/67
== END 2020-08-25 16:29 | disposition home or self-care (01) ==
LOC: M ED 14:26
DX: Z23 Encounter for immunization (principal); Z20.3 Contact with and (suspected) exposure to rabies; O26.891 Other specified pregnancy related conditions, first trimester; R11.0 Nausea; Z3A.11 11 weeks gestation of pregnancy
CPT/HCPCS: 81001; 87086; 87490; 87590; 87661; 90471; 90675; 99283; Q0162

== ENCOUNTER 2020-09-22 20:12 | Emergency (ER) | payer OTHER ==
[~2020-09-22] VITALS: Ht 167.6 cm; Wt 124.1 kg
[~2020-09-22 20:12] MED LIST changes: +BACI500O21 TOP; +ONDA4TAB6 PO
[2020-09-22] MEDS ORDERED: FERR32TA PO (20:21)
[2020-09-22] MEDS ORDERED: BUSP10TA PO (20:21)
[2020-09-22] MEDS ORDERED: NS 1,000 ML IV ONE (22:15)
[2020-09-22 22:49] LABS: BASO % 0.4 % (0.0-1.0); EOS # 0.3 10^3/uL (0.0-0.5); EOS % 2.7 % (0.0-3.0); HEMATOCRIT 37.7 % (36.0-47.0); HEMOGLOBIN 12.4 g/dl (12.0-15.5); LYMPH # 1.8 10^3/uL (1.5-5.0); LYMPH % 19.8 % (24.0-44.0); MEAN CORPUSCULAR HEMOGLOBIN 27.4 pg (27.0-33.0); MEAN CORPUSCULAR HGB CONC 32.9 g/dl (32.0-36.5); MEAN CORPUSCULAR VOLUME 83.4 fl (80.0-96.0); MONO # 0.8 10^3/uL (0.0-0.8); MONO % 8.2 % (2.0-8.0); NEUTROPHILS # 6.3 10^3/uL (1.5-8.5); NEUTROPHILS % 68.1 % (36.0-66.0); PLATELET COUNT, AUTOMATED 264 10^3/uL (150-450); RED BLOOD COUNT 4.52 10^6/uL (4.00-5.40); WHITE BLOOD COUNT 9.3 10^3/uL (4.0-10.0)
--- NOTE | 2020-09-22 22:58 | REPVR ---
PROCEDURE INFORMATION: Exam: US , Limited Exam date and time: 09/22/2020 10:29 PM Age: 20 years old Clinical indication: Other: Pelvic pain; Gestational age or lmp: 06/05/2020; ; Additional info: No bleeding, bilat pelvic pain TECHNIQUE: Imaging protocol: Real-time ultrasound of the maternal uterus with image documentation. Exam focused on the clinical indication. COMPARISON: US OBS SINGEL GEST 12/10/2018 11:50 AM FINDINGS: Gestation: Single intrauterine fetus. presentation: Breech presentation. heart rate: heartbeat of 155 bpm. Placenta: Posterior placenta. MATERNAL: Cervix: The cervix is closed measuring 4.2 cm. IMPRESSION: 1. Single live intrauterine fetus in breech presentation. 2. Closed cervix measuring 4.2 cm. Electronically signed by: Jeffrey Ontiveros On 09/22/2020 22:59:14 PM
[2020-09-22 23:19] LABS: ALBUMIN 3.4 GM/DL (3.2-5.2); ALT/SGPT 14 U/L (12-78); BILIRUBIN,DIRECT < 0.1 MG/DL (0.0-0.2); BILIRUBIN,TOTAL 0.2 MG/DL (0.2-1.0); CK-MB VALUE MASS < 1.0 NG/ML (<3.6); CPK CREATINE PHOSPHOKINASE 59 U/L (26-192); LIPASE 64 U/L (73-393); MB/CK RELATIVE INDEX 1.69 (< OR =4); TOTAL PROTEIN 7.1 GM/DL (6.4-8.2); TROPONIN I < 0.02 NG/ML (< 0.10)
[2020-09-22] MEDS ORDERED: REGL5TAB2 PO (23:32)
[2020-09-22 23:54] VITALS: BP 121/73
--- NOTE | 2020-09-23 19:50 | ECGEPIP ---
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
== END 2020-09-22 23:59 | disposition home or self-care (01) ==
LOC: M ED 20:12
DX: O26.892 Other specified pregnancy related conditions, second trimester (principal); R07.89 Other chest pain; R10.2 Pelvic and perineal pain; O99.512 Diseases of the respiratory system complicating pregnancy, second trimester; J45.909 Unspecified asthma, uncomplicated; O99.342 Other mental disorders complicating pregnancy, second trimester; F33.9 Major depressive disorder, recurrent, unspecified; F41.9 Anxiety disorder, unspecified; O99.612 Diseases of the digestive system complicating pregnancy, second trimester; K21.9 Gastro-esophageal reflux disease without esophagitis; Z3A.15 15 weeks gestation of pregnancy; Z79.899 Other long term (current) drug therapy

== ENCOUNTER → 2020-10-10 | Outpatient (CLI) | payer OTHER ==
[~2020-10-10] MED LIST changes: +BUSP10TA PO; +FERR32TA PO; +REGL5TAB2 PO
--- NOTE | 2020-10-10 21:34 | REP ---
INDICATION: ANATOMY COMPARISON: 09/22/2020 TECHNIQUE: Transabdominal obstetrical ultrasound with color Doppler evaluation. FINDINGS: Examination demonstrates a single live intrauterine in breech presentation. motion is identified by technologist. Placenta is noted posterior and grade 1 without evidence for placenta previa or abruption. Amniotic fluid volume is normal. Cervix measures 4.2 cm in length and appears closed.. Gestational age by LMP 18 weeks 1 day with PRIYA 03/12/2021. Gestational age by current measurements 18 weeks 4 days with PRIYA 03/09/2021. FHR equals 165 beats per minute. BPD: 4.2 cm at 18 weeks 4 days HC: 15.8 cm at 18 weeks 5 days AC: 12.7 cm at 18 weeks 2 days FL: 2.8 cm at 18 weeks 4 days HL: 2.7 cm at 18 weeks 6 days HC/AC: 1.24 Estimated weight 241 grams Anatomical assessment demonstrates normal structures including cranium, choroid plexus, cavum, cerebellum/posterior fossa, facial features, lungs, diaphragm, stomach, cord insertion/three-vessel cord, kidneys/bladder, spine, and extremities. IMPRESSION: Single live intrauterine in breech presentation. Limited evaluation of the heart/ventricular outflow tracts. Remainder of the anatomical assessment is complete and normal. <Electronically signed by Julio C Almeida > 10/10/20 [id number]
== END ==
LOC: M WHC 14:31
PROVIDERS: ATTEND Obstetrics & Gynecology
DX: Z36.9 Encounter for antenatal screening, unspecified (principal); Z3A.18 18 weeks gestation of pregnancy

== ENCOUNTER 2020-10-17 20:49 | Observation (INO) | payer OTHER ==
[~2020-10-17] VITALS: Ht 167.6 cm; Wt 131.7 kg
--- NOTE | 2020-10-17 22:18 | REPVR ---
PROCEDURE INFORMATION: Exam: US Abdomen Limited, FAST Exam date and time: 10/17/2020 9:19 PM Age: 20 years old Clinical indication: Pain; Other: Llq; ; Additional info: Fall, abd pain, , fast exam eval for ff TECHNIQUE: Imaging protocol: Real-time ultrasound of the abdomen with image documentation. FAST protocol (Focused Assessment with Sonography for Trauma). COMPARISON: CT ABD/PEL W/IV CONTRAST ONLY 05/14/2020 1:25 AM FINDINGS: Uterus: Single intrauterine fetus with heart rate of 142 bpm. Intraperitoneal space: Scanning all 4 quadrants demonstrates no free fluid. IMPRESSION: 1. No free fluid is seen. 2. Single live intrauterine fetus. Electronically signed by: Jeffrey Ontiveros On 10/17/2020 22:17:52 PM
--- NOTE | 2020-10-17 22:19 | REPVR ---
PROCEDURE INFORMATION: Exam: US Retroperitoneal Limited, Kidneys Exam date and time: 10/17/2020 9:19 PM Age: 20 years old Clinical indication: Pain; Other: Flank lt; ; Additional info: Fall, , hematura TECHNIQUE: Imaging protocol: Real-time ultrasound of the retroperitoneum with image documentation. Examination was focused on the kidneys. COMPARISON: CT ABD/PEL W/IV CONTRAST ONLY 05/14/2020 1:25 AM FINDINGS: Right kidney: The right kidney measures 11.4 cm in its cephalocaudad dimension and 4.6 x 6.9 cm in diameter. No mass, cyst or hydronephrosis. Left kidney: The left kidney measures 11.1 cm in its cephalocaudad dimension and 6.1 x 5.3 cm in diameter. No mass, cyst or hydronephrosis. Bladder: The urinary bladder appears unremarkable. IMPRESSION: Negative renal sonogram. No hydronephrosis. Electronically signed by: Jeffrey Ontiveros On 10/17/2020 22:19:25 PM
--- NOTE | 2020-10-17 22:27 | REPVR ---
PROCEDURE INFORMATION: Exam: US , Limited Exam date and time: 10/17/2020 9:19 PM Age: 20 years old Clinical indication: Pain; Other: Llq; Gestational age or lmp: 19wks; ; Additional info: Fall, abd pain, , fast exam eval for ff TECHNIQUE: Imaging protocol: Real-time ultrasound of the maternal uterus with image documentation. Exam focused on the clinical indication. COMPARISON: OBS COMPLETE US 10/10/2020 3:20 PM FINDINGS: Gestation: Single intrauterine fetus. presentation: Cephalic presentation. heart rate: heartbeat of 147 bpm. Placenta: Posterior placenta with hypoechoic collection extending beneath the margin of the placenta toward the right which may reflect a small focus of abruption measuring 8.6 x 1.9 x 6.8 cm. Amniotic fluid index: Normal ABDIRIZAK of 9.8 cm. MATERNAL: Cervix: Closed cervix measuring 3.0 cm. IMPRESSION: 1. Single live intrauterine fetus in cephalic presentation. 2. Posterior placenta with new hypoechoic collection extending beneath the right lateral margin of the placenta since 10/10/2020 suggesting small interval focus of placental abruption. Electronically signed by: Jeffrey Ontiveros On 10/17/2020 22:27:33 PM
[2020-10-17] MEDS ORDERED: NS 1,000 ML IV ONE (22:30)
[2020-10-17 22:49] LABS: BASO # 0.1 10^3/uL (0.0-0.2); BASO % 0.5 % (0.0-1.0); EOS # 0.2 10^3/uL (0.0-0.5); EOS % 1.6 % (0.0-3.0); HEMOGLOBIN 11.4 g/dl (12.0-15.5); LYMPH % 17.3 % (24.0-44.0); MEAN CORPUSCULAR HEMOGLOBIN 27.9 pg (27.0-33.0); MEAN CORPUSCULAR HGB CONC 33.5 g/dl (32.0-36.5); MEAN CORPUSCULAR VOLUME 83.1 fl (80.0-96.0); MONO # 0.9 10^3/uL (0.0-0.8); MONO % 7.9 % (2.0-8.0); NEUTROPHILS # 8.3 10^3/uL (1.5-8.5); NEUTROPHILS % 72.1 % (36.0-66.0); PLATELET COUNT, AUTOMATED 222 10^3/uL (150-450); RED BLOOD COUNT 4.09 10^6/uL (4.00-5.40); WHITE BLOOD COUNT 11.6 10^3/uL (4.0-10.0)
[2020-10-17 22:59] LABS: INR 1.01; PROTHROMBIN TIME 13.5 SECONDS (12.5-14.3)
[2020-10-17 23:18] LABS: BLOOD UREA NITROGEN 5 MG/DL (7-18); CALCIUM LEVEL 9.4 MG/DL (8.5-10.1); CARBON DIOXIDE LEVEL 25 MEQ/L (21-32); CHLORIDE LEVEL 108 MEQ/L (98-107); CREATININE FOR GFR 0.43 MG/DL (0.55-1.30); GLOMERULAR FILTRATION RATE > 60.0 (>60); GLUCOSE, FASTING 70 MG/DL (70-100); POTASSIUM SERUM 3.8 MEQ/L (3.5-5.1); SODIUM LEVEL 139 MEQ/L (136-145)
[2020-10-17 23:37] LABS: RSV AMPLIFICATION NEGATIVE (NEGATIVE)
[2020-10-18] MEDS ORDERED: PROAAER10 INH (00:43)
[2020-10-18] MEDS ORDERED: MULTTAB20 PO (00:43)
[2020-10-18] MEDS ORDERED: ACET-897 PO (00:43)
[2020-10-18] MEDS ORDERED: D3 M1CAP2 PO (00:43)
[2020-10-18 03:42] VITALS: BP 131/67
[2020-10-18 03:56] LABS: HEMATOCRIT 30.2 % (36.0-47.0); HEMOGLOBIN 10.1 g/dl (12.0-15.5); MEAN CORPUSCULAR HEMOGLOBIN 28.1 pg (27.0-33.0); MEAN CORPUSCULAR HGB CONC 33.4 g/dl (32.0-36.5); MEAN CORPUSCULAR VOLUME 83.9 fl (80.0-96.0); PLATELET COUNT, AUTOMATED 203 10^3/uL (150-450)
[2020-10-18 04:07] LABS: INR 1.03; PARTIAL THROMBOPLASTIN TIME 27.1 SECONDS (24.2-38.5); PROTHROMBIN TIME 13.7 SECONDS (12.5-14.3)
[2020-10-18] MEDS ORDERED: ACETAMINOPHEN 500 MG TAB PO PRN (08:00)
[2020-10-18 10:11] LABS: HEMATOCRIT 28.9 % (36.0-47.0); HEMOGLOBIN 9.7 g/dl (12.0-15.5); MEAN CORPUSCULAR HEMOGLOBIN 28.2 pg (27.0-33.0); MEAN CORPUSCULAR HGB CONC 33.6 g/dl (32.0-36.5); PLATELET COUNT, AUTOMATED 189 10^3/uL (150-450); RED BLOOD COUNT 3.44 10^6/uL (4.00-5.40); WHITE BLOOD COUNT 8.4 10^3/uL (4.0-10.0)
[2020-10-18 10:20] LABS: INR 1.1; PROTHROMBIN TIME 14.4 SECONDS (12.5-14.3)
[2020-10-18] MEDS ORDERED: busPIRone 10 MG TAB PO ONE (13:00)
--- NOTE | 2020-10-18 13:56 | HPEPDOC ---
Obstetrical History & Physical General Date of Admission October 17, 2020 at 20:50 History of Present Illness 20 yo female at 19 2/7 weeks gestation by LMP c/w 7 week ultrasound (EDC=03/12/2021) presents to the emergency department after falling down the stairs at her apartment at 8 PM on 10/17/2020. She uses crutches to walk after fracturing her left ankle in July 2020. While coming down the stairs she slipped and landed on her buttocks. She then bounced down 15 stairs. She reports diffuse lower abdominal pain, and low back pain. She was cleared medically in the ED. An OB ultrasound showed a placental abruption measuring 8 x 1.9 x 7 cm roughly in size. She has no bleeding. Pain improved over time. Information Provided By: Patient Age: 20 : 3 Term: 2 Pre-term: 0 Abortions: 0 Livin Care Care: Limited Care Dating Final EDC: Mar 12, 2021 Final EDC by: LMP, 1st trimester (US) Past Medical History Past Obstetrical History : Past Obstetrical History: Multigravida Date of Delivery: Apr 22, 2019 Gestation: 2 Type of Delivery: Spontaneous Vaginal Del. Complications: No Past Medical History Medical History none OB hx: 1. 12/22/2017 38 5/7 week 2. 04/22/2019 38 3/7 weeks Surgical History: Denies/None Family History Significant Family History: No pertinent family hx Social History Marital Status: Single Family situation: Spouse/partner home Psychosocial History: No pertinent psych hx * Smoker: former Smoker Alcohol: Denies Drugs: denies Allergies Coded Allergies: No Known Allergies (Unverified , 08/16/20) Medications Scheduled Buspirone HCl (Buspirone HCl) 10 Mg Tablet, 10 MG PO BID Cholecalciferol (Vitamin D3) (Vitamin D3) 125 Mcg Capsule, 125 MCG PO DAILY Ferrous Gluconate (Ferrous Gluconate) 324 Mg Tablet, 324 MG PO DAILY No122/Iron/Folic Acid ( Multi Tablet) 1 Each Tablet, 1 TAB PO QHS Scheduled PRN Acetaminophen (Tylenol Extra Strength) 500 Mg Tablet, 500 MG PO Q4H PRN for PAIN Albuterol Sulfate (Proair Hfa) 8.5 Gm Hfa.aer.ad, 2 PUFF INH Q4H PRN for SHORTNESS OF BREATH Physical Examination Physical Examination GENERAL: Alert and oriented times three. BREAST: . ABDOMEN: Gravid and non-tender to touch. FETUS: Is vertex (VTX) by sterile vaginal examination (SVE), fetus is vertex (VTX) by Jacob. HEART RATE: Regular rate and rhythm. LUNGS: Clear to auscultation (CTA). EXTREMITIES: No edema. No clonus. Deep tendon reflexes (DTRs) + . Vital Signs/I&O Vital Signs Date Time Temp Pulse Resp B/P (MAP) Pulse Ox O2 Delivery O2 Flow Rate FiO2 10/18/20 03:42 98.4 91 20 131/67 (88) 100 Room Air I&O- Last 24 Hours up to 6 AM 10/18/20 06:00 Intake Total 1000 ml Output Total 250 ml Balance 750 ml Laboratory Data 24H LABS Laboratory Tests 2 10/17/20 22:26: Urine Color YELLOW, Urine Appearance CLOUDYH, Urine pH 7.0, Urine Specific [place] 1.013, Urine Protein NEGATIVE, Urine Glucose (UA) NEGATIVE, Urine Ketones NEGATIVE, Urine Blood NEGATIVE, Urine Nitrite NEGATIVE, Urine Bilirubin NEGATIVE, Urine Urobilinogen 2.0H, Urine Leukocyte Esterase NEGATIVE, Urine WBC (Auto) 1, Urine RBC (Auto) 0, Urine Hyaline Casts (Auto) 0, Urine Bacteria (Auto) NEGATIVE, Urine Squamous Epithelial Cells 0, Urine Amorphous Sediment S MALLH, Urine Mucus (Auto) SMALL, Urine Sperm (Auto) , Coronavirus (COVID- 19)(PCR) NEGATIVE, Influenza Type A (RT-PCR) NEGATIVE, Influenza Type B (RT-PCR) NEGATIVE, Respiratory Syncytial Virus (PCR) NEGATIVE 10/17/20 22:38: Immature Granulocyte % (Auto) 0.6, Neutrophils (%) (Auto) 72.1H, Lymphocytes (%) (Auto) 17.3L, Monocytes (%) (Auto) 7.9, Eosinophils (%) (Auto) 1.6, Basophils (%) (Auto) 0.5, Neutrophils # (Auto) 8.3, Lymphocytes # (Auto) 2.0, Monocytes # (Auto) 0.9H, Eosinophils # (Auto) 0.2, Basophils # (Auto) 0.1, Nucleated Red Blood Cells % (auto) 0.0, Prothrombin Time 13.5, Prothromb Time International Ratio 1.01, Activated Partial Thromboplast Time 26.0, Fibrinogen 457H, Anion Gap 6L, Glomerular Filtration Rate > 60.0, Calcium Level 9.4 10/18/20 03:51: Nucleated Red Blood Cells % (auto) 0.0, Prothrombin Time 13.7, Prothromb Time International Ratio 1.03, Activated Partial Thromboplast Time 27.1, Fibrinogen 425 10/18/20 09:58: Nucleated Red Blood Cells % (auto) 0.0, Prothrombin Time 14.4H, Prothromb Time International Ratio 1.10, Activated Partial Thromboplast Time 26.0, Fibrinogen 345 CBC/BMP Laboratory Tests 10/17/20 22:38 10/18/20 03:51 10/18/20 09:58 Pertinent Laboratoy Data Blood Type: AB+ Anatomy Ultrasound Ultrasound Date: October 18, 2020 Placenta Location: Posterior (8 x 1.9 x 7 cm abruption called "small" in report) Normal Anatomy: Yes Placenta Previa: No Steroid Therapy Steroid Therapy: No Vaginal Examination Dilation: None Assessment Heart Rate (FHR): 130 Variability: Other Accelerations: Other (NST not done due to gestational age) Decelerations: None Tocometer Contractions: No Assessment/Plan Assessment Pt is a 20-year-old (G)3 para (P)2-0-0-2 at 19+2 weeks by LMP c/w 7- week ultrasound presents to Labor and Delivery with a placental abruption following a fall at home. Plan Admit for observation No intervention at this time due to pre-viable gestational age (e.g. steroids, magnesium sulfate, etc.) Pain improved after Tylenol repeat CBC/coags for signs of DIC counselled regarding placental abruption risks I have personally reviewed the ultrasound images, and do not consider this abruption to be "small" Plan to send home later today if stable Will have weekly follow-up in the office EDGARDO STONER MD October 18, 2020 13:56
[2020-10-18 14:30] VITALS: BP 122/59
[2020-10-18 16:28] LABS: HEMATOCRIT 31.1 % (36.0-47.0); HEMOGLOBIN 10.5 g/dl (12.0-15.5); MEAN CORPUSCULAR HEMOGLOBIN 28.2 pg (27.0-33.0); MEAN CORPUSCULAR HGB CONC 33.8 g/dl (32.0-36.5); MEAN CORPUSCULAR VOLUME 83.6 fl (80.0-96.0); PLATELET COUNT, AUTOMATED 216 10^3/uL (150-450); RED BLOOD COUNT 3.72 10^6/uL (4.00-5.40); WHITE BLOOD COUNT 8.8 10^3/uL (4.0-10.0)
[2020-10-18 16:46] LABS: INR 1.02; PROTHROMBIN TIME 13.6 SECONDS (12.5-14.3)
[2020-10-18 16:47] LABS: PARTIAL THROMBOPLASTIN TIME 26.4 SECONDS (24.2-38.5)
== END 2020-10-18 17:15 | disposition home or self-care (01) ==
LOC: M ED 20:49 → UNDOADMOB 20:50 → M ED INP 20:50 → M OBS 20:50 → M ED INP 10-18 03:42 → M OBS 10-18 03:42 → UNDODISOB 10-18 17:15
PROVIDERS: ADMIT Advanced Practice Midwife; ATTEND Advanced Practice Midwife
DX: O9A.212 Injury, poisoning and certain other consequences of external causes complicating pregnancy, second trimester (principal); O45.92 Premature separation of placenta, unspecified, second trimester; Z3A.19 19 weeks gestation of pregnancy; W10.8XXA Fall (on) (from) other stairs and steps, initial encounter; Y92.098 Other place in other non-institutional residence as the place of occurrence of the external cause; Y93.01 Activity, walking, marching and hiking; Z87.891 Personal history of nicotine dependence; Z79.899 Other long term (current) drug therapy

== ENCOUNTER 2020-10-20 20:47 | Outpatient (CLI) | payer OTHER ==
[~2020-10-20] VITALS: Ht 167.6 cm; Wt 131.0 kg
[~2020-10-20 20:47] MED LIST changes: +D3 M1CAP2 PO; +PROAAER10 INH
[2020-10-20 21:24] VITALS: BP 122/60
--- NOTE | 2020-10-21 01:32 | IPNPDOC ---
Text Note Date of Service The patient was seen on 10/20/20. NOTE Labor and Delivery Triage Note: S: 20yo at 19w5d presents with c/o pelvic/abdominal pain and pelvic pressure. Denies vaginal bleeding or LOF. Reports active movement. O: vss, AF no ctx +Doptone Gen: well appearing, NAD Abd: gravid, soft, nttp A/P: 20yo at 19w5d with a known partial abruption following fall. Currently stable. I discussed diagnosis an plan of care at pre-viable state. I discussed repeat u/s and labs for further evaluation. Will defer at this time. Tylenol for pain and f/u tomorrow at OB appt. -Midtrimester and bleeding/pain precautions Siria Cash MD VS,Medardo, I+O VSMedardo, I+O Vital Signs Date Time Temp Pulse Resp B/P (MAP) Pulse Ox O2 Delivery O2 Flow Rate FiO2 10/20/20 21:24 96.9 112 16 122/60 (80) Room Air SIRIA CASH MD. October 21, 2020 01:32
== END 2020-10-20 21:45 | disposition home or self-care (01) ==
LOC: M LDO 20:47
PROVIDERS: ATTEND Obstetrics & Gynecology
DX: O26.892 Other specified pregnancy related conditions, second trimester (principal); R10.2 Pelvic and perineal pain; Z3A.19 19 weeks gestation of pregnancy; O45.92 Premature separation of placenta, unspecified, second trimester

== ENCOUNTER → 2020-10-24 | Outpatient (CLI) | payer OTHER ==
--- NOTE | 2020-10-24 15:02 | REP ---
INDICATION: PAIN IN LT LEG COMPARISON: None. TECHNIQUE: Real time compression and duplex Doppler interrogation of the left lower extremity deep venous system is performed. FINDINGS: The left common femoral, superficial femoral and popliteal veins are fully compressible with transducer pressure and demonstrate normal spontaneous and phasic flow, without evidence of deep venous thrombosis. IMPRESSION: No evidence of deep venous thrombosis of the left lower extremity femoral popliteal venous system. <Electronically signed by Fabián Dias > 10/24/20 1814
== END ==
LOC: M RAD 14:23
PROVIDERS: ATTEND Physician Assistant Surgical
DX: M79.605 Pain in left leg (principal)

== ENCOUNTER → 2020-10-28 | Outpatient (REF) | payer OTHER | LOC: M SFHCWAGY 16:45 | PROVIDERS: ATTEND Advanced Practice Midwife | DX: Z36.89 Encounter for other specified antenatal screening (principal) ==

== ENCOUNTER → 2020-10-28 | Outpatient (CLI) | payer OTHER ==
--- NOTE | 2020-10-28 13:49 | REP ---
INDICATION: F/U ANATOMY COMPELTE HEARTS VIEWS/OUTFLOW TRACTS. COMPARISON: Comparison sonography 10 Oct 2020 and 17 Oct 2020.. TECHNIQUE: Transabdominal obstetric sonography. FINDINGS: Scanning through the gravid uterus demonstrates a viable single intrauterine gestation in cephalic lie. motion is observed and heart rate is recorded at 152 beats per minute. A posterior placenta is seen, grade 1, without evidence of placenta previa. Closed cervical length is measured at 4.8 cm transabdominally. No extrauterine abnormality is observed. Amniotic fluid is subjectively normal. Previously noted retroplacental fluid collection is no longer apparent.. Four-chamber heart and left and right ventricular outflow tract views are seen today and felt to be unremarkable. nose and lips less than optimally seen today but previously noted. spine less than optimally seen today but previously noted. In conjunction with the prior sonography, anatomic survey is felt to be complete.. Biometry chart: BPD 4.8 cm, 20 weeks 4 days Head circumference 18.5 cm, 20 weeks 6 days Abdominal circumference 15.8 cm, 21 weeks 0 days Femur length 3.6 cm, 21 weeks 2 days Humeral length 3.5 cm, 21 weeks 6 days HC AC ratio normal 1.17 Cephalic index normal 0.71 Estimated weight 394 g, 0 lb 13 oz, 63rd percentile for 20 weeks 5 days IMPRESSION: Viable single intrauterine gestation at 21 weeks 1 days by today's composite sonographic criteria. PRIYA by today's sonography expected gestational age estimate from prior PRIYA 20 weeks 5 days, PRYIA 12 March 2021.. No complication identified. The previously noted retroplacental hypoechoic collection is no longer apparent. <Electronically signed by Iván Arce > 10/28/20 [id number]
== END ==
LOC: M WHC 11:42
PROVIDERS: ATTEND Specialist
DX: Z36.89 Encounter for other specified antenatal screening (principal); Z3A.21 21 weeks gestation of pregnancy

== ENCOUNTER 2020-10-30 22:19 | Outpatient (CLI) | payer OTHER ==
[~2020-10-30] VITALS: Ht 167.6 cm; Wt 130.9 kg
[2020-10-30 23:11] VITALS: BP 136/60
--- NOTE | 2020-10-30 23:27 | IPNPDOC ---
Text Note Date of Service The patient was seen on 10/30/20. NOTE S: 20 yo female at 21 2/7 weeks by LMP c/w 7 week ultrasound presents with sharp, intermittent pains in her lower pelvis. Scant amount of blood noted per vagina. Pt has a h/o placental abruption diagnosed 2 weeks ago after a fall. O: AVSS NAD Abd:soft, NT FHT: 140's, regular by bedside ultrasound posterior placenta, area of abruption markedly smaller than previously seen ext: NT A/P 20 yo at 21 2/7 weeks with placental abruption, stable abruption may be resolving discharge home Continue precautions to avoid trauma or intercourse follow up office 11/04/20 VS,Medardo, I+O VS, Medardo, I+O Vital Signs Date Time Temp Pulse Resp B/P (MAP) Pulse Ox O2 Delivery O2 Flow Rate FiO2 10/30/20 23:11 97.3 108 16 136/60 (85) Room Air EDGARDO STONER MD October 30, 2020 23:27
== END 2020-10-30 23:30 | disposition home or self-care (01) ==
LOC: M LDO 22:19
PROVIDERS: ATTEND Specialist
DX: O45.92 Premature separation of placenta, unspecified, second trimester (principal); Z3A.21 21 weeks gestation of pregnancy

== ENCOUNTER 2020-11-24 18:12 | Outpatient (CLI) | payer OTHER ==
[~2020-11-24] VITALS: Ht 167.6 cm; Wt 127.9 kg
[~2020-11-24 18:12] MED LIST changes: +OMEP40CA4 PO; -OMEP40CA97 PO
[2020-11-24] MEDS ORDERED: LR 1,000 ML IV SCH (18:20)
[2020-11-24] MEDS ORDERED: LACTATED RINGER'S 1000 ML IV STA (18:20)
[2020-11-24] MEDS ORDERED: PROMETHAZINE INJ 25 MG/ML VIAL (J2550) IV ONE (18:30)
[2020-11-24 18:35] VITALS: BP 118/57
[2020-11-24 19:42] LABS: HEMATOCRIT 31.6 % (36.0-47.0); HEMOGLOBIN 10.6 g/dl (12.0-15.5); MEAN CORPUSCULAR HEMOGLOBIN 27.8 pg (27.0-33.0); MEAN CORPUSCULAR HGB CONC 33.5 g/dl (32.0-36.5); MEAN CORPUSCULAR VOLUME 82.9 fl (80.0-96.0); PLATELET COUNT, AUTOMATED 225 10^3/uL (150-450); RED BLOOD COUNT 3.81 10^6/uL (4.00-5.40); WHITE BLOOD COUNT 11.5 10^3/uL (4.0-10.0)
[2020-11-24 19:43] VITALS: BP 118/63
[2020-11-24 20:19] VITALS: BP 108/66
[2020-11-24 21:23] VITALS: BP 106/57
[2020-11-24 21:46] LABS: APPEARANCE, URINE HAZY (CLEAR); BACTERIA, URINE AUTO 1+ (NEGATIVE); BILIRUBIN, URINE AUTO NEGATIVE (NEGATIVE); BLOOD, URINE BLOOD NEGATIVE (NEGATIVE); COLOR, URINE YELLOW (YELLOW); GLUCOSE, URINE (UA) AUTO NEGATIVE (NEGATIVE); KETONE, URINE AUTO TRACE mg/dL (NEGATIVE); LEUKOCYTE ESTERASE, URINE AUTO 1+ (NEGATIVE); MUCUS, URINE SMALL (NEGATIVE); NITRITE, URINE AUTO NEGATIVE (NEGATIVE); PROTEIN, URINE AUTO 1+ mg/dL (NEGATIVE); RBC, URINE AUTO 1 /HPF (0-3); SPECIFIC GRAVITY URINE AUTO 1.024 (1.002-1.035); SQUAMOUS EPITHELIAL CELL UR AU 4 /HPF (0-6); WBC, URINE AUTO 8 /HPF (0-3)
[2020-11-24] MEDS ORDERED: cefTRIAXone SOD 1 GM in D5W MINI-BAG PLUS 50 ML IV ONE (22:35)
[2020-11-24] MEDS ORDERED: NITROFURANTOIN (MACROBID) 100 MG CAP PO ONE (22:40)
--- NOTE | 2020-11-24 23:03 | IPNPDOC ---
Text Note Date of Service The patient was seen on 11/24/20. NOTE Labor and Delivery Triage Note: S: 21yo at 24w4d presents with c/o pelvic pressure, nausea and vomiting. Denies vaginal bleeding or LOF. Reports active movement. O: vss, AF no ctx Cat 1 tracing Gen: well appearing, NAD Abd: gravid, soft, nttp UA: consistent with UTI -Patient given IV hydration and Phenergan. She also received 1gm Rocephin for UTI A/P: 21yo nausea and vomiting- improved UTI- 1g Rocephin and rxf or macrobid reassuring status -home with PTL precautions and FKCs. -f/u at next OB appt Siria Cash MD VS,Medardo, I+O VSMedardo, I+O Laboratory Tests 11/24/20 19:31 Vital Signs Date Time Temp Pulse Resp B/P (MAP) Pulse Ox O2 Delivery O2 Flow Rate FiO2 11/24/20 18:35 98.2 105 118/57 (77) Room Air SIRIA CASH MD. Nov 24, 2020 23:03
[2020-11-24 23:22] VITALS: BP 127/63
== END 2020-11-24 23:30 | disposition home or self-care (01) ==
LOC: M LDO 18:12
PROVIDERS: ATTEND Obstetrics & Gynecology
DX: O26.893 Other specified pregnancy related conditions, third trimester (principal); Z3A.33 33 weeks gestation of pregnancy; R10.2 Pelvic and perineal pain
CPT/HCPCS: 81001; 85027; 96361; 96365; J0696

== ENCOUNTER 2020-12-05 20:32 | Emergency (ER) | payer OTHER ==
[~2020-12-05] VITALS: Ht 160 cm; Wt 127.2 kg
[2020-12-05] MEDS ORDERED: LORA-674 (20:52)
[2020-12-05] MEDS ORDERED: BUDESONIDE 0.5 MG/2 ML INHALATION SUSPENSION INH ONE (21:05)
[2020-12-05] MEDS ORDERED: IPRATROPIUM 0.5MG/ALBUTEROL 2.5MG INH SOL UD 3ML (DUONEB) NEB ONE (21:05)
[2020-12-05] MEDS ORDERED: BUDE0.254 NEB (23:03)
[2020-12-05 23:16] VITALS: BP 116/64
--- NOTE | 2020-12-07 10:53 | ECGEPIP ---
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
== END 2020-12-05 23:33 | disposition home or self-care (01) ==
LOC: M ED 20:32
DX: O99.512 Diseases of the respiratory system complicating pregnancy, second trimester (principal); J45.901 Unspecified asthma with (acute) exacerbation; Z3A.26 26 weeks gestation of pregnancy; Z79.899 Other long term (current) drug therapy

== ENCOUNTER 2020-12-07 19:25 | Emergency (ER) | payer OTHER ==
[~2020-12-07 19:25] MED LIST changes: +BUDE0.254 NEB; +LORA-674
[2020-12-07] MEDS ORDERED: MONT5CHW8 PO (23:48)
[2020-12-08 00:26] VITALS: BP 128/56
== END 2020-12-08 00:27 | disposition home or self-care (01) ==
LOC: M ED 19:25
DX: J45.901 Unspecified asthma with (acute) exacerbation (principal); F33.9 Major depressive disorder, recurrent, unspecified; Z79.899 Other long term (current) drug therapy

== ENCOUNTER 2020-12-10 14:26 | Emergency (ER) | payer OTHER ==
[~2020-12-10] VITALS: Ht 167.6 cm; Wt 128.6 kg
[~2020-12-10 14:26] MED LIST changes: +MONT5CHW8 PO
[2020-12-10 14:56] VITALS: BP 144/68
[2020-12-10] MEDS ORDERED: ACET325C5 PO (15:51)
== END 2020-12-10 15:20 | disposition admitted as inpatient to this hospital (09) ==
LOC: M ED 15:16
DX: O98.512 Other viral diseases complicating pregnancy, second trimester (principal); U07.1 COVID-19; O26.892 Other specified pregnancy related conditions, second trimester; M54.5 Low back pain; O99.342 Other mental disorders complicating pregnancy, second trimester; F33.9 Major depressive disorder, recurrent, unspecified; F41.9 Anxiety disorder, unspecified; O99.612 Diseases of the digestive system complicating pregnancy, second trimester; K21.9 Gastro-esophageal reflux disease without esophagitis; Z3A.26 26 weeks gestation of pregnancy; Z79.899 Other long term (current) drug therapy

== ENCOUNTER 2020-12-10 15:04 | Outpatient (CLI) | payer OTHER ==
[~2020-12-10] VITALS: Ht 167.6 cm; Wt 129.0 kg
[2020-12-10 15:23] VITALS: BP 102/58
[2020-12-10] MEDS ORDERED: ACET325C5 PO (15:51)
--- NOTE | 2020-12-10 16:50 | IPNPDOC ---
Text Note Date of Service The patient was seen on 12/10/20. NOTE S: 20 yo at 26 weeks gestation presents to the ED with SOB and loss of sense of taste. Fatigue is a problem. She was +COVID in ED. Normal vital signs and oxygen saturation. She was sent to triage for low back pain. O: AVSS NAD Abd: NT gravid FHT: Category one toco: none ext: NT A/P 20 yo at 26 weeks, COVID + testing reassuring Pt stable for discharge call for worsening symptoms VS,Fishbone, I+O VS, Fishbone, I+O Vital Signs Date Time Temp Pulse Resp B/P (MAP) Pulse Ox O2 Delivery O2 Flow Rate FiO2 12/10/20 15:23 97.5 110 102/58 (73) EDGARDO STONER MD Dec 10, 2020 16:50
== END 2020-12-10 17:00 | disposition home or self-care (01) ==
LOC: M LDO 15:04
PROVIDERS: ATTEND Specialist
DX: O98.512 Other viral diseases complicating pregnancy, second trimester (principal); U07.1 COVID-19; O26.892 Other specified pregnancy related conditions, second trimester; Z3A.26 26 weeks gestation of pregnancy; M54.5 Low back pain; Z79.899 Other long term (current) drug therapy

== ENCOUNTER 2020-12-13 12:59 | Emergency (ER) | payer OTHER ==
[~2020-12-13] VITALS: Ht 167.6 cm; Wt 124.3 kg
[~2020-12-13 12:59] MED LIST changes: +ACET325C5 PO
[2020-12-13] MEDS ORDERED: ONDANSETRON 4 MG ORAL DISINTEGRATING TAB PO ONE (14:00)
[2020-12-13] MEDS ORDERED: ONDA4TAB6 PO (14:53)
[2020-12-13 15:18] VITALS: BP 131/72
--- NOTE | 2020-12-14 20:01 | ECGEPIP ---
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
== END 2020-12-13 15:45 | disposition home or self-care (01) ==
LOC: EDBD 12:59 → M ED 12:59
DX: O98.513 Other viral diseases complicating pregnancy, third trimester (principal); U07.1 COVID-19; O99.513 Diseases of the respiratory system complicating pregnancy, third trimester; J45.909 Unspecified asthma, uncomplicated; Z3A.27 27 weeks gestation of pregnancy; Z79.899 Other long term (current) drug therapy
CPT/HCPCS: 93005; 99284; Q0162

== ENCOUNTER 2020-12-16 18:05 | Emergency (ER) | payer OTHER ==
[~2020-12-16] VITALS: Ht 167.6 cm; Wt 128.1 kg
--- NOTE | 2020-12-16 21:53 | REPVR ---
PROCEDURE INFORMATION: Exam: US Duplex Lower Extremity Veins, Bilateral Exam date and time: 12/16/2020 9:22 PM Age: 20 years old Clinical indication: Abnormal findings; Abnormal lab test; Elevated d-dimer TECHNIQUE: Imaging protocol: Real-time duplex ultrasound of the extremities with 2-D alicia scale, color Doppler flow and spectral waveform analysis with image documentation. Complete exam focused on the bilateral lower extremity veins. COMPARISON: US Duplex, Ext,LOWER veins,unilat 10/24/2020 2:40 PM FINDINGS: Right deep veins: Unremarkable. The common femoral, femoral and popliteal veins are patent without thrombus. Normal Doppler waveforms. Normal compressibility and/or augmentation response. Right superficial veins: Saphenofemoral junction is patent without thrombus. Left deep veins: Unremarkable. The common femoral, femoral and popliteal veins are patent without thrombus. Normal Doppler waveforms. Normal compressibility and/or augmentation response. Left superficial veins: Saphenofemoral junction is patent without thrombus. Soft tissues: Unremarkable. IMPRESSION: No sonographic evidence of deep vein thrombosis. Electronically signed by: Duarte Kee On 12/16/2020 21:53:22 PM
[2020-12-16 23:24] VITALS: BP 110/70
== END 2020-12-16 23:31 | disposition home or self-care (01) ==
LOC: M ED 18:05
DX: O98.519 Other viral diseases complicating pregnancy, unspecified trimester (principal); U07.1 COVID-19; O99.519 Diseases of the respiratory system complicating pregnancy, unspecified trimester; J45.909 Unspecified asthma, uncomplicated; Z3A.00 Weeks of gestation of pregnancy not specified; Z79.899 Other long term (current) drug therapy

== ENCOUNTER → 2020-12-16 | Outpatient (CLI) | payer OTHER ==
[2020-12-16 15:31] LABS: BASO % 0.3 % (0.0-1.0); EOS # 0.2 10^3/uL (0.0-0.5); EOS % 2.4 % (0.0-3.0); HEMATOCRIT 31.9 % (36.0-47.0); HEMOGLOBIN 10.6 g/dl (12.0-15.5); LYMPH # 1.2 10^3/uL (1.5-5.0); LYMPH % 17.2 % (24.0-44.0); MEAN CORPUSCULAR HEMOGLOBIN 27.4 pg (27.0-33.0); MEAN CORPUSCULAR HGB CONC 33.2 g/dl (32.0-36.5); MEAN CORPUSCULAR VOLUME 82.4 fl (80.0-96.0); MONO # 0.5 10^3/uL (0.0-0.8); NEUTROPHILS # 4.8 10^3/uL (1.5-8.5); NEUTROPHILS % 71.5 % (36.0-66.0); PLATELET COUNT, AUTOMATED 224 10^3/uL (150-450); RED BLOOD COUNT 3.87 10^6/uL (4.00-5.40); WHITE BLOOD COUNT 6.8 10^3/uL (4.0-10.0)
[2020-12-16 15:57] LABS: ALT/SGPT 11 U/L (12-78); BILIRUBIN,TOTAL 0.4 MG/DL (0.2-1.0); BLOOD UREA NITROGEN 5 MG/DL (7-18); CARBON DIOXIDE LEVEL 25 MEQ/L (21-32); CHLORIDE LEVEL 109 MEQ/L (98-107); CREATININE FOR GFR 0.44 MG/DL (0.55-1.30); GLOMERULAR FILTRATION RATE > 60.0 (>60); GLUCOSE, FASTING 70 MG/DL (70-100); SODIUM LEVEL 140 MEQ/L (136-145); TOTAL PROTEIN 6.6 GM/DL (6.4-8.2)
== END ==
LOC: M PLALAB 13:51
PROVIDERS: ATTEND Physician Assistant
DX: O98.512 Other viral diseases complicating pregnancy, second trimester (principal); U07.1 COVID-19; Z3A.27 27 weeks gestation of pregnancy

== ENCOUNTER → 2020-12-27 | Outpatient (CLI) | payer OTHER ==
[2020-12-27 16:34] LABS: HEMATOCRIT 28.9 % (36.0-47.0); HEMOGLOBIN 9.5 g/dl (12.0-15.5); MEAN CORPUSCULAR HEMOGLOBIN 27.3 pg (27.0-33.0); MEAN CORPUSCULAR HGB CONC 32.9 g/dl (32.0-36.5); PLATELET COUNT, AUTOMATED 233 10^3/uL (150-450); RED BLOOD COUNT 3.48 10^6/uL (4.00-5.40); WHITE BLOOD COUNT 8.5 10^3/uL (4.0-10.0)
== END ==
LOC: M PLALAB 13:07
PROVIDERS: ATTEND Advanced Practice Midwife
DX: Z34.92 Encounter for supervision of normal pregnancy, unspecified, second trimester (principal); Z3A.00 Weeks of gestation of pregnancy not specified

== ENCOUNTER 2021-01-06 16:42 | Outpatient (CLI) | payer OTHER ==
[~2021-01-06] VITALS: Ht 167.6 cm; Wt 125.0 kg
[2021-01-06 16:58] VITALS: BP 94/49
[2021-01-06 17:47] LABS: APPEARANCE, URINE CLOUDY (CLEAR); BACTERIA, URINE AUTO NEGATIVE (NEGATIVE); BILIRUBIN, URINE AUTO NEGATIVE (NEGATIVE); BLOOD, URINE BLOOD NEGATIVE (NEGATIVE); CALCIUM OXALATE CRYSTALS LARGE; COLOR, URINE AMBER (YELLOW); GLUCOSE, URINE (UA) AUTO NEGATIVE (NEGATIVE); KETONE, URINE AUTO TRACE mg/dL (NEGATIVE); LEUKOCYTE ESTERASE, URINE AUTO 1+ (NEGATIVE); MUCUS, URINE SMALL (NEGATIVE); NITRITE, URINE AUTO NEGATIVE (NEGATIVE); PROTEIN, URINE AUTO 1+ mg/dL (NEGATIVE); RBC, URINE AUTO 1 /HPF (0-3); SPECIFIC GRAVITY URINE AUTO 1.021 (1.002-1.035); SQUAMOUS EPITHELIAL CELL UR AU 4 /HPF (0-6); WBC, URINE AUTO 5 /HPF (0-3)
[2021-01-06] MEDS ORDERED: NITROFURANTOIN (MACROBID) 100 MG CAP PO ONE (18:05)
[2021-01-06] MEDS ORDERED: FERR325T81 PO (18:12)
[2021-01-06] MEDS ORDERED: MACR100C43 PO (18:28)
--- NOTE | 2021-01-06 18:31 | IPNPDOC ---
Text Note Date of Service The patient was seen on 01/06/21. NOTE Outpatient 20yo PRIYA 03/12/2021. Presents @ 30w5d with complaints of "contractions that last 3 minutes every 5 minutes and pelvic pressure" Denies LOF, bleeding. Reports good activity No distress Abdomen soft, gravid, nontender No UC palpated or on monitor. Cat I tracing Spec exam - cervix visually LTC, FFN obtained SVE parous, long, closed, OOP UA suspicious for UTI, urine is concentrated FFN is negative Macrobid ordered. Pt instructed to increase water intake Discharged home. Keep next appt VS,Fishbone, I+O VS, Fishbone, I+O Vital Signs Date Time Temp Pulse Resp B/P (MAP) Pulse Ox O2 Delivery O2 Flow Rate FiO2 01/06/21 16:58 97.9 107 94/49 (64) She Serna CNM Jan 06, 2021 18:31
== END 2021-01-06 18:37 | disposition home or self-care (01) ==
LOC: M LDO 16:42
PROVIDERS: ATTEND Advanced Practice Midwife
DX: O47.03 False labor before 37 completed weeks of gestation, third trimester (principal); Z3A.30 30 weeks gestation of pregnancy; O99.213 Obesity complicating pregnancy, third trimester; E66.9 Obesity, unspecified; Z79.899 Other long term (current) drug therapy

== ENCOUNTER 2021-01-12 10:16 | Outpatient (CLI) | payer OTHER ==
[~2021-01-12] VITALS: Ht 162.6 cm; Wt 125.4 kg
[~2021-01-12 10:16] MED LIST changes: +FERR325T81 PO; -FLUO10CA16; +FLUO10CA18; +IRON SUCROSE 500 MG in NS 250 ML OVER 4 HRS IV ONE; -MONT5CHW8 PO; +MONT5CHW9 PO
[2021-01-12 10:20] VITALS: BP 126/75
[2021-01-12 12:00] VITALS: BP 140/61
[2021-01-12 15:18] VITALS: BP 116/59
[2021-01-12 15:27] VITALS: BP 142/63
[2021-02-01] MEDS ORDERED: BUSP10TA PO (18:39)
[2021-02-01] MEDS ORDERED: SERT25TA85 PO (18:41)
== END 2021-01-12 15:25 | disposition home or self-care (01) ==
LOC: M INFU 10:16
PROVIDERS: ATTEND Advanced Practice Midwife
DX: D64.9 Anemia, unspecified (principal)
CPT/HCPCS: 96365; 96366; J1756

== ENCOUNTER 2021-01-23 21:02 | Outpatient (CLI) | payer OTHER ==
[~2021-01-23 21:02] MED LIST changes: +FLUO10CA16; -FLUO10CA18; -IRON SUCROSE 500 MG in NS 250 ML OVER 4 HRS IV ONE; +MONT5CHW8 PO; -MONT5CHW9 PO
[2021-01-23] MEDS ORDERED: ONDANSETRON 4 MG ORAL DISINTEGRATING TAB PO ONE (22:00)
--- NOTE | 2021-01-24 10:05 | IPN ---
PROGRESS NOTE DATE: 01/23/2021 SUBJECTIVE: Renee is a 20-year-old 3, para 2-0-0-2 at 33 weeks and 1 day with an EDC of 03/12/2021 based on last menstrual period and confirmed by first trimester ultrasound. She reports to labor and delivery today with a complaint of contractions that are every two and a half to five minutes apart lasting for two and a half to three minutes each contraction, intense pelvic pressure where it hurts her to even close her legs. She denies vaginal bleeding, leakage of fluid. The fetus has been active. care was [facility] in the first trimester. course complicated by obesity. She did have a placental abruption at 19 weeks and 2 days after a fall down the stairs. She has had no further bleeding since the episodes in October. She also is a former smoker. OBSTETRIC HISTORY: 1. December 22, 2017 vaginal delivery in [place] at 38 weeks and 5 days, 6 pound 7 ounce female, uncomplicated. 2. 04/22/2019 a 7 pound female, vaginal delivery at [facility] at 38 weeks and 3 days. OBSTETRIC LABS: AB+, antibody screen negative, syphilis negative, gonorrhea and chlamydia negative, hepatitis B surface antigen negative, hepatitis C antibody nonreactive, HIV nonreactive. Rubella immune. Urine culture with no growth. Gestational diabetic screening 113 and her GBS is unknown. PAST MEDICAL HISTORY: 1. Seasonal allergies. 2. Urinary urgency. 3. Frequent urinary tract infections. 4. Attention deficit hyperactivity disorder (ADHD). 5. Acid reflux. 6. Asthma. 7. Major depressive disorder (MDD). PAST SURGICAL HISTORY: None. FAMILY HISTORY: Heart disease, cervical cancer, renal insufficiency, asthma, obstructive sleep apnea, cardiac disease, and kidney stones. SOCIAL HISTORY: The patient is single. She does present to her visit alone. She reports that she quit smoking some time ago. Alcohol use none. Drug use none. STD history none. Denies history of abuse, physical, sexual, and emotional. ALLERGIES: No known drug allergies. CURRENT MEDICATIONS: 1. vitamin. OBJECTIVE: Vital signs with a blood pressure of 130/70. The heart rate is 140 with moderate variability, positive accelerations, negative decelerations. There is no pattern of regular contractions. Her abdomen is gravid, cephalic presentation. Sterile vaginal exam: Fingertip, 75% effaced, ballotable station. No show with the exam. ASSESSMENT: Intrauterine at 33 and 1/7 weeks. heart rate is category 1, not in labor. PLAN: Discharge the patient home. I reviewed access to care, signs and symptoms of active labor, movement counts and danger signs to report. I did review palliative measures related to pelvic pressure and discomfort. The patient has had all of her questions answered and is agreeable to discharge home. She has a visit scheduled tomorrow and is advised to keep that currently scheduled appointment.
== END 2021-01-23 22:00 | disposition home or self-care (01) ==
LOC: M LDO 21:02
PROVIDERS: ATTEND Advanced Practice Midwife
DX: O47.03 False labor before 37 completed weeks of gestation, third trimester (principal); Z3A.33 33 weeks gestation of pregnancy; Z79.899 Other long term (current) drug therapy
CPT/HCPCS: 59025; Q0162

== ENCOUNTER → 2021-01-24 | Outpatient (REF) | payer OTHER | LOC: M SFHCWAGY 17:02 | PROVIDERS: ATTEND Advanced Practice Midwife | DX: O99.213 Obesity complicating pregnancy, third trimester (principal) ==

== ENCOUNTER → 2021-02-08 | Outpatient (REF) | payer OTHER ==
[~2021-02-08] MED LIST changes: +SERT25TA85 PO
== END ==
LOC: M SFHCWAGY 16:44
PROVIDERS: ATTEND Specialist
DX: Z36.89 Encounter for other specified antenatal screening (principal); N39.0 Urinary tract infection, site not specified

== ENCOUNTER 2021-02-26 02:04 | Inpatient (IN) | payer OTHER ==
[2021-02-26] VITALS (33 sets, daily range): BP systolic 90–142; BP diastolic 46–72
[~2021-02-26] VITALS: Ht 167.6 cm; Wt 122.4 kg
[2021-02-26] MEDS ORDERED: ACETAMINOPHEN 500 MG TAB PO ONE (03:55)
--- NOTE | 2021-02-26 08:39 | HPEPDOC ---
Obstetrical History & Physical General Date of Admission Feb 26, 2021 at 08:19 History of Present Illness 21 uyo female at 38 0/7 weeks by LMP c/w 7 week ultrasound (EDC=) presents with uterine contractions for the last 2-3 days. They became more painful. She had vaginal bleeding. She presented by ambulance to triage. She has had 10 visits to triage during this ; all by ambulance. 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 History: No pertinent history Past Medical History Medical History OB hx: 1 12/22/2017 6 7 F epidural [place] weeks 38.5 GA 2 04/22/2019 7 F epidural [facility] Yes at 21 weeks 38.3 weeks GA Med hx: foot fracture surg: None Surgical History: Denies/None Family History Significant Family History: Noncontributory Social History Marital Status: Single Family situation: Spouse/partner home Psychosocial History: No pertinent psych hx * Smoker: former Smoker Alcohol: Denies Allergies Coded Allergies: No Known Allergies (Unverified , 12/07/20) Medications Scheduled Buspirone HCl (Buspirone HCl) 10 Mg Tablet, 10 MG PO BID Ferrous Sulfate (Iron) 325 Mg Tablet, 1 TAB PO DAILY Nitrofurantoin Monohyd/M-Cryst (Macrobid 100 mg Capsule) 100 Mg Capsule, 1 CAP PO BID Sertraline Hcl (Sertraline HCl) 25 Mg Tablet, 25 MG PO DAILY Physical Examination Physical Examination GENERAL: Alert and oriented times three. BREAST: . ABDOMEN: Gravid and non-tender to touch. FETUS: Is vertex (VTX) by sterile vaginal examination (SVE), fetus is vertex (VTX) by Jacob. HEART RATE: Regular rate and rhythm. LUNGS: Clear to auscultation (CTA). EXTREMITIES: No edema. No clonus. Deep tendon reflexes (DTRs) + . Vital Signs/I&O Vital Signs Date Time Temp Pulse Resp B/P (MAP) Pulse Ox O2 Delivery O2 Flow Rate FiO2 02/26/21 06:39 97.8 81 16 113/61 (78) Laboratory Data 24H LABS Laboratory Tests 2 02/26/21 08:28: Serology Scanned Report Hepatitis B Testing Pertinent Laboratoy Data Blood Type: AB+ Group B Streptococcus: Negative Vaginal Examination Dilation: 4 cm Effacement: 90% Station: -1 Cervical Consistency: Soft Cervical Position: Posterior Presentation: Cephalic presentation Assessment Variability: Moderate Accelerations: Positive Decelerations: None Tocometer Contractions: Yes Frequency: regular Assessment/Plan Assessment Pt is a 21-year-old (G)3 para (P)2001 at 38+0 weeks by LMP c/w 7-week ultrasound (EDC=03/12/10714) presents in labor. Plan Admit and orient. 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 Diet: reg. Group B Streptococcus (GBS) negative. Labs and intravenous (IV) per unit protocol.. Anticipate normal spontaneous delivery (). C-S as appropriate. EDGARDO STONER MD Feb 26, 2021 08:39
[2021-02-26] MEDS ORDERED: NOXI1TAB PO (08:59)
[2021-02-26] MEDS ORDERED: MULTTAB20 PO (08:59)
[2021-02-26] MEDS ORDERED: HOME MED LIST COMPLETE! XX SCH (09:00)
[2021-02-26 09:28] LABS: HEMATOCRIT 30.3 % (36.0-47.0); MEAN CORPUSCULAR HEMOGLOBIN 25.8 pg (27.0-33.0); MEAN CORPUSCULAR VOLUME 78.1 fl (80.0-96.0); PLATELET COUNT, AUTOMATED 215 10^3/uL (150-450); RED BLOOD COUNT 3.88 10^6/uL (4.00-5.40); WHITE BLOOD COUNT 8.9 10^3/uL (4.0-10.0)
[2021-02-26] MEDS ORDERED: OXYTOCIN DRIP 30 UNITS in IV 1 EA IV SCH (09:35)
[2021-02-26] MEDS: LR 1,000 ML IV SCH ×2 (10:30→14:40)
[2021-02-26] MEDS ORDERED: ONDANSETRON 4MG/2ML VIAL IV ONE (11:45)
[2021-02-26] MEDS ORDERED: FENTANYL 2MCG/ML ROPIVACAINE 0.2% IN 0.9% NACL 100ML IVBAG As Ordered ONE (13:10)
[2021-02-26] MEDS ORDERED: REFRIGERATOR IV KEYS XX PRN (14:35)
[2021-02-26] MEDS ORDERED: NALOXONE INJ 0.4MG/1ML VIAL (J2310 PER 1MG) IV PRN (14:35)
[2021-02-26] MEDS ORDERED: EPIDURAL COMMENT XX SCH (14:35)
[2021-02-26] MEDS ORDERED: ePHEDrine SULFATE 25 MG/5 ML(5MG/ML) SYRINGE IV PRN (14:35)
[2021-02-26] MEDS ORDERED: EPIDURAL/PCA KEYS XX PRN (14:35)
[2021-02-26] MEDS ORDERED: LACTATED RINGER'S 1000 ML IV PRN (14:35)
[2021-02-26] MEDS ORDERED: ONDANSETRON 4MG/2ML VIAL IV PRN (14:35)
[2021-02-26] MEDS ORDERED: FENTANYL/ROPIVACAINE/NACL BAG 100 ML EPIDURAL SCH (14:35)
[2021-02-26] MEDS ORDERED: diphenhydrAMINE 50MG/ML VIAL (J1200) IV PRN (14:35)
[2021-02-26] MEDS ORDERED: MEASLES,MUMPS,RUBELLA VACCINE INJ (MMR-II) (90707) SC SCH (16:35)
[2021-02-26] MEDS ORDERED: METHYLERGONOVINE MALEATE 0.2 MG TAB PO PRN (16:35)
[2021-02-26] MEDS ORDERED: ACETAMINOPHEN TAB 650MG DOSE (2X325MG) PO PRN (16:35)
[2021-02-26] MEDS ORDERED: ACETAMINOPHEN 500 MG TAB PO PRN (16:35)
[2021-02-26] MEDS ORDERED: OXYTOCIN DRIP 30 UNITS in IV 1 EA IV ONE (16:35)
[2021-02-26] MEDS ORDERED: RHOGAM 300 MCG (1500 IU) INJ (J2790) IM SCH (16:35)
[2021-02-26] MEDS ORDERED: IBUPROFEN 600MG TAB PO PRN (16:35)
[2021-02-26] MEDS ORDERED: DOCUSATE SODIUM 100MG CAPSULE PO PRN (16:35)
--- NOTE | 2021-02-26 16:38 | DNPDOC ---
[facility] Delivery Note Delivery Note DATE OF DELIVERY: February 26, 2021 PREDELIVERY DIAGNOSIS: 38-0/7 weeks' gestation and labor. POST DELIVERY DIAGNOSIS: Delivered. PROCEDURE: Spontaneous vaginal delivery. CLAIM SPECIALIST: Dr. Edgardo Stoner MD ANESTHESIA: epidural. ESTIMATED BLOOD LOSS: 300 mL. FINDINGS: 8 pound 5 ounce male infant, Score 8/9, nuchal cord x 1. Moderate meconium present. DELIVERY SUMMARY: Patient is a 21-year-old 3 now para 3 who was admitted to labor and delivery for labor. She had Pitocin augmentation. She received an epidural. She had AROM with moderate meconium noted. After a 1 minute second stage of labor she had a spontaneous vaginal delivery of an 8 lb 5 oz. male . Nuchal cord x 1 delivered through. Shoulders delivered with ease. Placenta delivered spontaneously and appeared intact. Pt received IV Pitocin immediately after delivery of the placenta. No vaginal lacerations present. Sponge counts correct. EDGARDO STONER MD Feb 26, 2021 16:38
[2021-02-26] MEDS ORDERED: METHYLERGONOVINE MALEATE 0.2 MG/ML VIAL (J2210) IM ONE (19:00)
[2021-02-26] MEDS: IBUPROFEN 800 MG TAB PO PRN (21:56)
[2021-02-27 06:00] VITALS: BP 110/58
[2021-02-27] MEDS: IBUPROFEN 800 MG TAB PO PRN ×2 (08:28→17:52)
[2021-02-27] MEDS: PRENATAL VITAMINS CHEWABLE TABLET PO SCH (08:28)
[2021-02-27 10:00] VITALS: BP 127/68
--- NOTE | 2021-02-27 11:11 | IPNPDOC ---
Progress Note Date of Service: Feb 27, 2021 Day#: 1 Progress Note SUBJECT: Renee is a 20-year-old female who is a who presented to L&D in active labor. She had an uncomplicated vaginal delivery of a living male weighting 8 lbs 5 oz. She reports she is eating a regular diet and voiding without difficulty. She does report some dizziness when she ambulates. OBJECTIVE: VITAL SIGNS: see below. Alert and oriented times three. Sitting up in bed bottle feeding her . Respiratory: regular rate and rhythm, no use of accessory muscles. Abdomen: Fundus firm at U-2. Soft, NTTP. Minimal lochia. ASSESSMENT: day 1 PLAN: 1. CBC drawn today. 2. Continue with supportive nursing care. 3. Anticipate discharge tomorrow. VS, I&O, 24H, Fishbone Vital Signs/I&O Vital Signs Date Time Temp Pulse Resp B/P (MAP) Pulse Ox O2 Delivery O2 Flow Rate FiO2 02/27/21 10:00 97.6 86 18 127/68 (87) 99 02/27/21 06:00 Room Air I&O- Last 24 Hours up to 6 AM 02/27/21 06:00 Intake Total 1948 ml Output Total 900 ml Balance 1048 ml ANGELINA LANGLEY CNM Feb 27, 2021 11:11
[2021-02-27 12:38] LABS: HEMATOCRIT 28.1 % (36.0-47.0); MEAN CORPUSCULAR HEMOGLOBIN 26.2 pg (27.0-33.0); MEAN CORPUSCULAR VOLUME 81.7 fl (80.0-96.0); PLATELET COUNT, AUTOMATED 191 10^3/uL (150-450); RED BLOOD COUNT 3.44 10^6/uL (4.00-5.40); WHITE BLOOD COUNT 10.3 10^3/uL (4.0-10.0)
[2021-02-27 14:00] VITALS: BP 107/56
[2021-02-27 18:00] VITALS: BP 108/58
[2021-02-27 22:00] VITALS: BP 111/62
[2021-02-28 02:00] VITALS: BP 100/54
[2021-02-28 06:08] VITALS: BP 95/54
[2021-02-28] MEDS: IBUPROFEN 800 MG TAB PO PRN (08:22)
[2021-02-28] MEDS: PRENATAL VITAMINS CHEWABLE TABLET PO SCH (08:47)
[2021-02-28] MEDS ORDERED: INFLUENZA QUADRIVALENT PF VACCINE 0.5ML SYRINGE IM ONE (09:00)
[2021-02-28 10:00] VITALS: BP 108/68
[2021-02-28] MEDS ORDERED: ACET-683 PO (11:33)
[2021-02-28] MEDS ORDERED: IBUP80TA PO (11:33)
== END 2021-02-28 13:15 | disposition home or self-care (01) | DRG 560 ==
LOC: M LDO 02:04 → M LDI 08:19 → M OBS 20:05
PROVIDERS: ADMIT Specialist; ATTEND Specialist
PROC: 10E0XZZ Delivery of Products of Conception, External Approach (ICD-10-PCS; principal; 2021-02-26)
PROC: 10907ZC Drainage of Amniotic Fluid, Therapeutic from Products of Conception, Via Natural or Artificial Opening (ICD-10-PCS; 2021-02-26)
DX: O69.81X0 Labor and delivery complicated by cord around neck, without compression, not applicable or unspecified (principal); Z3A.38 38 weeks gestation of pregnancy; Z37.0 Single live birth; O77.0 Labor and delivery complicated by meconium in amniotic fluid

== ENCOUNTER 2021-03-08 12:22 | Emergency (ER) | payer OTHER ==
[~2021-03-08] VITALS: Ht 167.6 cm; Wt 116.8 kg
[~2021-03-08 12:22] MED LIST changes: +ACET-683 PO; +IBUP80TA PO
[2021-03-08] MEDS ORDERED: ALBU8.5H (12:28)
[2021-03-08] MEDS ORDERED: PRED20TA PO (15:21)
[2021-03-08 15:30] VITALS: BP 112/69
== END 2021-03-08 15:33 | disposition home or self-care (01) ==
LOC: M ED 12:22
DX: R22.0 Localized swelling, mass and lump, head (principal); T78.40XA Allergy, unspecified, initial encounter; Y92.89 Other specified places as the place of occurrence of the external cause; J45.909 Unspecified asthma, uncomplicated; F33.9 Major depressive disorder, recurrent, unspecified; F41.9 Anxiety disorder, unspecified; Z79.899 Other long term (current) drug therapy

== ENCOUNTER → 2021-03-15 | Outpatient (REF) | payer OTHER ==
[~2021-03-15] MED LIST changes: +PRED20TA PO
[2021-03-15 18:12] LABS: RSV AMPLIFICATION NEGATIVE (NEGATIVE)
== END ==
LOC: M SFHCPLAZ 16:58
PROVIDERS: ATTEND Nurse Practitioner Family
DX: R09.89 Other specified symptoms and signs involving the circulatory and respiratory systems (principal)

== ENCOUNTER 2021-04-23 15:35 | Emergency (ER) | payer OTHER ==
--- OUTSIDE RECORDS SUMMARY | 2021-04-23 16:40 | CCD ---
Author Author [facility] Organization [facility] Address Unknown Phone Unavailable Care Team Providers Care Medication Aide Name Role Phone Ochoalavern Mónica Unavailable PROBLEMS Type Condition ICD9-CM Code [id number] Code Onset Dates Condition S tatus W/U Status Risk SNOMED Code Notes Problem KEVIN (generalized anxiety disorder) F41.1 Activ e confirmed 30493307 Problem Major depressive disorder F32.9 Active confirmed 808026820 Problem Hyperlipidemia E78.5 Active confirmed 98878 004 Problem Body mass index [BMI] 45.0-49.9, adult Z68.42 A ctive confirmed 613824119 Problem Anemia affecting in third trimester O99. 013 Active confirmed 35235210 Problem Morbid (severe) obesity due to excess calories E66 .01 Active confirmed 826865490 Problem Obesity complicating , third trimester O9 9.213 Active confirmed 829062631344 Problem Vitamin D deficiency E55.9 Active confirmed 69978197 Problem Obesity complicating in first trimester O99.211 Active confirmed Problem Supervision of other normal Z34.80 Ac tive confirm 848874215 Problem Asthma J45.909 Active confirmed 051263378 Problem Obesity complicating in third trimester O99.213 Active confirmed ALLERGIES No Known Allergies ENCOUNTERS from 1999 to 2021-03-01 Encounter Location Date Provider Diagnosis [address] [phone] [place] [address] Feb, Mónica Quinn IMMUNIZATIONS Vaccine Route Administration Date Status TDAP 0.5mL Boostrix IM Intramuscular December 27, 2020 Administere d Influenza 36 months & up VFC IM Intramuscular Mar 24, 2015 Ad ministered Influenza 36 months & up VFC IM Jul 28, 2013 Adm inistered SOCIAL HISTORY Sex Assigned At : Social History Observation Description Sex Assigned At Unknown Education: Question Answer Notes Level of Education: Finished High School Language: Question Answer Notes Languages spoken: Azeri Presybeterian: Question Answer Notes Presybeterian 08 Faith Alcohol Screening: Question Answer Notes Did you have a drink containing alcohol in the past year? No Points 0 Interpretation Negative REASON FOR REFERRAL No Information VITAL SIGNS No information MEDICATIONS Medication SIG (Take, Route, Frequency, Duration) Notes Start Da te End Date Status Robitussin Cold+Flu Daytime 10-5-325 MG 2 capsules as needed Orally every 4 hrs for 7 days Nov, Not-Taking Nitrofurantoin Macrocrystal 100 MG 1 capsule at bedtim e with food or milk Orally twice a day for 7 days Nov, Not-Taki ng Ferrous Gluconate 324 (38 Fe) MG 1 tablet with water o r juice between meals Orally Once a day for 30 day(s) Aug, Not-Taking Zofran 4 MG 1 tablet Orally Once a day Not-Taking Vitamin D3 125 MCG (5000 UT) as directed Orally Active busPIRone HCl 10 MG 1 tablet Orally Twice a day Active Sertraline HCl 25 MG 1 tablet Orally Once a day Active Macrobid 100 MG 1 capsule at bedtime with food Orally Once a day Not-Taking 27-1 MG 1 tablet Orally Once a day Not-Taking Albuterol Sulfate HFA 108 (90 Base) MCG/ACT 1 puff as needed Inhalation every 4 hrs for 30 Days Nov, Not-Taking Mucinex 600 MG 1 tablet as needed Orally every 12 hrs for 7 day (s) Dec, Not-Taking Albuterol Sulfate 108 (90 Base) MCG/ACT 1 puff as needed Inh alation every 4 hrs Active PROCEDURES No Information RESULTS No Results REASON FOR VISIT [facility] referral to Dr Frazier MEDICAL (GENERAL) HISTORY Type Description Date Medical [...] PLAN OF TREATMENT Next Appt Details Provider Name:Mónica Quinn, 2021-07-07 02:30:00 PM, [address] [facility], , [place], [address], Insurance Providers Payer Name Payer Address Payer Phone Insured Name Patient Relati onship to Insured Coverage Start Date Coverage End Date [facility] [address] [facility] [phone] DANA ALARCON self
--- OUTSIDE RECORDS SUMMARY | 2021-04-23 16:40 | CCD ---
Author Author [facility] Organization [facility] Address Unknown Phone Unavailable Care Team Providers Care Director Mobile Name Role Phone Bharathguadalupe Ronit Unavailable PROBLEMS Type Condition ICD9-CM Code [id number] Code Onset Dates Condition S tatus W/U Status Risk SNOMED Code Notes Problem KEVIN (generalized anxiety disorder) F41.1 Activ e confirmed 43560439 Problem Major depressive disorder F32.9 Active confirmed 507385135 Problem Hyperlipidemia E78.5 Active confirmed 48241 004 Problem Body mass index [BMI] 45.0-49.9, adult Z68.42 A ctive confirmed 001166768 Problem Anemia affecting in third trimester O99. 013 Active confirmed 00578592 Problem Morbid (severe) obesity due to excess calories E66 .01 Active confirmed 151781353 Problem Obesity complicating , third trimester O9 9.213 Active confirmed 150087640818 Problem Vitamin D deficiency E55.9 Active confirmed 00197426 Problem Obesity complicating in first trimester O99.211 Active confirmed Problem Supervision of other normal Z34.80 Ac tive confirm 636558714 Problem Asthma J45.909 Active confirmed 223830157 Problem Obesity complicating in third trimester O99.213 Active confirmed ALLERGIES No Known Allergies ENCOUNTERS from 1999 to 2021-03-15 Encounter Location Date Provider Diagnosis [facility] [address] [facility] [phone] [place] [address] 07 Feb, 2021 Ronit Mathis Obesity complicating , third trimester O99.213 ; Anemia affecting in third trimester O99.013 and 36 weeks gestation of Z3A.36 IMMUNIZATIONS Vaccine Route Administration Date Status TDAP [...] School Language: Question Answer Notes Languages spoken: Spanish Temple: Question Answer Notes Temple 08 Jewish Alcohol Screening: Question Answer Notes Did you have a drink containing alcohol in the past year? No Points 0 Interpretation Negative REASON FOR REFERRAL No Information VITAL SIGNS Weight 270.6 lbs Feb, Weight-kg 122.74 kg Feb, Height 64 in Feb, BMI 46.448 kg/m2 Feb, Blood pressure systolic 118 mm Hg Feb, Blood pressure diastolic 76 mm Hg Feb, MEDICATIONS Medication SIG (Take, Route, Frequency, Duration) Notes Start Da te End Date Status busPIRone HCl 10 MG 1 tablet Orally Twice a day Active Effexor XR 37.5 MG 1 capsule with food Orally Once a day for 30 day(s) Mar, Active Sertraline HCl 25 MG 1 tablet Orally Once a day Active PROCEDURES No Information RESULTS No Results REASON FOR VISIT 1 WK PN MEDICAL (GENERAL) HISTORY Type Description Date [...] Notes Treatment Notes Treatm ent Clinical Notes Feb, Obesity complicating , third tr imester (ICD-10 - O99.213) Feb, Anemia affecting in third trimester (I CD-10 - O99.013) Feb, 36 weeks gestation of (ICD-10 - Z3A.36 ) PLAN OF TREATMENT Next Appt Details 1 Week Reason: Provider Name:Trung Dimitri Moreno, 2021-03-28 0 2:40:00 PM, [address] [facility], , [place], [address], Provider Name:Mónica Quinn, 2021-07-07 02:30:00 PM, [address] [facility], , [place], [address], Follow Up:1 WeekPrenatal Insurance Providers Payer Name Payer Address Payer Phone Insured Name Patient Relati onship to Insured Coverage Start Date Coverage End Date [facility] [address] [facility] [id number] DANA ALARCON self
--- OUTSIDE RECORDS SUMMARY | 2021-04-23 16:40 | CCD | Continuity of Care Document ---
Author Author Renee ABREU PA-C Organization Unknown Address [address] [address] Phone [phone] Care Team Providers Care Lead Project Engineer Name Role Phone Mónica Quinn KJ AUTM [phone] Problems Active Problems Provider Date Pure hypercholesterolemia Perla Abreu PA-C Onset: 021 Social History Type Date Description Comments Sex Unknown ETOH Use Denies alcohol use Tobacco Use Start: Unknown Denies Smoking Smoking Status Reviewed: 10/24/20 Denies Smoking Allergies and adverse reactions Description No Known Drug Allergies Medications Active Medications SIG Qnty Indications Ordering Provide r Date Albuterol Sulfate HFA 108(90Base) mcg/Act Aerosol Inhale 2 Puffs By Mouth Every 4 To 6 Hours as Needed For Wheezin g Unknown Citalopram Hydrobromide 40mg Table ts Take 1 Tablet By Mouth Once Daily Unknown Fluoxetine HCL 20mg Capsules Take 1 Capsule By Mouth Once A Day Unknown Fluoxetine HCL 10mg Capsules Take 1 Capsule By Mouth Once A Day Unknown Ciprofloxacin HCL 250mg Tablets Take One Tablet By Mouth Every 12 Hours For 3 Days Unknow n Methocarbamol 500mg Tablets Take Two Tablets By Mouth Four Times A Day as Needed For Pain For 10 Days Unknown Naproxen 500mg Tablets Take One Tablet By Mouth Every 12 Hours For 10 Days Unknown Ibuprofen 600mg Tablets Take 1 Tablet 600MG By Mouth Every 6 Hours as Needed For Pain Unknown Nitrofurantoin Monohydrate/Macrocrystals 100mg Capsules Take One Capsule By Mouth Twice A Day Unk nown Bupropion Hydrochloride ER (SR) 100mg Tablets ER 12HR Take 1 Tablet By Mouth In Morning Once A Day Unknown NKDK N Unknown Benzonatate 200mg Capsules Take One Capsule By Mouth Three Times A Day as Needed For Cough Unknown Aripiprazole 2mg Tablets Take One Tablet By Mouth Every Day Unknown Buspirone HCL 15mg Tablets Take One Tablet By Mouth Twice A Day Unknown Sucralfate 1gm Tablets Take One Tablet By Mouth Four Times A Day Unknown [address] Take One Capsule By Mouth Every Day Unknown Meloxicam 7.5mg Tablets Take 1 Tablet By Mouth Once Per Day For 20 Days Unknown 0 Trazodone HCL 50mg Tablets Take One Half To One Tablet By Mouth AT Bedtime Unknown Bupropion Hydrochloride ER (XL) 150mg Tablets ER 24HR Take One Tablet By Mouth Every Morning For 15 Days Unknown Estarylla 0.25-35mg-mcg Tablets Georgiana Valdes NP Immunizations Description No Information Available Vital Signs Date Vital Result Comment 08/09/2020 1:28pm Body Temperature 96.9 F Height 64.5 inches 5'4.50" Weight 280.38 lb BMI (Body Mass Index) 47.4 kg/m2 03/06/2017 8:25am Body Temperature 98.8 F Height 64 inches 5'4" Weight 229.00 lb BMI (Body Mass Index) 39.3 kg/m2 Results Description No Information Available Procedures Date Code Description Status 03/27/2021 44575 Office/Outpatient Established Lo w MDM 20-29 Min Completed 03/17/2021 11549 MRI Lower Extremity Other Than J oint Completed 02/16/2021 87787 Office/Outpatient Established SF MDM 10-19 Min Completed 11/30/2020 62643 Office/Outpatient Established Lo w MDM 20-29 Min Completed 11/30/2020 44412 X-Ray Foot Complete Completed 11/17/2020 87197 Office/Outpatient Established SF MDM 10-19 Min Completed 10/24/2020 96033 Office/Outpatient Established Lo w MDM 20-29 Min Completed Medical Devices Description No Information Available Encounters Type Date Location Provider Dx Diagnosis Office Visit 03/27/2021 1:00p Barrett Perla Abreu PA-C S90.32x D Contusion of left foot, subsequent encounter 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 fascial fibromatosis Office Visit 02/16/2021 2:20p Barrett Perla Abreu PA-C M21.42 Flat foot [pes planus] (acquired), left foot 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 fascial fibromatosis S90.32xD Contusion of left foot, subs equent encounter Office Visit 11/30/2020 2:00p Barrett Perla Abreu PA-C 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 fascial fibromatosis M21.42 Flat foot [pes planus] (acqu ired), left foot Office Visit 11/17/2020 1:40p Barrett Perla Abreu PA-C S93.402 D Sprain of unspecified ligament of left ankle, subs encntr S90.32xD Contusion of left foot, subs equent encounter Office Visit 10/24/2020 11:15a Barrett Perla Abreu PA-C S93.402 D Sprain of unspecified ligament of left ankle, subs encntr S90.32xD Contusion of left foot, subs equent encounter M79.605 Pain in left leg Assessments Date Code Description Provider 03/27/2021 S90.32xD Contusion of left foot, subseque nt encounter Perla Abreu PA-C 03/27/2021 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 fascial fibromatosis Les Abreu PA-C 03/17/2021 S90.32xD Contusion of left foot, subseque nt encounter Kwame Hollis MD 03/17/2021 S90.32xD Contusion of left foot, subseque nt encounter MRI 02/16/2021 M21.42 Flat foot [pes planus] (acquired ), left foot Perla Abreu PA-C 02/16/2021 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 fascial fibromatosis ELYSSA SeoC 02/16/2021 S90.32xD Contusion of left foot, subseque nt encounter Perla Abreu PA-C 11/30/2020 M21.42 Flat foot [pes planus] (acquired ), left foot Perla Webb Noel, PA-C 11/30/2020 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 fascial fibromatosis Les Webb Noel, PA-C 11/30/2020 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 fascial fibromatosis Les Mosley. Noel, PA-C 11/30/2020 M21.42 Flat foot [pes planus] (acquired ), left foot Perla Abreu, PA-C 11/17/2020 S93.402D Sprain of unspecifie d ligament of left ankle, subsequent encounter Perla Abreu, PA-C 11/17/2020 S90.32xD Contusion of left foot, subseque nt encounter Perla Abreu PA-C 10/24/2020 S93.402D Sprain of unspecifie d ligament of left ankle, subsequent encounter Perla Abreu PA-C 10/24/2020 S93.402D Sprain of unspecifie d ligament of left ankle, subsequent encounter Perla Abreu, PA-C 10/24/2020 S90.32xD Contusion of left foot, subseque nt encounter Perla Webb Noel, PA-C 10/24/2020 S90.32xD Contusion of left foot, subseque nt encounter Perla Abreu PA-C 10/24/2020 M79.605 Pain in left leg Perla L. VIELKA Abreu Plan of Treatment 03/27/2021 - Perla Webb VIELKA Abreu* S90.32xD Contusion of left foot, subsequent encounter* New Xrays:* MRI Left Foot, Ordered: 03/27/21 * Follow up:* f/u after mri of left foor for results with KLF * 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 fascial fibromatosis Functional Status Description No Information Available Mental Status Description No Information Available Referrals Refer to Reason for Referral Status Appt Date Peyton Thakur PA-C MRI APPROVED PER [facility] WEB FOR MRI OF LEFT FOOT (23210) TO MRI. DG Created [facility] [address] [place] [address] [phone] Peyton Thaukr PA-C [facility] FOR PT EVAL LT AN KLE/FOOT [phone]. PAT GOING TO [facility]. PASSED TO CHART.HW Created [facility] [address] [place], [place] [id number] [phone] Peyton Thakur PA-C O/V FOR LT ANKLE Created [address] [place] [address] [phone]
--- OUTSIDE RECORDS SUMMARY | 2021-04-23 16:40 | CCD | Continuity of Care Document ---
Author Author Renee MCCLURE Organization Unknown Address [address] [place] [address] [address] [place] [address] Phone [phone] Care Team Providers Care Grinder Set Up Operator Thread Name Role Phone Mónica Quinn KJ AUTM [phone] Problems Active Problems Provider Date Pure hypercholesterolemia Perla Cohen PA-C Onset: 021 Social History Type Date [...] Information Available Procedures Date Code Description Status 03/17/2021 23939 MRI Lower Extremity Other Than J oint Completed 02/16/2021 85440 Office/Outpatient Established SF MDM 10-19 Min Completed 11/30/2020 58668 Office/Outpatient Established Lo w MDM 20-29 Min Completed 11/30/2020 24720 X-Ray Foot Complete Completed 11/17/2020 88160 Office/Outpatient Established SF MDM 10-19 Min Completed 10/24/2020 79047 Office/Outpatient Established Lo w MDM 20-29 Min Completed Medical Devices Description No Information Available Encounters Type Date Location Provider Dx Diagnosis Office Visit 02/16/2021 2:20p [place] Perla Cohen, PA-C M21.42 Flat foot [pes planus] (acquired), left foot 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 fascial fibromatosis S90.32xD Contusion of left foot, subs equent encounter Office Visit 11/30/2020 2:00p [place] Perla Cohen, PA-C 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 fascial fibromatosis M21.42 Flat foot [pes planus] (acqu ired), left foot Office Visit 11/17/2020 1:40p [place] Perla Cohen, PA-C S93.402 D Sprain of unspecified ligament of left ankle, subs encntr S90.32xD Contusion of left foot, subs equent encounter Office Visit 10/24/2020 11:15a [place] Perla Cohen, PA-C S93.402 D Sprain of unspecified ligament of left ankle, subs encntr S90.32xD Contusion of left foot, subs equent encounter M79.605 Pain in left leg Assessments Date Code Description Provider 03/17/2021 S90.32xD Contusion of left foot, subseque nt encounter Kwame Hollis MD 03/17/2021 S90.32xD Contusion of left foot, subseque nt encounter MRI 02/16/2021 M21.42 Flat foot [pes planus] (acquired ), left foot Perla Cohen, PA-C 02/16/2021 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 fascial fibromatosis Les broussard LMoises Fish, PA-C 02/16/2021 S90.32xD Contusion of left foot, subseque nt encounter Perla Webb Fish, PA-C 11/30/2020 M21.42 Flat foot [pes planus] (acquired ), left foot Perla Webb Fish, PA-C 11/30/2020 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 fascial fibromatosis Les broussard L. Fish, PA-C 11/30/2020 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 fascial fibromatosis Les broussard L. Fish, PA-C 11/30/2020 M21.42 Flat foot [pes planus] (acquired ), left foot Perla Webb Fish, PA-C 11/17/2020 S93.402D Sprain of unspecifie d ligament of left ankle, subsequent encounter Perla Webb VIELKA Cohen 11/17/2020 S90.32xD Contusion of left foot, subseque nt encounter Perla Webb VIELKA Cohen 10/24/2020 S93.402D Sprain of unspecifie d ligament of left ankle, subsequent encounter Perla Webb VIELKA Cohen 10/24/2020 S93.402D Sprain of unspecifie d ligament of left ankle, subsequent encounter Perla Webb VIELKA Cohen 10/24/2020 S90.32xD Contusion of left foot, subseque nt encounter Perla Webb VIELKA Cohen 10/24/2020 S90.32xD Contusion of left foot, subseque nt encounter Perla Tracey VIELKA Cohen 10/24/2020 M79.605 Pain in left leg Perla Cohen PA-C Plan of Treatment No Information Available Functional Status Description No Information Available Mental Status Description No Information Available Referrals Refer to Dr Reason for Referral Status Appt Date Peyton Thakur PA-C MRI APPROVED PER [facility] WEB FOR MRI OF LEFT FOOT (17241) TO MRI. DG Created [address] [place] [address] [phone] Peyton Thakur PA-C P.T. AUTH FOR PT EVAL LT AN KLE/FOOT [phone]. PAT GOING TO [facility]. PASSED TO CHART.HW Created [address] [place] [address] [phone] Peyton Thakur PA-C O/V FOR LT ANKLE Created [address] [place] [address] [phone]
--- OUTSIDE RECORDS SUMMARY | 2021-04-23 16:40 | CCD ---
Author Author [facility] Organization [facility] Address Unknown Phone Unavailable Care Team Providers Care Nurse Staff Industrial Name Role Phone JoshTrung Unavailable PROBLEMS Type Condition ICD9-CM Code [id number] Code Onset Dates Condition S tatus W/U Status Risk SNOMED Code Notes Problem KEVIN (generalized anxiety disorder) F41.1 Activ e confirmed 55850866 Problem Major depressive disorder F32.9 Active confirmed 139762581 Problem Hyperlipidemia E78.5 Active confirmed 23143 004 Problem Body mass index [BMI] 45.0-49.9, adult Z68.42 A ctive confirmed 961290154 Problem Anemia affecting in third trimester O99. 013 Active confirmed 56443801 Problem Morbid (severe) obesity due to excess calories E66 .01 Active confirmed 478190692 Problem Obesity complicating , third trimester O9 9.213 Active confirmed 796648989364 Problem Vitamin D deficiency E55.9 Active confirmed 66975750 Problem Obesity complicating in first trimester O99.211 Active confirmed Problem Supervision of other normal Z34.80 Ac tive confirm 933620180 Problem Asthma J45.909 Active confirmed 528666115 Problem Obesity complicating in third trimester O99.213 Active confirmed ALLERGIES No Known Allergies ENCOUNTERS from 1999 to 2021-03-10 Encounter Location Date Provider Diagnosis [facility] [address] [facility] [phone] [place] [address] Mar, Trung Moreno depressio n F53.0 IMMUNIZATIONS Vaccine Route Administration Date Status TDAP [...] School Language: Question Answer Notes Languages spoken: Comoran Restoration: Question Answer Notes Restoration 08 Gnosticism Alcohol Screening: Question Answer Notes Did you have a drink containing alcohol in the past year? No Points 0 Interpretation Negative REASON FOR REFERRAL No Information VITAL SIGNS No information MEDICATIONS Medication SIG (Take, Route, Frequency, Duration) Notes Start Da te End Date Status Albuterol Sulfate 108 (90 Base) MCG/ACT 1 puff as needed Inh alation every 4 hrs Unknown busPIRone HCl 10 MG 1 tablet Orally Twice a day Unknown Effexor XR 37.5 MG 1 capsule with food Orally Once a day for 30 day(s) Mar, Active Sertraline HCl 25 MG 1 tablet Orally Once a day Unknown Vitamin D3 125 MCG (5000 UT) as directed Orally Unknown PROCEDURES No Information RESULTS No Results REASON FOR VISIT EXPERIENCING PPD PER [facility] MEDICAL (GENERAL) HISTORY Type Description Date Medical [...] Notes Treatment Notes Treatm ent Clinical Notes Mar, depression (ICD-10 - F53.0) PLAN OF TREATMENT Medication Medication Name Sig Start Date Stop Date Effexor XR 37.5 MG 1 capsule with food Orally Once a day fo r 30 day(s) Mar, Next Appt Details 2 Weeks Reason: Provider Name:Mónica Quinn, 07-07 02:30:00 PM, [address] [facility], , [place], [address], Insurance Providers Payer Name Payer Address Payer Phone Insured Name Patient Relati onship to Insured Coverage Start Date Coverage End Date [facility] [address] [facility] [address] [phone] DANA ALARCON
--- OUTSIDE RECORDS SUMMARY | 2021-04-23 16:40 | CCD | Continuity of Care Document ---
Author Author Renee ABREU PA-C Organization Unknown Address [address] [address] Phone [phone] Care Team Providers Care Design Transferrer Name Role Phone Mónica Quinn KJ AUTM [phone] Problems Active Problems Provider Date Pure hypercholesterolemia Perla Abreu PA-C Onset: 021 Social History Type Date Description Comments Sex Unknown ETOH Use Denies alcohol use Tobacco Use Start: Unknown Denies Smoking Smoking Status Reviewed: 10/24/20 Denies Smoking Allergies, Adverse Reactions, Alerts Description No Known Drug Allergies Medications Active [...] One Capsule By Mouth Twice A Day Francescok viraj Bupropion Hydrochloride ER (SR) 100mg Tablets ER [...] Information Available Procedures Date Code Description Status 02/16/2021 63052 Office/Outpatient Established SF MDM 10-19 Min Completed 11/30/2020 60414 Office/Outpatient Established Lo w MDM 20-29 Min Completed 11/30/2020 11124 X-Ray Foot Complete Completed 11/17/2020 65903 Office/Outpatient Established SF MDM 10-19 Min Completed 10/24/2020 77459 Office/Outpatient Established Lo w MDM 20-29 Min Completed 09/06/2020 06951 Office/Outpatient Established Lo w MDM 20-29 Min Completed 09/06/2020 12292 Apply Cast Short Leg Completed 08/30/2020 44364 Office/Outpatient Established w [facility] 20-29 Min Completed 08/30/2020 26733 X-Ray Foot Complete Completed 08/30/2020 86007 Apply Cast Short Leg Completed Medical Devices Description No Information Available Encounters Type Date Location Provider Dx Diagnosis Office Visit 02/16/2021 2:20p [place] Perla Abreu PA-C M21.42 Flat foot [pes planus] (acquired), left foot 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 fascial fibromatosis S90.32xD Contusion of left foot, subs equent encounter Office Visit 11/30/2020 2:00p [place] Perla Abreu PA-C 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 fascial fibromatosis M21.42 Flat foot [pes planus] (acqu ired), left foot Office Visit 11/17/2020 1:40p [place] Perla Abreu PA-C S93.402 D Sprain of unspecified ligament of left ankle, subs encntr S90.32xD Contusion of left foot, subs equent encounter Office Visit 10/24/2020 11:15a [place] Perla Abreu PA-C S93.402 D Sprain of unspecified ligament of left ankle, subs encntr S90.32xD Contusion of left foot, subs equent encounter M79.605 Pain in left leg Office Visit 09/06/2020 3:30p [place] Perla Abreu PA-C S93.402 D Sprain of unspecified ligament of left ankle, subs encntr S90.32xD Contusion of left foot, subs equent encounter Office Visit 08/30/2020 10:45a [place] Perla Abreu PA-C S93.402 D Sprain of unspecified ligament of left ankle, subs encntr S90.32xD Contusion of left foot, subs equent encounter Assessments Date Code Description Provider 02/16/2021 M21.42 Flat foot [pes planus] (acquired ), left foot Perla Abreu PA-C 02/16/2021 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 fascial fibromatosis Les Abreu PA-C 02/16/2021 S90.32xD Contusion of left foot, subseque nt encounter Perla Abreu, PA-C 11/30/2020 M21.42 Flat foot [pes planus] (acquired ), left foot Perla Abreu, PA-C 11/30/2020 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 fascial fibromatosis Les Abreu, PA-C 11/30/2020 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 fascial fibromatosis Les Abreu, PA-C 11/30/2020 M21.42 Flat foot [pes planus] (acquired ), left foot Perla Abreu, PA-C 11/17/2020 S93.402D Sprain of unspecifie d ligament of left ankle, subsequent encounter Perla Abreu, PA-C 11/17/2020 S90.32xD Contusion of left foot, subseque nt encounter Perla Abreu, PA-C 10/24/2020 S93.402D Sprain of unspecifie d ligament of left ankle, subsequent encounter Perla Abreu, PA-C 10/24/2020 S93.402D Sprain of unspecifie d ligament of left ankle, subsequent encounter Perla Abreu, PA-C 10/24/2020 S90.32xD Contusion of left foot, subseque nt encounter Perla Abreu, PA-C 10/24/2020 S90.32xD Contusion of left foot, subseque nt encounter Perla Abreu, PA-C 10/24/2020 M79.605 Pain in left leg Perla Abreu, PA-C 09/06/2020 S93.402D Sprain of unspecifie d ligament of left ankle, subsequent encounter Perla Abreu, PA-C 09/06/2020 S90.32xD Contusion of left foot, subseque nt encounter Perla Abreu, PA-C 08/30/2020 S93.402D Sprain of unspecifie d ligament of left ankle, subsequent encounter Perla Abreu, PA-C 08/30/2020 S90.32xD Contusion of left foot, subseque nt encounter Perla Abreu, PA-C 08/23/2020 S93.402A Sprain of unspecifie d ligament of left ankle, initial encounter Kwame Hollis MD Plan of Treatment No Information Available Functional Status Description No Information Available Mental Status Description No Information Available Referrals Refer to Dr Reason for Referral Status Appt Date Peyton Thakur PA-C P.T. AUTH FOR PT EVAL LT AN KLE/FOOT [phone]. PAT GOING TO [facility]. PASSED TO CHART.HW Created [address] [place] [address] [phone] Peyton Thakur PA-C O/V FOR LT ANKLE Created [facility] [place] [address] [phone]
--- OUTSIDE RECORDS SUMMARY | 2021-04-23 16:40 | CCD | Continuity of Care Document ---
Author Author Renee ABREU PA-C Organization Unknown Address [address] [address] Phone [phone] Care Team Providers Care Printed Circuit Board Panels Developer Name Role Phone Mónica Quinn KJ AUTM [phone] Problems Active Problems Provider Date Pure hypercholesterolemia [...] Available Procedures Date Code Description Status 03/27/2021 74799 Office/Outpatient Established Lo w MDM 20-29 Min Completed 03/17/2021 05479 MRI Lower Extremity Other Than J oint Completed 02/16/2021 86359 Office/Outpatient Established SF MDM 10-19 Min Completed 11/30/2020 23946 Office/Outpatient Established Lo w MDM 20-29 Min Completed 11/30/2020 98232 X-Ray Foot Complete Completed 11/17/2020 22497 Office/Outpatient Established SF MDM 10-19 Min Completed 10/24/2020 21890 Office/Outpatient Established Lo w MDM 20-29 Min Completed Medical Devices Description No Information Available Encounters Type Date Location Provider Dx Diagnosis Office Visit 03/27/2021 1:00p [place] Perla Webb VIELKA Abreu M25.572 Pain in left ankle and joints of left foot 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 fascial fibromatosis Office Visit 02/16/2021 2:20p [place] Perla Webb VIELKA Abreu M21.42 Flat foot [pes planus] (acquired), left foot 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 fascial fibromatosis S90.32xD Contusion of left foot, subs equent encounter Office Visit 11/30/2020 2:00p [place] Perla Abreu PA-C 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 fascial fibromatosis M21.42 Flat foot [pes planus] (acqu ired), left foot Office Visit 11/17/2020 1:40p [place] Perla Tracey VIELKA Abreu S93.402 D Sprain of unspecified ligament of left ankle, subs encntr S90.32xD Contusion of left foot, subs equent encounter Office Visit 10/24/2020 11:15a [place] Perla Tracey VIELKA Abreu S93.402 D Sprain of unspecified ligament of left ankle, subs encntr S90.32xD Contusion of left foot, subs equent encounter M79.605 Pain in left leg Assessments Date Code Description Provider 03/27/2021 M25.572 Pain in left ankle and joints of left foot Perla Abreu PA-C 03/27/2021 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 fascial fibromatosis Les aarti Tracey Abreu PA-C 03/17/2021 S90.32xD Contusion of left [...] [pes planus] (acquired ), left foot Perla Mosley. ELYSSA AbreuC 11/30/2020 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 fascial fibromatosis Les Webb ELYSSA AbreuC 11/30/2020 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 fascial fibromatosis Les en L. ELYSSA AbreuC 11/30/2020 M21.42 Flat foot [pes planus] (acquired ), left foot Perla Webb ELYSSA AbreuC 11/17/2020 S93.402D Sprain of unspecifie d ligament of left ankle, subsequent encounter Perla Webb ELYSSA AbreuC 11/17/2020 S90.32xD Contusion of left foot, subseque nt encounter Perla Webb ELYSSA AbreuC 10/24/2020 S93.402D Sprain of unspecifie d ligament of left ankle, subsequent encounter Perla Tracey ELYSSA AbreuC 10/24/2020 S93.402D Sprain of unspecifie d ligament of left ankle, subsequent encounter Perla Webb ELYSSA AbreuC 10/24/2020 S90.32xD Contusion of left foot, subseque nt encounter Perla Webb ELYSSA AbreuC 10/24/2020 S90.32xD Contusion of left foot, subseque nt encounter Perla Webb ELYSSA AbreuC 10/24/2020 M79.605 Pain in left leg Perla Abreu PA-C Plan of Treatment 03/27/2021 - Perla Abreu PA-C* M25.572 Pain in left ankle and joints of left foot* Follow up:* f/u after mri of left foot for results with KLF * 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 DG Created [facility] [address] [place], [place] [id number] [phone] Peyton Thakur, VIELKA PKaren AUTH FOR PT EVAL LT AN KLE/FOOT [phone]. PAT GOING TO [facility]. PASSED TO CHART.HW Created [facility] [place] [id number] [phone]
--- OUTSIDE RECORDS SUMMARY | 2021-04-23 16:40 | CCD ---
Author Author [facility] Organization [facility] Address Unknown Phone Unavailable Care Team Providers Care Five Piece Expansion Maker Hand Name Role Phone Nino Lebron Unavailable PROBLEMS Type Condition ICD9-CM Code [id number] Code Onset Dates Condition S tatus W/U Status Risk SNOMED Code Notes Problem KEVIN (generalized anxiety disorder) F41.1 Activ e confirmed 05802970 Problem Major depressive disorder F32.9 Active confirmed 884802479 Problem Hyperlipidemia E78.5 Active confirmed 39650 004 Problem Body mass index [BMI] 45.0-49.9, adult Z68.42 A ctive confirmed 488346575 Problem Anemia affecting in third trimester O99. 013 Active confirmed 26140486 Problem Morbid (severe) obesity due to excess calories E66 .01 Active confirmed 340286863 Problem Obesity complicating , third trimester O9 9.213 Active confirmed 854632660041 Problem Vitamin D deficiency E55.9 Active confirmed 63464009 Problem Obesity complicating in first trimester O99.211 Active confirmed Problem Supervision of other normal Z34.80 Ac tive confirm 411439808 Problem Asthma J45.909 Active confirmed 751886842 Problem Obesity complicating in third trimester O99.213 Active confirmed ALLERGIES No Known Allergies ENCOUNTERS from 1999 to 2021-02-27 Encounter Location Date Provider Diagnosis [facility] [address] [facility] [phone] [place] [address] Feb, Nino Lebron Encounter for superv ision of other normal in third trimester Z34.83 ; 35 weeks gestation of Z3A.35 and UTI (urinary tract infection) N39.0 IMMUNIZATIONS Vaccine Route Administration Date Status TDAP [...] School Language: Question Answer Notes Languages spoken: Czech Uatsdin: Question Answer Notes Uatsdin 08 [employer] Alcohol Screening: Question Answer Notes Did you have a drink containing alcohol in the past year? No Points 0 Interpretation Negative REASON FOR REFERRAL No Information VITAL SIGNS Weight 268.8 lbs Feb, Height 64 in Feb, BMI 46.139 kg/m2 Feb, Blood pressure systolic 124 mm Hg Feb, Blood pressure diastolic 74 mm Hg Feb, MEDICATIONS Medication SIG (Take, [...] No Information RESULTS Component Value Reference Range URINE CULTURE Reviewed date:02/08/2021 16:31:19 Interpretation: Performing Lab:[facility] [place] [address] URINE CULTURE GROUP B STREP CULTURE Reviewed date:02/14/2021 13:47:48 Interpretation: Performing Lab:[facility] LABORATORY [address] [facility] [address] , ,[place] [address] URINE CULTURE Reviewed date:02/14/2021 13:47:27 Interpretation: Performing Lab:[facility], [facility] [address] [facility] [address] , ,[place] [address] REASON FOR VISIT 1WK PN MEDICAL (GENERAL) HISTORY Type Description Date [...] Treatment Notes Treatm ent Clinical Notes Feb, Encounter for supervision of other normal in third trimester (ICD-10 - Z34.83) Feb, 35 weeks gestation of (ICD-10 - Z3A.35 ) Feb, UTI (urinary tract infection) (ICD-10 - N39.0) PLAN OF TREATMENT Next Appt Details Provider Name:Mónica Packerlavern, 07-07 02:30:00 PM, [address] [facility], , [place], [address], Insurance Providers Payer Name Payer Address Payer Phone Insured Name Patient Relati onship to Insured Coverage Start Date Coverage End Date [facility] COMMUN[facility] PLAN [facility] [address] [facility] [address] DANA ALARCON self
--- OUTSIDE RECORDS SUMMARY | 2021-04-23 16:40 | CCD | Continuity of Care Document ---
Author Organization Unknown Address Unknown Phone Unavailable Care Team Providers Care Supervisor Sawing And Assembly Name Role Phone Doretha Serna CNM MSN AUTM LeighannlevonKallie puckett FURNACE CLEANER AUTM Problems Description No Information Available Social History Type Date Description Comments Sex Unknown Allergies and adverse reactions Description No Information Available Medications Description No Information Available Immunizations Description No Information Available Vital Signs Description No Information Available Results Test Acquired Date Facility Test Result H/L Range Note CBC without Differential 02/27/2021 [facility] - not inter faced (315)- - White Blood Count 10.3 High 4.0-10.0 Red Blood Count 3.44 Low 4.00-5.40 Platelets 191 150-450 Hemoglobin 9.0 Hematocrit 28.1 CMP 12/16/2020 [facility] - not interfaced (315)- - Albumin Serum/Plasma 3.0 Alt - SGPT 11 Calcium Ser/Plasma Mass/Vol 9.0 Carbon Dioxide Ser/Plasm 25 Chloride Serum/Plasma 109 Alkaline Phosphatase 115 Potassium 4.0 Protein Total 6.6 Sodium 140 Ast - Sgot 7 BUN - Urea Nitrogen 5 Glucose 70 70-100 Creatinine For GFR 0.44 Procedures Description No Information Available Medical Devices Description No Information Available Encounters Description No Information Available Assessments Description No Information Available Plan of Treatment Future Appointment(s):* 04/17/2021 8:00 am - Jerry Frazier MD at Main Office Functional Status Description No Information Available Mental Status Description No Information Available Referrals Description No Information Available
--- OUTSIDE RECORDS SUMMARY | 2021-04-23 16:40 | CCD ---
Author Author [facility] Organization [facility] Address Unknown Phone Unavailable Care Team Providers Care Steel Plate Printer Name Role Phone Jerry Spain Unavailable PROBLEMS Type Condition ICD9-CM Code [id number] Code Onset Dates Condition S tatus W/U Status Risk SNOMED Code Notes Problem Depression, unspecified depression type F32.9 Active confirmed 77941017 Problem Asthma, unspecified, unspecified status 493.90 Active confirmed Low 32104447 Problem Morbid (severe) obesity due to excess calories E66 .01 Active confirmed 88529679832262 Problem Body mass index (BMI) of 40.0-44.9 in adult Z68.41 Active confirmed 334031304 Problem Tension headache G44.209 Active confirmed 39 1662529 Problem Anxiety disorder, unspecified type F41.9 Activ e confirmed 453667680 Problem Iron deficiency anemia, unspecified iron deficiency an emia type D50.9 Active confirmed 54562678 Problem MDD (major depressive disorder), recurrent episode, mild F33.0 Active confirmed 042526811 Problem Uncomplicated asthma, unspecified asthma severity J45.909 Active confirmed 635878275 Problem Constipation, unspecified constipation type K59.00 Active confirmed 88387024 Problem Smoking F17.200 Active confirmed 71328482 Problem Body mass index (BMI) 45.0-49.9, adult Z68.42 A ctive confirmed 891880147 Problem Major depressive disorder with psychotic features F32.3 Active confirmed 698981244 ALLERGIES Allergen (clinical drug ingredient) Drug/Non Drug Allergy do cumented on EMR Reaction Allergy Type Onset Date Status seasonal Unknown Non Drug Allergy Active ENCOUNTERS from 1999 to 2021-03-07 Encounter Location Date Provider Diagnosis [address] [address] Feb, Jerry Spain IMMUNIZATIONS Vaccine Route Administration Date Status INFLUENZA 3 YRS AND OLDER Preservative free IM Intramuscular Mar 24, 2013 Administered Influenza preservative free IM Intramuscular Apr 18, 2018 Adm inistered SOCIAL HISTORY Sex Assigned At : Social History Observation Description Sex Assigned At Unknown Alcohol Screen Question Answer Notes Did you have a drink containing alcohol in the past year? No Points 0 Interpretation Negative REASON FOR REFERRAL No Information VITAL SIGNS No information MEDICATIONS Medication SIG (Take, Route, Frequency, Duration) Notes Start Da te End Date Status Vitamin D Active busPIRone HCl 10 MG ii Orally qd for 30 days Sep, Active Albuterol Sulfate 108 (90 Base) MCG/ACT 1 puff as needed Inh alation every 6 hrs Active Active Sertraline HCl 50 MG 1 tablet Orally Once a day for 30 days Dec, Active PROCEDURES No Information RESULTS No Results REASON FOR VISIT missed appt MEDICAL (GENERAL) HISTORY Type Description Date Medical History allergic rhinitis Medical History history of ADHD Medical History acid reflux Medical History asthma Surgical History No Surgical history information Hospitalization History Childbirth Goals Section No Information Health Concerns No Information MEDICAL EQUIPMENT No Information MENTAL STATUS No Information FUNCTIONAL STATUS No Information ASSESSMENTS No Information PLAN OF TREATMENT Medication Medication Name Sig Start Date Stop Date Sertraline HCl 50 MG 1 tablet Orally Once a day for 30 days 2020 Next Appt Details Provider Name:Yogesh Richardsjakob, 2021-03-09 1 0:00:00 AM, [address] [place] [address], [phone], Provider Name:Kristina Ferris, 03-15 01:00:00 PM, [address] [place] [address], [address], Insurance Providers Payer Name Payer Address Payer Phone Insured Name Patient Relati onship to Insured Coverage Start Date Coverage End Date [facility] MEDICAID [address] [facility] [address] Renee Taylor self
--- OUTSIDE RECORDS SUMMARY | 2021-04-23 16:40 | CCD ---
Author Author [facility] Organization [facility] Address Unknown Phone Unavailable Care Team Providers Care Cookie Padder Name Role Phone Bharathguadalupe Ronit Unavailable PROBLEMS Type Condition ICD9-CM Code [id number] Code Onset Dates Condition S tatus W/U Status Risk SNOMED Code Notes Problem KEVIN (generalized anxiety disorder) F41.1 Activ e confirmed 86431026 Problem Major depressive disorder F32.9 Active confirmed 306371862 Problem Hyperlipidemia E78.5 Active confirmed 42261 004 Problem Body mass index [BMI] 45.0-49.9, adult Z68.42 A ctive confirmed 714971296 Problem Anemia affecting in third trimester O99. 013 Active confirmed 97959389 Problem Morbid (severe) obesity due to excess calories E66 .01 Active confirmed 744908731 Problem Obesity complicating , third trimester O9 9.213 Active confirmed 822288190527 Problem Vitamin D deficiency E55.9 Active confirmed 24174651 Problem Obesity complicating in first trimester O99.211 Active confirmed Problem Supervision of other normal Z34.80 Ac tive confirm 719551144 Problem Asthma J45.909 Active confirmed 513591835 Problem Obesity complicating in third trimester O99.213 Active confirmed ALLERGIES No Known Allergies ENCOUNTERS from 1999 to 2021-03-15 Encounter Location Date Provider Diagnosis [facility] [address] [facility] [phone] [place] [address] 15 Feb, 2021 Ronit Mathis Obesity complicating in third trimester O99.213 ; Anemia affecting in third trimester O99.013 and 37 weeks gestation of Z3A.37 IMMUNIZATIONS Vaccine Route Administration Date Status TDAP [...] School Language: Question Answer Notes Languages spoken: Yakut Adventist: Question Answer Notes Adventist 08 [employer] Alcohol Screening: Question Answer Notes Did you have a drink containing alcohol in the past year? No Points 0 Interpretation Negative REASON FOR REFERRAL No Information VITAL SIGNS Weight 270.4 lbs Feb, Weight-kg 122.65 kg Feb, Height 64 in Feb, BMI 46.414 kg/m2 Feb, Blood pressure systolic 118 mm Hg Feb, Blood pressure diastolic 74 [...] RESULTS No Results REASON FOR VISIT [address] Mathis MEDICAL (GENERAL) HISTORY Type Description Date Medical [...] Treatm ent Clinical Notes Feb, Obesity complicating pregnan cy in third trimester (ICD-10 - O99.213) Feb, Anemia affecting in third trimester (I CD-10 - O99.013) Feb, 37 weeks gestation of (ICD-10 - Z3A.37 ) PLAN OF TREATMENT Next Appt Details 1 Week Reason: Provider Name:Trung Moreno, 2021-03-28 0 2:40:00 PM, [address] [place] [address] [place], [address], Provider Name:Mónica Quinn, 07-07 02:30:00 PM, [address] [facility], , [place], [address], Follow Up:1 WeekPrenatal Insurance Providers Payer Name Payer Address Payer Phone Insured Name Patient Relati onship to Insured Coverage Start Date Coverage End Date [facility] COMMUN[facility] PLAN [facility] [address] [facility] [phone] DANA ALARCON self
--- OUTSIDE RECORDS SUMMARY | 2021-04-23 16:40 | CCD ---
Author Author [facility] Organization [facility] Address Unknown Phone Unavailable Care Team Providers Care Information Technology Data Analyst Name Role Phone JoshTrung Unavailable PROBLEMS Type Condition ICD9-CM Code [id number] Code Onset Dates Condition S tatus W/U Status Risk SNOMED Code Notes Problem KEVIN (generalized anxiety disorder) F41.1 Activ e confirmed 63556393 Problem Major depressive disorder F32.9 Active confirmed 569670895 Problem Hyperlipidemia E78.5 Active confirmed 77701 004 Problem Body mass index [BMI] 45.0-49.9, adult Z68.42 A ctive confirmed 540663964 Problem Anemia affecting in third trimester O99. 013 Active confirmed 26430814 Problem Morbid (severe) obesity due to excess calories E66 .01 Active confirmed 636325079 Problem Obesity complicating , third trimester O9 9.213 Active confirmed 134280969194 Problem Vitamin D deficiency E55.9 Active confirmed 59769941 Problem Obesity complicating in first trimester O99.211 Active confirmed Problem Supervision of other normal Z34.80 Ac tive confirm 243927873 Problem Asthma J45.909 Active confirmed 198035167 Problem Obesity complicating in third trimester O99.213 Active confirmed ALLERGIES No Known Allergies ENCOUNTERS from 1999 to 2021-03-07 Encounter Location Date Provider Diagnosis [facility] [address] [place] [address] [place] [address] Feb, Trung Moreno IMMUNIZATIONS Vaccine Route Administration Date Status TDAP [...] School Language: Question Answer Notes Languages spoken: Greenlandic Anabaptism: Question Answer Notes Anab[employer]ism 08 [employer] Alcohol Screening: Question Answer Notes Did you [...] Information RESULTS No Results REASON FOR VISIT No Information MEDICAL (GENERAL) HISTORY Type Description Date Medical [...] PLAN OF TREATMENT Next Appt Details Provider Name:Trung Moreno, 2021-03-10 1:20:00 AM, [facility] [facility], , [place], [address], Provider Name:Mónica Quinn, 07-07 02:30:00 PM, [address] [facility], , [place], [address], Insurance Providers Payer Name Payer Address Payer Phone Insured Name Patient Relati onship to Insured Coverage Start Date Coverage End Date [facility] COMMUNITY PLAN [facility] [address] [facility] [phone] DANA ALARCON self
--- OUTSIDE RECORDS SUMMARY | 2021-04-23 16:40 | CCD ---
Author Author [facility] Organization [facility] Address Unknown Phone Unavailable Care Team Providers Care Supervisor Furnace Process Name Role Phone Josh Trung Unavailable PROBLEMS Type Condition ICD9-CM Code [id number] Code Onset Dates Condition S tatus W/U Status Risk SNOMED Code Notes Problem KEVIN (generalized anxiety disorder) F41.1 Activ e confirmed 98380954 Problem Major depressive disorder F32.9 Active confirmed 286932066 Problem Hyperlipidemia E78.5 Active confirmed 77331 004 Problem Body mass index [BMI] 45.0-49.9, adult Z68.42 A ctive confirmed 336463975 Problem Anemia affecting in third trimester O99. 013 Active confirmed 91257309 Problem Morbid (severe) obesity due to excess calories E66 .01 Active confirmed 715648712 Problem Obesity complicating , third trimester O9 9.213 Active confirmed 941693687624 Problem Vitamin D deficiency E55.9 Active confirmed 62482318 Problem Obesity complicating in first trimester O99.211 Active confirmed Problem Supervision of other normal Z34.80 Ac tive confirm 917131214 Problem Asthma J45.909 Active confirmed 148645509 Problem Obesity complicating in third trimester O99.213 Active confirmed ALLERGIES No Known Allergies ENCOUNTERS from 1999 to 2021-03-28 Encounter Location Date Provider Diagnosis [facility] [address] [facility] [phone] [place] [address] Mar, Trung Moreno depressio n F53.0 and anxiety 648.44 IMMUNIZATIONS Vaccine Route Administration Date Status TDAP [...] School Language: Question Answer Notes Languages spoken: Urdu Buddhist: Question Answer Notes Buddhist 08 Samaritan Alcohol Screening: Question Answer Notes Did you have a drink containing alcohol in the past year? No Points 0 Interpretation Negative REASON FOR REFERRAL No Information VITAL SIGNS Weight 260.4 lbs Mar, Weight-kg 118.12 kg Mar, Height 64 in Mar, BMI 44.69 kg/m2 Mar, Blood pressure systolic 122 mm Hg Mar, Blood pressure diastolic 76 mm Hg Mar, MEDICATIONS Medication SIG (Take, Route, Frequency, Duration) Notes Start Da te End Date Status Sertraline HCl 25 MG 1 tablet Orally Once a day Not-Taking Effexor XR 37.5 MG 1 capsule with food Orally Once a day for 30 day(s) Mar, Active busPIRone HCl 10 MG 1 tablet Orally Twice a day Active PROCEDURES No Information RESULTS No Results REASON FOR VISIT 2 wk f/u MEDICAL (GENERAL) HISTORY Type Description Date Medical [...] Clinical Notes Mar, depression (ICD-10 - F53.0) Mar, anxiety (ICD9-CM - 648.44) PLAN OF TREATMENT Next Appt Details Provider Name:Nino Lebron, 2021-04-17 02:45:00 PM, [address] [place] [address] , [place], [address], Provider Name:Mónica Quinn, 07-07 02:30:00 PM, [address] [place] [address], , [place], [address], Insurance Providers Payer Name Payer Address Payer Phone Insured Name Patient Relati onship to Insured Coverage Start Date Coverage End Date [facility] [address] [facility] [address] DANA ALARCON self
--- OUTSIDE RECORDS SUMMARY | 2021-04-23 16:40 | CCD ---
Author Author [facility] Organization [facility] Address Unknown Phone Unavailable Care Team Providers Care Battery Assembler Dry Cell Name Role Phone Kai Mónica Unavailable PROBLEMS Type Condition ICD9-CM Code [id number] Code Onset Dates Condition S tatus W/U Status Risk SNOMED Code Notes Problem KEVIN (generalized anxiety disorder) F41.1 Activ e confirmed 14013336 Problem Major depressive disorder F32.9 Active confirmed 031194384 Problem Hyperlipidemia E78.5 Active confirmed 23778 004 Problem Body mass index [BMI] 45.0-49.9, adult Z68.42 A ctive confirmed 934914219 Problem Anemia affecting in third trimester O99. 013 Active confirmed 50509027 Problem Morbid (severe) obesity due to excess calories E66 .01 Active confirmed 963114933 Problem Obesity complicating , third trimester O9 9.213 Active confirmed 469356242522 Problem Vitamin D deficiency E55.9 Active confirmed 62884045 Problem Obesity complicating in first trimester O99.211 Active confirmed Problem Supervision of other normal Z34.80 Ac tive confirm 638790058 Problem Asthma J45.909 Active confirmed 774274305 Problem Obesity complicating in third trimester O99.213 Active confirmed ALLERGIES No Known Allergies ENCOUNTERS from 1999 to 2021-03-17 Encounter Location Date Provider Diagnosis [address] [phone] [place] [address] 07 Mar, 2021 Mónica Quinn IMMUNIZATIONS Vaccine Route Administration Date [...] School Language: Question Answer Notes Languages spoken: Kiswahili Jehovah'S Witness: Question Answer Notes Jehovah'S Witness 08 Rastafarian Alcohol Screening: Question Answer Notes Did you [...] Information RESULTS No Results REASON FOR VISIT test results from yesterday MEDICAL (GENERAL) HISTORY Type Description Date Medical [...] TREATMENT Next Appt Details Provider Name:Trung Moreno, 2021-03-28 0 2:40:00 PM, [address] [place] [address] , [facility] [address], Provider Name:Mónica Quinn, 07-07 02:30:00 PM, [address] [place] [address] , [facility] [address], Insurance Providers Payer Name Payer Address Payer Phone Insured Name Patient Relati onship to Insured Coverage Start Date Coverage End Date [facility] PL[facility] [address] [facility] [address] [phone] DANA ALARCON self
--- OUTSIDE RECORDS SUMMARY | 2021-04-23 16:40 | CCD ---
Author Author [facility] Organization [facility] Address Unknown Phone Unavailable Care Team Providers Care End Stapler Name Role Phone Jerry Spain Unavailable PROBLEMS Type Condition ICD9-CM Code [id number] Code Onset Dates Condition S tatus W/U Status Risk SNOMED Code Notes Problem Depression, unspecified depression type F32.9 Active confirmed 98081589 Problem Asthma, unspecified, unspecified status 493.90 Active confirmed Low 42572600 Problem Morbid (severe) obesity due to excess calories E66 .01 Active confirmed 01610863046731 Problem Body mass index (BMI) of 40.0-44.9 in adult Z68.41 Active confirmed 835478097 Problem Tension headache G44.209 Active confirmed 39 3976135 Problem Anxiety disorder, unspecified type F41.9 Activ e confirmed 958057772 Problem Iron deficiency anemia, unspecified iron deficiency an emia type D50.9 Active confirmed 51099513 Problem MDD (major depressive disorder), recurrent episode, mild F33.0 Active confirmed 086071394 Problem Uncomplicated asthma, unspecified asthma severity J45.909 Active confirmed 613128458 Problem Constipation, unspecified constipation type K59.00 Active confirmed 32441678 Problem Smoking F17.200 Active confirmed 92597142 Problem Body mass index (BMI) 45.0-49.9, adult Z68.42 A ctive confirmed 776908794 Problem Major depressive disorder with psychotic features F32.3 Active confirmed 513902638 ALLERGIES Allergen (clinical drug ingredient) Drug/Non Drug Allergy do cumented on EMR Reaction Allergy Type Onset Date Status seasonal Unknown Non Drug Allergy Active ENCOUNTERS from 1999 to 2021-03-28 Encounter Location Date Provider Diagnosis [address] [address] Nov, Jerry Spain IMMUNIZATIONS Vaccine Route Administration Date [...] Notes Start Da te End Date Status Active busPIRone HCl 15 MG i Orally tid for 30 days Sep, Active Albuterol Sulfate 108 (90 Base) MCG/ACT 1 puff as needed Inh alation every 6 hrs Active Vitamin D Active Venlafaxine HCl ER 75 MG 1 capsule with food Orally Once a day f or 30 day(s) Mar, Active PROCEDURES No Information RESULTS No Results REASON FOR VISIT questions MEDICAL (GENERAL) HISTORY Type Description Date Medical [...] Medication Name Sig Start Date Stop Date busPIRone HCl 15 MG i Orally tid for 30 days Sep, Venlafaxine HCl ER 75 MG 1 capsule with food Orally Once a d ay for 30 day(s) Mar, Next Appt Details Provider Name:Yogesh Weathers, 2021-03-30 1 0:00:00 AM, [address] [place] [address], [address], Provider Name:Kristina Ferris, 04-21 11:00:00 AM, [address] [place] [address], [address], Insurance Providers Payer Name Payer Address Payer Phone Insured Name Patient Relati onship to Insured Coverage Start Date Coverage End Date [employer] [facility] [employer] [address] [place] [id number] Renee Taylor self
--- OUTSIDE RECORDS SUMMARY | 2021-04-23 16:40 | CCD | Continuity of Care Document ---
Author Author Renee MCCLURE Organization Unknown Address [address] [place] [address] [address] [place] [address] Phone [phone] Care Team Providers Care Director Of Enterprise Architecture Name Role Phone Mónica Quinn KJ AUTM [phone] Problems Active Problems Provider Date Pure hypercholesterolemia [...] Available Procedures Date Code Description Status 02/16/2021 14660 Office/Outpatient Established SF MDM 10-19 Min Completed 11/30/2020 89415 Office/Outpatient Established Lo w MDM 20-29 Min Completed 11/30/2020 89426 X-Ray Foot Complete Completed 11/17/2020 86670 Office/Outpatient Established SF MDM 10-19 Min Completed 10/24/2020 22918 Office/Outpatient Established Lo w MDM 20-29 Min Completed Medical Devices Description No Information Available Encounters Type Date Location Provider Dx Diagnosis Office Visit 02/16/2021 2:20p [place] Perla L. Fish, PA-C M21.42 Flat foot [pes planus] (acquired), left foot 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 fascial fibromatosis S90.32xD Contusion of left foot, subs equent encounter Office Visit 11/30/2020 2:00p [place], PA-C 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 fascial fibromatosis M21.42 Flat foot [pes planus] (acqu ired), left foot Office Visit 11/17/2020 1:40p [place] Perla Cohen, PA-C S93.402 D Sprain of unspecified ligament of left ankle, subs encntr S90.32xD Contusion of left foot, subs equent encounter Office Visit 10/24/2020 11:15a [place], PA-C S93.402 D Sprain of unspecified ligament of left ankle, subs encntr S90.32xD Contusion of left foot, subs equent encounter M79.605 Pain in left leg Assessments Date Code Description Provider 02/16/2021 M21.42 Flat foot [pes planus] (acquired ), left foot Perla Cohen, PA-C 02/16/2021 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 fascial fibromatosis Les Webb Fish, PA-C 02/16/2021 S90.32xD Contusion of left foot, subseque nt encounter Perla Cohen, PA-C 11/30/2020 M21.42 Flat foot [pes planus] (acquired ), left foot Perla Cohen, PA-C 11/30/2020 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 fascial fibromatosis Les en L. Fish, PA-C 11/30/2020 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 fascial fibromatosis Les en L. Fish, PA-C 11/30/2020 M21.42 Flat foot [pes planus] (acquired ), left foot Perla Cohen, PA-C 11/17/2020 S93.402D Sprain of unspecifie d ligament of left ankle, subsequent encounter Perla Cohen, PA-C 11/17/2020 S90.32xD Contusion of left foot, subseque nt encounter Perla Cohen, PA-C 10/24/2020 S93.402D Sprain of unspecifie d ligament of left ankle, subsequent encounter Perla Tracey VIELKA Cohen 10/24/2020 S93.402D Sprain of unspecifie d ligament of left ankle, subsequent encounter Perla Tracey VIELKA Cohen 10/24/2020 S90.32xD Contusion of left [...] Date Peyton Thakur PA-C MRI APPROVED PER [facility] FOR MRI OF LEFT FOOT (67718) TO MRI. DG Created [address] [place] [address] [phone] Peyton Thakur PA-C P.T. AUTH FOR PT EVAL LT AN KLE/FOOT [phone]. PAT GOING TO [facility]. PASSED TO CHART.HW Created [address] [place] [address] [phone] Peyton Thakur PA-C O/V FOR LT ANKLE Created [address] [place] [address] [phone]
--- OUTSIDE RECORDS SUMMARY | 2021-04-23 16:40 | CCD ---
Author Author [facility] Organization [facility] Address Unknown Phone Unavailable Care Team Providers Care Health Care Law Specialist Name Role Phone Kai Mónica Unavailable PROBLEMS Type Condition ICD9-CM Code ERA17-PJ Code Onset Dates Condition S tatus W/U Status Risk SNOMED Code Notes Problem KEVIN (generalized anxiety disorder) F41.1 Activ e confirmed 22662094 Problem Major depressive disorder F32.9 Active confirmed 250239799 Problem Hyperlipidemia E78.5 Active confirmed 53430 004 Problem Body mass index [BMI] 45.0-49.9, adult Z68.42 A ctive confirmed 860431273 Problem Anemia affecting in third trimester O99. 013 Active confirmed 56960717 Problem Morbid (severe) obesity due to excess calories E66 .01 Active confirmed 670610043 Problem Obesity complicating , third trimester O9 9.213 Active confirmed 422552023397 Problem Vitamin D deficiency E55.9 Active confirmed 55447542 Problem Obesity complicating in first trimester O99.211 Active confirmed Problem Supervision of other normal Z34.80 Ac tive confirm 752384678 Problem Asthma J45.909 Active confirmed 846264819 Problem Obesity complicating in third trimester O99.213 Active confirmed ALLERGIES No Known Allergies ENCOUNTERS from 1999 to 2021-03-14 Encounter Location Date Provider Diagnosis [address] [phone] [place] [address] Mar, Mónica Quinn IMMUNIZATIONS Vaccine Route Administration Date [...] School Language: Question Answer Notes Languages spoken: Hungarian Holiness: Question Answer Notes Holiness 08 Zoroastrianism Alcohol Screening: Question Answer Notes Did you [...] RESULTS No Results REASON FOR VISIT sore throat and cough MEDICAL (GENERAL) HISTORY Type Description Date Medical [...] r 30 day(s) Mar, Next Appt Details Provider Name:Mónica Quinn, 2020-06 0-06 01:30:00 PM, [address] [place] [address] , [place], [address], Provider Name:Trung Moreno, 2021-03-28 0 2:40:00 PM, [address] [place] [address] , [place], [address], Provider Name:Mónica Quinn, 1- 02:30:00 PM, [address] [place] [address] , [place], [address], Insurance Providers Payer Name Payer Address Payer Phone Insured Name Patient Relati onship to Insured Coverage Start Date Coverage End Date [facility] [address] [facility] [address] DANA ALARCON self
--- OUTSIDE RECORDS SUMMARY | 2021-04-23 16:40 | CCD ---
Author Author [facility] Organization [facility] Address Unknown Phone Unavailable Care Team Providers Care Optomechanical Engineer Name Role Phone Delfina Ronit Unavailable PROBLEMS Type Condition ICD9-CM Code VHQ27-QJ Code Onset Dates Condition S tatus W/U Status Risk SNOMED Code Notes Problem KEVIN (generalized anxiety disorder) F41.1 Activ e confirmed 42293205 Problem Major depressive disorder F32.9 Active confirmed 123312667 Problem Hyperlipidemia E78.5 Active confirmed 97366 004 Problem Body mass index [BMI] 45.0-49.9, adult Z68.42 A ctive confirmed 562554837 Problem Anemia affecting in third trimester O99. 013 Active confirmed 81732685 Problem Morbid (severe) obesity due to excess calories E66 .01 Active confirmed 163299855 Problem Obesity complicating , third trimester O9 9.213 Active confirmed 206786956358 Problem Vitamin D deficiency E55.9 Active confirmed 92843941 Problem Obesity complicating in first trimester O99.211 Active confirmed Problem Supervision of other normal Z34.80 Ac tive confirm 344759585 Problem Asthma J45.909 Active confirmed 227649546 Problem Obesity complicating in third trimester O99.213 Active confirmed ALLERGIES No Known Allergies ENCOUNTERS from 1999 to 2021-02-23 Encounter Location Date Provider Diagnosis [facility] [address] [place] [address] [place] [address] 16 Feb, 2021 Ronit Mathis IMMUNIZATIONS Vaccine Route Administration Date Status TDAP [...] School Language: Question Answer Notes Languages spoken: Macedonian Hoahaoism: Question Answer Notes Hoahaoism 08 Episcopal Alcohol Screening: Question Answer Notes [...] Information RESULTS No Results REASON FOR VISIT concern MEDICAL (GENERAL) HISTORY Type Description Date Medical [...] TREATMENT Next Appt Details Provider Name:Frances Escalante, 2021-03-02 08:40:00 AM, [address] [facility], , [place], [address], Provider Name:Mónica Kai, 07-07 02:30:00 PM, [address] [facility], , [place], [address], Insurance Providers Payer Name Payer Address Payer Phone Insured Name Patient Relati onship to Insured Coverage Start Date Coverage End Date [facility] PLAN [facility] [address] [facility] [address] [phone] DANA ALARCON self
--- OUTSIDE RECORDS SUMMARY | 2021-04-23 16:40 | CCD ---
Author Author [facility] Organization [facility] Address Unknown Phone Unavailable Care Team Providers Care Insurance Advisor Name Role Phone JoshTrung Unavailable PROBLEMS Type Condition ICD9-CM Code JVD18-RD Code Onset Dates Condition S tatus W/U Status Risk SNOMED Code Notes Problem KEVIN (generalized anxiety disorder) F41.1 Activ e confirmed 85378729 Problem Major depressive disorder F32.9 Active confirmed 028348318 Problem Hyperlipidemia E78.5 Active confirmed 72187 004 Problem Body mass index [BMI] 45.0-49.9, adult Z68.42 A ctive confirmed 434277191 Problem Anemia affecting in third trimester O99. 013 Active confirmed 85661483 Problem Morbid (severe) obesity due to excess calories E66 .01 Active confirmed 800546921 Problem Obesity complicating , third trimester O9 9.213 Active confirmed 082862791211 Problem Vitamin D deficiency E55.9 Active confirmed 79950984 Problem Obesity complicating in first trimester O99.211 Active confirmed Problem Supervision of other normal Z34.80 Ac tive confirm 176454662 Problem Asthma J45.909 Active confirmed 129140923 Problem Obesity complicating in third trimester O99.213 Active confirmed ALLERGIES No Known Allergies ENCOUNTERS from 1999 to 2021-03-10 Encounter Location Date Provider Diagnosis [facility] [address] [place] [address] [place] [address] Mar, Trung Moerno IMMUNIZATIONS Vaccine Route Administration Date Status TDAP [...] School Language: Question Answer Notes Languages spoken: Nepali Anabaptist: Question Answer Notes Anabaptist 08 Roman Catholic Alcohol Screening: Question Answer Notes Did you [...] Information RESULTS No Results REASON FOR VISIT R/S APPT MEDICAL (GENERAL) HISTORY Type Description Date Medical [...] day(s) Mar, Next Appt Details Provider Name:Mónica Kai, 07-07 02:30:00 PM, [address] [facility], , [place], [address], Insurance Providers Payer Name Payer Address Payer Phone Insured Name Patient Relati onship to Insured Coverage Start Date Coverage End Date [facility] [address] [facility] [phone] DANA ALARCON self
--- OUTSIDE RECORDS SUMMARY | 2021-04-23 16:40 | CCD ---
Author Author [facility] Organization [facility] Address Unknown Phone Unavailable Care Team Providers Care Truck Bracer Name Role Phone Mónica Quinn Unavailable PROBLEMS Type Condition ICD9-CM Code IGQ34-LM Code Onset Dates Condition S tatus W/U Status Risk SNOMED Code Notes Problem KEVIN (generalized anxiety disorder) F41.1 Activ e confirmed 60182051 Problem Major depressive disorder F32.9 Active confirmed 976922999 Problem Hyperlipidemia E78.5 Active confirmed 30068 004 Problem Body mass index [BMI] 45.0-49.9, adult Z68.42 A ctive confirmed 814924495 Problem Anemia affecting in third trimester O99. 013 Active confirmed 13027287 Problem Morbid (severe) obesity due to excess calories E66 .01 Active confirmed 753108230 Problem Obesity complicating , third trimester O9 9.213 Active confirmed 993295131132 Problem Vitamin D deficiency E55.9 Active confirmed 81112570 Problem Obesity complicating in first trimester O99.211 Active confirmed Problem Supervision of other normal Z34.80 Ac tive confirm 590864286 Problem Asthma J45.909 Active confirmed 507623881 Problem Obesity complicating in third trimester O99.213 Active confirmed ALLERGIES No Known Allergies ENCOUNTERS from 1999 to 2021-03-21 Encounter Location Date Provider Diagnosis [address] [phone] [place] [address] Mar, Mónica Quinn Chest congestion R09.89 IMMUNIZATIONS Vaccine Route Administration Date Status TDAP [...] School Language: Question Answer Notes Languages spoken: Kazakh Adventist: Question Answer Notes Adventist 08 Yarsani Alcohol Screening: Question Answer Notes Did you have a drink containing alcohol in the past year? No Points 0 Interpretation Negative REASON FOR REFERRAL No Information VITAL SIGNS Weight 248.25 lbs Mar, Weight-kg 112.61 kg Mar, Height 64 in Mar, BMI 42.61 kg/m2 Mar, Heart Rate 119 /min Mar, Respiratory Rate 18 /min Mar, Temperature 96.9 degrees Fahrenheit Mar, Oximetry 99 Mar, Blood pressure systolic 108 mm Hg Mar, Blood pressure diastolic 70 mm Hg Mar, MEDICATIONS Medication SIG (Take, [...] Information RESULTS No Results REASON FOR VISIT Door D MEDICAL (GENERAL) HISTORY Type Description Date Medical [...] Treatment Notes Treatm ent Clinical Notes Mar, Chest congestion (ICD-10 - R09.89) obtain RSV/flu/Covid swab to risk stratify advised supportive measures Not breast feeding. advised to avoid exposure to sick contacts PLAN OF TREATMENT Treatment Notes Assessment Notes Clinical Notes Chest congestion obtain RSV/flu/Covid swab to risk stratifyadvised supportive measuresNot breast feeding.advised to avoid exposure to sick contacts Future Test Test Name Order Date Influenza A/B RSV COVID AMP [id number] Next Appt Details 4 Months Reason: Provider Name:Trung Moreno, 2021-03-28 0 2:40:00 PM, [address] [facility], , [place], [address], Provider Name:Mónica Quinn, 07-07 02:30:00 PM, [address] [facility], , [place], [address], Insurance Providers Payer Name Payer Address Payer Phone Insured Name Patient Relati onship to Insured Coverage Start Date Coverage End Date [facility]AN [facility] [address] [facility] [address] DANA ALARCON self
--- OUTSIDE RECORDS SUMMARY | 2021-04-23 16:40 | CCD ---
Author Author [facility] Organization [facility] Address Unknown Phone Unavailable Care Team Providers Care Cupola Charger Insulation Name Role Phone Mónica Quinn Unavailable PROBLEMS Type Condition ICD9-CM Code [id number] Code Onset Dates Condition S tatus W/U Status Risk SNOMED Code Notes Problem KEVIN (generalized anxiety disorder) F41.1 Activ e confirmed 36541119 Problem Major depressive disorder F32.9 Active confirmed 907784711 Problem Hyperlipidemia E78.5 Active confirmed 41220 004 Problem Body mass index [BMI] 45.0-49.9, adult Z68.42 A ctive confirmed 939832601 Problem Anemia affecting in third trimester O99. 013 Active confirmed 90749786 Problem Morbid (severe) obesity due to excess calories E66 .01 Active confirmed 013086148 Problem Obesity complicating , third trimester O9 9.213 Active confirmed 339687264309 Problem Vitamin D deficiency E55.9 Active confirmed 75952362 Problem Obesity complicating in first trimester O99.211 Active confirmed Problem Supervision of other normal Z34.80 Ac tive confirm 016208700 Problem Asthma J45.909 Active confirmed 829562256 Problem Obesity complicating in third trimester O99.213 Active confirmed ALLERGIES No Known Allergies ENCOUNTERS from 1999 to 2021-03-27 Encounter Location Date Provider Diagnosis [facility] [address] [phone] [place] [address] Mar, Mónica Quinn Contusion of left foot, subs equent encounter S90.32XD IMMUNIZATIONS Vaccine Route Administration Date Status TDAP [...] School Language: Question Answer Notes Languages spoken: Yoruba Amish: Question Answer Notes Amish 08 Restorationist Alcohol Screening: Question Answer Notes Did you have a drink containing alcohol in the past year? No Points 0 Interpretation Negative REASON FOR REFERRAL from 1999 to 2021-03-27 Reason continuity of care Diagnosis 1 Contusion of left foot, subs equent encounter (S90.32XD) Referral Organization [facility] [place] Referring Provider First Name Mónica Referring Provider Last Name Kai Referring Provider Specialty Family Medicine Referred Provider [facility],Orthopedics Referred Provider Specialty Orthopedic Surgery Referral Priority Routine General Notes Tammy Kruse 03/27/2021 1 :00:33 PM > scanned and faxed Referral ID:[id number] VITAL SIGNS No information MEDICATIONS Medication SIG [...] Information RESULTS No Results REASON FOR VISIT Referral for ortho MEDICAL (GENERAL) HISTORY Type Description Date Medical [...] Treatment Notes Treatm ent Clinical Notes Mar, Contusion of left foot, subsequent encounter ( D-10 - S90.32XD) PLAN OF TREATMENT Referrals Referral Date Details continuity of care, Orthoped ics [facility] Next Appt Details Provider Name:Trung Moreno, 2021-03-28 0 2:40:00 PM, [address], , [place], [address], Provider Name:Mónica Quinn, 2021-07-07 02:30:00 PM, [address], , [place], [address], Insurance Providers Payer Name Payer Address Payer Phone Insured Name Patient Relati onship to Insured Coverage Start Date Coverage End Date [facility] [employer] [facility] [address] [facility] [phone] DANA ALARCON self
--- OUTSIDE RECORDS SUMMARY | 2021-04-23 16:40 | CCD ---
Author Author [facility] Organization [facility] Address Unknown Phone Unavailable Care Team Providers Care Chain Pegger Name Role Phone JoshTrung Unavailable PROBLEMS Type Condition ICD9-CM Code [id number] Code Onset Dates Condition S tatus W/U Status Risk SNOMED Code Notes Problem KEVIN (generalized anxiety disorder) F41.1 Activ e confirmed 75800991 Problem Major depressive disorder F32.9 Active confirmed 709594199 Problem Hyperlipidemia E78.5 Active confirmed 37251 004 Problem Body mass index [BMI] 45.0-49.9, adult Z68.42 A ctive confirmed 534872814 Problem Anemia affecting in third trimester O99. 013 Active confirmed 46028150 Problem Morbid (severe) obesity due to excess calories E66 .01 Active confirmed 727098434 Problem Obesity complicating , third trimester O9 9.213 Active confirmed 945268308368 Problem Vitamin D deficiency E55.9 Active confirmed 34072681 Problem Obesity complicating in first trimester O99.211 Active confirmed Problem Supervision of other normal Z34.80 Ac tive confirm 271645541 Problem Asthma J45.909 Active confirmed 005785955 Problem Obesity complicating in third trimester O99.213 Active confirmed ALLERGIES No Known Allergies ENCOUNTERS from 1999 to 2021-03-10 Encounter Location Date Provider Diagnosis [facility] [address] [phone] [place] [address] Feb, Trung Moreno IMMUNIZATIONS Vaccine Route Administration [...] School Language: Question Answer Notes Languages spoken: Serbian Confucianist: Question Answer Notes Confucianist 08 Alevism Alcohol Screening: Question Answer Notes Did you [...] Information RESULTS No Results REASON FOR VISIT requesting telephone consult MEDICAL (GENERAL) HISTORY Type Description Date Medical [...] Provider Name:Mónica Kai, 07-07 02:30:00 PM, [address], , [place], [address], Insurance Providers Payer Name Payer Address Payer Phone Insured Name Patient Relati onship to Insured Coverage Start Date Coverage End Date [facility] [employer] [facility] [address] [facility] [phone] DANA ALARCON self
[2021-04-23 16:41] VITALS: O2SAT 98
--- OUTSIDE RECORDS SUMMARY | 2021-04-23 16:42 | CCD ---
Author Author [facility] Organization [facility] Address Unknown Phone Unavailable Care Team Providers Care Township Clerk Name Role Phone Noel Kamala Saldanaen [facility], PA-C Unavailable Unavailabl e Fish, Kamala [facility], PA-C Unavailable Unavailabl e Fish, Kamala [facility], PA-C Unavailable Unavailabl e Fish, Kamala [facility], PA-C Unavailable Unavailabl e Fish, Kamala [facility], PA-C Unavailable Unavailabl e Fish, Kamala [facility], PA-C Unavailable Unavailabl e Fish, Kamala [facility], PA-C Unavailable Unavailabl e Fish, Kamala [facility], PA-C Unavailable Unavailabl e Fish, Kam[facility], PA-C Unavailable Unavailabl e Fish, Kamala [facility], PA-C Unavailable Unavailabl e Fish, Kamala [facility], PA-C Unavailable Unavailabl e Fish, Kamala [facility], PA-C Unavailable Unavailabl e Fish, Kamala [facility], PA-C Unavailable Unavailabl e Fish, [facility], PA-C Unavailable Unavailabl e Fish, [facility], PA-C Unavailable Unavailabl e Fish, [facility], PA-C Unavailable Unavailabl e Fish, [facility], PA-C Unavailable Unavailabl e Fish, [facility], PA-C Unavailable Unavailabl e Fish, [facility], PA-C Unavailable Unavailabl e Fish, [facility], PA-C Unavailable Unavailabl e Fish, [facility], PA-C Unavailable Unavailabl e Fish, [facility], PA-C Unavailable Unavailabl e Fish, [facility], PA-C Unavailable Unavailabl e Fish, [facility], PA-C Unavailable Unavailabl e Fish, [facility], PA-C Unavailable Unavailabl e Fish, [facility], PA-C Unavailable Unavailabl e Fish, [facility], PA-C Unavailable Unavailabl e Fish, [facility], PA-C Unavailable Unavailabl e Fish, [facility], PA-C Unavailable Unavailabl e Fish, [facility], PA-C Unavailable Unavailabl e Fish, [facility], PA-C Unavailable Unavailabl e Fish, [facility], PA-C Unavailable Unavailabl e Fish, [facility], PA-C Unavailable Unavailabl e Fish, [facility], PA-C Unavailable Unavailabl e Fish, [facility], PA-C Unavailable Unavailabl e Fish, [facility], PA-C Unavailable Unavailabl e NEAL SR, KARLEY WAN MD Unavailable Unavailable [...] NEAL SR, KARLEY WAN MD Unavailable Unavailable DANIEL CHAPA MD Unavailable Unavailable DANIEL CHAPA MD Unavailable Unavailable CHAPADANIEL ROBISON MD Unavailable Unavailable CHAPADANIEL ROBISON MD Unavailable Unavailable CHAPADANIEL ROBISON MD Unavailable Unavailable CHAPADAINEL ROBISON MD Unavailable Unavailable CHAPADANIEL ROBISON MD Unavailable Unavailable CHAPADANIEL ROBISON MD Unavailable Unavailable CHAPADANIEL ROBISON MD Unavailable Unavailable CHAPADANIEL ROBISON MD Unavailable Unavailable SYMENOW, G CHRISTOPHER PA Unavailable [...] Unavailable SYMENOW, G CHRISTOPHER PA Unavailable Unavailable HOBBS, W MARIELA PA [...] Unavailable HOBBS, W MARIELA PA Unavailable Unavailable NEAL SR, KARLEY WAN MD [...] NEAL SR, KARLEY WAN MD Unavailable Unavailable CABELLO, ANAHI Unavailable Unavailable ANEL WEATHERS Unavailable Unavailable DESJARLAIS, MARGARITA ELECTRICIAN TELEPHONE Unavailable Unavailable DESJARLAIS, MARGARITA ELECTRICIAN TELEPHONE Unavailable Unavailable DESJARLAIS, MARGARITA ELECTRICIAN TELEPHONE Unavailable Unavailable DESJARLAIS, MARGARITA ELECTRICIAN TELEPHONE Unavailable Unavailable DESJARLAIS, MARGARITA ELECTRICIAN TELEPHONE Unavailable Unavailable DESJARLAIS, MARGARITA ELECTRICIAN TELEPHONE Unavailable Unavailable DESJARLAIS, MARGARITA ELECTRICIAN TELEPHONE Unavailable Unavailable DESJARLAIS, MARGARITA ELECTRICIAN TELEPHONE Unavailable Unavailable DESJARLAIS, MARGARITA ELECTRICIAN TELEPHONE Unavailable Unavailable DESJARLAIS, MARGARITA ELECTRICIAN TELEPHONE Unavailable Unavailable Fernando Weathers Unavailable Fernando Weathers Unavailable KAMLA, CECE MARIA EUGENIA PA Unavailable [...] KAMLA, CECE MARIA EUGENIA PA Unavailable Unavailable LUCY DILLON Unavailable Unavailable MIKAYLA SHIRLEY MD Unavailable Unavailable [...] Unavailable FERN, MIKAYLA LAWRENCE MD Unavailable Unavailable MIKAYLA SHIRLEY MD Unavailable Unavailable FERN, MIKAYLA LAWRENCE MD Unavailable Unavailable FERN, MIKAYLA LAWRENCE MD Unavailable Unavailable FERN, MIKAYLA LAWRENCE MD Unavailable Unavailable MIKAYLA SHIRLEY MD Unavailable Unavailable NICOLE, VeronicaMoises BERRY Unavailable [phone] NICOLE, VeronicaMoises BERRY Unavailable [phone] NICOLE, VeronicaMoises BERRY Unavailable [phone] NICOLE, VeronicaMoises BERRY Unavailable [phone] ROSALINARORORACHEL, Shanta BERRY Unavailable [phone] Feola, T Flor PA Unavailable Unavailable Feola, T Flro PA Unavailable Unavailable Feola, T Flor PA Unavailable Unavailable Feola, T Flor PA Unavailable Unavailable Feola, T Flor PA Unavailable Unavailable Feola, T Flor PA Unavailable Unavailable Feola, T Flor PA Unavailable Unavailable Feola, T Flor PA Unavailable Unavailable Feola, T Flor PA Unavailable Unavailable Feola, T Flor PA Unavailable Unavailable Feola, T Flor PA Unavailable Unavailable Feola, T Flor PA Unavailable Unavailable Feola, T Flor PA Unavailable Unavailable Feola, T Flor PA Unavailable Unavailable Feola, T Flor PA Unavailable Unavailable Feola, T Flor PA Unavailable Unavailable Feola, T Flor PA Unavailable Unavailable Feola, T Flor PA Unavailable Unavailable Feola, T Flor PA Unavailable Unavailable Feola, T Flor PA Unavailable Unavailable Feola, T Flro PA Unavailable Unavailable Feola, T Flor PA Unavailable Unavailable Feola, T Flor PA Unavailable Unavailable Feola, T Flor PA Unavailable Unavailable Feola, T Flor PA Unavailable Unavailable Feola, T Flor PA Unavailable Unavailable Feola, T Flor PA Unavailable Unavailable Feola, T Flor PA Unavailable Unavailable Feola, T Flor PA Unavailable Unavailable Feola, T Flor PA Unavailable Unavailable Feola, T Flor PA Unavailable Unavailable Feola, T Flor PA Unavailable Unavailable Feola, T Flor PA Unavailable Unavailable Feola, T Flor PA Unavailable Unavailable Feola, T Flor PA Unavailable Unavailable Feola, T Flor PA Unavailable Unavailable Feola, T Flor PA Unavailable Unavailable Feola, T Flor PA Unavailable Unavailable Feola, T Flor PA Unavailable Unavailable Feola, T Flor PA Unavailable Unavailable Feola, T Flor PA Unavailable Unavailable CONTRERAS, KITTY EULALIA ELECTRICIAN TELEPHONE Unavailable Unavailable CONTRERAS, KITTY EULALIA ELECTRICIAN TELEPHONE Unavailable Unavailable CONTRERAS, KITTY EULALIA ELECTRICIAN TELEPHONE Unavailable Unavailable CONTRERAS, KITTY EULALIA ELECTRICIAN TELEPHONE Unavailable Unavailable CONTRERAS, KITTY EULALIA ELECTRICIAN TELEPHONE Unavailable Unavailable CONTRERAS, KITTY EULALIA ELECTRICIAN TELEPHONE Unavailable Unavailable CONTRERAS, KITTY EULALIA ELECTRICIAN TELEPHONE Unavailable Unavailable CONTRERAS, KITTY EULALIA ELECTRICIAN TELEPHONE Unavailable Unavailable CONTRERAS, KITTY EULALIA ELECTRICIAN TELEPHONE Unavailable Unavailable CONTRERAS, KITTY EULALIA ELECTRICIAN TELEPHONE Unavailable Unavailable CONTRERAS, KITTY EULALIA ELECTRICIAN TELEPHONE Unavailable Unavailable CONTRERAS, KITTY EULALIA ELECTRICIAN TELEPHONE Unavailable Unavailable CONTRERAS, KITTY EULALIA ELECTRICIAN TELEPHONE Unavailable Unavailable CONTRERAS, KITTY EULALIA ELECTRICIAN TELEPHONE Unavailable Unavailable CONTRERAS, KITTY EULALIA ELECTRICIAN TELEPHONE Unavailable Unavailable CONTRERAS, KITTY EULALIA ELECTRICIAN TELEPHONE Unavailable Unavailable CONTRERAS, KITTY EULALIA ELECTRICIAN TELEPHONE Unavailable Unavailable CONTRERAS, KITTY EULALIA ELECTRICIAN TELEPHONE Unavailable Unavailable CONTRERAS, KITTY EULALIA ELECTRICIAN TELEPHONE Unavailable Unavailable CONTRERAS, KITTY EULALIA ELECTRICIAN TELEPHONE Unavailable Unavailable CONTRERAS, KITTY EULALIA ELECTRICIAN TELEPHONE Unavailable Unavailable CONTRERAS, KITTY EULALIA ELECTRICIAN TELEPHONE Unavailable Unavailable CONTREARS, KITTY EULALIA ELECTRICIAN TELEPHONE Unavailable Unavailable CRICKET, L RAPHAEL PA Unavailable [...] Unavailable CRICKET, L RAPHAEL PA Unavailable Unavailable Jepma, W Nino DO Unavailable [...] Unavailable Jepma, W Nino DO Unavailable Unavailable KRISTI CHEUNG MD Unavailable Unavailable KRISTI CHEUNG MD Unavailable Unavailable KRISTI CHEUNG MD Unavailable Unavailable KRISTI CHEUNG MD Unavailable Unavailable KRISTI CHEUNG MD Unavailable Unavailable KRISTI CHEUNG MD Unavailable Unavailable KRISTI CHEUNG MD Unavailable Unavailable KRISTI CHEUNG MD Unavailable Unavailable KRISTI CHEUNG MD Unavailable Unavailable LUCY DILLON Unavailable Unavailable HUIZENGA, Glenda WALSH DO Unavailable [...] HUIZENGA, Glenda WALSH DO Unavailable Unavailable HUIZENGA, Gelnda WALSH DO Unavailable Unavailable HUIZENGA, Glenda WALSH [...] HUIZENGA, Glenda WALSH DO Unavailable Unavailable HUIZENGA, D NICO DO Unavailable Unavailable HUIZENGA, D NICO DO Unavailable Unavailable HUIZENGA, D NICO DO Unavailable Unavailable HUIZENGA, D NICO DO Unavailable Unavailable HUIZENGA, D NICO DO Unavailable Unavailable HUIZENGA, D NICO DO Unavailable Unavailable HUIZENGA, D NICO DO Unavailable Unavailable HUIZENGA, D NICO DO Unavailable Unavailable HUIZENGA, D NICO DO Unavailable Unavailable HUIZENGA, D NICO DO Unavailable Unavailable HUIZENGA, D NICO DO Unavailable Unavailable HUIZENGA, D NICO DO Unavailable Unavailable HUIZENGA, D NICO DO Unavailable Unavailable HUIZENGA, D NICO DO Unavailable Unavailable HUIZENGA, D NICO DO Unavailable Unavailable HUIZENGA, D NICO DO Unavailable Unavailable HUIZENGA, D NICO DO Unavailable Unavailable HUIZENGA, D NICO DO Unavailable Unavailable HUIZENGA, D NICO DO Unavailable Unavailable HUIZENGA, D NICO DO Unavailable Unavailable HUIZENGA, D NICO DO Unavailable Unavailable HUIZENGA, D NICO DO Unavailable Unavailable HUIZENGA, D NICO DO Unavailable Unavailable HUIZENGA, D NICO DO Unavailable Unavailable HUIZENGA, D NICO DO Unavailable Unavailable HUIZENGA, D NICO DO Unavailable Unavailable HUIZENGA, D NICO DO Unavailable Unavailable HUIZENGA, D NICO DO Unavailable Unavailable HUIZENGA, D NICO DO Unavailable Unavailable HUIZENGA, D NICO DO Unavailable Unavailable HUIZENGA, D NICO DO Unavailable Unavailable HUIZENGA, D NICO DO Unavailable Unavailable Re-disclosure Warning The records that [...] is protected by Article 27-F of the [facility] Public Health law. If you continue you may have access to information: Regarding HIV / AIDS; Provided by facilities licensed or operated by the [facility] Office of Mental Health; or Provided by the [facility] Office for People With Developmental Disabilities. If such information is present, then the following [facility] mandated warning applies: This information has been [...] law may result in a fine or halfway sentence or both. A general authorization for the release of medical or other information is NOT sufficient authorization for further disc losure. Allergies and Adverse Reactions Type Description Substance Reaction Status Data Source(s ) No Known Drug Allergies No Known Drug Allergies [facility] No Known Food Allergies No Known Food Allergies [facility] Propensity to adverse reactions seasonal seasonal SNEEZING [facility] Family History Family Member Name Family Member Gender Family Member Status Date o f Status Description Data Source(s) Unknown Male Problem MEDENT ([facility]) Unknown Male Problem MEDENT ([facility] ) Encounters Encounter Providers Location Date Indications Data Source(s ) Outpatient Attender: Fernando Weathers 04/19/2021 09:07:00 AM [facility] Outpatient Attender: Fernando Weathers 04/06/2021 10:40:00 AM [facility] Outpatient Attender: Fernando Weathers 03/30/2021 10:00:00 AM [facility] Outpatient [address] [facility] [address] 03/28/2021 12:00:00 AM EDT eCW1 ([facility]) OFFICE OUTPATIENT VISIT 15 MINUTES Attender: Perla TORIBIO PA-C Physical Therapy 03/27/2021 01:00:00 PM EDT MEDENT ([facility]) Unknown [address] [facility] [address] 03/27/2021 12:00:00 AM EDT eCW1 ([facility]) Outpatient Attender: MARGARITA BARNARD NP 03[facility]22[facility]20[facility] [address] [facility] [address] 03/16/2021 12:00:00 AM EDT [facility]1 [facility] [address] [facility] [address] 03/15/2021 12:00:00 AM EDT [facility]CW1 [facility] [place] [address] [facility] [address] 03/14/2021 12:00:00 AM EDT eCW1 ([facility]) [place] [address] [facility] [address] 03/10/2021 12:00:00 AM EDT eCW1 [facility] [place] [address] [facility] [address] 03/10/2021 12:00:00 AM EDT eCW1 ([facility] [place] [address] [facility] [address] 03/09/2021 12:00:00 AM EDT eCW1 ([facility] [place] [address] [facility] [address] 03/07/2021 12:00:00 AM EDT eCW1 [facility] Outpatient [facility] 03/02/2021 12:00:00 AM EDT eCW1 ([facility]) [place] [address] [facility] [address] 02/28/2021 12:00:00 AM EDT eCW1 ([facility]) Outpatient Attender: Fernando Weathers 02/23/2021 10:00:00 AM [facility] Unknown [address] [facility] [address] 02/23/2021 12:00:00 AM EDT eCW1 ([facility] (WC ESTOB) WCenter Est OB [address] [place] [address] 02/22/2021 12:00:00 AM EDT eCW1 ([facility]) Outpatient Attender: Perla TORIBIO PA-C Physical Therapy 02/16/2021 02:20:00 PM EDT MEDENT ([facility]) Outpatient [facility] 02/16/2021 12:00:00 AM EDT eCW1 ([facility]) ( ESTOB) [facility] Est [facility] [address] [place] [address] 02/14/2021 12:00:00 AM EDT eCW1 ([facility]) Unknown [address] [facility] [address] 02/09/2021 12:00:00 AM EDT eCW1 ([facility]) ( ESTOB) [facility] Est [facility] [address] [place] [address] 02/08/2021 12:00:00 AM EDT eCW1 ([facility]) Unknown [address] [facility] [address] 02/08/2021 12:00:00 AM EDT eCW1 ([facility]) Outpatient Attender: Fernando Weathers 02/02/2021 11:00:00 AM E [facility] Unknown [address] [facility] [address] 01/26/2021 12:00:00 AM EDT eCW1 ([facility]) Unknown [address] [facility] [address] 01/25/2021 12:00:00 AM EDT eCW1 ([facility]) ( ESTOB) enter Est OB [address] [place] [address] 01/24/2021 12:00:00 AM EDT eCW1 ([facility]) Unknown [address] [facility] [address] 01/23/2021 12:00:00 AM EDT eCW1 ([facility]) Unknown [address] [facility] [address] 01/20/2021 12:00:00 AM EDT eCW1 ([facility]) Outpatient Attender: MARGARITA BARNARD NP 01/19/2021 02: 20:00 PM [facility] OB [address] [place] [address] 01/10/2021 12:00:00 AM EDT eCW1 ([facility]) Unknown [address] [facility] [address] 01/06/2021 12:00:00 AM EDT eCW1 ([facility]) Unknown [address] [facility] [address] 01/06/2021 12:00:00 AM EDT eCW1 ([facility]) Unknown [address] [facility] [address] 01/05/2021 12:00:00 AM EDT eCW1 ([facility]) Unknown [address] [facility] [address] 01/03/2021 12:00:00 AM EDT eCW1 ([facility]) Outpatient Attender: Fernando Weathers 12/29/2020 10:00:00 AM [facility] Outpatient Attender: MARGARITA BARNARD NP 12/28/2020 11: 40:00 AM [facility] ([facility]) [facility] Est OB [address] [place] [address] 12/27/2020 12:00:00 AM EDT eCW1 ([facility]) Outpatient [address] [facility] [address] 12/16/2020 12:00:00 AM EDT eCW1 ([facility]) Unknown [address] [facility] [address] 12/16/2020 12:00:00 AM EDT eCW1 ([facility]) Outpatient Attender: Fernando Weathers 12/15/2020 10:00:00 AM [facility] Unknown [address] [facility] [address] 12/15/2020 12:00:00 AM EDT [facility]CW1 [facility] Unknown [address] [facility] [address] 12/14/2020 12:00:00 AM EDT [facility]CW1 [facility] [place] Unknown [address] [facility] [address] 12/14/2020 12:00:00 AM EDT eCW1 [facility] [place] Outpatient [facility] 12/07/2020 12:00:00 AM EDT eCW1 ([facility]) Outpatient Attender: Flor PIZARRO 021 03:47:32 PM EDT - 12/05/2020 04:57:37 PM EDT [facility]ap ([facility] ) Unknown [address] [facility] [address] 12/05/2020 12:00:00 AM EDT eCW1 [facility] Unknown [address] [facility] [address] 12/04/2020 12:00:00 AM EDT eCW1 [facility]) Outpatient Attender: Fernando Weathers 12/01/2020 10:00:00 AM E [facility] Admission cancelled. Disregard status an d admitted date. OFFICE OUTPATIENT VISIT 15 MINUTES Attender: Perla TORIBIO PA-C Physical Therapy 11/30/2020 02:00:00 PM EDT MEDENT ([facility]) Unknown [address] [facility] [address] 11/29/2020 12:00:00 AM EDT eCW1 [facility]) ( ESTOB) [facility] Est OB [address] [place] [address] 11/28/2020 12:00:00 AM EDT eCW1 ([facility]) Outpatient Attender: Fernando Weathers 11/24/2020 10:00:00 AM E [facility] Unknown [address] [facility] [address] 11/24/2020 12:00:00 AM EDT eCW1 ([facility]) Outpatient Attender: Perla TORIBIO PA-C Physical Therapy 11/17/2020 01:40:00 PM EDT MEDENT ([facility]) Outpatient Attender: Fernando Weathers 11/17/2020 10:00:00 AM E [facility] Outpatient [address] [facility] [address] 11/16/2020 12:00:00 AM EDT eCW1 ([facility]) Unknown [address] [facility] [address] 11/16/2020 12:00:00 AM EDT eCW1 ([facility]) Outpatient Attender: Fernando Weathers 11/10/2020 01:00:00 PM E [facility] Unknown [address] [facility] [address] 11/08/2020 12:00:00 AM EDT eCW1 ([facility]) Outpatient Attender: Fernando Weathers 11/03/2020 10:00:00 AM E [facility] Unknown [address] [facility] [address] 11/02/2020 12:00:00 AM EDT eCW1 ([facility]) (WC ESTOB) [facility] [address] [place] [address] 10/31/2020 12:00:00 AM EDT eCW1 ([facility]) Unknown [address] [facility] [address] 10/31/2020 12:00:00 AM EDT eCW1 ([facility]) Outpatient [address] [facility] [address] 10/28/2020 12:00:00 AM EDT eCW1 ([facility]) Outpatient Attender: Fernando Weathers 10/27/2020 10:00:00 AM E [facility] OFFICE OUTPATIENT VISIT 15 MINUTES Attender: Perla TORIBIO PA-C Physical Therapy 10/24/2020 11:15:00 AM EDT MEDENT ([facility]) (WC ESTOB) [facility] Est OB [address] [place] [address] 10/21/2020 12:00:00 AM EDT eCW1 ([facility]) Unknown [address] [facility] [address] 10/20/2020 12:00:00 AM EDT eCW1 ([facility]) Outpatient Attender: Fernando Weathers 10/13/2020 10:00:00 AM [facility] Unknown [address] [facility] [address] 10/12/2020 12:00:00 AM EDT eCW1 ([facility]) Unknown [address] [facility] [address] 10/12/2020 12:00:00 AM EDT eCW1 ([facility]) Unknown [address] [facility] [address] 10/11/2020 12:00:00 AM EDT eCW1 ([facility]) (WC ESTOB) [facility] Est [facility] [address] [place] [address] 10/10/2020 12:00:00 AM EDT eCW1 ([facility]) Outpatient Attender: Fernando Weathers 10/07/2020 11:30:00 AM [facility] Outpatient Attender: MARGARITA BARNARD NP 09/30/2020 11: 40:00 AM [facility] Outpatient Attender: Fernando WeathersAttender: FERNANDO WEATHERS 09/29/2020 10:00:00 AM [facility] Outpatient Attender: Fernando Weber: FERNANDO WEATHERS 09/22/2020 10:00:00 AM [facility] Unknown [address] [facility] [address] 09/20/2020 12:00:00 AM EDT eCW1 ([facility]) Outpatient Attender: MARGARITA BARNARD NP 09/13/2020 11: 16:00 AM [facility] (WC ESTOB) [facility] Est OB [address] [place] [address] 09/12/2020 12:00:00 AM EDT eCW1 ([facility] [place]) Unknown [address] [facility] [address] 09/07/2020 12:00:00 AM EDT eCW1 [facility] [place] OFFICE OUTPATIENT VISIT 15 MINUTES Attender: Perla TORIBIO PA-C Physical Therapy 09/06/2020 03:30:00 PM EDT MEDENT ([facility]) Outpatient [address] [facility] [address] 09/06/2020 12:00:00 AM EDT [facility]CW1 [facility] Unknown [address] [facility] [address] 09/05/2020 12:00:00 AM EDT eCW1 [facility]) Outpatient Attender: Fernando Weber: FERNANDO WEATHERS 09/01/2020 10:00:00 AM [facility] OFFICE OUTPATIENT VISIT 15 MINUTES Attender: Perla TORIBIO PA-C Physical Therapy 08/30/2020 10:45:00 AM EDT MEDENT ([facility]) Outpatient Attender: Fernando Weber: FERNANDO WEATHERS 08/25/2020 10:00:00 AM [facility] Outpatient Attender: Fernando Weber: FERNANDO WEATHERS 08/11/2020 10:00:00 AM [facility] OFFICE OUTPATIENT NEW 30 MINUTES Attender: Perla TORIBIO PA-C Physical Therapy 08/09/2020 12:30:00 PM EST MEDENT ([facility]) Outpatient [address] [facility] [address] 08/09/2020 12:00:00 AM EST eCW1 ([facility] Outpatient [facility] 08/08/2020 12:00:00 AM EST eCW1 ([facility]) Unknown [address] [facility] [address] 08/01/2020 12:00:00 AM EST eCW1 ([facility]) Outpatient Attender: Fernando Weber: FERNANDO WEATHERS 07/29/2020 04:00:00 PM [facility] [address] [place] [address] 07/26/2020 12:00:00 AM EST [facility]CW1 [facility] [facility]) Unknown [address] [facility] [address] 07/25/2020 12:00:00 AM EST eCW1 ([facility]) Outpatient Attender: Fernando Weber: FERNANDO WEATHERS 07/12/2020 10:00:00 AM [facility] Unknown [address] [facility] [facility] [address] 07/07/2020 12:00:00 AM EST eCW1 ([facility]) Outpatient Attender: MARGARITA BARNARD NP 07/06/2020 02: 00:00 PM [facility] Outpatient [address] [facility] [address] 07/06/2020 12:00:00 AM EST eCW1 ([facility]) Unknown [address] [facility] [address] 07/01/2020 12:00:00 AM EST eCW1 ([facility]) Unknown [address] [facility] [facility] [address] 06/30/2020 12:00:00 AM EST eCW1 ([facility]) Unknown [address] [facility] [address] 06/29/2020 12:00:00 AM EST eCW1 ([facility]) Outpatient Attender: Fernando Weber: FERNANDO WEATHERS 06/24/2020 08:11:[address] [facility] [place] [address] [facility] [address] 06/24/2020 12:00:00 AM EST eCW1 ([facility]) Outpatient [address] [facility] [address] 06/17/2020 12:00:00 AM EST eCW1 ([facility]) Outpatient Attender: EULALIA CONTRERAS NPConsultant: SOCO Prieto SR 06/09/2020 02:53:00 PM EST - 06/09/2020 02:53:00 PM EST [facility] Outpatient Attender: EULALIA CONTRERAS NP [facility] 06/09/2020 02 :00:00 PM EST MEDENT ([facility]) Outpatient Attender: Fernando WeathersAttender: FERNANDO WEATHERS 06/08/2020 08:05:00 AM [facility] Outpatient Attender: FERNANDO WEATHERS 05/20/2020 03:00:00 PM [facility] Outpatient Attender: EULALIA CONTRERAS NPConsultant: SOCO Prieto SR 2020 10:32:00 AM EST - 2020 10:32:[address] [facility] Outpatient Attender: EULALIA CONTRERAS NP [facility] 2020 09 :45:00 AM EST MEDENT ([facility]) Outpatient Attender: FERNANDO WEATHERS 05/04/2020 03:00:00 PM [facility] Outpatient Attender: ANAHI CABELLO 04/25/2020 02:30:00 PM [facility] Outpatient Attender: FERNANDO WEATHERS 04/15/2020 09:10:00 AM [facility] Outpatient Attender: FERNANDO WEATHERS 04/07/2020 10:00:00 AM [facility] Outpatient Attender: ANAHI CABELLO 03/14/2020 10:30:00 AM [facility] Outpatient Attender: FERNANDO WEATHERS 02/25/2020 01:00:00 PM [facility] Outpatient Attender: MARIA EUGENIA CASON PAReferrer: SOCO MILLER 08/28/2018 10:00:00 AM EDT - 08/28/2018 10:00:00 AM EDT [facility] Emergency Attender: MARIA EUGENIA REEVESeferrer: SOCO MILLER SR 08/27/2018 10:35:00 PM EDT - 08/27/2018 11:19:00 PM EDT [facility] Emergency Attender: MARIA EUGENIA REEVESeferrer: SOCO MILLER SR 08/22/2017 03:18:00 PM EDT - 08/22/2017 04:57:00 PM EDT [facility] Emergency Attender: RAPHAEL Burnetterrer: PEDRO NEAL EMERGENCY ROOM-ER 07/27/2017 09:35:00 AM [facility] - 07/11/2017 10:05:00 PM [facility] Emergency Attender: KRISTI Mccallerrer: SOCO NEAL EMERGENCY ROOM-ER 07/24/2017 02:04:00 PM [facility] - 07/21/2017 08:22:00 PM [facility] Emergency Attender: RAPHAEL HARLEY PA EMERGENCY ROOM-ER 08:55:00 AM [facility] - 07/02/2017 11:29:00 PM [facility] Emergency Attender: ZOHREH GAMEZ PA EMERGENCY ROOM- ER 05/08/2017 11:02:00 PM [facility] - 05/06/2017 09:09:00 PM [facility] Emergency Attender: ZOHREH PIZARRO EMERGENCY ROOM- ER 03/05/2017 09:23:00 AM EDT - 03/04/2017 12:35:00 AM [facility] Emergency Attender: ZOHREH PIZARRO EMERGENCY ROOM- ER 06/29/2016 05:05:00 PM [facility] - 06/29/2016 09:10:00 PM [facility] Emergency Attender: MARIELA Hill tiff: MARIA EUGENIA CASON PAReferrer: Nino Bal DO EMERGENCY ROOM-ER 02/07/2015 08:32:00 PM EDT - 02/07/2015 09:32:00 PM [facility] Emergency Attender: ZOHREH Burnetterrer : Nino Bal DO EMERGENCY ROOM-ER 10/19/2014 08:44:00 PM EDT - 10/19/2014 10:00:00 PM [facility] Emergency Attender: ZOHREH REEVESeferrer : Nino Bal DO EMERGENCY ROOM-ER 12/26/2013 12:07:00 PM EDT - 12/26/2013 01:03:00 PM [facility] Emergency Attender: ANGEL CHEUNG MD 2012 10:40:00 AM [facility] - 05/21/2013 11:46:00 AM [facility] Outpatient Attender: DANIEL CHAPA MD 02/26/2013 04:21:00 PM [facility] Emergency Attender: ANGEL CHEUNG MD 2012 10:32:00 AM EDT - 02/22/2013 05:40:00 PM [facility] Emergency Attender: LUCY Rayaender: LUCY DILLON 11/08/2012 07:36:00 PM EDT - 11/08/2012 09:20:00 PM [facility] Emergency Attender: ZOHREH PIZARRO 09/05/2012 09:33:00 AM EDT - 09/05/2012 11:09:00 AM [facility] Outpatient Attender: HOWARD SHIRLEY MD 08/21/2012 03:32:00 P M [facility] Emergency Attender: ZOHREH GAMEZ PAReferrer : NICO HARRISON DO EMERGENCY ROOM-ER 06/19/2012 10:11:00 AM EST - 06/19/2012 11:00:00 AM [facility] Immunizations Vaccine Date Status Description Data Source(s) Tdap 12/27/2020 03:14:00 PM EDT completed e CW1 ([facility]) Tdap 12/27/2020 03:14:00 PM EDT completed e CW1 ([facility]) Tdap 12/27/2020 03:14:00 PM EDT completed e CW1 ([facility]) Tdap 12/27/2020 03:14:00 PM EDT completed e CW1 ([facility]) Tdap 12/27/2020 03:14:00 PM EDT completed e CW1 ([facility]) Tdap 12/27/2020 03:14:00 PM EDT completed e CW1 ([facility]) Tdap 12/27/2020 03:14:00 PM EDT completed e CW1 ([facility]) Tdap 12/27/2020 03:14:00 PM EDT completed e CW1 ([facility]) Tdap 12/27/2020 03:14:00 PM EDT completed e CW1 ([facility]) Tdap 12/27/2020 03:14:00 PM EDT completed e CW1 ([facility]) Tdap 12/27/2020 03:14:00 PM EDT completed e CW1 ([facility]) Tdap 12/27/2020 03:14:00 PM EDT completed e CW1 ([facility]) Tdap 12/27/2020 03:14:00 PM EDT completed e CW1 ([facility]) Tdap 12/27/2020 03:14:00 PM EDT completed e CW1 ([facility]) Tdap 12/27/2020 03:14:00 PM EDT completed e CW1 ([facility]) Tdap 12/27/2020 03:14:00 PM EDT completed e CW1 ([facility]) Tdap 12/27/2020 03:14:00 PM EDT completed e CW1 ([facility]) Tdap 12/27/2020 03:14:00 PM EDT completed e CW1 ([facility]) Tdap 12/27/2020 03:14:00 PM EDT completed e CW1 ([facility]) Tdap 12/27/2020 03:14:00 PM EDT completed e CW1 ([facility]) Tdap 12/27/2020 03:14:00 PM EDT completed e CW1 ([facility]) Tdap 12/27/2020 03:14:00 PM EDT completed e CW1 ([facility]) Tdap 12/27/2020 03:14:00 PM EDT completed e CW1 ([facility]) Tdap 12/27/2020 03:14:00 PM EDT completed e CW1 ([facility]) Tdap 12/27/2020 03:14:00 PM EDT completed e CW1 ([facility]) Tdap 12/27/2020 03:14:00 PM EDT completed e CW1 ([facility]) Tdap 12/27/2020 03:14:00 PM EDT completed e CW1 ([facility]) Tdap 12/27/2020 03:14:00 PM EDT completed e CW1 ([facility]) Tdap 12/27/2020 03:14:00 PM EDT completed e CW1 ([facility]) Medications Medication Brand Name Start Date Product Form Dose Route Admi nistrative Instructions Pharmacy Instructions Status Indications Reaction Description Data Source(s) 168 HR Ethinyl Estradiol 0.93190 MG/HR / norelgestromin 0.03769 MG/HR Transdermal System [Xulane] 150-35 mcg/24 hr NORELGESTROMIN/ETHIN.ESTRADIOL 04/18/2021 12:00:00 AM EST patch weekly 9 APPLY AND CHANGE 1 PATCH WEEKLY 4TH WEEK IS PATCH FREE APPLY AND CHANGE 1 PATCH WEEKLY 4TH WEEK IS PATCH FREE SOLD: 04/18/2021 [facility] buspirone hydrochloride 15 MG Oral Tablet BUSPIRONE HCL 03/23/2021 12:00:00 AM EDT tablet 90 TAKE ONE TABLET BY MOUTH THR EE TIMES A DAY TAKE ONE TABLET BY MOUTH THREE TIMES A DAY SOLD: 04/05/2021 [facility] 75 mg 03/23/2021 12:00:00 AM EDT capsule,extended releas e 24hr 30 TAKE ONE CAPSULE BY MOUTH EVERY DAY WITH FOOD TAKE ONE CAPSULE BY MOUTH EVERY DAY WITH FOOD SOLD: 04/05/2021 [facility] 24 HR venlafaxine 75 MG Extended Release Oral Capsule Venlafaxine HCl ER 75 MG Venlafaxine HCl ER 75 MG 03/22/2021 12:00:00 AM EDT 1.0 {capsule_wi th_food} active Venlafaxine HCl ER 75 MG eCW1 ([facility]) 37.5 mg 03/11/2021 12:00:00 AM EDT capsule,extended releas e 24hr 30 TAKE ONE CAPSULE BY MOUTH ONCE DAILY WITH FOOD TAKE ONE CAPSULE BY MOUTH ONCE DAILY WIT H FOOD SOLD: 03/13/2021 [facility] 24 HR venlafaxine 37.5 MG Extended Relea se Oral Capsule [Effexor] Effexor XR 37.5 MG Effexor XR 37.5 MG 03/10/2021 12:00:00 AM EDT 1.0 {cap sule_with_food} active Effexor XR 37.5 MG e CW1 ([facility]) 24 HR venlafaxine 37.5 MG Extended Relea se Oral Capsule [Effexor] Effexor XR 37.5 MG Effexor XR 37.5 MG 03/10/2021 12:00:00 AM EDT 1.0 {cap sule_with_food} active Effexor XR 37.5 MG e CW1 ([facility]) 24 HR venlafaxine 37.5 MG Extended Relea se Oral Capsule [Effexor] Effexor XR 37.5 MG Effexor XR 37.5 MG 03/10/2021 12:00:00 AM EDT 1.0 {cap sule_with_food} active Effexor XR 37.5 MG e CW1 ([facility]) 24 HR venlafaxine 37.5 MG Extended Relea se Oral Capsule [Effexor] Effexor XR 37.5 MG Effexor XR 37.5 MG 03/10/2021 12:00:00 AM EDT 1.0 {cap sule_with_food} active Effexor XR 37.5 MG e CW1 ([facility]) 24 HR venlafaxine 37.5 MG Extended Relea se Oral Capsule [Effexor] Effexor XR 37.5 MG Effexor XR 37.5 MG 03/10/2021 12:00:00 AM EDT 1.0 {cap sule_with_food} active Effexor XR 37.5 MG e CW1 ([facility]) 24 HR venlafaxine 37.5 MG Extended Relea se Oral Capsule [Effexor] Effexor XR 37.5 MG Effexor XR 37.5 MG 03/10/2021 12:00:00 AM EDT 1.0 {cap sule_with_food} active Effexor XR 37.5 MG e CW1 ([facility]) 24 HR venlafaxine 37.5 MG Extended Relea se Oral Capsule [Effexor] Effexor XR 37.5 MG Effexor XR 37.5 MG 03/10/2021 12:00:00 AM EDT 1.0 {cap sule_with_food} active Effexor XR 37.5 MG e CW1 ([facility]) 24 HR venlafaxine 37.5 MG Extended Relea se Oral Capsule [Effexor] Effexor XR 37.5 MG Effexor XR 37.5 MG 03/10/2021 12:00:00 AM EDT 1.0 {cap sule_with_food} active Effexor XR 37.5 MG e CW1 ([facility]) 24 HR venlafaxine 37.5 MG Extended Relea se Oral Capsule [Effexor] Effexor XR 37.5 MG Effexor XR 37.5 MG 03/10/2021 12:00:00 AM EDT 1.0 {cap sule_with_food} active Effexor XR 37.5 MG e CW1 ([facility]) 24 HR venlafaxine 37.5 MG Extended Relea se Oral Capsule [Effexor] Effexor XR 37.5 MG Effexor XR 37.5 MG 03/10/2021 12:00:00 AM EDT 1.0 {cap sule_with_food} active Effexor XR 37.5 MG e CW1 ([facility]) 20 mg 03/08/2021 12:00:00 AM EDT tablet 15 TAKE 3 TABLETS [60MG] BY MOUTH DAILY TAKE 3 TABLETS [60MG] BY MOUTH DAILY SOLD: 03/13/2021 [facility] 50 mg 03/07/2021 12:00:00 AM EDT tablet 30 TAKE 1 TABLET BY MOUTH ONCE A DAY TAKE 1 TABLET BY MOUTH ONCE A DAY SOLD: 03/13/2021 [facility] 25 mg 01/27/2021 12:00:00 AM EDT tablet 30 TAKE ONE TABLET BY MOUTH EVERY DAY TAKE ONE TABLET BY MOUTH EVERY DAY SOLD: 02/15/2021 [facility] buspirone hydrochloride 10 MG Oral Tablet BUSPIRONE HCL 01/27/2021 12:00:00 AM EDT tablet 60 TAKE TWO TABLETS BY MOUTH EV LISSY DAY TAKE TWO TABLETS BY MOUTH EVERY DAY SOLD: 02/15/2021 [facility] NITROFURANTOIN, MACROCRYSTALS 25 MG / Ni trofurantoin, Monohydrate 75 MG Oral Capsule 100 mg NITROFURANTOIN MONOHYD/M-CRYST 01/06/2021 12:00:00 AM EDT ca psule 14 TAKE ONE CAPSULE BY MOUTH TWICE A DAY TAKE ONE CAPSULE BY MOUTH TWICE A DAY SOLD: 01/26/2021 [facility] 25 mg 12/28/2020 12:00:00 AM EDT tablet 30 TAKE ONE TABLET BY MOUTH EVERY DAY TAKE ONE TABLET BY MOUTH EVERY DAY SOLD: 12/29/2020 [facility] buspirone hydrochloride 10 MG Oral Tablet BUSPIRONE HCL 12/28/2020 12:00:00 AM EDT tablet 60 TAKE TWO TABLETS BY MOUTH ON CE DAILY TAKE TWO TABLETS BY MOUTH ONCE DAILY SOLD: 12/29/2020 [facility] Sertraline 25 MG Oral Tablet Sertraline HCl 25 MG Sertraline HCl 25 MG 12/28/2020 12:00:00 AM EDT 1.0 {tablet} active Sertraline HCl 25 MG eCW1 ([facility]) Sertraline 50 MG Oral Tablet Sertraline HCl 50 MG Sertraline HCl 50 MG 12/28/2020 12:00:00 AM EDT 1.0 {tablet} active Sertraline HCl 50 MG eCW1 ([facility]) 12 HR Guaifenesin 600 MG Extended Release Oral Tablet [Mucinex] Mucinex 600 MG Mucinex 600 MG 12/15/2020 12:00:00 AM EDT 1.0 {tablet_as_needed} active Mucinex 600 MG eCW1 ([facility]) 12 HR Guaifenesin 600 MG Extended Release Oral Tablet [Mucinex] Mucinex 600 MG Mucinex 600 MG 12/15/2020 12:00:00 AM EDT 1.0 {tablet_as_needed} suspended Mucinex 600 MG eCW1 ([facility]) 12 HR Guaifenesin 600 MG Extended Release Oral Tablet [Mucinex] Mucinex 600 MG Mucinex 600 MG 12/15/2020 12:00:00 AM EDT 1.0 {tablet_as_needed} active Mucinex 600 MG eCW1 ([facility]) 12 HR Guaifenesin 600 MG Extended Release Oral Tablet [Mucinex] Mucinex 600 MG Mucinex 600 MG 12/15/2020 12:00:00 AM EDT 1.0 {tablet_as_needed} suspended Mucinex 600 MG eCW1 ([facility]) 12 HR Guaifenesin 600 MG Extended Release Oral Tablet [Mucinex] Mucinex 600 MG Mucinex 600 MG 12/15/2020 12:00:00 AM EDT 1.0 {tablet_as_needed} active Mucinex 600 MG eCW1 ([facility]) 12 HR Guaifenesin 600 MG Extended Release Oral Tablet [Mucinex] Mucinex 600 MG Mucinex 600 MG 12/15/2020 12:00:00 AM EDT 1.0 {tablet_as_needed} active Mucinex 600 MG eCW1 ([facility]) 12 HR Guaifenesin 600 MG Extended Release Oral Tablet [Mucinex] Mucinex 600 MG Mucinex 600 MG 12/15/2020 12:00:00 AM EDT 1.0 {tablet_as_needed} active Mucinex 600 MG eCW1 ([facility]) 12 HR Guaifenesin 600 MG Extended Release Oral Tablet [Mucinex] Mucinex 600 MG Mucinex 600 MG 12/15/2020 12:00:00 AM EDT 1.0 {tablet_as_needed} active Mucinex 600 MG eCW1 ([facility]) 12 HR Guaifenesin 600 MG Extended Release Oral Tablet [Mucinex] Mucinex 600 MG Mucinex 600 MG 12/15/2020 12:00:00 AM EDT 1.0 {tablet_as_needed} active Mucinex 600 MG eCW1 ([facility]) 12 HR Guaifenesin 600 MG Extended Release Oral Tablet [Mucinex] Mucinex 600 MG Mucinex 600 MG 12/15/2020 12:00:00 AM EDT 1.0 {tablet_as_needed} suspended Mucinex 600 MG eCW1 ([facility]) 12 HR Guaifenesin 600 MG Extended Release Oral Tablet [Mucinex] Mucinex 600 MG Mucinex 600 MG 12/15/2020 12:00:00 AM EDT 1.0 {tablet_as_needed} active Mucinex 600 MG eCW1 ([facility]) 12 HR Guaifenesin 600 MG Extended Release Oral Tablet [Mucinex] Mucinex 600 MG Mucinex 600 MG 12/15/2020 12:00:00 AM EDT 1.0 {tablet_as_needed} active Mucinex 600 MG eCW1 ([facility]) 12 HR Guaifenesin 600 MG Extended Release Oral Tablet [Mucinex] Mucinex 600 MG Mucinex 600 MG 12/15/2020 12:00:00 AM EDT 1.0 {tablet_as_needed} active Mucinex 600 MG eCW1 ([facility]) 12 HR Guaifenesin 600 MG Extended Release Oral Tablet [Mucinex] Mucinex 600 MG Mucinex 600 MG 12/15/2020 12:00:00 AM EDT 1.0 {tablet_as_needed} suspended Mucinex 600 MG eCW1 ([facility]) 12 HR Guaifenesin 600 MG Extended Release Oral Tablet GUAIFE NESIN 12/15/2020 12:00:00 AM EDT tablet extended release 12hr 14 LEEANNE E ONE TABLET BY MOUTH EVERY 12 HOURS NEEDED TAKE ONE TABLET BY MOUTH EVERY 12 HOURS NEEDED SOLD : 12/29/2020 [facility] 12 HR Guaifenesin 600 MG Extended Release Oral Tablet [Mucinex] Mucinex 600 MG Mucinex 600 MG 12/15/2020 12:00:00 AM EDT 1.0 {tablet_as_needed} suspended Mucinex 600 MG eCW1 ([facility]) 12 HR Guaifenesin 600 MG Extended Release Oral Tablet [Mucinex] Mucinex 600 MG Mucinex 600 MG 12/15/2020 12:00:00 AM EDT 1.0 {tablet_as_needed} suspended Mucinex 600 MG eCW1 ([facility]) 12 HR Guaifenesin 600 MG Extended Release Oral Tablet [Mucinex] Mucinex 600 MG Mucinex 600 MG 12/15/2020 12:00:00 AM EDT 1.0 {tablet_as_needed} suspended Mucinex 600 MG eCW1 ([facility]) 12 HR Guaifenesin 600 MG Extended Release Oral Tablet [Mucinex] Mucinex 600 MG Mucinex 600 MG 12/15/2020 12:00:00 AM EDT 1.0 {tablet_as_needed} active Mucinex 600 MG eCW1 ([facility]) 12 HR Guaifenesin 600 MG Extended Release Oral Tablet [Mucinex] Mucinex 600 MG Mucinex 600 MG 12/15/2020 12:00:00 AM EDT 1.0 {tablet_as_needed} active Mucinex 600 MG eCW1 ([facility]) 12 HR Guaifenesin 600 MG Extended Release Oral Tablet [Mucinex] Mucinex 600 MG Mucinex 600 MG 12/15/2020 12:00:00 AM EDT 1.0 {tablet_as_needed} active Mucinex 600 MG eCW1 ([facility]) 12 HR Guaifenesin 600 MG Extended Release Oral Tablet [Mucinex] Mucinex 600 MG Mucinex 600 MG 12/15/2020 12:00:00 AM EDT 1.0 {tablet_as_needed} active Mucinex 600 MG eCW1 ([facility]) Ondansetron 4 MG Disintegrating Oral Tablet ONDANSETRON 12/13/2020 12:00:00 AM EDT tablet,disintegrating 16 DISSOLVE 1 TABLET [4MG] ON TONGUE EVERY 6-8 HOURS NEEDED FOR NAUSEA/VOMITING DISSOLVE 1 TABLET [4MG] ON TONGUE EVERY 6-8 HOURS NEEDED FOR NAUSEA/VOMITING SOLD: 12/29/2020 [facility] montelukast 5 MG Chewable Tablet MONTELUKAST SODIUM 12/08/2020 1 2:00:00 AM EDT tablet,chewable 30 CHEW ONE TABLET BY MOUTH DAILY C HEW ONE TABLET BY MOUTH DAILY SOLD: 12/29/2020 [facility] 0.25 mg/2 mL 12/06/2020 12:00:00 AM EDT suspension for nebul ization 60 INHALE ONE VIAL VIA NEBULIZER TWICE A DAY INHALE ONE VIAL VIA NEBULIZER TWICE A DAY SOLD: 12/07/2020 [facility] Acetaminophen 325 MG / Dextromethorphan Hydrobromide 10 MG / Phenylephrine Hydrochloride 5 MG Oral Capsule 5-10-325 mg D-METHORPHAN/PE/ACETAMINOPHEN 12/06/2020 12:00:00 AM EDT capsule 20 TAKE TWO CAPSULES BY MOUTH EVERY 4 HOURS NEEDED TAKE TWO CAPSULES BY MOUTH EVERY 4 HOURS NEEDED SOLD: [facility] 10 mg 12/05/2020 12:00:00 AM EDT tablet 30 TAKE ONE TABLET BY MOUTH EVERY DAY FOR 30 DAYS TAKE ONE TABLET BY MOUTH EVERY DAY FOR 30 DAYS SOLD: [facility] Acetaminophen 325 MG / Dextromethorphan Hydrobromide 10 MG / Phenylephrine Hydrochloride 5 MG Oral Capsule Robitussin Cold+Flu Daytime 10-5-325 MG Robitussin Cold+Flu Daytime 10-5-325 MG 12/04/2020 12:00:00 AM EDT 2.0 {capsules_as_needed} suspended Robitussin Cold+Flu Daytime 10-5-325 MG eCW1 ([facility]) Acetaminophen 325 MG / Dextromethorphan Hydrobromide 10 MG / Phenylephrine Hydrochloride 5 MG Oral Capsule Robitussin Cold+Flu Daytime 10-5-325 MG Robitussin Cold+Flu Daytime 10-5-325 MG 12/04/2020 12:00:00 AM EDT 2.0 {capsules_as_needed} suspended Robitussin Cold+Flu Daytime 10-5-325 MG eCW1 ([facility]) Acetaminophen 325 MG / Dextromethorphan Hydrobromide 10 MG / Phenylephrine Hydrochloride 5 MG Oral Capsule Robitussin Cold+Flu Daytime 10-5-325 MG Robitussin Cold+Flu Daytime 10-5-325 MG 12/04/2020 12:00:00 AM EDT 2.0 {capsules_as_needed} suspended Robitussin Cold+Flu Daytime 10-5-325 MG eCW1 ([facility]) Acetaminophen 325 MG / Dextromethorphan Hydrobromide 10 MG / Phenylephrine Hydrochloride 5 MG Oral Capsule Robitussin Cold+Flu Daytime 10-5-325 MG Robitussin Cold+Flu Daytime 10-5-325 MG 12/04/2020 12:00:00 AM EDT 2.0 {capsules_as_needed} suspended Robitussin Cold+Flu Daytime 10-5-325 MG eCW1 ([facility]) Acetaminophen 325 MG / Dextromethorphan Hydrobromide 10 MG / Phenylephrine Hydrochloride 5 MG Oral Capsule Robitussin Cold+Flu Daytime 10-5-325 MG Robitussin Cold+Flu Daytime 10-5-325 MG 12/04/2020 12:00:00 AM EDT 2.0 {capsules_as_needed} suspended Robitussin Cold+Flu Daytime 10-5-325 MG eCW1 ([facility]) Acetaminophen 325 MG / Dextromethorphan Hydrobromide 10 MG / Phenylephrine Hydrochloride 5 MG Oral Capsule Robitussin Cold+Flu Daytime 10-5-325 MG Robitussin Cold+Flu Daytime 10-5-325 MG 12/04/2020 12:00:00 AM EDT 2.0 {capsules_as_needed} suspended Robitussin Cold+Flu Daytime 10-5-325 MG eCW1 ([facility]) Acetaminophen 325 MG / Dextromethorphan Hydrobromide 10 MG / Phenylephrine Hydrochloride 5 MG Oral Capsule Robitussin Cold+Flu Daytime 10-5-325 MG Robitussin Cold+Flu Daytime 10-5-325 MG 12/04/2020 12:00:00 AM EDT 2.0 {capsules_as_needed} suspended Robitussin Cold+Flu Daytime 10-5-325 MG eCW1 ([facility]) Acetaminophen 325 MG / Dextromethorphan Hydrobromide 10 MG / Phenylephrine Hydrochloride 5 MG Oral Capsule Robitussin Cold+Flu Daytime 10-5-325 MG Robitussin Cold+Flu Daytime 10-5-325 MG 12/04/2020 12:00:00 AM EDT 2.0 {capsules_as_needed} suspended Robitussin Cold+Flu Daytime 10-5-325 MG eCW1 ([facility]) Acetaminophen 325 MG / Dextromethorphan Hydrobromide 10 MG / Phenylephrine Hydrochloride 5 MG Oral Capsule Robitussin Cold+Flu Daytime 10-5-325 MG Robitussin Cold+Flu Daytime 10-5-325 MG 12/04/2020 12:00:00 AM EDT 2.0 {capsules_as_needed} suspended Robitussin Cold+Flu Daytime 10-5-325 MG eCW1 ([facility]) Acetaminophen 325 MG / Dextromethorphan Hydrobromide 10 MG / Phenylephrine Hydrochloride 5 MG Oral Capsule Robitussin Cold+Flu Daytime 10-5-325 MG Robitussin Cold+Flu Daytime 10-5-325 MG 12/04/2020 12:00:00 AM EDT 2.0 {capsules_as_needed} suspended Robitussin Cold+Flu Daytime 10-5-325 MG eCW1 ([facility]) Acetaminophen 325 MG / Dextromethorphan Hydrobromide 10 MG / Phenylephrine Hydrochloride 5 MG Oral Capsule Robitussin Cold+Flu Daytime 10-5-325 MG Robitussin Cold+Flu Daytime 10-5-325 MG 12/04/2020 12:00:00 AM EDT 2.0 {capsules_as_needed} suspended Robitussin Cold+Flu Daytime 10-5-325 MG eCW1 ([facility]) Acetaminophen 325 MG / Dextromethorphan Hydrobromide 10 MG / Phenylephrine Hydrochloride 5 MG Oral Capsule Robitussin Cold+Flu Daytime 10-5-325 MG Robitussin Cold+Flu Daytime 10-5-325 MG 12/04/2020 12:00:00 AM EDT 2.0 {capsules_as_needed} active Robitussin Cold+Flu Daytime 10-5-325 MG eCW1 ([facility]) Acetaminophen 325 MG / Dextromethorphan Hydrobromide 10 MG / Phenylephrine Hydrochloride 5 MG Oral Capsule Robitussin Cold+Flu Daytime 10-5-325 MG Robitussin Cold+Flu Daytime 10-5-325 MG 12/04/2020 12:00:00 AM EDT 2.0 {capsules_as_needed} suspended Robitussin Cold+Flu Daytime 10-5-325 MG eCW1 ([facility]) Acetaminophen 325 MG / Dextromethorphan Hydrobromide 10 MG / Phenylephrine Hydrochloride 5 MG Oral Capsule Robitussin Cold+Flu Daytime 10-5-325 MG Robitussin Cold+Flu Daytime 10-5-325 MG 12/04/2020 12:00:00 AM EDT 2.0 {capsules_as_needed} suspended Robitussin Cold+Flu Daytime 10-5-325 MG eCW1 ([facility]) Acetaminophen 325 MG / Dextromethorphan Hydrobromide 10 MG / Phenylephrine Hydrochloride 5 MG Oral Capsule Robitussin Cold+Flu Daytime 10-5-325 MG Robitussin Cold+Flu Daytime 10-5-325 MG 12/04/2020 12:00:00 AM EDT 2.0 {capsules_as_needed} suspended Robitussin Cold+Flu Daytime 10-5-325 MG eCW1 ([facility]) Acetaminophen 325 MG / Dextromethorphan Hydrobromide 10 MG / Phenylephrine Hydrochloride 5 MG Oral Capsule Robitussin Cold+Flu Daytime 10-5-325 MG Robitussin Cold+Flu Daytime 10-5-325 MG 12/04/2020 12:00:00 AM EDT 2.0 {capsules_as_needed} active Robitussin Cold+Flu Daytime 10-5-325 MG eCW1 ([facility]) Acetaminophen 325 MG / Dextromethorphan Hydrobromide 10 MG / Phenylephrine Hydrochloride 5 MG Oral Capsule Robitussin Cold+Flu Daytime 10-5-325 MG Robitussin Cold+Flu Daytime 10-5-325 MG 12/04/2020 12:00:00 AM EDT 2.0 {capsules_as_needed} suspended Robitussin Cold+Flu Daytime 10-5-325 MG eCW1 ([facility]) Acetaminophen 325 MG / Dextromethorphan Hydrobromide 10 MG / Phenylephrine Hydrochloride 5 MG Oral Capsule Robitussin Cold+Flu Daytime 10-5-325 MG Robitussin Cold+Flu Daytime 10-5-325 MG 12/04/2020 12:00:00 AM EDT 2.0 {capsules_as_needed} active Robitussin Cold+Flu Daytime 10-5-325 MG eCW1 ([facility]) Acetaminophen 325 MG / Dextromethorphan Hydrobromide 10 MG / Phenylephrine Hydrochloride 5 MG Oral Capsule Robitussin Cold+Flu Daytime 10-5-325 MG Robitussin Cold+Flu Daytime 10-5-325 MG 12/04/2020 12:00:00 AM EDT 2.0 {capsules_as_needed} active Robitussin Cold+Flu Daytime 10-5-325 MG eCW1 ([facility]) Acetaminophen 325 MG / Dextromethorphan Hydrobromide 10 MG / Phenylephrine Hydrochloride 5 MG Oral Capsule Robitussin Cold+Flu Daytime 10-5-325 MG Robitussin Cold+Flu Daytime 10-5-325 MG 12/04/2020 12:00:00 AM EDT 2.0 {capsules_as_needed} active Robitussin Cold+Flu Daytime 10-5-325 MG eCW1 ([facility]) Acetaminophen 325 MG / Dextromethorphan Hydrobromide 10 MG / Phenylephrine Hydrochloride 5 MG Oral Capsule Robitussin Cold+Flu Daytime 10-5-325 MG Robitussin Cold+Flu Daytime 10-5-325 MG 12/04/2020 12:00:00 AM EDT 2.0 {capsules_as_needed} suspended Robitussin Cold+Flu Daytime 10-5-325 MG eCW1 ([facility]) Acetaminophen 325 MG / Dextromethorphan Hydrobromide 10 MG / Phenylephrine Hydrochloride 5 MG Oral Capsule Robitussin Cold+Flu Daytime 10-5-325 MG Robitussin Cold+Flu Daytime 10-5-325 MG 12/04/2020 12:00:00 AM EDT 2.0 {capsules_as_needed} suspended Robitussin Cold+Flu Daytime 10-5-325 MG eCW1 ([facility]) Acetaminophen 325 MG / Dextromethorphan Hydrobromide 10 MG / Phenylephrine Hydrochloride 5 MG Oral Capsule Robitussin Cold+Flu Daytime 10-5-325 MG Robitussin Cold+Flu Daytime 10-5-325 MG 12/04/2020 12:00:00 AM EDT 2.0 {capsules_as_needed} suspended Robitussin Cold+Flu Daytime 10-5-325 MG eCW1 ([facility]) Acetaminophen 325 MG / Dextromethorphan Hydrobromide 10 MG / Phenylephrine Hydrochloride 5 MG Oral Capsule Robitussin Cold+Flu Daytime 10-5-325 MG Robitussin Cold+Flu Daytime 10-5-325 MG 12/04/2020 12:00:00 AM EDT 2.0 {capsules_as_needed} suspended Robitussin Cold+Flu Daytime 10-5-325 MG eCW1 ([facility]) Acetaminophen 325 MG / Dextromethorphan Hydrobromide 10 MG / Phenylephrine Hydrochloride 5 MG Oral Capsule Robitussin Cold+Flu Daytime 10-5-325 MG Robitussin Cold+Flu Daytime 10-5-325 MG 12/04/2020 12:00:00 AM EDT 2.0 {capsules_as_needed} suspended Robitussin Cold+Flu Daytime 10-5-325 MG eCW1 ([facility]) NITROFURANTOIN, MACROCRYSTALS 100 MG Ora l Capsule Nitrofurantoin Macrocrystal 100 MG Nitrofurantoin Macrocrystal 100 MG 11/25/2020 12:00:00 AM EDT suspended Nitrofurantoin Macrocrystal 100 MG eCW1 ([facility]) NITROFURANTOIN, MACROCRYSTALS 100 MG Ora l Capsule Nitrofurantoin Macrocrystal 100 MG Nitrofurantoin Macrocrystal 100 MG 11/25/2020 12:00:00 AM EDT suspended Nitrofurantoin Macrocrystal 100 MG eCW1 ([facility]) NITROFURANTOIN, MACROCRYSTALS 100 MG Ora l Capsule Nitrofurantoin Macrocrystal 100 MG Nitrofurantoin Macrocrystal 100 MG 11/25/2020 12:00:00 AM EDT suspended Nitrofurantoin Macrocrystal 100 MG eCW1 ([facility]) NITROFURANTOIN, MACROCRYSTALS 100 MG Ora l Capsule Nitrofurantoin Macrocrystal 100 MG Nitrofurantoin Macrocrystal 100 MG 11/25/2020 12:00:00 AM EDT suspended Nitrofurantoin Macrocrystal 100 MG eCW1 ([facility]) NITROFURANTOIN, MACROCRYSTALS 100 MG Ora l Capsule Nitrofurantoin Macrocrystal 100 MG Nitrofurantoin Macrocrystal 100 MG 11/25/2020 12:00:00 AM EDT suspended Nitrofurantoin Macrocrystal 100 MG eCW1 ([facility]) NITROFURANTOIN, MACROCRYSTALS 100 MG Ora l Capsule Nitrofurantoin Macrocrystal 100 MG Nitrofurantoin Macrocrystal 100 MG 11/25/2020 12:00:00 AM EDT suspended Nitrofurantoin Macrocrystal 100 MG eCW1 ([facility]) NITROFURANTOIN, MACROCRYSTALS 100 MG Ora l Capsule Nitrofurantoin Macrocrystal 100 MG Nitrofurantoin Macrocrystal 100 MG 11/25/2020 12:00:00 AM EDT suspended Nitrofurantoin Macrocrystal 100 MG eCW1 ([facility]) NITROFURANTOIN, MACROCRYSTALS 100 MG Ora l Capsule Nitrofurantoin Macrocrystal 100 MG Nitrofurantoin Macrocrystal 100 MG 11/25/2020 12:00:00 AM EDT suspended Nitrofurantoin Macrocrystal 100 MG eCW1 ([facility]) NITROFURANTOIN, MACROCRYSTALS 100 MG Ora l Capsule Nitrofurantoin Macrocrystal 100 MG Nitrofurantoin Macrocrystal 100 MG 11/25/2020 12:00:00 AM EDT suspended Nitrofurantoin Macrocrystal 100 MG eCW1 ([facility]) NITROFURANTOIN, MACROCRYSTALS 100 MG Ora l Capsule Nitrofurantoin Macrocrystal 100 MG Nitrofurantoin Macrocrystal 100 MG 11/25/2020 12:00:00 AM EDT suspended Nitrofurantoin Macrocrystal 100 MG eCW1 ([facility]) NITROFURANTOIN, MACROCRYSTALS 100 MG Ora l Capsule Nitrofurantoin Macrocrystal 100 MG Nitrofurantoin Macrocrystal 100 MG 11/25/2020 12:00:00 AM EDT suspended Nitrofurantoin Macrocrystal 100 MG eCW1 ([facility]) NITROFURANTOIN, MACROCRYSTALS 100 MG Ora l Capsule Nitrofurantoin Macrocrystal 100 MG Nitrofurantoin Macrocrystal 100 MG 11/25/2020 12:00:00 AM EDT suspended Nitrofurantoin Macrocrystal 100 MG eCW1 ([facility]) NITROFURANTOIN, MACROCRYSTALS 100 MG Ora l Capsule Nitrofurantoin Macrocrystal 100 MG Nitrofurantoin Macrocrystal 100 MG 11/25/2020 12:00:00 AM EDT suspended Nitrofurantoin Macrocrystal 100 MG eCW1 ([facility]) NITROFURANTOIN, MACROCRYSTALS 100 MG Ora l Capsule Nitrofurantoin Macrocrystal 100 MG Nitrofurantoin Macrocrystal 100 MG 11/25/2020 12:00:00 AM EDT suspended Nitrofurantoin Macrocrystal 100 MG eCW1 ([facility]) NITROFURANTOIN, MACROCRYSTALS 100 MG Ora l Capsule Nitrofurantoin Macrocrystal 100 MG Nitrofurantoin Macrocrystal 100 MG 11/25/2020 12:00:00 AM EDT suspended Nitrofurantoin Macrocrystal 100 MG eCW1 ([facility]) NITROFURANTOIN, MACROCRYSTALS 100 MG Ora l Capsule Nitrofurantoin Macrocrystal 100 MG Nitrofurantoin Macrocrystal 100 MG 11/25/2020 12:00:00 AM EDT suspended Nitrofurantoin Macrocrystal 100 MG eCW1 ([facility]) 100 mg 11/25/2020 12:00:00 AM EDT capsule 14 TAKE ONE CAPSULE BY MOUTH TWICE A DAY WITH FOOD OR MILK X 7 DAYS TAKE ONE CAPSULE BY MOUTH TWICE A DAY WI TH FOOD OR MILK X 7 DAYS SOLD: 11/27/2020 [facility] NITROFURANTOIN, MACROCRYSTALS 100 MG Ora l Capsule Nitrofurantoin Macrocrystal 100 MG Nitrofurantoin Macrocrystal 100 MG 11/25/2020 12:00:00 AM EDT suspended Nitrofurantoin Macrocrystal 100 MG eCW1 ([facility]) NITROFURANTOIN, MACROCRYSTALS 100 MG Ora l Capsule Nitrofurantoin Macrocrystal 100 MG Nitrofurantoin Macrocrystal 100 MG 11/25/2020 12:00:00 AM EDT suspended Nitrofurantoin Macrocrystal 100 MG eCW1 ([facility]) NITROFURANTOIN, MACROCRYSTALS 100 MG Ora l Capsule Nitrofurantoin Macrocrystal 100 MG Nitrofurantoin Macrocrystal 100 MG 11/25/2020 12:00:00 AM EDT suspended Nitrofurantoin Macrocrystal 100 MG eCW1 ([facility]) NITROFURANTOIN, MACROCRYSTALS 100 MG Ora l Capsule Nitrofurantoin Macrocrystal 100 MG Nitrofurantoin Macrocrystal 100 MG 11/25/2020 12:00:00 AM EDT suspended Nitrofurantoin Macrocrystal 100 MG eCW1 ([facility]) NITROFURANTOIN, MACROCRYSTALS 100 MG Ora l Capsule Nitrofurantoin Macrocrystal 100 MG Nitrofurantoin Macrocrystal 100 MG 11/25/2020 12:00:00 AM EDT suspended Nitrofurantoin Macrocrystal 100 MG eCW1 ([facility]) NITROFURANTOIN, MACROCRYSTALS 100 MG Ora l Capsule Nitrofurantoin Macrocrystal 100 MG Nitrofurantoin Macrocrystal 100 MG 11/25/2020 12:00:00 AM EDT suspended Nitrofurantoin Macrocrystal 100 MG eCW1 ([facility]) NITROFURANTOIN, MACROCRYSTALS 100 MG Ora l Capsule Nitrofurantoin Macrocrystal 100 MG Nitrofurantoin Macrocrystal 100 MG 11/25/2020 12:00:00 AM EDT active Nitrofurantoin Macrocrystal 100 MG eCW1 ([facility]) NITROFURANTOIN, MACROCRYSTALS 100 MG Ora l Capsule Nitrofurantoin Macrocrystal 100 MG Nitrofurantoin Macrocrystal 100 MG 11/25/2020 12:00:00 AM EDT suspended Nitrofurantoin Macrocrystal 100 MG eCW1 ([facility]) NITROFURANTOIN, MACROCRYSTALS 100 MG Ora l Capsule Nitrofurantoin Macrocrystal 100 MG Nitrofurantoin Macrocrystal 100 MG 11/25/2020 12:00:00 AM EDT suspended Nitrofurantoin Macrocrystal 100 MG eCW1 ([facility]) NITROFURANTOIN, MACROCRYSTALS 100 MG Ora l Capsule Nitrofurantoin Macrocrystal 100 MG Nitrofurantoin Macrocrystal 100 MG 11/25/2020 12:00:00 AM EDT suspended Nitrofurantoin Macrocrystal 100 MG eCW1 ([facility]) NITROFURANTOIN, MACROCRYSTALS 100 MG Ora l Capsule Nitrofurantoin Macrocrystal 100 MG Nitrofurantoin Macrocrystal 100 MG 11/25/2020 12:00:00 AM EDT suspended Nitrofurantoin Macrocrystal 100 MG eCW1 ([facility]) NITROFURANTOIN, MACROCRYSTALS 100 MG Ora l Capsule Nitrofurantoin Macrocrystal 100 MG Nitrofurantoin Macrocrystal 100 MG 11/25/2020 12:00:00 AM EDT suspended Nitrofurantoin Macrocrystal 100 MG eCW1 ([facility]) 90 mcg/actuation 11/17/2020 12:00:00 AM EDT HFA aerosol inha ler 18 INHALE ONE PUFF BY MOUTH EVERY 4 HOURS NEEDED INHALE ONE PUFF BY MOUTH EVERY 4 HOURS NEEDED SOLD: 11/22/2020 [facility] Albuterol Sulfate HFA 108 (90 Base) MCG/ACT Albuterol Sulfate HFA 108 (90 Base) MCG/ACT 11/16/2020 12:00:00 AM EDT 1.0 {puff_as_needed} suspended Albuterol Sulfate HFA 108 (90 Base) MCG/ACT eCW1 ([facility]) Albuterol Sulfate HFA 108 (90 Base) MCG/ACT Albuterol Sulfate HFA 108 (90 Base) MCG/ACT 11/16/2020 12:00:00 AM EDT 1.0 {puff_as_needed} suspended Albuterol Sulfate HFA 108 (90 Base) MCG/ACT eCW1 ([facility]) Albuterol Sulfate HFA 108 (90 Base) MCG/ACT Albuterol Sulfate HFA 108 (90 Base) MCG/ACT 11/16/2020 12:00:00 AM EDT 1.0 {puff_as_needed} suspended Albuterol Sulfate HFA 108 (90 Base) MCG/ACT eCW1 ([facility]) Albuterol Sulfate HFA 108 (90 Base) MCG/ACT Albuterol Sulfate HFA 108 (90 Base) MCG/ACT 11/16/2020 12:00:00 AM EDT 1.0 {puff_as_needed} suspended Albuterol Sulfate HFA 108 (90 Base) MCG/ACT eCW1 ([facility]) Albuterol Sulfate HFA 108 (90 Base) MCG/ACT Albuterol Sulfate HFA 108 (90 Base) MCG/ACT 11/16/2020 12:00:00 AM EDT 1.0 {puff_as_needed} suspended Albuterol Sulfate HFA 108 (90 Base) MCG/ACT eCW1 ([facility]) Albuterol Sulfate HFA 108 (90 Base) MCG/ACT Albuterol Sulfate HFA 108 (90 Base) MCG/ACT 11/16/2020 12:00:00 AM EDT 1.0 {puff_as_needed} suspended Albuterol Sulfate HFA 108 (90 Base) MCG/ACT eCW1 ([facility]) Albuterol Sulfate HFA 108 (90 Base) MCG/ACT Albuterol Sulfate HFA 108 (90 Base) MCG/ACT 11/16/2020 12:00:00 AM EDT 1.0 {puff_as_needed} active Albuterol Sulfate HFA 108 (90 Base) MCG/ACT eCW1 ([facility]) Albuterol Sulfate HFA 108 (90 Base) MCG/ACT Albuterol Sulfate HFA 108 (90 Base) MCG/ACT 11/16/2020 12:00:00 AM EDT 1.0 {puff_as_needed} suspended Albuterol Sulfate HFA 108 (90 Base) MCG/ACT eCW1 ([facility]) Albuterol Sulfate HFA 108 (90 Base) MCG/ACT Albuterol Sulfate HFA 108 (90 Base) MCG/ACT 11/16/2020 12:00:00 AM EDT 1.0 {puff_as_needed} suspended Albuterol Sulfate HFA 108 (90 Base) MCG/ACT eCW1 ([facility]) Albuterol Sulfate HFA 108 (90 Base) MCG/ACT Albuterol Sulfate HFA 108 (90 Base) MCG/ACT 11/16/2020 12:00:00 AM EDT 1.0 {puff_as_needed} suspended Albuterol Sulfate HFA 108 (90 Base) MCG/ACT eCW1 ([facility]) Albuterol Sulfate HFA 108 (90 Base) MCG/ACT Albuterol Sulfate HFA 108 (90 Base) MCG/ACT 11/16/2020 12:00:00 AM EDT 1.0 {puff_as_needed} suspended Albuterol Sulfate HFA 108 (90 Base) MCG/ACT eCW1 ([facility]) Albuterol Sulfate HFA 108 (90 Base) MCG/ACT Albuterol Sulfate HFA 108 (90 Base) MCG/ACT 11/16/2020 12:00:00 AM EDT 1.0 {puff_as_needed} suspended Albuterol Sulfate HFA 108 (90 Base) MCG/ACT eCW1 ([facility]) Albuterol Sulfate HFA 108 (90 Base) MCG/ACT Albuterol Sulfate HFA 108 (90 Base) MCG/ACT 11/16/2020 12:00:00 AM EDT 1.0 {puff_as_needed} suspended Albuterol Sulfate HFA 108 (90 Base) MCG/ACT eCW1 ([facility]) Albuterol Sulfate HFA 108 (90 Base) MCG/ACT Albuterol Sulfate HFA 108 (90 Base) MCG/ACT 11/16/2020 12:00:00 AM EDT 1.0 {puff_as_needed} suspended Albuterol Sulfate HFA 108 (90 Base) MCG/ACT eCW1 ([facility]) Albuterol Sulfate HFA 108 (90 Base) MCG/ACT Albuterol Sulfate HFA 108 (90 Base) MCG/ACT 11/16/2020 12:00:00 AM EDT 1.0 {puff_as_needed} active Albuterol Sulfate HFA 108 (90 Base) MCG/ACT eCW1 ([facility]) Albuterol Sulfate HFA 108 (90 Base) MCG/ACT Albuterol Sulfate HFA 108 (90 Base) MCG/ACT 11/16/2020 12:00:00 AM EDT 1.0 {puff_as_needed} active Albuterol Sulfate HFA 108 (90 Base) MCG/ACT eCW1 ([facility]) Albuterol Sulfate HFA 108 (90 Base) MCG/ACT Albuterol Sulfate HFA 108 (90 Base) MCG/ACT 11/16/2020 12:00:00 AM EDT 1.0 {puff_as_needed} suspended Albuterol Sulfate HFA 108 (90 Base) MCG/ACT eCW1 ([facility]) Albuterol Sulfate HFA 108 (90 Base) MCG/ACT Albuterol Sulfate HFA 108 (90 Base) MCG/ACT 11/16/2020 12:00:00 AM EDT 1.0 {puff_as_needed} suspended Albuterol Sulfate HFA 108 (90 Base) MCG/ACT eCW1 ([facility]) Albuterol Sulfate HFA 108 (90 Base) MCG/ACT Albuterol Sulfate HFA 108 (90 Base) MCG/ACT 11/16/2020 12:00:00 AM EDT 1.0 {puff_as_needed} suspended Albuterol Sulfate HFA 108 (90 Base) MCG/ACT eCW1 ([facility]) Albuterol Sulfate HFA 108 (90 Base) MCG/ACT Albuterol Sulfate HFA 108 (90 Base) MCG/ACT 11/16/2020 12:00:00 AM EDT 1.0 {puff_as_needed} suspended Albuterol Sulfate HFA 108 (90 Base) MCG/ACT eCW1 ([facility]) Albuterol Sulfate HFA 108 (90 Base) MCG/ACT Albuterol Sulfate HFA 108 (90 Base) MCG/ACT 11/16/2020 12:00:00 AM EDT 1.0 {puff_as_needed} suspended Albuterol Sulfate HFA 108 (90 Base) MCG/ACT eCW1 ([facility]) Albuterol Sulfate HFA 108 (90 Base) MCG/ACT Albuterol Sulfate HFA 108 (90 Base) MCG/ACT 11/16/2020 12:00:00 AM EDT 1.0 {puff_as_needed} suspended Albuterol Sulfate HFA 108 (90 Base) MCG/ACT eCW1 ([facility]) Albuterol Sulfate HFA 108 (90 Base) MCG/ACT Albuterol Sulfate HFA 108 (90 Base) MCG/ACT 11/16/2020 12:00:00 AM EDT 1.0 {puff_as_needed} suspended Albuterol Sulfate HFA 108 (90 Base) MCG/ACT eCW1 ([facility]) Albuterol Sulfate HFA 108 (90 Base) MCG/ACT Albuterol Sulfate HFA 108 (90 Base) MCG/ACT 11/16/2020 12:00:00 AM EDT 1.0 {puff_as_needed} suspended Albuterol Sulfate HFA 108 (90 Base) MCG/ACT eCW1 ([facility]) Albuterol Sulfate HFA 108 (90 Base) MCG/ACT Albuterol Sulfate HFA 108 (90 Base) MCG/ACT 11/16/2020 12:00:00 AM EDT 1.0 {puff_as_needed} suspended Albuterol Sulfate HFA 108 (90 Base) MCG/ACT eCW1 ([facility]) Albuterol Sulfate HFA 108 (90 Base) MCG/ACT Albuterol Sulfate HFA 108 (90 Base) MCG/ACT 11/16/2020 12:00:00 AM EDT 1.0 {puff_as_needed} suspended Albuterol Sulfate HFA 108 (90 Base) MCG/ACT eCW1 ([facility]) Albuterol Sulfate HFA 108 (90 Base) MCG/ACT Albuterol Sulfate HFA 108 (90 Base) MCG/ACT 11/16/2020 12:00:00 AM EDT 1.0 {puff_as_needed} suspended Albuterol Sulfate HFA 108 (90 Base) MCG/ACT eCW1 ([facility]) Albuterol Sulfate HFA 108 (90 Base) MCG/ACT Albuterol Sulfate HFA 108 (90 Base) MCG/ACT 11/16/2020 12:00:00 AM EDT 1.0 {puff_as_needed} suspended Albuterol Sulfate HFA 108 (90 Base) MCG/ACT eCW1 ([facility]) Albuterol Sulfate HFA 108 (90 Base) MCG/ACT Albuterol Sulfate HFA 108 (90 Base) MCG/ACT 11/16/2020 12:00:00 AM EDT 1.0 {puff_as_needed} suspended Albuterol Sulfate HFA 108 (90 Base) MCG/ACT eCW1 ([facility]) Albuterol Sulfate HFA 108 (90 Base) MCG/ACT Albuterol Sulfate HFA 108 (90 Base) MCG/ACT 11/16/2020 12:00:00 AM EDT 1.0 {puff_as_needed} suspended Albuterol Sulfate HFA 108 (90 Base) MCG/ACT eCW1 ([facility]) Ibuprofen 800 MG Oral Tablet Ibuprofen 800 MG 10/31/2020 12:00:00 A M EDT 1.0 {tablet} active Ibuprofen 800 MG eCW1 ( [facility]) Acetaminophen 325 MG / Oxycodone Hydroch loride 5 MG Oral Tablet [Percocet] Percocet 5-325 MG Percocet 5-325 MG 10/31/2020 12:00:00 AM EDT active Percocet 5-325 MG eCW1 ([facility]) 800 mg 10/31/2020 12:00:00 AM EDT tablet 12 TAKE ONE TABLET BY MOUTH EVERY 8 HOURS NEEDED FOR PAIN TAKE ONE TABLET BY MOUTH EVERY 8 HOURS A S NEEDED FOR PAIN SOLD: 10/31/2020 [facility] 5-325 mg 10/31/2020 12:00:00 AM EDT tablet 8 TAKE ONE TABLET BY MOUTH EVERY 8 HOURS NEEDED FOR SEVERE PAIN - MAXIMUM DAILY DOSE = 3 TABLETS TAKE ONE TABLET BY MOUTH EVERY 8 HOURS NEEDED FOR SEVERE PAIN - MAXIMUM DAILY DOSE = 3 TABLETS SOLD: 10/31/2020 [facility] Ibuprofen 800 MG Oral Tablet Ibuprofen 800 MG 10/31/2020 12:00:00 A M EDT 1.0 {tablet} active Ibuprofen 800 MG eCW1 ( [facility]) Ibuprofen 800 MG Oral Tablet Ibuprofen 800 MG 10/31/2020 12:00:00 A M EDT 1.0 {tablet} active eCW1 ([facility]) Acetaminophen 325 MG / Oxycodone Hydroch loride 5 MG Oral Tablet [Percocet] Percocet 5-325 MG Percocet 5-325 MG 10/31/2020 12:00:00 AM EDT active Percocet 5-325 MG eCW1 ([facility]) Acetaminophen 325 MG / Oxycodone Hydroch loride 5 MG Oral Tablet [Percocet] Percocet 5-325 MG Percocet 5-325 MG 10/31/2020 12:00:00 AM EDT active eCW1 ([facility]) Acetaminophen 325 MG / Oxycodone Hydroch loride 5 MG Oral Tablet [Percocet] Percocet 5-325 MG Percocet 5-325 MG 10/31/2020 12:00:00 AM EDT active Percocet 5-325 MG eCW1 ([facility]) Ibuprofen 800 MG Oral Tablet Ibuprofen 800 MG 10/31/2020 12:00:00 A M EDT 1.0 {tablet} active Ibuprofen 800 MG eCW1 ( [facility]) Acetaminophen 325 MG / Oxycodone Hydroch loride 5 MG Oral Tablet [Percocet] Percocet 5-325 MG Percocet 5-325 MG 10/31/2020 12:00:00 AM EDT active Percocet 5-325 MG eCW1 ([facility]) Ibuprofen 800 MG Oral Tablet Ibuprofen 800 MG 10/31/2020 12:00:00 A M EDT 1.0 {tablet} active Ibuprofen 800 MG eCW1 ( [facility]) 5 mg 09/23/2020 12:00:00 AM EDT tablet 20 TAKE 1 TABLET [5MG] BY MOUTH BEFORE MEALS AND AT BEDTIME TAKE 1 TABLET [5MG] BY MOUTH BEFORE MEAL S AND AT BEDTIME SOLD: 09/24/2020 [facility] buspirone hydrochloride 10 MG Oral Tablet BUSPIRONE HCL 09/13/2020 12:00:00 AM EDT tablet 60 TAKE ONE TABLET BY MOUTH TWI CE A DAY TAKE ONE TABLET BY MOUTH TWICE A DAY SOLD: 09/17/2020 [facility] buspirone hydrochloride 10 MG Oral Tablet busPIRone HC l 10 MG busPIRone HCl 10 MG 09/13/2020 12:00:00 AM EDT active busPIRone HCl 10 MG eCW1 ([facility]) buspirone hydrochloride 15 MG Oral Tablet busPIRone HC l 15 MG busPIRone HCl 15 MG 09/13/2020 12:00:00 AM EDT active busPIRone HCl 15 MG eCW1 ([facility]) buspirone hydrochloride 10 MG Oral Tablet busPIRone HC l 10 MG busPIRone HCl 10 MG 09/13/2020 12:00:00 AM EDT active busPIRone HCl 10 MG eCW1 ([facility]) buspirone hydrochloride 10 MG Oral Tablet BusPIRone HC l 10 MG BusPIRone HCl 10 MG 09/13/2020 12:00:00 AM EDT 1.0 {tablet} activ e BusPIRone HCl 10 MG eCW1 ([facility]) 5 % 09/07/2020 12:00:00 AM EDT cream 60 APPLY 1 APPLICATION TO AFFECTED RIGHT LEG, ARM & BACK & LEAVE ON FOR 8-10 HOURS ONCE WEEKLY APPLY 1 APPLICATION TO AFFECTED RIGHT LEG, ARM & BACK & LEAVE ON FOR 8-10 HOURS ONCE WEEKLY SOLD: 09/08/2020 [facility] 324 mg (38 mg iron) 09/07/2020 12:00:00 AM EDT tablet 30 TAKE ONE TABLET BY MOUTH DAILY WITH JUICE OR WATER BETWEEN MEALS TAKE ONE TABLET BY MOUTH DAILY WITH JUICE OR WATER BETWEEN MEALS SOLD: 09/08/2020 [facility] Permethrin 50 MG/ML Topical Cream Permethrin 5 % Permethrin 5 % 09/06/2020 12:00:00 AM EDT suspended Perme thrin 5 % eCW1 ([facility]) ferrous gluconate 324 MG Oral Tablet Ferrous Gluconate 324 (38 Fe) MG Ferrous Gluconate 324 (38 Fe) MG 09/06/2020 12:00:00 AM EDT active Ferrous Gluconate 324 (38 Fe) MG eCW1 ([facility]) ferrous gluconate 324 MG Oral Tablet Ferrous Gluconate 324 (38 Fe) MG Ferrous Gluconate 324 (38 Fe) MG 09/06/2020 12:00:00 AM EDT active Ferrous Gluconate 324 (38 Fe) MG eCW1 ([facility]) ferrous gluconate 324 MG Oral Tablet Ferrous Gluconate 324 (38 Fe) MG Ferrous Gluconate 324 (38 Fe) MG 09/06/2020 12:00:00 AM EDT active Ferrous Gluconate 324 (38 Fe) MG eCW1 ([facility]) ferrous gluconate 324 MG Oral Tablet Ferrous Gluconate 324 (38 Fe) MG Ferrous Gluconate 324 (38 Fe) MG 09/06/2020 12:00:00 AM EDT suspended Ferrous Gluconate 324 (38 Fe) MG eCW1 ([facility]) ferrous gluconate 324 MG Oral Tablet Ferrous Gluconate 324 (38 Fe) MG Ferrous Gluconate 324 (38 Fe) MG 09/06/2020 12:00:00 AM EDT active Ferrous Gluconate 324 (38 Fe) MG eCW1 ([facility]) Permethrin 50 MG/ML Topical Cream Permethrin 5 % Permethrin 5 % 09/06/2020 12:00:00 AM EDT suspended Perme thrin 5 % eCW1 ([facility]) ferrous gluconate 324 MG Oral Tablet Ferrous Gluconate 324 (38 Fe) MG Ferrous Gluconate 324 (38 Fe) MG 09/06/2020 12:00:00 AM EDT suspended Ferrous Gluconate 324 (38 Fe) MG eCW1 ([facility]) ferrous gluconate 324 MG Oral Tablet Ferrous Gluconate 324 (38 Fe) MG Ferrous Gluconate 324 (38 Fe) MG 09/06/2020 12:00:00 AM EDT active Ferrous Gluconate 324 (38 Fe) MG eCW1 ([facility]) ferrous gluconate 324 MG Oral Tablet Ferrous Gluconate 324 (38 Fe) MG Ferrous Gluconate 324 (38 Fe) MG 09/06/2020 12:00:00 AM EDT active Ferrous Gluconate 324 (38 Fe) MG eCW1 ([facility]) Cholecalciferol 125 MCG (5000 UT) UNK 09/06/2020 12:00:00 AM EDT active Cholecalciferol 125 MCG (5000 UT ) eCW1 ([facility]) ferrous gluconate 324 MG Oral Tablet Ferrous Gluconate 324 (38 Fe) MG Ferrous Gluconate 324 (38 Fe) MG 09/06/2020 12:00:00 AM EDT suspended Ferrous Gluconate 324 (38 Fe) MG eCW1 ([facility]) ferrous gluconate 324 MG Oral Tablet Ferrous Gluconate 324 (38 Fe) MG Ferrous Gluconate 324 (38 Fe) MG 09/06/2020 12:00:00 AM EDT active Ferrous Gluconate 324 (38 Fe) MG eCW1 ([facility]) Permethrin 50 MG/ML Topical Cream Permethrin 5 % Permethrin 5 % 09/06/2020 12:00:00 AM EDT suspended Perme thrin 5 % eCW1 ([facility]) ferrous gluconate 324 MG Oral Tablet Ferrous Gluconate 324 (38 Fe) MG Ferrous Gluconate 324 (38 Fe) MG 09/06/2020 12:00:00 AM EDT active Ferrous Gluconate 324 (38 Fe) MG eCW1 ([facility]) ferrous gluconate 324 MG Oral Tablet Ferrous Gluconate 324 (38 Fe) MG Ferrous Gluconate 324 (38 Fe) MG 09/06/2020 12:00:00 AM EDT active eCW1 ([facility]) Pramoxine hydrochloride 10 MG/ML / Zinc Acetate 1 MG/ML Topical Lotion Calamine Clear 1-0.1 % Calamine Clear 1-0.1 % 09/06/2020 12:00:00 AM EDT 1.0 {application_as_needed} suspended eCW1 ([facility]) Cholecalciferol 125 MCG (5000 UT) UNK 09/06/2020 12:00:00 AM EDT active Cholecalciferol 125 MCG (5000 UT ) eCW1 ([facility]) ferrous gluconate 324 MG Oral Tablet Ferrous Gluconate 324 (38 Fe) MG Ferrous Gluconate 324 (38 Fe) MG 09/06/2020 12:00:00 AM EDT active Ferrous Gluconate 324 (38 Fe) MG eCW1 ([facility]) ferrous gluconate 324 MG Oral Tablet Ferrous Gluconate 324 (38 Fe) MG Ferrous Gluconate 324 (38 Fe) MG 09/06/2020 12:00:00 AM EDT active Ferrous Gluconate 324 (38 Fe) MG eCW1 ([facility]) ferrous gluconate 324 MG Oral Tablet Ferrous Gluconate 324 (38 Fe) MG Ferrous Gluconate 324 (38 Fe) MG 09/06/2020 12:00:00 AM EDT active Ferrous Gluconate 324 (38 Fe) MG W1 ([facility]) Permethrin 50 MG/ML Topical Cream Permethrin 5 % Permethrin 5 % 09/06/2020 12:00:00 AM EDT active Permethr in 5 % [facility] ([facility]) Cholecalciferol 125 MCG (5000 UT) UNK 09/06/2020 12:00:00 AM EDT suspended W1 ([facility]) ferrous gluconate 324 MG Oral Tablet Ferrous Gluconate 324 (38 Fe) MG Ferrous Gluconate 324 (38 Fe) MG 09/06/2020 12:00:00 AM EDT active Ferrous Gluconate 324 (38 Fe) MG eCW1 ([facility]) Cholecalciferol 125 MCG (5000 UT) UNK 09/06/2020 12:00:00 AM EDT suspended Cholecalciferol 125 MCG (5000 UT ) W1 ([facility]) ferrous gluconate 324 MG Oral Tablet Ferrous Gluconate 324 (38 Fe) MG Ferrous Gluconate 324 (38 Fe) MG 09/06/2020 12:00:00 AM EDT active Ferrous Gluconate 324 (38 Fe) MG eCW1 ([facility]) Cholecalciferol 125 MCG (5000 UT) UNK 09/06/2020 12:00:00 AM EDT active Cholecalciferol 125 MCG (5000 UT ) eCW1 ([facility]) Permethrin 50 MG/ML Topical Cream Permethrin 5 % Permethrin 5 % 09/06/2020 12:00:00 AM EDT suspended Perme thrin 5 % eCW1 ([facility]) ferrous gluconate 324 MG Oral Tablet Ferrous Gluconate 324 (38 Fe) MG Ferrous Gluconate 324 (38 Fe) MG 09/06/2020 12:00:00 AM EDT active Ferrous Gluconate 324 (38 Fe) MG eCW1 ([facility]) ferrous gluconate 324 MG Oral Tablet Ferrous Gluconate 324 (38 Fe) MG Ferrous Gluconate 324 (38 Fe) MG 09/06/2020 12:00:00 AM EDT active Ferrous Gluconate 324 (38 Fe) MG eCW1 ([facility]) Permethrin 50 MG/ML Topical Cream Permethrin 5 % Permethrin 5 % 09/06/2020 12:00:00 AM EDT active Permethr in 5 % eCW1 ([facility]) ferrous gluconate 324 MG Oral Tablet Ferrous Gluconate 324 (38 Fe) MG Ferrous Gluconate 324 (38 Fe) MG 09/06/2020 12:00:00 AM EDT active Ferrous Gluconate 324 (38 Fe) MG eCW1 ([facility]) Pramoxine hydrochloride 10 MG/ML / Zinc Acetate 1 MG/ML Topical Lotion Calamine Clear 1-0.1 % Calamine Clear 1-0.1 % 09/06/2020 12:00:00 AM EDT 1.0 {application_as_needed} suspended eCW1 ([facility]) Pramoxine hydrochloride 10 MG/ML / Zinc Acetate 1 MG/ML Topical Lotion Calamine Clear 1-0.1 % Calamine Clear 1-0.1 % 09/06/2020 12:00:00 AM EDT 1.0 {application_as_needed} suspended Calami ne Clear 1-0.1 % eCW1 ([facility]) ferrous gluconate 324 MG Oral Tablet Ferrous Gluconate 324 (38 Fe) MG Ferrous Gluconate 324 (38 Fe) MG 09/06/2020 12:00:00 AM EDT suspended Ferrous Gluconate 324 (38 Fe) MG eCW1 ([facility]) Pramoxine hydrochloride 10 MG/ML / Zinc Acetate 1 MG/ML Topical Lotion Calamine Clear 1-0.1 % Calamine Clear 1-0.1 % 09/06/2020 12:00:00 AM EDT 1.0 {application_as_needed} suspended Calami ne Clear 1-0.1 % eCW1 ([facility]) ferrous gluconate 324 MG Oral Tablet Ferrous Gluconate 324 (38 Fe) MG Ferrous Gluconate 324 (38 Fe) MG 09/06/2020 12:00:00 AM EDT active Ferrous Gluconate 324 (38 Fe) MG eCW1 ([facility]) Pramoxine hydrochloride 10 MG/ML / Zinc Acetate 1 MG/ML Topical Lotion Calamine Clear 1-0.1 % Calamine Clear 1-0.1 % 09/06/2020 12:00:00 AM EDT 1.0 {application_as_needed} suspended Calami ne Clear 1-0.1 % eCW1 ([facility]) ferrous gluconate 324 MG Oral Tablet Ferrous Gluconate 324 (38 Fe) MG Ferrous Gluconate 324 (38 Fe) MG 09/06/2020 12:00:00 AM EDT active Ferrous Gluconate 324 (38 Fe) MG eCW1 ([facility]) Cholecalciferol 125 MCG (5000 UT) UNK 09/06/2020 12:00:00 AM EDT active Cholecalciferol 125 MCG (5000 UT ) eCW1 ([facility]) Permethrin 50 MG/ML Topical Cream Permethrin 5 % Permethrin 5 % 09/06/2020 12:00:00 AM EDT suspended eCW1 ([facility]) ferrous gluconate 324 MG Oral Tablet Ferrous Gluconate 324 (38 Fe) MG Ferrous Gluconate 324 (38 Fe) MG 09/06/2020 12:00:00 AM EDT active eCW1 ([facility]) Permethrin 50 MG/ML Topical Cream Permethrin 5 % Permethrin 5 % 09/06/2020 12:00:00 AM EDT active Permethr in 5 % eCW1 ([facility]) Permethrin 50 MG/ML Topical Cream Permethrin 5 % Permethrin 5 % 09/06/2020 12:00:00 AM EDT active Permethr in 5 % eCW1 ([facility]) ferrous gluconate 324 MG Oral Tablet Ferrous Gluconate 324 (38 Fe) MG Ferrous Gluconate 324 (38 Fe) MG 09/06/2020 12:00:00 AM EDT active Ferrous Gluconate 324 (38 Fe) MG eCW1 ([facility]) ferrous gluconate 324 MG Oral Tablet Ferrous Gluconate 324 (38 Fe) MG Ferrous Gluconate 324 (38 Fe) MG 09/06/2020 12:00:00 AM EDT active Ferrous Gluconate 324 (38 Fe) MG eCW1 ([facility]) ferrous gluconate 324 MG Oral Tablet Ferrous Gluconate 324 (38 Fe) MG Ferrous Gluconate 324 (38 Fe) MG 09/06/2020 12:00:00 AM EDT active Ferrous Gluconate 324 (38 Fe) MG eCW1 ([facility]) ferrous gluconate 324 MG Oral Tablet Ferrous Gluconate 324 (38 Fe) MG Ferrous Gluconate 324 (38 Fe) MG 09/06/2020 12:00:00 AM EDT active Ferrous Gluconate 324 (38 Fe) MG eCW1 ([facility]) Pramoxine hydrochloride 10 MG/ML / Zinc Acetate 1 MG/ML Topical Lotion Calamine Clear 1-0.1 % Calamine Clear 1-0.1 % 09/06/2020 12:00:00 AM EDT 1.0 {application_as_needed} suspended Calami ne Clear 1-0.1 % eCW1 ([facility]) Cholecalciferol 5000 UNT Oral Capsule 125 mcg (5,000 u nit) CHOLECALCIFEROL (VITAMIN D3) 09/06/2020 12:00:00 AM EDT capsule 30 T MELQUIADES ONE CAPSULE BY MOUTH ONCE DAILY DIRECTED TAKE ONE CAPSULE BY MOUTH ONCE DAILY DIRECTED SOLD: 09/07/2020 [facility] Pramoxine hydrochloride 10 MG/ML / Zinc Acetate 1 MG/ML Topical Lotion Calamine Clear 1-0.1 % Calamine Clear 1-0.1 % 09/06/2020 12:00:00 AM EDT 1.0 {application_as_needed} active Calamine Clear 1-0.1 % eCW1 ([facility]) Cholecalciferol 125 MCG (5000 UT) UNK 09/06/2020 12:00:00 AM EDT suspended eCW1 ([facility]) Pramoxine hydrochloride 10 MG/ML / Zinc Acetate 1 MG/ML Topical Lotion Calamine Clear 1-0.1 % Calamine Clear 1-0.1 % 09/06/2020 12:00:00 AM EDT 1.0 {application_as_needed} suspended Calami ne Clear 1-0.1 % eCW1 ([facility]) Pramoxine hydrochloride 10 MG/ML / Zinc Acetate 1 MG/ML Topical Lotion Calamine Clear 1-0.1 % Calamine Clear 1-0.1 % 09/06/2020 12:00:00 AM EDT 1.0 {application_as_needed} active Calamine Clear 1-0.1 % eCW1 ([facility]) ferrous gluconate 324 MG Oral Tablet Ferrous Gluconate 324 (38 Fe) MG Ferrous Gluconate 324 (38 Fe) MG 09/06/2020 12:00:00 AM EDT active Ferrous Gluconate 324 (38 Fe) MG eCW1 ([facility]) Pramoxine hydrochloride 10 MG/ML / Zinc Acetate 1 MG/ML Topical Lotion Calamine Clear 1-0.1 % Calamine Clear 1-0.1 % 09/06/2020 12:00:00 AM EDT 1.0 {application_as_needed} suspended Calami ne Clear 1-0.1 % eCW1 ([facility]) ferrous gluconate 324 MG Oral Tablet Ferrous Gluconate 324 (38 Fe) MG Ferrous Gluconate 324 (38 Fe) MG 09/06/2020 12:00:00 AM EDT active Ferrous Gluconate 324 (38 Fe) MG eCW1 ([facility]) Cholecalciferol 125 MCG (5000 UT) UNK 09/06/2020 12:00:00 AM EDT active Cholecalciferol 125 MCG (5000 UT ) eCW1 ([facility]) Permethrin 50 MG/ML Topical Cream Permethrin 5 % Permethrin 5 % 09/06/2020 12:00:00 AM EDT suspended Perme thrin 5 % eCW1 ([facility]) ferrous gluconate 324 MG Oral Tablet Ferrous Gluconate 324 (38 Fe) MG Ferrous Gluconate 324 (38 Fe) MG 09/06/2020 12:00:00 AM EDT active Ferrous Gluconate 324 (38 Fe) MG eCW1 ([facility]) ferrous gluconate 324 MG Oral Tablet Ferrous Gluconate 324 (38 Fe) MG Ferrous Gluconate 324 (38 Fe) MG 09/06/2020 12:00:00 AM EDT active Ferrous Gluconate 324 (38 Fe) MG eCW1 ([facility]) Permethrin 50 MG/ML Topical Cream Permethrin 5 % Permethrin 5 % 09/06/2020 12:00:00 AM EDT suspended Perme thrin 5 % eCW1 ([facility]) ferrous gluconate 324 MG Oral Tablet Ferrous Gluconate 324 (38 Fe) MG Ferrous Gluconate 324 (38 Fe) MG 09/06/2020 12:00:00 AM EDT active Ferrous Gluconate 324 (38 Fe) MG eCW1 ([facility]) ferrous gluconate 324 MG Oral Tablet Ferrous Gluconate 324 (38 Fe) MG Ferrous Gluconate 324 (38 Fe) MG 09/06/2020 12:00:00 AM EDT active Ferrous Gluconate 324 (38 Fe) MG eCW1 ([facility]) ferrous gluconate 324 MG Oral Tablet Ferrous Gluconate 324 (38 Fe) MG Ferrous Gluconate 324 (38 Fe) MG 09/06/2020 12:00:00 AM EDT suspended Ferrous Gluconate 324 (38 Fe) MG eCW1 ([facility]) Pramoxine hydrochloride 10 MG/ML / Zinc Acetate 1 MG/ML Topical Lotion Calamine Clear 1-0.1 % Calamine Clear 1-0.1 % 09/06/2020 12:00:00 AM EDT 1.0 {application_as_needed} active Calamine Clear 1-0.1 % eCW1 ([facility]) Cholecalciferol 125 MCG (5000 UT) UNK 09/06/2020 12:00:00 AM EDT suspended Cholecalciferol 125 MCG (5000 UT ) eCW1 ([facility]) Cholecalciferol 125 MCG (5000 UT) UNK 09/06/2020 12:00:00 AM EDT suspended Cholecalciferol 125 MCG (5000 UT ) eCW1 ([facility]) Permethrin 50 MG/ML Topical Cream Permethrin 5 % Permethrin 5 % 09/06/2020 12:00:00 AM EDT suspended Perme thrin 5 % eCW1 ([facility]) ferrous gluconate 324 MG Oral Tablet Ferrous Gluconate 324 (38 Fe) MG Ferrous Gluconate 324 (38 Fe) MG 09/06/2020 12:00:00 AM EDT active Ferrous Gluconate 324 (38 Fe) MG eCW1 ([facility]) Cholecalciferol 125 MCG (5000 UT) UNK 09/06/2020 12:00:00 AM EDT suspended Cholecalciferol 125 MCG (5000 UT ) eCW1 ([facility]) Cholecalciferol 125 MCG (5000 UT) UNK 09/06/2020 12:00:00 AM EDT suspended Cholecalciferol 125 MCG (5000 UT ) eCW1 ([facility]) Cholecalciferol 125 MCG (5000 UT) UNK 09/06/2020 12:00:00 AM EDT suspended Cholecalciferol 125 MCG (5000 UT ) eCW1 ([facility]) Cholecalciferol 125 MCG (5000 UT) UNK 09/06/2020 12:00:00 AM EDT suspended Cholecalciferol 125 MCG (5000 UT ) eCW1 ([facility]) Permethrin 50 MG/ML Topical Cream Permethrin 5 % Permethrin 5 % 09/06/2020 12:00:00 AM EDT suspended eCW1 ([facility]) ferrous gluconate 324 MG Oral Tablet Ferrous Gluconate 324 (38 Fe) MG Ferrous Gluconate 324 (38 Fe) MG 09/06/2020 12:00:00 AM EDT active Ferrous Gluconate 324 (38 Fe) MG eCW1 ([facility]) Permethrin 50 MG/ML Topical Cream Permethrin 5 % Permethrin 5 % 09/06/2020 12:00:00 AM EDT active Permethr in 5 % eCW1 ([facility]) Permethrin 50 MG/ML Topical Cream Permethrin 5 % Permethrin 5 % 09/06/2020 12:00:00 AM EDT suspended Perme thrin 5 % eCW1 ([facility]) Pramoxine hydrochloride 10 MG/ML / Zinc Acetate 1 MG/ML Topical Lotion Calamine Clear 1-0.1 % Calamine Clear 1-0.1 % 09/06/2020 12:00:00 AM EDT 1.0 {application_as_needed} active Calamine Clear 1-0.1 % eCW1 ([facility]) ferrous gluconate 324 MG Oral Tablet Ferrous Gluconate 324 (38 Fe) MG Ferrous Gluconate 324 (38 Fe) MG 09/06/2020 12:00:00 AM EDT active Ferrous Gluconate 324 (38 Fe) MG eCW1 ([facility]) Cholecalciferol 125 MCG (5000 UT) UNK 09/06/2020 12:00:00 AM EDT suspended Cholecalciferol 125 MCG (5000 UT ) eCW1 ([facility]) ferrous gluconate 324 MG Oral Tablet Ferrous Gluconate 324 (38 Fe) MG Ferrous Gluconate 324 (38 Fe) MG 09/06/2020 12:00:00 AM EDT active Ferrous Gluconate 324 (38 Fe) MG eCW1 ([facility]) Permethrin 50 MG/ML Topical Cream Permethrin 5 % Permethrin 5 % 09/06/2020 12:00:00 AM EDT suspended Perme thrin 5 % eCW1 ([facility]) ferrous gluconate 324 MG Oral Tablet Ferrous Gluconate 324 (38 Fe) MG Ferrous Gluconate 324 (38 Fe) MG 09/06/2020 12:00:00 AM EDT suspended Ferrous Gluconate 324 (38 Fe) MG eCW1 ([facility]) Cholecalciferol 125 MCG (5000 UT) UNK 09/06/2020 12:00:00 AM EDT suspended Cholecalciferol 125 MCG (5000 UT ) eCW1 ([facility]) Pramoxine hydrochloride 10 MG/ML / Zinc Acetate 1 MG/ML Topical Lotion Calamine Clear 1-0.1 % Calamine Clear 1-0.1 % 09/06/2020 12:00:00 AM EDT 1.0 {application_as_needed} suspended Calami ne Clear 1-0.1 % eCW1 ([facility]) ferrous gluconate 324 MG Oral Tablet Ferrous Gluconate 324 (38 Fe) MG Ferrous Gluconate 324 (38 Fe) MG 09/06/2020 12:00:00 AM EDT active Ferrous Gluconate 324 (38 Fe) MG eCW1 ([facility]) ferrous gluconate 324 MG Oral Tablet Ferrous Gluconate 324 (38 Fe) MG Ferrous Gluconate 324 (38 Fe) MG 09/06/2020 12:00:00 AM EDT active Ferrous Gluconate 324 (38 Fe) MG eCW1 ([facility]) ferrous gluconate 324 MG Oral Tablet Ferrous Gluconate 324 (38 Fe) MG Ferrous Gluconate 324 (38 Fe) MG 09/06/2020 12:00:00 AM EDT active Ferrous Gluconate 324 (38 Fe) MG eCW1 ([facility]) ferrous gluconate 324 MG Oral Tablet Ferrous Gluconate 324 (38 Fe) MG Ferrous Gluconate 324 (38 Fe) MG 09/06/2020 12:00:00 AM EDT suspended Ferrous Gluconate 324 (38 Fe) MG eCW1 ([facility]) Pramoxine hydrochloride 10 MG/ML / Zinc Acetate 1 MG/ML Topical Lotion Calamine Clear 1-0.1 % Calamine Clear 1-0.1 % 09/06/2020 12:00:00 AM EDT 1.0 {application_as_needed} suspended Calami ne Clear 1-0.1 % eCW1 ([facility]) ferrous gluconate 324 MG Oral Tablet Ferrous Gluconate 324 (38 Fe) MG Ferrous Gluconate 324 (38 Fe) MG 09/06/2020 12:00:00 AM EDT active Ferrous Gluconate 324 (38 Fe) MG eCW1 ([facility]) Pramoxine hydrochloride 10 MG/ML / Zinc Acetate 1 MG/ML Topical Lotion Calamine Clear 1-0.1 % Calamine Clear 1-0.1 % 09/06/2020 12:00:00 AM EDT 1.0 {application_as_needed} suspended Calami ne Clear 1-0.1 % eCW1 ([facility]) Pramoxine hydrochloride 10 MG/ML / Zinc Acetate 1 MG/ML Topical Lotion Calamine Clear 1-0.1 % Calamine Clear 1-0.1 % 09/06/2020 12:00:00 AM EDT 1.0 {application_as_needed} active Calamine Clear 1-0.1 % eCW1 ([facility]) ferrous gluconate 324 MG Oral Tablet Ferrous Gluconate 324 (38 Fe) MG Ferrous Gluconate 324 (38 Fe) MG 09/06/2020 12:00:00 AM EDT active Ferrous Gluconate 324 (38 Fe) MG eCW1 ([facility]) 500 unit/gram 08/26/2020 12:00:00 AM EDT ointment 28 APPLY TOPICALLY TWICE A DAY TO THE AFFECTED AREAS APPLY TOPICALLY TWICE A DAY TO THE AFFECTED AREAS SOLD: 09/07/2020 [facility] Ondansetron 4 MG Disintegrating Oral Tablet ONDANSETRON 08/25/2020 12:00:00 AM EDT tablet,disintegrating 8 DISSOLVE O NE TABLET BY MOUTH EVERY 6 TO 8 HOURS NEEDED NAUSEA AND VOMITING DISSOLVE ONE TABLET BY MOUTH EVERY 6 TO 8 HOURS NEEDED NAUSEA AND VOMITING SOLD: 09/07/2020 [facility] 500 unit/gram 08/17/2020 12:00:00 AM EST ointment 28 APPLY TO AFFECTED AREA(S) TWO TIMES A DAY APPLY TO AFFECTED AREA(S) TWO TIMES A DAY SOLD: 08/17/2020 [facility] 875-125 mg 08/17/2020 12:00:00 AM EST tablet 20 TAKE ONE TABLET BY MOUTH TWICE A DAY TAKE ONE TABLET BY MOUTH TWICE A DAY SOLD: 08/17/2020 [facility] 1,250 mcg (50,000 unit) 08/02/2020 12:00:00 AM EST capsule 4 TAKE ONE CAPSULE BY MOUTH ONCE WEEKLY DIRECTED TAKE ONE CAPSULE BY MOUTH ONCE WEEKLY DIRECTED SOLD: 08/02/2020 [facility] 0.25-35 mg-mcg 07/19/2020 12:00:00 AM EST tablet 84 TAKE ONE TABLET BY MOUTH EVERY DAY TAKE ONE TABLET BY MOUTH EVERY DAY SOLD: 08/02/2020 [facility] Cholecalciferol 125 MCG (5000 UT) UNK 06/24/2020 12:00:00 AM EST active Cholecalciferol 125 MCG (5000 UT ) eCW1 ([facility]) 24 HR Bupropion Hydrochloride 150 MG Extended Release Oral T ablet BUPROPION HCL 06/24/2020 12:00:00 AM EST tablet extended release 24 hr 15 TAKE ONE TABLET BY MOUTH EVERY MORNING FOR 15 DAYS TAKE ONE TABLET BY MOUTH EVERY MORNING F OR 15 DAYS SOLD: 06/25/2020 [facility] Cholecalciferol 125 MCG (5000 UT) UNK 06/24/2020 12:00:00 AM EST active Cholecalciferol 125 MCG (5000 UT ) eCW1 ([facility]) Cholecalciferol 125 MCG (5000 UT) UNK 06/24/2020 12:00:00 AM EST active Cholecalciferol 125 MCG (5000 UT ) eCW1 ([facility]) 125 mcg (5,000 unit) 06/24/2020 12:00:00 AM EST capsule 30 TAKE ONE CAPSULE BY MOUTH EVERY DAY DIRECTED TAKE ONE CAPSULE BY MOUTH EVERY DAY DIRECTED SOLD: 06/25/2020 [facility] 50 mg 06/24/2020 12:00:00 AM EST tablet 15 TAKE ONE-HALF TO ONE TABLET BY MOUTH AT BEDTIME TAKE ONE-HALF TO ONE TABLET BY MOUTH AT BEDTIME SOLD: 06/25/2020 [facility] Cholecalciferol 125 MCG (5000 UT) UNK 06/24/2020 12:00:00 AM EST active Cholecalciferol 125 MCG (5000 UT ) eCW1 ([facility]) meloxicam 7.5 MG Oral Tablet MELOXICAM 05/30/2020 12:00:00 AM EST tabl et 20 TAKE 1 TABLET BY MOUTH ONCE PER DAY FOR 20 DAYS TAKE 1 TABLET BY MOUTH ONCE PER DAY FOR 20 DAYS SOLD: 05/31/2020 [facility] 40 mg 05/14/2020 12:00:00 AM EST capsule,delayed release (DR/EC) 30 TAKE ONE CAPSULE BY MOUTH EVERY DAY TAKE ONE CAPSULE BY MOUTH EVERY DAY SOLD: 05/14/2020 [facility] 1 gram 05/14/2020 12:00:00 AM EST tablet 40 TAKE ONE TABLET BY MOUTH FOUR TIMES A DAY TAKE ONE TABLET BY MOUTH FOUR TIMES A DAY SOLD: 05/14/2020 [facility] buspirone hydrochloride [...] MOUTH EVERY DAY SOLD: 04/07/2020 [facility] 90 mcg/actuation 03/08/2020 12:00:00 AM EDT HFA aerosol inha ler 18 INHALE 2 PUFFS BY MOUTH EVERY 4 TO 6 HOURS NEEDED FOR WHEEZING INHALE 2 PUFFS BY MOUTH EVERY 4 TO 6 HOURS NEEDED FOR WHEEZING SOLD: 03/08/2020 [facility] 200 mg 03/08/2020 12:00:00 AM EDT capsule 30 TAKE ONE CAPSULE BY MOUTH THREE TIMES A DAY NEEDED FOR COUGH TAKE ONE CAPSULE BY MOUTH THREE TIMES A DAY NEEDED FOR COUGH SOLD: 03/08/2020 [facility] Ciprofloxacin 250 MG Oral Tablet [Cipro] Cipro 11/25/2019 12:00:00 AM EDT completed [facility] ([facility]) Insurance Providers Payer name Policy type / Coverage type Policy ID Covered democrat ID Covered democrat's relationship to suazo Policy Suazo Plan Information [facility] Commercial [id number] Family Dependent [id number] Pupil Benefits (pr) Commercial [id number] Family Dependent [id number] [employer] MEDICAID [id number] S [id number] [employer] MEDICAID [id number] S [id number] [employer] MEDICAID [id number] S [id number] [employer] MEDICAID [id number] S [id number] [employer] [id number] S [id number] [employer] MEDICAID [id number] S [id number] UNHC COMMUNITY PLAN MCDHMO [id number] SP [id number] UNHC COMMUNITY PLAN MCDHMO [id number] SP [id number] [employer] MEDICAID [id number] S [id number] [employer] MEDICAID [id number] S [id number] [facility] Commercial Insurance Co. [id number] Parent [id number] [facility] COMMUNTY PLAN [id number] 18 [id number] UNHC COMMUNITY PLAN XIX [id number] 18 [id number] [facility](MCAID) O [id number] S [id number] UNHC COMMUNITY PLAN XIX -I/P [id number] 18 [id number] UNHC COMMUNITY PLAN XIX [id number] 18 [id number] [facility] Communty Plan Medicaid [id number] Self [id number] [facility] Communty Plan Medicaid [id number] Self [id number] [facility]-Medicaid [id number] ANS-Medicaid [id number] [facility]-Medicaid [id number] [facility] Plan Medicaid [id number] Self [id number] ANSI-Medicaid [id number] ANSI-Commercial [id number] ANSI-Medicaid [id number] ANSI-Commercial [id number] ANSI-Medicaid [id number] ANSI-Medicaid [id number] ANSI-Medicaid [id number] ANSI-Medicaid [id number] ANSI-Commercial [id number] ANSI-Medicaid [id number] ANSI-Commercial [id number] ANSI-Medicaid [id number] ANSI-Medicaid [id number] ANSI-Commercial [id number] ANSI-Medicaid [id number] ANSI-Medicaid [id number] ANSI-Medicaid [id number] ANSI-Commercial [id number] ANSI-Medicaid [id number] ANSI-Medicaid [id number] ANSI-Commercial [id number] ANSI-Medicaid [id number] ANSI-Medicaid [id number] ANSI-Commercial [id number] ANSI-Medicaid [id number] ANSI-Commercial [id number] ANSI-Medicaid [id number] ANSI-Commercial [id number] ANSI-Medicaid [id number] [facility] [id number] ANSI-Medicaid [id number] ANSI-Medicaid [id number] ANSI-Commercial [id number] ANSI-Commercial [id number] ANSI-Medicaid [id number] ANSI-Medicaid [id number] ANSI-Medicaid [id number] ANSI-Medicaid [id number] ANSI-Commercial [id number] ANSI-Commercial [id number]-[id number] ANSI-Medicaid [id number] ANSI-Medicaid [id number] ANSI-Commercial [id number]-[id number]-c304-0z0x-[id number] ANSI-Medicaid [id number] ANSI-Medicaid [id number] ANSI-Medicaid [id number] ANSI-Medicaid [id number] ANSI-Commercial [id number] ANSI-Medicaid [id number] ANSI-Commercial [id number]-[id number] ANSI-Medicaid [id number] ANSI-Commercial [id number]-[id number] [facility] [id number] ANSI-Commercial [id number]-[id number] [facility]-Medicaid [id number] ANSI-Commercial [id number] [facility] [id number] [facility]icaid [id number] ANSI-Medicaid [id number] ANSI-Medicaid [id number] ANSI-Commercial [id number] SELF PAY [id number] S [id number] SELF-PAY [id number] S [id number] SELF-PAY UNAVAILABLE M UNAVAILA BLE MEDICAID [id number] SP [id number] MEDICAID [id number] SP [id number] [facility] MCDHMO [id number] SP [id number] UNHC [facility] [id number] S [id number] [facility] MEDICAID [id number] S [id number] [facility]HC COMMUNITY PLAN MCDO [id number] SP [id number] [facility] PU[facility] HLTH SP SELF PAY ONLY [id number] MEDICAID [id number] S [id number] [facility] MEDICAID [id number] S [id number] PUPILS BENEFIT PLAN [id number] S [id number] [facility] [id number] S [id number] [facility] [id number] S [id number] [facility] [id number] Problems, Conditions, and Diagnoses Code Display Name Description Problem Type Effective Dates Data Source(s) Z3A.00 Weeks of gestation of not spec ified WEEKS OF GESTATION OF NOT SPECIFIED Diagnosis 02/23/2021 10:00:[facility] F33.0 Major depressive disorder, recurrent, mi ld MAJOR DEPRESSIVE DISORDER, RECURRENT, MILD Diagnosis 02/23/2021 10:00:00 AM [facility] O99.340 Other mental disorders complicating preg robbi, unspecified trimester OTH MENTAL DISORDERS COMPLICATING , UNSP TRIMESTER Diagnosis 02/23/2021 10:00:00 AM [facility] F41.9 Anxiety disorder, unspecified ANXIETY DISORDER, UNSPEC IFIED Diagnosis 01/19/2021 02:20:00 PM [facility] 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 F32.9 Major depressive disorder, single episod e, unspecified MAJOR DEPRESSIVE DISORDER, SINGLE EPISODE, UNSPECIFIED Diagnosis 04/25/2020 02:30:00 PM [facility] O99.213 Maternal obesity complicatin g , childbirth and the puerperium, antepartum Obesity complicating , third trimester Problem 02/14/2021 12:00:00 AM EDT eCW1 ([facility]) O99.013 [id number] Anemia affecting in third trime ster Problem 01/05/2021 12:00:00 AM EDT eCW1 ([facility]) O99.213 Obesity complicating , third tr imester Obesity complicating in third trimester Problem 12/27/2020 12:00:00 AM EDT eCW1 ([facility]) J45.909 Asthma Asthma Problem 11/16/2020 12:00:00 AM ED T eCW1 ([facility]) [id number] Pure hypercholesterolemia Pure hypercholesterolemia Pr oblem 08/09/2020 12:00:00 AM EST MED[facility] ([facility]) F33.0 [id number] MDD (major depressive disorder), recurrent episode, mild Problem 08/06/2020 12:00:00 AM EST eCW1 ([facility]) O99.211 Obesity complicating , first tr imester Obesity complicating in first trimester Problem 07/26/2020 12:00:00 AM EST eCW1 ([facility]) Z34.80 care Supervision of other normal P roblem 07/25/2020 12:00:00 AM EST eCW1 ([facility]) E78.5 Hyperlipidemia Hyperlipidemia Problem 07/06/2020 12:00: 00 AM EST eCW1 ([facility]) E55.9 Vitamin D deficiency Vitamin D deficiency Problem 06/17/2020 12:00:00 AM EST eCW1 ([facility]) E66.01 [id number] Morbid (severe) obesity due to excess sreekanth ories Problem 06/17/2020 12:00:00 AM EST eCW1 ([facility]) Z68.42 [id number] Body mass index [BMI] 45.0-49.9, adult Pr oblem 06/17/2020 12:00:00 AM EST eCW1 ([facility]) F32.9 Major depressive disorder Major depressive disorder Pr oblem 06/17/2020 12:00:00 AM EST eCW1 ([facility]) F41.1 [id number] KEVIN (generalized anxiety disorder) Proble m 06/17/2020 12:00:00 AM EST eCW1 ([facility]) [id number] Obesity Obesity Problem 06/09/2020 12:00:00 AM ES T [facility] ([facility]) Surgeries/Procedures Procedure Description Date Indications Data Source(s) OFFICE OUTPATIENT VISIT 15 MINUTES 03/27/2021 12:00:00 AM EDT [facility] ([facility] ) MRI Lower Extremity Other Than Joint 03/17/2021 12:00: 00 AM EDT [facility] ([facility] ) OFFICE OUTPATIENT VISIT 10 MINUTES 02/16/2021 12:00:00 AM EDT [facility] ([facility] ) PHYSICIAN TELEPHONE EVALUATION 11-20 MIN 02/16/2021 12 :00:00 AM EDT [facility] ([facility] ) RADEX FOOT COMPLETE MINIMUM 3 VIEWS 11/30/2020 12:00:0 0 AM EDT [facility] ([facility] ) OFFICE OUTPATIENT VISIT 15 MINUTES 11/30/2020 12:00:00 AM EDT [facility] ([facility] ) OFFICE OUTPATIENT VISIT 10 MINUTES 11/17/2020 12:00:00 AM EDT [facility] ([facility] ) URINE-NO MICRO 10/28/2020 12:00:00 AM EDT eCW1 ([facility]) OFFICE OUTPATIENT VISIT 15 MINUTES 10/24/2020 12:00:00 AM EDT [facility] ([facility] ) APPLICATION SHORT LEG CAST BELOW KNEE-TOE 09/06/2020 1 2:00:00 AM EDT [facility] ([facility] ) OFFICE OUTPATIENT VISIT 15 MINUTES 09/06/2020 12:00:00 AM EDT [facility] ([facility]) APPLICATION SHORT LEG CAST BELOW KNEE-TOE 08/30/2020 1 2:00:00 AM EDT [facility] ([facility]) RADEX FOOT COMPLETE MINIMUM 3 VIEWS 08/30/2020 12:00:0 0 AM EDT [facility] ([facility]) OFFICE OUTPATIENT VISIT 15 MINUTES 08/30/2020 12:00:00 AM EDT [facility] ([facility]) RADEX FOOT COMPLETE MINIMUM 3 VIEWS 08/09/2020 12:00:0 0 AM EST [facility] ([facility]) OFFICE OUTPATIENT NEW 30 MINUTES 08/09/2020 12:00:00 A M EST [facility] ([facility]) 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 ID Date Data Source [id number] 02/27/2021 04:13:00 PM EDT [facility] ([facility]) Name Value Range Interpretation Code Description Data Candy rce(s) Supporting Document(s) White Blood Count 10.3 4.0-10.0 [facility] ([facility]) Red Blood Count 3.44 4.00-5.40 [facility] ([facility]) Hemoglobin 9.0 [facility] ([facility]) Platelets 191 150-450 [facility] Hematocrit 28.1 [facility] ([facility]) ID Date Data Source GROUP B STREP CULTURE 02/08/2021 12:00:00 AM EDT eCW1 ([facility]) Name Value Range Interpretation Code Description Data Candy rce(s) Supporting Document(s) GROUP B STREP CULTURE eCW1 (Formerly [facility]) ID Date Data Source URINE CULTURE 02/08/2021 12:00:00 AM EDT eCW1 ([facility]) Name Value Range Interpretation Code Description Data Candy rce(s) Supporting Document(s) URINE CULTURE eCW1 ([facility]) URINE CULTURE eCW1 ([facility]) ID Date Data Source [id number] 12/16/2020 03:52:00 PM EDT [facility] ([facility]) Name Value Range Interpretation Code Description Data Candy rce(s) Supporting Document(s) Albumin [Mass/volume] in Serum or Plasma 3.0 [facility] ([facility]) Calcium [Mass/volume] in Serum or Plasma 9.0 [facility] ([facility]) Alanine aminotransferase [Enzymatic activity/volume] in Serum or Pl asma 11 [facility] ([facility]) Carbon dioxide, total [Moles/volume] in Serum or Plasma 25 [facility] ([facility]) Chloride [Moles/volume] in Serum or Plasma 109 [facility] ([facility]) Alkaline phosphatase [Enzymatic activity/volume] in Serum or Plasma 1 15 [facility] ([facility]) Potassium [Moles/volume] in Serum or Plasma 4.0 [facility] ([facility]) Protein [Mass/volume] in Serum or Plasma 6.6 [facility] ([facility]) Sodium 140 [facility] Aspartate aminotransferase [Enzymatic activity/volume] in Serum or Plasma 7 [facility] ([facility]) Glucose 70 70-100 [facility] Urea nitrogen [Mass/volume] in Serum or Plasma 5 [facility] ([facility]) Creatinine For GFR 0.44 [facility] ([facility]) ID Date Data Source BLOOD CULTURES 12/16/2020 12:00:00 AM EDT eCW1 ([facility]) Name Value Range Interpretation Code Description Data Candy rce(s) Supporting Document(s) BLOOD CULTURES eCW1 ([facility]) ID Date Data Source LACTIC ACID LEVEL, LACTATE 12/16/2020 12:00:00 AM EDT eCW1 ( [facility]) Name Value Range Interpretation Code Description Data Candy rce(s) Supporting Document(s) LACTIC ACID LEVEL, LACTATE eCW 1 ([facility]) ID Date Data Source DDIMER QUANT 12/16/2020 12:00:00 AM EDT eCW1 ([facility]) Name Value Range Interpretation Code Description Data Candy rce(s) Supporting Document(s) 1376.29 <500 D-DIMER QUANT eCW1 ([facility]) ID Date Data Source Comprehensive Metabolic Profile (CMP) 12/16/2020 12:00:00 AM EDT eCW1 ([facility]) Name Value Range Interpretation Code Description Data Candy rce(s) Supporting Document(s) 5 7-18 BLOOD UREA NITROGEN eCW1 ([facility]) 70 70-100 GLUCOSE, FASTING eCW1 ([facility]) 0.44 0.55-1.30 CREATININE FOR GFR eCW1 ([facility]) > 60.0 >60 GLOMERULAR FILTRATION RATE eCW 1 ([facility]) 140 136-145 SODIUM LEVEL eCW1 ([facility]) 4.0 3.5-5.1 POTASSIUM SERUM eCW1 ([facility]) 109 98-107 CHLORIDE LEVEL eCW1 ([facility]) 25 21-32 CARBON DIOXIDE LEVEL eCW1 ([facility]) 7 7-37 AST/SGOT eCW1 ([facility], [facility]) 9.0 8.5-10.1 CALCIUM LEVEL eCW1 ([facility]) 115 45-117 ALKALINE PHOSPHATASE eCW1 ([facility]) 11 12-78 ALT/SGPT eCW1 ([facility]) 0.4 0.2-1.0 BILIRUBIN,TOTAL eCW1 ([facility]) 0.8 1.2-2.2 ALBUMIN/GLOBULIN RATIO eCW1 ([facility]) 6.6 6.4-8.2 TOTAL PROTEIN eCW1 ([facility]) 3.0 3.2-5.2 ALBUMIN eCW1 ([facility]) ID Date Data Source CBC with Differential 12/16/2020 12:00:00 AM EDT eCW1 ([facility]) Name Value Range Interpretation Code Description Data Candy rce(s) Supporting Document(s) 6.8 4.0-10.0 WHITE BLOOD COUNT eCW1 ([facility]) 3.87 4.00-5.40 RED BLOOD COUNT eCW1 ([facility]) 31.9 36.0-47.0 HEMATOCRIT eCW1 ([facility]) 10.6 12.0-15.5 HEMOGLOBIN eCW1 ([facility]) 82.4 80.0-96.0 MEAN CORPUSCULAR VOLUME e CW1 ([facility]) 33.2 32.0-36.5 MEAN CORPUSCULAR HGB CONC eCW1 ([facility]) 224 150-450 PLATELET COUNT, AUTOMATED eCW1 ([facility]) 12.7 11.5-14.5 RED CELL DISTRIBUTION WID TH eCW1 ([facility]) 27.4 27.0-33.0 MEAN CORPUSCULAR HEMOGLOB IN eCW1 ([facility]) 7.0 2.0-8.0 MONO % eCW1 ([facility]) 71.5 36.0-66.0 NEUTROPHILS % eCW1 ([facility]) 17.2 24.0-44.0 LYMPH % eCW1 ([facility]) 4.8 1.5-8.5 NEUTROPHILS # eCW1 ([facility]) 2.4 0.0-3.0 EOS % eCW1 ([facility]) 0.3 0.0-1.0 BASO % eCW1 ([facility]) 0.2 0.0-0.5 EOS # eCW1 ([facility]) 0.5 0.0-0.8 MONO # eCW1 ([facility]) 1.2 1.5-5.0 LYMPH # eCW1 ([facility]) 0.0 0.0-0.2 BASO # eCW1 ([facility]) ID Date Data Source [id number] 12/05/2020 03:19:00 PM EDT [facility] Name Value Range Interpretation Code Description Data Candy rce(s) Supporting Document(s) SARS-CoV-2 RNA Resp Ql ANTWON+probe DETECTED [facility] This lab was ordered by TUCKER wesley and reported by TUCKER Rodríguez. ID Date Data Source [id number] 10/17/2020 10:26:00 PM EDT [facility] Name Value Range Interpretation Code Description Data Candy rce(s) Supporting Document(s) SARS coronavirus 2 RNA [Presence] in Res piratory specimen by ANTWON with probe detection NEGATIVE [facility] This lab was ordered by [facility] a nd reported by [facility]. ID Date Data Source [id number] 07/26/2020 12:00:00 AM EST eCW1 ([facility]) Name Value Range Interpretation Code Description Data Candy rce(s) Supporting Document(s) NEGATIVE NEGATIVE eCW1 ([facility]) ID Date Data Source FREE T4 & TSH PANEL 07/26/2020 12:00:00 AM EST eCW1 ([facility]) Name Value Range Interpretation Code Description Data Candy rce(s) Supporting Document(s) 0.74 0.76-1.46 eCW1 ([facility]) 2.220 0.358-3.740 eCW1 ([facility]) ID Date Data Source [id number] 07/26/2020 12:00:00 AM EST eCW1 ([facility]) Name Value Range Interpretation Code Description Data Candy rce(s) Supporting Document(s) Hemoglobin A1c/Hemoglobin.total in Blood 5.3 eCW1 ([facility]) ID Date Data Source HEPATITIS C ANTIBODY INDEX 07/26/2020 12:00:00 AM EST eCW1 ( [facility]) Name Value Range Interpretation Code Description Data Candy rce(s) Supporting Document(s) 0.1 <0.8 eCW1 ([facility]) ID Date Data Source RUBELLA IMMUNE STATUS IgG 07/26/2020 12:00:00 AM EST eCW1 ([facility]) Name Value Range Interpretation Code Description Data Candy rce(s) Supporting Document(s) IMMUNE IMMUNE eCW1 ([facility]) ID Date Data Source SYPHILIS ANTIBODY (RPR SCREEN) 07/26/2020 12:00:00 AM EST eC W1 ([facility]) Name Value Range Interpretation Code Description Data Candy rce(s) Supporting Document(s) NONREACTIVE NONREACTIVE eCW1 ([facility]) ID Date Data Source [id number] 07/26/2020 12:00:00 AM EST eCW1 ([facility]) Name Value Range Interpretation Code Description Data Candy rce(s) Supporting Document(s) eCW1 ([facility]) ID Date Data Source CHLAMYDIA & GC DNA AMPLIFICAT 07/26/2020 12:00:00 AM EST eCW 1 ([facility]) Name Value Range Interpretation Code Description Data Candy rce(s) Supporting Document(s) Chlamydia trachomatis rRNA [Presence] in Unspecified specimen by Probe and target amplification method NEGATIVE NEGATIVE eCW1 ([facility]) ID Date Data Source CBC - Complete Blood Count 07/26/2020 12:00:00 AM EST eCW1 ( [facility]) Name Value Range Interpretation Code Description Data Candy rce(s) Supporting Document(s) 8.7 4.0-10.0 eCW1 ([facility]) 11.7 12.0-15.5 eCW1 ([facility]) 4.43 4.00-5.40 eCW1 ([facility]) 26.4 27.0-33.0 eCW1 ([facility]) 32.1 32.0-36.5 eCW1 ([facility]) 82.4 80.0-96.0 eCW1 ([facility]) 36.5 36.0-47.0 eCW1 ([facility]) 13.3 11.5-14.5 eCW1 ([facility]) 255 150-450 eCW1 ([facility]) ID Date Data Source Type and Screen Prenatal1 07/26/2020 12:00:00 AM EST eCW1 ([facility]) Name Value Range Interpretation Code Description Data Candy rce(s) Supporting Document(s) NEGATIVE eCW1 ([facility]) ID Date Data Source HCG SERUM QUALITATIVE 06/30/2020 12:00:00 AM EST eCW1 ([facility]) Name Value Range Interpretation Code Description Data Candy rce(s) Supporting Document(s) POSITIVE NEGATIVE HCG, SERUM QUALITATIVE eC W1 ([facility]) ID Date Data Source VITAMIN [id number] 06/17/2020 12:00:00 AM EST eCW1 ([facility]) Name Value Range Interpretation Code Description Data Candy rce(s) Supporting Document(s) 14.1 30.0-100.0 eCW1 ([facility]) ID Date Data Source LIPID PANEL (CARDIAC RISK) 06/17/2020 12:00:00 AM EST eCW1 ( [facility]) Name Value Range Interpretation Code Description Data Candy rce(s) Supporting Document(s) Triglyceride [Mass/volume] in Serum or Plasma by calculation 118 <150 eCW1 ([facility]) Cholesterol [Moles/volume] in Serum or Plasma 209 <200 eCW1 ([facility]) Cholesterol in HDL [Moles/volume] in Serum or Plasma 47 >40 eCW1 ([facility]) 162 eCW1 ([facility]) Cholesterol in LDL [Mass/volume] in Serum or Plasma by calculation 13 8 <100 eCW1 ([facility]) 4.446 <5 eCW1 ([facility]) ID Date Data Source UA URINALYSIS 06/17/2020 12:00:00 AM EST eCW1 ([facility]) Name Value Range Interpretation Code Description Data Candy rce(s) Supporting Document(s) eCW1 ([facility]) ID Date Data Source [id number] 06/09/2020 03:30:00 PM EST [facility] ([facility]) Name Value Range Interpretation Code Description Data Candy rce(s) Supporting Document(s) Source: [facility] {SOURCE: Genital~.~.~<DG1.3.1>Z01.419</ DG1.3.1><DG1.3.1>Z01.419</DG1.3.1> Neisseria gonorrhoeae,Antwon Laboratory test result [facility] ([facility]) {SOURCE: Genital~.~.~<DG1.3.1>Z01.419</ DG1.3.1><DG1.3.1>Z01.419</DG1.3.1> Chlamydia trachomatis,Antwon Laboratory [facility] {SOURCE: Genital~.~.~<DG1.3.1>Z01.419</ DG1.3.1><DG1.3.1>Z01.419</DG1.3.1> ID Date Data Source [id number] 06/09/2020 03:30:00 PM EST [facility] ([facility]) Name Value Range Interpretation Code Description Data Candy rce(s) Supporting Document(s) Cytology report of Cervical or vaginal smear or scrapi ng Cyto stain.thin prep Laboratory test result [facility] ([facility]) ID Date Data Source [id number] 06/12/2020 02:22:00 PM EST [facility] Name Value Range Interpretation Code Description Data Candy rce(s) Supporting Document(s) SOURCE: Genital [facility] Chlamydia trachomatis rRNA [Presence] in Unspecified specimen by Probe and target amplification method Negative Negative [facility] Neisseria gonorrhoeae rRNA [Presence] in Unspecified specimen by Probe and target amplification method Negative Negative [facility] ID Date Data Source [id number] 05/30/2020 12:00:00 AM EST [facility] Name Value Range Interpretation Code Description Data Candy rce(s) Supporting Document(s) SARS coronavirus 2 RNA [Presence] in Res piratory specimen by ANTWON with probe detection [facility] This lab was ordered by [facility] and reported by [facility]. ID Date Data Source [id number] 2020 11:12:00 AM EST [facility] ([facility]) Name Value Range Interpretation Code Description Data Candy rce(s) Supporting Document(s) Source: Laboratory test result [facility] ([facility]) {SOURCE: Genital Aileen species Laboratory test result [facility] ([facility]) {SOURCE: Genital Gardnerella vaginalis Laboratory test result [facility] ([facility]) {SOURCE: Genital Trichomonas vaginalis Laboratory test result [facility] ([facility]) {SOURCE: Genital ID Date Data Source [id number] 2020 11:12:00 AM EST [facility] ([facility]) Name Value Range Interpretation Code Description Data Candy rce(s) Supporting Document(s) Z#Other Observations Laboratory test result [facility] ([facility]) ID Date Data Source [id number] 05/21/2020 04:33:[address] [facility] Name Value Range Interpretation Code Description Data Candy rce(s) Supporting Document(s) SOURCE: Genital [facility] Aileen sp rRNA [Presence] in Vaginal fluid by DNA probe Negative N egative [facility] Gardnerella vaginalis rRNA [Presence] in Genital specimen by DNA probe Negative Negative [facility] Trichomonas vaginalis rRNA [Presence] in Genital specimen by DNA probe Negative Negative [facility] ID Date Data Source [id number] 2020 11:05:00 AM EST [facility] ([facility]) Name Value Range Interpretation Code Description Data Candy rce(s) Supporting Document(s) Culture Urine Laboratory test result [facility] ([facility]) {SPECIMEN TYPE: RANDOM~.~.~R31.9 ID Date Data Source [id number] 05/22/2020 07:26:[address] [facility] Name Value Range Interpretation Code Description Data Candy rce(s) Supporting Document(s) CULTURE URINE [facility] Ho spital _CULTURE URINE_$$[id number]$$[id number]$$[id number]$$[id number]$$[id number]$$729295$$326746$$121351$$957422$$ 249395$$163623$$818323$$971426$$748453$$788159$$280007$$814738$$150186$$390695$$ 323736$$931574$$257172$$386214$$708740$$544207$$[id number]$$[id number] -- Continued on next page --Patient: DORIAN [place] Order: [id number] Page 2Culture: CULTURE URINE Status: Final ====$$[id number]$$[id number] DATE/TIME: 05/22/2020 07:05Culture: CULTURE URINE Status: FinalUrine Culture,Comprehensive: P5Yebda urogenital flora10,000-25,000 colony forming units per mLP1 Test performed by: [facility] #: [id number] [address] [place] [address] [id number] [facility] [id number] Director : Fransisco James MD NPI #:Document Improvement Specialist : 05/22/[email or web address] REF 05/22/20.0726. .to VAL ALFONSO via fax ID Date Data Source [id number] 2020 10:55:00 AM EST [facility] ([facility]) Name Value Range Interpretation Code Description Data Candy rce(s) Supporting Document(s) Inhouse Urine Test Laboratory test result [facility] ([facility]) Procedure Social History No Information Vital Signs ID Date Data Source UNK Name Value Range Interpretation Code Description Data Source(s) Body mass index (BMI) [Ratio] 44.69 kg/m2 44.69 kg/m2 eCW1 ([facility]) Body weight 260.4 [lb_av] 260.4 [lb_av] eCW1 ([facility]) Body weight 118.12 kg 118.12 kg eCW1 ([facility]) Systolic blood pressure 122 mm[Hg] 122 mm[Hg] e CW1 ([facility]) Body height 64 [in_i] 64 [in_i] eCW1 ([facility]) Diastolic blood pressure 76 mm[Hg] 76 mm[Hg] eCW1 ([facility]) Respiratory rate 18 /min 18 /min eCW1 ([facility]) Body weight 248.25 [lb_av] 248.25 [lb_av] eCW1 ([facility]) Body weight 112.61 kg 112.61 kg eCW1 ([facility]) Body height 64 [in_i] 64 [in_i] eCW1 ([facility]) Body mass index (BMI) [Ratio] 42.61 kg/m2 42.61 kg/m2 eCW1 ([facility]) Heart rate 119 /min 119 /min eCW1 ([facility]) Systolic blood pressure 108 mm[Hg] 108 mm[Hg] e CW1 ([facility]) Diastolic blood pressure 70 mm[Hg] 70 mm[Hg] eCW1 ([facility]) Body temperature 96.9 [degF] 96.9 [degF] eCW1 ( [facility]) Body weight 270.4 [lb_av] 270.4 [lb_av] eCW1 ([facility]) Body weight 122.65 kg 122.65 kg eCW1 ([facility]) Body height 64 [in_i] 64 [in_i] eCW1 ([facility]) Body mass index (BMI) [Ratio] 46.414 kg/m2 46.4 14 kg/m2 eCW1 ([facility]) Systolic blood pressure 118 mm[Hg] 118 mm[Hg] e CW1 ([facility]) Diastolic blood pressure 74 mm[Hg] 74 mm[Hg] eCW1 ([facility]) Body weight 270.6 [lb_av] 270.6 [lb_av] eCW1 ([facility]) Body weight 122.74 kg 122.74 kg eCW1 ([facility]) Body height 64 [in_i] 64 [in_i] eCW1 ([facility]) Body mass index (BMI) [Ratio] 46.448 kg/m2 46.4 48 kg/m2 eCW1 ([facility]) Systolic blood pressure 118 mm[Hg] 118 mm[Hg] e CW1 ([facility]) Diastolic blood pressure 76 mm[Hg] 76 mm[Hg] eCW1 ([facility]) Body weight 268.8 [lb_av] 268.8 [lb_av] eCW1 ([facility]) Body height 64 [in_i] 64 [in_i] eCW1 ([facility]) Body mass index (BMI) [Ratio] 46.139 kg/m2 46.1 39 kg/m2 eCW1 ([facility]) Systolic blood pressure 124 mm[Hg] 124 mm[Hg] e CW1 ([facility]) Diastolic blood pressure 74 mm[Hg] 74 mm[Hg] eCW1 ([facility]) Body weight 272 [lb_av] 272 [lb_av] eCW1 ([facility]ly [facility], later [facility]) Body weight 123.38 kg 123.38 kg eCW1 ([facility]) Body height 64 [in_i] 64 [in_i] eCW1 ([facility]) Body mass index (BMI) [Ratio] 46.689 kg/m2 46.6 89 kg/m2 eCW1 ([facility]) Systolic blood pressure 102 mm[Hg] 102 mm[Hg] e CW1 ([facility]) Diastolic blood pressure 68 mm[Hg] 68 mm[Hg] eCW1 ([facility]) Body weight 271.2 [lb_av] 271.2 [lb_av] eCW1 ([facility]) Body weight 123.01 kg 123.01 kg eCW1 ([facility]) Body height 64 [in_i] 64 [in_i] eCW1 ([facility]) Body mass index (BMI) [Ratio] 46.551 kg/m2 46.5 51 kg/m2 eCW1 ([facility]) Systolic blood pressure 116 mm[Hg] 116 mm[Hg] e CW1 ([facility]) Diastolic blood pressure 72 mm[Hg] 72 mm[Hg] eCW1 ([facility]) Body weight 276.4 [lb_av] 276.4 [lb_av] eCW1 ([facility]) Body weight 125.37 kg 125.37 kg eCW1 ([facility]) Body height 64 [in_i] 64 [in_i] eCW1 ([facility]) Body mass index (BMI) [Ratio] 47.444 kg/m2 47.4 44 kg/m2 eCW1 ([facility]) Systolic blood pressure 120 mm[Hg] 120 mm[Hg] e CW1 ([facility]) Diastolic blood pressure 88 mm[Hg] 88 mm[Hg] eCW1 ([facility]) Body weight 276.4 [lb_av] 276.4 [lb_av] eCW1 ([facility]) Body weight 125.37 kg 125.37 kg eCW1 ([facility]) Body mass index (BMI) [Ratio] 47.444 kg/m2 47.4 44 kg/m2 eCW1 ([facility]) Systolic blood pressure 120 mm[Hg] 120 mm[Hg] e CW1 ([facility]) Diastolic blood pressure 88 mm[Hg] 88 mm[Hg] eCW1 ([facility]) Body height 64 [in_i] 64 [in_i] eCW1 ([facility]) Heart rate 122 /min 122 /min eCW1 ([facility]) Body weight 283 [lb_av] 283 [lb_av] eCW1 ([facility], [facility]) Body height 64 [in_i] 64 [in_i] eCW1 ([facility]) Body mass index (BMI) [Ratio] 48.57 kg/m2 48.57 kg/m2 eCW1 ([facility]) Diastolic blood pressure 76 mm[Hg] 76 mm[Hg] eCW1 ([facility]) Systolic blood pressure 124 mm[Hg] 124 mm[Hg] e CW1 ([facility]) Respiratory rate 18 /min 18 /min eCW1 (Formerly [facility]) Body temperature 99.3 [degF] 99.3 [degF] eCW1 ( [facility]) Body weight 280.2 [lb_av] 280.2 [lb_av] eCW1 ([facility]) Body weight 127.1 kg 127.1 kg eCW1 ([facility]) Body height 64 [in_i] 64 [in_i] eCW1 ([facility]) Body mass index (BMI) [Ratio] 48.096 kg/m2 48.0 96 kg/m2 eCW1 ([facility]) Systolic blood pressure 110 mm[Hg] 110 mm[Hg] e CW1 ([facility]) Diastolic blood pressure 68 mm[Hg] 68 mm[Hg] eCW1 ([facility]) Respiratory rate 18 /min 18 /min eCW1 (Formerly [facility]) Diastolic blood pressure 72 mm[Hg] 72 mm[Hg] eCW1 ([facility]) Body weight 284 [lb_av] 284 [lb_av] eCW1 ([facility], [facility]) Body height 64 [in_i] 64 [in_i] eCW1 ([facility]) Body mass index (BMI) [Ratio] 48.74 kg/m2 48.74 kg/m2 eCW1 ([facility]) Heart rate 102 /min 102 /min eCW1 ([facility]) Body temperature 97.7 [degF] 97.7 [degF] eCW1 ( [facility]) Systolic blood pressure 120 mm[Hg] 120 mm[Hg] e CW1 ([facility]) Body weight 288 [lb_av] 288 [lb_av] eCW1 ([facility], [facility]) Body height 64 [in_i] 64 [in_i] eCW1 ([facility]) Body mass index (BMI) [Ratio] 49.435 kg/m2 49.4 35 kg/m2 eCW1 ([facility]) Systolic blood pressure 120 mm[Hg] 120 mm[Hg] e CW1 ([facility]) Diastolic blood pressure 72 mm[Hg] 72 mm[Hg] eCW1 ([facility]) Body weight 287.8 [lb_av] 287.8 [lb_av] eCW1 ([facility]) Body height 64 [in_i] 64 [in_i] eCW1 ([facility]) Body mass index (BMI) [Ratio] 49.401 kg/m2 49.4 01 kg/m2 eCW1 ([facility]) Systolic blood pressure 128 mm[Hg] 128 mm[Hg] e CW1 ([facility]) Diastolic blood pressure 80 mm[Hg] 80 mm[Hg] eCW1 ([facility]) Body weight 289.8 [lb_av] 289.8 [lb_av] eCW1 ([facility]) Body weight 131.45 kg 131.45 kg eCW1 ([facility]) Body height 64 [in_i] 64 [in_i] eCW1 ([facility]) Body mass index (BMI) [Ratio] 49.74 kg/m2 49.74 kg/m2 eCW1 ([facility]) Systolic blood pressure 114 mm[Hg] 114 mm[Hg] e CW1 ([facility]) Diastolic blood pressure 64 mm[Hg] 64 mm[Hg] eCW1 ([facility]) Body weight 282.8 [lb_av] 282.8 [lb_av] eCW1 ([facility]) Body height 64 [in_i] 64 [in_i] eCW1 ([facility]) Body mass index (BMI) [Ratio] 48.543 kg/m2 48.5 43 kg/m2 eCW1 ([facility]) Systolic blood pressure 122 mm[Hg] 122 mm[Hg] e CW1 ([facility]) Diastolic blood pressure 76 mm[Hg] 76 mm[Hg] eCW1 ([facility]) Diastolic blood pressure 80 mm[Hg] 80 mm[Hg] eCW1 ([facility]) Body weight 292 [lb_av] 292 [lb_av] eCW1 ([facility], [facility]) Body height 64 [in_i] 64 [in_i] eCW1 ([facility]) Body mass index (BMI) [Ratio] 50.12 kg/m2 50.12 kg/m2 eCW1 ([facility]) Heart rate 104 /min 104 /min eCW1 ([facility]) Respiratory rate 18 /min 18 /min eCW1 (Formerly [facility]) Body temperature 98.4 [degF] 98.4 [degF] eCW1 ( [facility]) Systolic blood pressure 130 mm[Hg] 130 mm[Hg] e CW1 ([facility]) Body temperature 96.9 [degF] 96.9 [degF] MEDENT ([facility]) Body height 64.5 [in_i] 64.5 [in_i] MEDENT ([facility]) 5'4.50" Body weight 280.38 [lb_av] 280.38 [lb_av] MEDEN T ([facility]) Body mass index (BMI) [Ratio] 47.4 kg/m2 47.4 k g/m2 MEDENT ([facility]) Body weight 290 [lb_av] 290 [lb_av] eCW1 ([facility], [facility]) Body height 64 [in_i] 64 [in_i] eCW1 ([facility]) Body mass index (BMI) [Ratio] 49.77 kg/m2 49.77 kg/m2 eCW1 ([facility]) Heart rate 90 /min 90 /min eCW1 ([facility]) Respiratory rate 18 /min 18 /min eCW1 ([facility]) Body temperature 97.5 [degF] 97.5 [degF] eCW1 ( [facility]) Systolic blood pressure 128 mm[Hg] 128 mm[Hg] e CW1 ([facility]) Diastolic blood pressure 78 mm[Hg] 78 mm[Hg] eCW1 ([facility]) Body weight 289.8 [lb_av] 289.8 [lb_av] eCW1 ([facility]) Body weight 131.45 kg 131.45 kg eCW1 ([facility]) Body height 64 [in_i] 64 [in_i] eCW1 ([facility]) Body mass index (BMI) [Ratio] 49.744 kg/m2 49.7 44 kg/m2 eCW1 ([facility]) Systolic blood pressure 124 mm[Hg] 124 mm[Hg] e CW1 ([facility]) Diastolic blood pressure 76 mm[Hg] 76 mm[Hg] eCW1 ([facility]) Body weight 294.6 [lb_av] 294.6 [lb_av] eCW1 ([facility]) Body height 64 [in_i] 64 [in_i] eCW1 ([facility]) Body mass index (BMI) [Ratio] 50.56 kg/m2 50.56 kg/m2 eCW1 ([facility]) Systolic blood pressure 118 mm[Hg] 118 mm[Hg] e CW1 ([facility]) Respiratory rate 18 /min 18 /min eCW1 ([facility]) Body temperature 97.6 [degF] 97.6 [degF] eCW1 ( [facility]) Heart rate 96 /min 96 /min eCW1 ([facility]) Diastolic blood pressure 77 mm[Hg] 77 mm[Hg] eCW1 ([facility]) Body weight 291 [lb_av] 291 [lb_av] eCW1 ([facility], [facility]) Body height 64 [in_i] 64 [in_i] eCW1 ([facility]) Body mass index (BMI) [Ratio] 49.94 kg/m2 49.94 kg/m2 eCW1 ([facility]) Heart rate 110 /min 110 /min eCW1 ([facility]) Respiratory rate 16 /min 16 /min eCW1 ([facility]) Body temperature 98.5 [degF] 98.5 [degF] eCW1 ( [facility]) Systolic blood pressure 124 mm[Hg] 124 mm[Hg] e CW1 ([facility]) Diastolic blood pressure 78 mm[Hg] 78 mm[Hg] eCW1 ([facility]) Systolic blood pressure 126 mm[Hg] 126 mm[Hg] M EDENT ([facility]) Diastolic blood pressure 82 mm[Hg] 82 mm[Hg] MEDENT ([facility]) Heart rate 78 /min 78 /min MEDENT ([facility]) Body temperature 96.0 [degF] 96.0 [degF] MEDENT ([facility]) Body weight 285.25 [lb_av] 285.25 [lb_av] MEDEN T ([facility]) Body weight 129.389 kg 129.389 kg MEDENT ([facility]) Body height 66 [in_i] 66 [facility]_i[facility] 5'6" Body mass index (BMI) [Ratio] 46.0 kg/m2 46.0 k g/m2 [facility] ([facility]) Body surface area Derived from formula 2.33 m2 2.33 m2 [facility] ([facility]) Body surface area Derived from formula 2.34 m2 2.34 m2 [facility] ([facility]) Systolic blood pressure 122 mm[Hg] 122 mm[Hg] M EDENT ([facility]) Diastolic blood pressure 86 mm[Hg] 86 mm[Hg] MEDENT ([facility]) Heart rate 88 /min 88 /min MEDENT ([facility]) Body temperature 96.3 [degF] 96.3 [degF] MEDENT ([facility]) Body weight 290.00 [lb_av] 290.00 [lb_av] MEDEN T ([facility]) Body weight 131.544 kg 131.544 kg MEDENT ([facility]) Body height 66 [in_i] 66 [in_i] MEDENT ([facility]) 5'6" Body mass index (BMI) [Ratio] 46.8 kg/m2 46.8 k g/m2 MED[facility] ([facility]) ID Date Data Source [id number] 12/02/2020 09:10:00 AM [facility] Name Value Range Interpretation Code Description Data Source(s) WEIGHT 83.293445 [address] 83[address] [facility] HEIGHT 157.48 centimeters 157.48 centimeter [facility] WEIGHT 83.481594 kilos 83.801022 [facility] HEIGHT 157.48 centimeters 157.48 centimeter [facility] ID Date Data Source [id number] 12/02/2020 09:10:00 AM EDT [facility] Name Value Range Interpretation Code Description Data Source(s) WEIGHT 68.94 kilos 68.94 kilos [facility] HEIGHT 157.48 centimeters 157.48 centimeter [facility] WEIGHT 68.94 kilos 68.94 [facility] HEIGHT 157.48 centimeters 157.48 centimeter [facility] ID Date Data Source [id number] 12/02/2020 09:10:00 AM EDT [facility] Name Value Range Interpretation Code Description Data Source(s) WEIGHT 81.64 kilos 81.64 kilos [facility] HEIGHT 160.02 centimeters 160.02 centimeter [facility] HEIGHT 160.02 centimeters 160.02 centimeter [facility] WEIGHT 81.64 kilos 81.64 kilos [facility] ID Date Data Source [id number] 12/02/2020 09:10:00 AM EDT [facility] Name Value Range Interpretation Code Description Data Source(s) WEIGHT 77.974218 kilos 77.218377 [facility] HEIGHT 160.02 centimeters 160.02 centimeter [facility] WEIGHT 77.293767 kilos 77.081425 [facility] HEIGHT 160.02 centimeters 160.02 centimeter [facility] Patient Treatment Plan of Care Planned Activity Planned Date Details Description Data Source (s) 24 HR venlafaxine 75 MG Extended Release Oral Capsule 03/22/2021 12:00:00 AM EDT eCW1 ([facility]) 24 HR venlafaxine 37.5 MG Extended Release Oral Capsul e [Effexor] 03/10/2021 12:00:00 AM EDT eCW1 ([facility]ly [facility]) 24 HR venlafaxine 37.5 MG Extended Release Oral Capsul e [Effexor] 03/10/2021 12:00:00 AM EDT eCW1 ([facility]) 24 HR venlafaxine 37.5 MG Extended Release Oral Capsul e [Effexor] 03/10/2021 12:00:00 AM EDT eCW1 ([facility]) 24 HR venlafaxine 37.5 MG Extended Release Oral Capsul e [Effexor] 03/10/2021 12:00:00 AM EDT eCW1 ([facility]) Sertraline 50 MG Oral Tablet 12/28/2020 12:00:00 AM EDT eCW1 ([facility]) 12 HR Guaifenesin 600 MG Extended Release Oral Tablet [Mucinex] 12/15/2020 12:00:00 AM EDT eCW1 ([facility]) Acetaminophen 325 MG / Dextromethorphan Hydrobromide 10 MG / Phenylephrine Hydrochloride 5 MG Oral Capsule 12/04/2020 12:00:00 AM EDT eCW1 ([facility]) Acetaminophen 325 MG / Dextromethorphan Hydrobromide 10 MG / Phenylephrine Hydrochloride 5 MG Oral Capsule 12/04/2020 12:00:00 AM EDT eCW1 ([facility]) Acetaminophen 325 MG / Dextromethorphan Hydrobromide 10 MG / Phenylephrine Hydrochloride 5 MG Oral Capsule 12/04/2020 12:00:00 AM EDT eCW1 ([facility]) Acetaminophen 325 MG / Dextromethorphan Hydrobromide 10 MG / Phenylephrine Hydrochloride 5 MG Oral Capsule 12/04/2020 12:00:00 AM EDT eCW1 ([facility]) Acetaminophen 325 MG / Dextromethorphan Hydrobromide 10 MG / Phenylephrine Hydrochloride 5 MG Oral Capsule 12/04/2020 12:00:00 AM EDT eCW1 ([facility]) NITROFURANTOIN, MACROCRYSTALS 100 MG Oral Capsule 11/25/2020 12: 00:00 AM EDT eCW1 ([facility]) Albuterol Sulfate HFA 108 (90 Base) MCG/ACT 11/16/2020 12:00:00 AM EDT eCW1 ([facility]) Albuterol Sulfate HFA 108 (90 Base) MCG/ACT 11/16/2020 12:00:00 AM EDT eCW1 ([facility]) Albuterol Sulfate HFA 108 (90 Base) MCG/ACT 11/16/2020 12:00:00 AM EDT eCW1 ([facility]) Ibuprofen 800 MG Oral Tablet 10/31/2020 12:00:00 AM EDT eCW1 ([facility]) Acetaminophen 325 MG / Oxycodone Hydrochloride 5 MG Or al Tablet [Percocet] 10/31/2020 12:00:00 AM EDT eCW1 ([facility]) Ibuprofen 800 MG Oral Tablet 10/31/2020 12:00:00 AM EDT eCW1 ([facility]) Acetaminophen 325 MG / Oxycodone Hydrochloride 5 MG Or al Tablet [Percocet] 10/31/2020 12:00:00 AM EDT eCW1 ([facility]) Ibuprofen 800 MG Oral Tablet 10/31/2020 12:00:00 AM EDT eCW1 ([facility]) Acetaminophen 325 MG / Oxycodone Hydrochloride 5 MG Or al Tablet [Percocet] 10/31/2020 12:00:00 AM EDT eCW1 ([facility]) Ibuprofen 800 MG Oral Tablet 10/31/2020 12:00:00 AM EDT eCW1 ([facility]) Acetaminophen 325 MG / Oxycodone Hydrochloride 5 MG Or al Tablet [Percocet] 10/31/2020 12:00:00 AM EDT eCW1 ([facility]) Ibuprofen 800 MG Oral Tablet 10/31/2020 12:00:00 AM EDT eCW1 ([facility]) Acetaminophen 325 MG / Oxycodone Hydrochloride 5 MG Or al Tablet [Percocet] 10/31/2020 12:00:00 AM EDT eCW1 ([facility]) buspirone hydrochloride 15 MG Oral Tablet 09/13/2020 12:00:00 AM ED T eCW1 ([facility]) Permethrin 50 MG/ML Topical Cream 09/06/2020 12:00:00 AM EDT eCW1 ([facility]) ferrous gluconate 324 MG Oral Tablet 09/06/2020 12:00:00 AM EDT eCW1 ([facility]) Pramoxine hydrochloride 10 MG/ML / Zinc Acetate 1 MG/M L Topical Lotion 09/06/2020 12:00:00 AM EDT eCW1 ([facility]) Cholecalciferol 125 MCG (5000 UT) 09/06/2020 12:00:00 AM EDT eCW1 ([facility]) Permethrin 50 MG/ML Topical Cream 09/06/2020 12:00:00 AM EDT eCW1 ([facility]) ferrous gluconate 324 MG Oral Tablet 09/06/2020 12:00:00 AM EDT eCW1 ([facility]) Pramoxine hydrochloride 10 MG/ML / Zinc Acetate 1 MG/M L Topical Lotion 09/06/2020 12:00:00 AM EDT eCW1 ([facility]) Cholecalciferol 125 MCG (5000 UT) 09/06/2020 12:00:00 AM EDT eCW1 ([facility]) Cholecalciferol 125 MCG (5000 UT) 06/24/2020 12:00:00 AM EST eCW1 ([facility]) Cholecalciferol 125 MCG (5000 UT) 06/24/2020 12:00:00 AM EST eCW1 ([facility]) Cholecalciferol 125 MCG (5000 UT) 06/24/2020 12:00:00 AM EST eCW1 ([facility]) Cholecalciferol 125 MCG (5000 UT) 06/24/2020 12:00:00 AM EST eCW1 ([facility])
--- NOTE | 2021-04-23 17:27 | REP ---
INDICATION: sob, exposed to covid. COMPARISON: Portable chest, 05/13/2020. TECHNIQUE: Upright AP chest image was obtained. FINDINGS: The heart size is upper limits of normal. There is no evidence of congestive heart failure. The lungs are clear. There are no pleural effusions. IMPRESSION: Borderline cardiomegaly. No evidence of acute cardiopulmonary pathology. No significant change. <Electronically signed by Esdras Foreman > 04/23/21 [id number]
[2021-04-23 18:37] VITALS: BP 133/80
== END 2021-04-23 18:40 | disposition home or self-care (01) ==
LOC: EDBD 15:35 → M ED 15:35
DX: M79.10 Myalgia, unspecified site (principal); Z20.822 Contact with and (suspected) exposure to COVID-19; J45.909 Unspecified asthma, uncomplicated; K21.9 Gastro-esophageal reflux disease without esophagitis; Z86.16 Personal history of COVID-19; Z79.899 Other long term (current) drug therapy; Z77.098 Contact with and (suspected) exposure to other hazardous, chiefly nonmedicinal, chemicals; F12.20 Cannabis dependence, uncomplicated

== ENCOUNTER 2021-11-21 14:54 | Emergency (ER) | payer OTHER ==
[~2021-11-21 14:54] MED LIST changes: -FLUO10CA16; +FLUO10CA18; -MONT5CHW8 PO; +MONT5CHW9 PO
[2021-11-21 15:49] LABS: BASO # 0.1 10^3/uL (0.0-0.2); BASO % 0.6 % (0.0-1.0); EOS # 0.2 10^3/uL (0.0-0.5); EOS % 1.9 % (0.0-3.0); LYMPH % 25.4 % (24.0-44.0); MEAN CORPUSCULAR HEMOGLOBIN 24.2 pg (27.0-33.0); MEAN CORPUSCULAR HGB CONC 31.4 g/dl (32.0-36.5); MEAN CORPUSCULAR VOLUME 77.1 fl (80.0-96.0); MONO # 0.6 10^3/uL (0.0-0.8); MONO % 7.9 % (2.0-8.0); NEUTROPHILS # 4.9 10^3/uL (1.5-8.5); NEUTROPHILS % 63.8 % (36.0-66.0); PLATELET COUNT, AUTOMATED 279 10^3/uL (150-450); RED BLOOD COUNT 4.54 10^6/uL (4.00-5.40); WHITE BLOOD COUNT 7.8 10^3/uL (4.0-10.0)
[2021-11-21 16:01] LABS: INR 0.98; PROTHROMBIN TIME 13.4 SECONDS (12.7-14.5)
[2021-11-21] MEDS ORDERED: ISOVUE-370 76% 100ML VIAL As Ordered ONE (16:21)
[2021-11-21 17:12] LABS: MB/CK RELATIVE INDEX 0.93 (< OR =4)
[2021-11-21 17:14] LABS: ALBUMIN 3.3 GM/DL (3.2-5.2); ALT/SGPT 30 U/L (12-78); AMYLASE 21 U/L (25-115); BILIRUBIN,DIRECT < 0.1 MG/DL (0.0-0.2); BILIRUBIN,TOTAL 0.3 MG/DL (0.2-1.0); ETHYL ALCOHOL (ETHANOL) < 0.003 % (0.000-0.010); LIPASE 81 U/L (73-393); TOTAL PROTEIN 7.4 GM/DL (6.4-8.2)
[2021-11-21 17:54] VITALS: BP 148/80
== END 2021-11-21 18:52 | disposition home or self-care (01) ==
LOC: M ED 14:54 → EDBD 14:54 → M ED 18:52
DX: S20.211A Contusion of right front wall of thorax, initial encounter (principal); V49.49XA Driver injured in collision with other motor vehicles in traffic accident, initial encounter; Y92.410 Unspecified street and highway as the place of occurrence of the external cause; F41.9 Anxiety disorder, unspecified; F90.9 Attention-deficit hyperactivity disorder, unspecified type; E66.9 Obesity, unspecified; Z87.440 Personal history of urinary (tract) infections; Z79.899 Other long term (current) drug therapy
CPT/HCPCS: 36415; 70450; 71045; 71260; 72125; 74177; 80047; 80076; 82077; 82150; 82550; 82553; 83605; 83690; 84484; 84702; 85025; 85610; 85730; 93005; 93041; 94760; 99285; Q9967

== ENCOUNTER 2021-11-28 13:34 | Emergency (ER) | payer OTHER, SELFPAY ==
[~2021-11-28] VITALS: Ht 167.6 cm; Wt 124.7 kg
[2021-11-28] MEDS ORDERED: HYDR-3363 (13:51)
[2021-11-28] MEDS ORDERED: OLAN7.5T8 (13:51)
[2021-11-28] MEDS ORDERED: ULTR50TA8 PO (15:52)
[2021-11-28 16:07] VITALS: BP 134/74
== END 2021-11-28 16:08 | disposition home or self-care (01) ==
LOC: M ED 13:34
DX: S43.401A Unspecified sprain of right shoulder joint, initial encounter (principal); V49.49XA Driver injured in collision with other motor vehicles in traffic accident, initial encounter; Y92.410 Unspecified street and highway as the place of occurrence of the external cause

== ENCOUNTER → 2022-01-23 | Outpatient (CLI) | payer OTHER ==
[~2022-01-23] MED LIST changes: +HYDR-3363; +MONT5CHW10 PO; -MONT5CHW9 PO; +OLAN7.5T8; +ULTR50TA8 PO
== END ==
LOC: M RAD 15:04
PROVIDERS: ATTEND Physician Assistant
DX: M25.78 Osteophyte, vertebrae (principal); M50.222 Other cervical disc displacement at C5-C6 level; M75.91 Shoulder lesion, unspecified, right shoulder; M19.011 Primary osteoarthritis, right shoulder

== ENCOUNTER → 2022-04-11 | Outpatient (CLI) | payer OTHER ==
[2022-04-11 14:55] LABS: HCG, SERUM QUALITATIVE NEGATIVE (NEGATIVE)
== END ==
LOC: M PLALAB 09:46
PROVIDERS: ATTEND Advanced Practice Midwife
DX: N93.9 Abnormal uterine and vaginal bleeding, unspecified (principal)

== ENCOUNTER → 2022-07-05 | Outpatient (REF) | payer OTHER, MEDICAID ==
[2022-07-05 17:01] LABS: BASO % 0.5 % (0.0-1.0); EOS # 0.2 10^3/uL (0.0-0.5); EOS % 2.7 % (0.0-3.0); HEMATOCRIT 36.4 % (36.0-47.0); HEMOGLOBIN 11.6 g/dl (12.0-15.5); LYMPH # 1.7 10^3/uL (1.5-5.0); LYMPH % 20.3 % (24.0-44.0); MEAN CORPUSCULAR HEMOGLOBIN 25.9 pg (27.0-33.0); MEAN CORPUSCULAR HGB CONC 31.9 g/dl (32.0-36.5); MEAN CORPUSCULAR VOLUME 81.3 fl (80.0-96.0); MONO # 0.8 10^3/uL (0.0-0.8); MONO % 9.3 % (2.0-8.0); NEUTROPHILS # 5.4 10^3/uL (1.5-8.5); NEUTROPHILS % 66.7 % (36.0-66.0); PLATELET COUNT, AUTOMATED 268 10^3/uL (150-450); RED BLOOD COUNT 4.48 10^6/uL (4.00-5.40); WHITE BLOOD COUNT 8.1 10^3/uL (4.0-10.0)
[2022-07-05 17:07] LABS: HEMOGLOBIN A1c 4.9 % (4.0-6.0)
[2022-07-05 17:32] LABS: ALBUMIN 3.9 G/DL (3.2-5.2); ALKALINE PHOSPHATASE 85 U/L (46-116); ALT/SGPT 17 U/L (7.0-40); AST/SGOT 14 U/L (<34); BILIRUBIN,TOTAL 0.4 MG/DL (0.3-1.2); BLOOD UREA NITROGEN 10 MG/DL (9-23); CALCIUM LEVEL 8.8 MG/DL (8.5-10.1); CARBON DIOXIDE LEVEL 24 MMOL/L (20-31); CHLORIDE LEVEL 106 MMOL/L (98-107); CHOLESTEROL LEVEL 179 MG/DL (<200); CHOLESTEROL RISK RATIO 4.19 (<5); CREATININE FOR GFR 0.59 MG/DL (0.55-1.30); GLOMERULAR FILTRATION RATE > 60.0 (>60); GLUCOSE, FASTING 79 MG/DL (60-100); HDL CHOLESTEROL 42.7 MG/DL (>40); LDL CHOLESTEROL 120.5 MG/DL (<100); NON-HDL-C 136 MG/DL; POTASSIUM SERUM 4.3 MMOL/L (3.5-5.1); SODIUM LEVEL 138 MMOL/L (136-145); TOTAL PROTEIN 6.6 G/DL (5.7-8.2); TRIGLYCERIDES LEVEL 79 MG/DL (<150)
[2022-07-05 17:34] LABS: FREE T4 0.87 NG/DL (0.89-1.76)
[2022-07-05 17:54] LABS: HCG, SERUM QUALITATIVE POSITIVE (NEGATIVE)
== END ==
LOC: M LAB REF 16:28
PROVIDERS: ATTEND Nurse Practitioner Family
DX: Z13.228 Encounter for screening for other metabolic disorders (principal); Z33.1 Pregnant state, incidental

== ENCOUNTER → 2022-08-15 | Outpatient (CLI) | payer OTHER ==
[2022-08-15 18:15] LABS: HEMATOCRIT 34.5 % (36.0-47.0); HEMOGLOBIN 11.2 g/dl (12.0-15.5); MEAN CORPUSCULAR HEMOGLOBIN 26.4 pg (27.0-33.0); MEAN CORPUSCULAR HGB CONC 32.5 g/dl (32.0-36.5); MEAN CORPUSCULAR VOLUME 81.2 fl (80.0-96.0); PLATELET COUNT, AUTOMATED 262 10^3/uL (150-450); RED BLOOD COUNT 4.25 10^6/uL (4.00-5.40); WHITE BLOOD COUNT 10.3 10^3/uL (4.0-10.0)
[2022-08-15 19:05] LABS: HIV 1&2 SCREEN CENTAUR NEGATIVE (NEGATIVE)
[2022-08-15 19:14] LABS: HEMOGLOBIN A1c 5.3 % (4.0-6.0)
[2022-08-15 19:33] LABS: GC DNA AMPLIFICATION NEGATIVE (NEGATIVE)
== END ==
LOC: M PLALAB 14:39
PROVIDERS: ATTEND Specialist
DX: Z34.81 Encounter for supervision of other normal pregnancy, first trimester (principal)

== ENCOUNTER → 2022-08-15 | Outpatient (REF) | payer OTHER | LOC: M PLALAB 14:23 | PROVIDERS: ATTEND Specialist | DX: Z53.9 Procedure and treatment not carried out, unspecified reason (principal) ==

== ENCOUNTER → 2022-09-26 | Outpatient (CLI) | payer OTHER | LOC: M CARPUL 13:07 | PROVIDERS: ATTEND Nurse Practitioner Family | DX: R01.1 Cardiac murmur, unspecified (principal); I08.1 Rheumatic disorders of both mitral and tricuspid valves ==

== ENCOUNTER 2022-10-03 00:59 | Emergency (ER) | payer OTHER ==
[~2022-10-03] VITALS: Ht 167.6 cm; Wt 119.6 kg
[2022-10-03 02:59] LABS: BASO % 0.4 % (0.0-1.0); EOS # 0.2 10^3/uL (0.0-0.5); EOS % 1.6 % (0.0-3.0); HEMATOCRIT 33.3 % (36.0-47.0); LYMPH % 18.7 % (24.0-44.0); MEAN CORPUSCULAR HEMOGLOBIN 26.5 pg (27.0-33.0); MEAN CORPUSCULAR VOLUME 80.2 fl (80.0-96.0); MONO # 0.7 10^3/uL (0.0-0.8); MONO % 6.7 % (2.0-8.0); NEUTROPHILS # 7.8 10^3/uL (1.5-8.5); NEUTROPHILS % 72.2 % (36.0-66.0); PLATELET COUNT, AUTOMATED 239 10^3/uL (150-450); RED BLOOD COUNT 4.15 10^6/uL (4.00-5.40); WHITE BLOOD COUNT 10.8 10^3/uL (4.0-10.0)
[2022-10-03 03:10] LABS: INR 0.98; PROTHROMBIN TIME 13.2 SECONDS (12.5-14.5)
[2022-10-03 03:25] LABS: BLOOD UREA NITROGEN 7 MG/DL (9-23); CALCIUM LEVEL 9.3 MG/DL (8.5-10.1); CARBON DIOXIDE LEVEL 22 MMOL/L (20-31); CHLORIDE LEVEL 107 MMOL/L (98-107); CK-MB VALUE MASS < 1.0 NG/ML (<3.6); CPK CREATINE PHOSPHOKINASE 54 U/L (34-145); CREATININE FOR GFR 0.45 MG/DL (0.55-1.30); GLOMERULAR FILTRATION RATE > 60.0 (>60); GLUCOSE, FASTING 71 MG/DL (60-100); MB/CK RELATIVE INDEX 1.85 (< OR =4); POTASSIUM SERUM 3.7 MMOL/L (3.5-5.1); SODIUM LEVEL 137 MMOL/L (136-145)
[2022-10-03 05:15] VITALS: BP 119/68
[2022-10-03 05:32] LABS: CK-MB VALUE MASS < 1.0 NG/ML (<3.6)
[2022-10-03 05:38] LABS: CPK CREATINE PHOSPHOKINASE 51 U/L (34-145); MB/CK RELATIVE INDEX 1.96 (< OR =4)
== END 2022-10-03 07:00 | disposition home or self-care (01) ==
LOC: M ED 00:59
DX: O99.412 Diseases of the circulatory system complicating pregnancy, second trimester (principal); R07.89 Other chest pain; Z3A.18 18 weeks gestation of pregnancy; O99.612 Diseases of the digestive system complicating pregnancy, second trimester; O99.342 Other mental disorders complicating pregnancy, second trimester; O99.512 Diseases of the respiratory system complicating pregnancy, second trimester; Z79.899 Other long term (current) drug therapy; Z79.51 Long term (current) use of inhaled steroids

== ENCOUNTER 2022-11-27 14:34 | Outpatient (CLI) | payer OTHER ==
[~2022-11-27] VITALS: Ht 167.6 cm; Wt 119.6 kg
[~2022-11-27 14:34] MED LIST changes: +ALBU8.5H INH
[2022-11-27 14:41] VITALS: BP 98/62; O2SAT 97
[2022-11-27] MEDS ORDERED: PRENTAB9 PO (14:56)
[2022-11-27] MEDS ORDERED: HOME MED LIST COMPLETE! XX SCH (15:00)
[2022-11-27 15:34] VITALS: BP 90/56
[2022-11-27 15:38] VITALS: BP 90/53
[2022-11-27] MEDS ORDERED: LACTATED RINGER'S 1000 ML IV STA (16:00)
[2022-11-27] MEDS ORDERED: LR 1,000 ML IV SCH (16:00)
[2022-11-27] MEDS ORDERED: ONDANSETRON 4MG 2ML VIAL IV PRN (16:05)
[2022-11-27 16:45] VITALS: BP 121/59
[2022-11-27 17:10] LABS: ALBUMIN 3.1 G/DL (3.2-5.2); ALKALINE PHOSPHATASE 74 U/L (46-116); ALT/SGPT < 9 U/L (7.0-40); AST/SGOT < 8 U/L (<34); BILIRUBIN,TOTAL 0.4 MG/DL (0.3-1.2); BLOOD UREA NITROGEN 6 MG/DL (9-23); CALCIUM LEVEL 8.7 MG/DL (8.5-10.1); CARBON DIOXIDE LEVEL 22 MMOL/L (20-31); CHLORIDE LEVEL 106 MMOL/L (98-107); CREATININE FOR GFR 0.45 MG/DL (0.55-1.30); GLOMERULAR FILTRATION RATE > 60.0 (>60); GLUCOSE, FASTING 66 MG/DL (60-100); SODIUM LEVEL 134 MMOL/L (136-145); TOTAL PROTEIN 6.1 G/DL (5.7-8.2)
[2022-11-27 17:22] LABS: HEMATOCRIT 28.1 % (36.0-47.0); HEMOGLOBIN 8.9 g/dl (12.0-15.5); MEAN CORPUSCULAR HEMOGLOBIN 25.4 pg (27.0-33.0); MEAN CORPUSCULAR HGB CONC 31.7 g/dl (32.0-36.5); MEAN CORPUSCULAR VOLUME 80.1 fl (80.0-96.0); PLATELET COUNT, AUTOMATED 228 10^3/uL (150-450); RED BLOOD COUNT 3.51 10^6/uL (4.00-5.40); WHITE BLOOD COUNT 8.9 10^3/uL (4.0-10.0)
[2022-11-27] MEDS ORDERED: ACETAMINOPHEN 500 MG TAB PO ONE (17:55)
[2022-11-27 18:20] VITALS: BP 117/53; O2SAT 99
== END 2022-11-27 18:36 ==
LOC: M LDO 14:34
PROVIDERS: ATTEND Specialist
DX: O21.8 Other vomiting complicating pregnancy (principal); O26.852 Spotting complicating pregnancy, second trimester; Z3A.26 26 weeks gestation of pregnancy
CPT/HCPCS: 59025; 80053; 85027; G0463; J2405

== ENCOUNTER → 2022-11-28 | Outpatient (CLI) | payer OTHER ==
[~2022-11-28] MED LIST changes: +PRENTAB9 PO
[2022-11-28 17:35] LABS: HEMATOCRIT 27.6 % (36.0-47.0); HEMOGLOBIN 8.8 g/dl (12.0-15.5); MEAN CORPUSCULAR HEMOGLOBIN 25.8 pg (27.0-33.0); MEAN CORPUSCULAR HGB CONC 31.9 g/dl (32.0-36.5); MEAN CORPUSCULAR VOLUME 80.9 fl (80.0-96.0); PLATELET COUNT, AUTOMATED 217 10^3/uL (150-450); RED BLOOD COUNT 3.41 10^6/uL (4.00-5.40); WHITE BLOOD COUNT 9.6 10^3/uL (4.0-10.0)
[2022-11-28 19:48] LABS: GC DNA AMPLIFICATION NEGATIVE (NEGATIVE)
== END ==
LOC: M PLALAB 14:18
PROVIDERS: ATTEND Advanced Practice Midwife
DX: Z34.92 Encounter for supervision of normal pregnancy, unspecified, second trimester (principal)

== ENCOUNTER 2022-12-14 11:35 | Outpatient (CLI) | payer OTHER ==
[~2022-12-14] VITALS: Ht 162.6 cm; Wt 120.0 kg
[~2022-12-14 11:35] MED LIST changes: +ACETAMINOPHEN 500 MG TAB PO ONE; +IRON SUCROSE 500 MG in NS 250 ML OVER 4 HRS IV ONE; +diphenhydrAMINE 50MG CAP PO ONE
[2022-12-14 12:01] VITALS: BP 142/65; O2SAT 98
[2022-12-14 13:30] VITALS: BP 127/64; O2SAT 100
[2022-12-14 14:30] VITALS: BP 120/64; O2SAT 99
[2022-12-14 15:30] VITALS: BP 110/63; O2SAT 98
[2022-12-14 16:30] VITALS: BP 119/71; O2SAT 98
[2022-12-14 17:11] VITALS: BP 122/77; O2SAT 98
== END 2022-12-14 17:05 ==
LOC: M INFU 11:35
PROVIDERS: ATTEND Advanced Practice Midwife
DX: D64.9 Anemia, unspecified (principal)
CPT/HCPCS: 96365; 96366; J1756

== ENCOUNTER 2023-01-04 12:21 | Outpatient (CLI) | payer OTHER ==
[~2023-01-04] VITALS: Ht 167.6 cm; Wt 121.2 kg
[~2023-01-04 12:21] MED LIST changes: -ACETAMINOPHEN 500 MG TAB PO ONE; -IRON SUCROSE 500 MG in NS 250 ML OVER 4 HRS IV ONE; -diphenhydrAMINE 50MG CAP PO ONE
[2023-01-04 12:55] VITALS: BP 105/59
[2023-01-04] MEDS ORDERED: BENA25CA4 PO (16:50)
[2023-01-04] MEDS ORDERED: HOME MED LIST COMPLETE! XX SCH (16:55)
== END 2023-01-04 16:35 | disposition home or self-care (01) ==
LOC: M LDO 12:21
PROVIDERS: ATTEND Advanced Practice Midwife
DX: O26.893 Other specified pregnancy related conditions, third trimester (principal); R10.2 Pelvic and perineal pain; O99.713 Diseases of the skin and subcutaneous tissue complicating pregnancy, third trimester; Z3A.32 32 weeks gestation of pregnancy
CPT/HCPCS: 59025; G0463

== ENCOUNTER → 2023-01-10 | Outpatient (CLI) | payer OTHER ==
[~2023-01-10] MED LIST changes: +BENA25CA4 PO
== END ==
LOC: M WHC 14:07
PROVIDERS: ATTEND Obstetrics & Gynecology
DX: Z34.93 Encounter for supervision of normal pregnancy, unspecified, third trimester (principal); Z3A.33 33 weeks gestation of pregnancy

== ENCOUNTER 2023-02-02 13:59 | Outpatient (CLI) | payer OTHER ==
[~2023-02-02] VITALS: Ht 167.6 cm; Wt 120.5 kg
[2023-02-02] MEDS ORDERED: HOME MED LIST COMPLETE! XX SCH (14:10)
[2023-02-02] MEDS ORDERED: OMEP10CASR PO (14:12)
[2023-02-02] MEDS ORDERED: IRON65TA2 PO (14:12)
[2023-02-02 14:22] VITALS: BP 114/58
== END 2023-02-02 15:00 | disposition home or self-care (01) ==
LOC: M LDO 13:59
PROVIDERS: ATTEND Obstetrics & Gynecology
DX: O47.03 False labor before 37 completed weeks of gestation, third trimester (principal); O99.013 Anemia complicating pregnancy, third trimester; D64.9 Anemia, unspecified; Z3A.36 36 weeks gestation of pregnancy
CPT/HCPCS: 59025; G0463

== ENCOUNTER 2023-02-02 19:59 | Outpatient (CLI) | payer OTHER ==
[~2023-02-02] VITALS: Ht 167.6 cm; Wt 121.6 kg
[~2023-02-02 19:59] MED LIST changes: +IRON65TA2 PO; +OMEP10CASR PO
[2023-02-02 20:13] VITALS: BP 119/70
[2023-02-02] MEDS ORDERED: HOME MED LIST COMPLETE! XX SCH (20:15)
[2023-02-02 21:28] VITALS: BP 116/80
== END 2023-02-02 21:35 | disposition home or self-care (01) ==
LOC: M LDO 19:59
PROVIDERS: ATTEND Obstetrics & Gynecology
DX: O47.03 False labor before 37 completed weeks of gestation, third trimester (principal); O99.013 Anemia complicating pregnancy, third trimester; D64.9 Anemia, unspecified; Z3A.36 36 weeks gestation of pregnancy
CPT/HCPCS: 59025; G0463

== ENCOUNTER 2023-02-04 00:42 | Outpatient (CLI) | payer OTHER ==
[~2023-02-04 00:42] MED LIST changes: +LORA-1041; -LORA-674
== END 2023-02-04 02:33 | disposition home or self-care (01) ==
LOC: M LDO 00:42 → EDSTATUS 02-07 13:38
PROVIDERS: ATTEND Obstetrics & Gynecology
DX: O26.893 Other specified pregnancy related conditions, third trimester (principal); R10.2 Pelvic and perineal pain; Z3A.36 36 weeks gestation of pregnancy
CPT/HCPCS: 59025; G0463

== ENCOUNTER → 2023-02-06 | Outpatient (REF) | payer OTHER | LOC: M PLALAB 08:54 | PROVIDERS: ATTEND Advanced Practice Midwife | DX: Z34.80 Encounter for supervision of other normal pregnancy, unspecified trimester (principal) ==

== ENCOUNTER 2023-02-08 01:32 | Outpatient (CLI) | payer OTHER ==
[~2023-02-08] VITALS: Ht 167.6 cm; Wt 121.4 kg
[~2023-02-08 01:32] MED LIST changes: -LORA-1041; +LORA-674
[2023-02-08] MEDS ORDERED: HOME MED LIST COMPLETE! XX SCH (01:55)
[2023-02-08 01:56] VITALS: BP 114/68
[2023-02-08 03:31] VITALS: BP 120/74
== END 2023-02-08 06:00 | disposition home or self-care (01) ==
LOC: M LDO 01:32
PROVIDERS: ATTEND Obstetrics & Gynecology
DX: O47.1 False labor at or after 37 completed weeks of gestation (principal); Z3A.37 37 weeks gestation of pregnancy
CPT/HCPCS: 59025; G0463

== ENCOUNTER → 2023-02-12 | Outpatient (CLI) | payer OTHER ==
[~2023-02-12] MED LIST changes: +LORA-1041; -LORA-674
[2023-02-12 12:26] LABS: HEMATOCRIT 30.9 % (36.0-47.0); MEAN CORPUSCULAR HEMOGLOBIN 26.2 pg (27.0-33.0); MEAN CORPUSCULAR HGB CONC 32.4 g/dl (32.0-36.5); MEAN CORPUSCULAR VOLUME 80.9 fl (80.0-96.0); PLATELET COUNT, AUTOMATED 202 10^3/uL (150-450); RED BLOOD COUNT 3.82 10^6/uL (4.00-5.40)
== END ==
LOC: M WUC 09:56
DX: O99.019 Anemia complicating pregnancy, unspecified trimester (principal)

== ENCOUNTER → 2023-04-29 | Outpatient (REF) | payer OTHER, MEDICAID ==
[2023-04-29 18:47] LABS: BASO # 0.1 10^3/uL (0.0-0.2); BASO % 0.6 % (0.0-1.0); EOS # 0.2 10^3/uL (0.0-0.5); EOS % 2.3 % (0.0-3.0); HEMATOCRIT 37.9 % (36.0-47.0); LYMPH # 2.5 10^3/uL (1.5-5.0); LYMPH % 27.9 % (24.0-44.0); MEAN CORPUSCULAR HEMOGLOBIN 26.5 pg (27.0-33.0); MEAN CORPUSCULAR HGB CONC 31.7 g/dl (32.0-36.5); MEAN CORPUSCULAR VOLUME 83.8 fl (80.0-96.0); MONO # 0.9 10^3/uL (0.0-0.8); MONO % 9.5 % (2.0-8.0); NEUTROPHILS # 5.3 10^3/uL (1.5-8.5); NEUTROPHILS % 59.4 % (36.0-66.0); PLATELET COUNT, AUTOMATED 267 10^3/uL (150-450); RED BLOOD COUNT 4.52 10^6/uL (4.00-5.40)
[2023-04-29 19:07] LABS: PERCENT SATURATION 7.1 % (13.2-45.0)
[2023-04-29 19:11] LABS: FERRITIN 11.6 NG/ML (7.3-270.7)
[2023-04-29 19:12] LABS: THYROID STIMULATING HORMONE 1.447 uIU/ML (0.55-4.78); TOTAL 25(OH) VITAMIN D 10.6 NG/ML (20.0-100.0)
== END ==
LOC: M LAB REF 18:11
PROVIDERS: ATTEND Nurse Practitioner Family
DX: E55.9 Vitamin D deficiency, unspecified (principal); D64.9 Anemia, unspecified; R51.9 Headache, unspecified

== ENCOUNTER 2023-05-07 13:18 | Outpatient (RCR) | payer OTHER | END 2023-05-09 | LOC: M PT 13:18 | PROVIDERS: ATTEND Physician Assistant | DX: M54.6 Pain in thoracic spine (principal) ==

== ENCOUNTER 2023-06-13 11:21 | Emergency (ER) | payer OTHER ==
[~2023-06-13] VITALS: Ht 167.6 cm; Wt 122.1 kg
[2023-06-13] MEDS ORDERED: CITA10TA7 (11:29)
[2023-06-13] MEDS ORDERED: FERR325T19 (11:29)
[2023-06-13 12:12] LABS: BASO # 0.1 10^3/uL (0.0-0.2); BASO % 0.6 % (0.0-1.0); EOS # 0.3 10^3/uL (0.0-0.5); EOS % 3.6 % (0.0-3.0); HEMATOCRIT 39.3 % (36.0-47.0); HEMOGLOBIN 12.8 g/dl (12.0-15.5); LYMPH # 1.8 10^3/uL (1.5-5.0); MEAN CORPUSCULAR HEMOGLOBIN 26.7 pg (27.0-33.0); MEAN CORPUSCULAR HGB CONC 32.6 g/dl (32.0-36.5); MEAN CORPUSCULAR VOLUME 81.9 fl (80.0-96.0); MONO # 0.7 10^3/uL (0.0-0.8); MONO % 8.4 % (2.0-8.0); PLATELET COUNT, AUTOMATED 279 10^3/uL (150-450); WHITE BLOOD COUNT 7.8 10^3/uL (4.0-10.0)
[2023-06-13 12:33] LABS: ERYTHROCYTE SEDIMENTATION RATE 17 mm/hr (0-20)
[2023-06-13 12:36] LABS: ALBUMIN 3.9 G/DL (3.2-5.2); ALKALINE PHOSPHATASE 101 U/L (46-116); ALT/SGPT 23 U/L (7.0-40); AST/SGOT 8 U/L (<34); BILIRUBIN,DIRECT 0.1 MG/DL (<0.4); BILIRUBIN,TOTAL 0.3 MG/DL (0.3-1.2); BLOOD UREA NITROGEN 12 MG/DL (9-23); CALCIUM LEVEL 8.8 MG/DL (8.5-10.1); CARBON DIOXIDE LEVEL 27 MMOL/L (20-31); CHLORIDE LEVEL 107 MMOL/L (98-107); CREATININE FOR GFR 0.55 MG/DL (0.55-1.30); GLOMERULAR FILTRATION RATE > 60.0 (>60); GLUCOSE, FASTING 81 MG/DL (60-100); POTASSIUM SERUM 4.1 MMOL/L (3.5-5.1); SODIUM LEVEL 141 MMOL/L (136-145); TOTAL PROTEIN 6.9 G/DL (5.7-8.2)
[2023-06-13 12:43] LABS: HCG, SERUM QUALITATIVE NEGATIVE (NEGATIVE)
[2023-06-13] MEDS ORDERED: BACTRIM 160MG/800MG DS TAB PO ONE (13:30)
[2023-06-13] MEDS ORDERED: BACT800T5 PO (13:38)
[2023-06-13 13:45] VITALS: BP 135/87; TEMP 97.1; O2SAT 99
== END 2023-06-13 13:47 | disposition home or self-care (01) ==
LOC: M ED 11:21
DX: L02.91 Cutaneous abscess, unspecified (principal)

== ENCOUNTER 2023-09-06 11:47 | Emergency (ER) | payer OTHER ==
[~2023-09-06] VITALS: Ht 167.6 cm; Wt 124.9 kg
[~2023-09-06 11:47] MED LIST changes: +CITA10TA7; +FERR325T19
[2023-09-06] MEDS ORDERED: ONDA-83 PO (14:01)
[2023-09-06] MEDS ORDERED: OSEL75CA PO (14:01)
[2023-09-06 14:09] VITALS: BP 174/100; TEMP 96.5; O2SAT 99
== END 2023-09-06 14:21 | disposition home or self-care (01) ==
LOC: M ED 11:47 → EDBD 11:47 → M ED 14:21
DX: R05.9 Cough, unspecified (principal); B34.9 Viral infection, unspecified

== ENCOUNTER → 2023-09-27 | Outpatient (CLI) | payer OTHER ==
[~2023-09-27] MED LIST changes: +ONDA-83 PO; +OSEL75CA PO
== END ==
LOC: M PLAIMG 08:27
PROVIDERS: ATTEND Physician Assistant
DX: M50.322 Other cervical disc degeneration at C5-C6 level (principal); M47.812 Spondylosis without myelopathy or radiculopathy, cervical region; M48.02 Spinal stenosis, cervical region

== ENCOUNTER 2024-03-25 18:04 | Emergency (ER) | payer OTHER ==
[~2024-03-25] VITALS: Ht 167.6 cm; Wt 118.9 kg
[~2024-03-25 18:04] MED LIST changes: +FLUO-290; +FLUO-365; -FLUO10CA18; -FLUO20CA22; +ONDA-282 PO; -ONDA4TAB6 PO; +VITA250T27 PO; -VITA250T4 PO
[2024-03-25 19:44] LABS: BASO % 0.4 % (0.0-1.0); EOS # 0.2 10^3/uL (0.0-0.5); EOS % 1.7 % (0.0-3.0); HEMATOCRIT 36.5 % (36.0-47.0); HEMOGLOBIN 12.6 g/dl (12.0-15.5); LYMPH # 2.2 10^3/uL (1.5-5.0); LYMPH % 22.9 % (24.0-44.0); MEAN CORPUSCULAR HGB CONC 34.5 g/dl (32.0-36.5); MEAN CORPUSCULAR VOLUME 83.9 fl (80.0-96.0); MONO # 0.8 10^3/uL (0.0-0.8); MONO % 8.4 % (2.0-8.0); NEUTROPHILS # 6.4 10^3/uL (1.5-8.5); NEUTROPHILS % 66.4 % (36.0-66.0); PLATELET COUNT, AUTOMATED 247 10^3/uL (150-450); RED BLOOD COUNT 4.35 10^6/uL (4.00-5.40); WHITE BLOOD COUNT 9.7 10^3/uL (4.0-10.0)
[2024-03-25 20:10] LABS: BLOOD UREA NITROGEN 8 MG/DL (9-23); CALCIUM LEVEL 9.5 MG/DL (8.5-10.1); CARBON DIOXIDE LEVEL 24 MMOL/L (20-31); CHLORIDE LEVEL 107 MMOL/L (98-107); CREATININE FOR GFR 0.47 MG/DL (0.55-1.30); GLOMERULAR FILTRATION RATE > 60.0 (>60); GLUCOSE, FASTING 78 MG/DL (60-100); POTASSIUM SERUM 4.1 MMOL/L (3.5-5.1); SODIUM LEVEL 137 MMOL/L (136-145)
[2024-03-25 20:34] LABS: HCG, SERUM QUANTITATIVE 99442.7 MIU/ML (<4.2)
[2024-03-25] MEDS: ONDANSETRON 4MG ORAL DISINTEGRATING TAB PO ONE (20:48)
[2024-03-25] MEDS ORDERED: CEPH500C PO (20:57)
[2024-03-25 21:10] VITALS: BP 110/76; TEMP 98.2; O2SAT 100
[2024-03-25 21:54] LABS: Trichomonas vaginalis (AMP) NOT DETECTED (NEGATIVE)
[2024-03-25 22:18] LABS: GC DNA AMPLIFICATION NEGATIVE (NEGATIVE)
== END 2024-03-25 21:12 | disposition home or self-care (01) ==
LOC: EDBD 18:04 → M ED 18:04
DX: O20.8 Other hemorrhage in early pregnancy (principal); Z3A.10 10 weeks gestation of pregnancy

== ENCOUNTER → 2024-04-13 | Outpatient (CLI) | payer OTHER ==
[~2024-04-13] MED LIST changes: +CEPH500C PO
== END ==
LOC: M PLALAB 09:45
PROVIDERS: ATTEND Obstetrics & Gynecology
DX: Z34.92 Encounter for supervision of normal pregnancy, unspecified, second trimester (principal)

== ENCOUNTER 2024-04-20 21:19 | Emergency (ER) | payer OTHER ==
[~2024-04-20] VITALS: Ht 167.6 cm; Wt 119.1 kg
[2024-04-20 21:47] LABS: BASO % 0.4 % (0.0-1.0); EOS # 0.1 10^3/uL (0.0-0.5); EOS % 1.3 % (0.0-3.0); HEMATOCRIT 32.8 % (36.0-47.0); HEMOGLOBIN 11.4 g/dl (12.0-15.5); LYMPH # 1.3 10^3/uL (1.5-5.0); LYMPH % 16.3 % (24.0-44.0); MEAN CORPUSCULAR HEMOGLOBIN 29.3 pg (27.0-33.0); MEAN CORPUSCULAR HGB CONC 34.8 g/dl (32.0-36.5); MEAN CORPUSCULAR VOLUME 84.3 fl (80.0-96.0); MONO # 0.7 10^3/uL (0.0-0.8); MONO % 9.5 % (2.0-8.0); NEUTROPHILS # 5.6 10^3/uL (1.5-8.5); NEUTROPHILS % 72.1 % (36.0-66.0); PLATELET COUNT, AUTOMATED 217 10^3/uL (150-450); RED BLOOD COUNT 3.89 10^6/uL (4.00-5.40); WHITE BLOOD COUNT 7.8 10^3/uL (4.0-10.0)
[2024-04-20 22:00] VITALS: TEMP 98
[2024-04-20 22:05] LABS: LIPASE 25 U/L (12-53)
[2024-04-20 22:07] LABS: AMORPHOUS SEDIMENT SMALL (NEGATIVE); APPEARANCE, URINE CLOUDY (CLEAR); BACTERIA, URINE AUTO NEGATIVE (NEGATIVE); BILIRUBIN, URINE AUTO NEGATIVE (NEGATIVE); BLOOD, URINE BLOOD NEGATIVE (NEGATIVE); COLOR, URINE YELLOW (YELLOW); GLUCOSE, URINE (UA) AUTO NEGATIVE (NEGATIVE); KETONE, URINE AUTO NEGATIVE (NEGATIVE); LEUKOCYTE ESTERASE, URINE AUTO 3+ (NEGATIVE); MUCUS, URINE SMALL (NEGATIVE); NITRITE, URINE AUTO NEGATIVE (NEGATIVE); PROTEIN, URINE AUTO NEGATIVE (NEGATIVE); RBC, URINE AUTO 0 /HPF (0-3); SPECIFIC GRAVITY URINE AUTO 1.025 (1.002-1.035); SQUAMOUS EPITHELIAL CELL UR AU 18 /HPF (0-6); WBC, URINE AUTO 32 /HPF (0-3)
[2024-04-20 22:08] LABS: ALBUMIN 3.3 G/DL (3.2-5.2); ALKALINE PHOSPHATASE 56 U/L (35-104); ALT/SGPT < 9 U/L (7.0-40); AST/SGOT < 8 U/L (<34); BILIRUBIN,DIRECT < 0.1 MG/DL (<0.4); BILIRUBIN,TOTAL 0.3 MG/DL (0.3-1.2); BLOOD UREA NITROGEN 9 MG/DL (9-23); CALCIUM LEVEL 9.2 MG/DL (8.5-10.1); CARBON DIOXIDE LEVEL 24 MMOL/L (20-31); CHLORIDE LEVEL 109 MMOL/L (98-107); CREATININE FOR GFR 0.53 MG/DL (0.55-1.30); GLOMERULAR FILTRATION RATE > 60.0 (>60); GLUCOSE, FASTING 79 MG/DL (60-100); SODIUM LEVEL 138 MMOL/L (136-145); TOTAL PROTEIN 6.4 G/DL (5.7-8.2)
[2024-04-20 22:20] LABS: HCG, SERUM QUANTITATIVE 36057.8 MIU/ML (<4.2)
[2024-04-20 23:19] LABS: GC DNA AMPLIFICATION NEGATIVE (NEGATIVE)
[2024-04-21 01:30] VITALS: BP 115/56; O2SAT 98
== END 2024-04-21 01:52 | disposition home or self-care (01) ==
LOC: M ED 21:19 → EDBD 21:19 → M ED 04-21 01:52
DX: O20.8 Other hemorrhage in early pregnancy (principal); O99.512 Diseases of the respiratory system complicating pregnancy, second trimester; O99.342 Other mental disorders complicating pregnancy, second trimester; Z3A.14 14 weeks gestation of pregnancy

== ENCOUNTER 2024-05-25 09:11 | Emergency (ER) | payer OTHER ==
[~2024-05-25] VITALS: Ht 167.6 cm; Wt 121.2 kg
[2024-05-25] MEDS ORDERED: ASPI81CH48 (09:30)
[2024-05-25 10:08] LABS: BASO % 0.4 % (0.0-1.0); EOS # 0.1 10^3/uL (0.0-0.5); EOS % 1.4 % (0.0-3.0); HEMATOCRIT 30.7 % (36.0-47.0); HEMOGLOBIN 10.4 g/dl (12.0-15.5); LYMPH # 1.4 10^3/uL (1.5-5.0); LYMPH % 14.4 % (24.0-44.0); MEAN CORPUSCULAR HEMOGLOBIN 28.8 pg (27.0-33.0); MEAN CORPUSCULAR HGB CONC 33.9 g/dl (32.0-36.5); MONO # 0.7 10^3/uL (0.0-0.8); MONO % 6.5 % (2.0-8.0); NEUTROPHILS # 7.7 10^3/uL (1.5-8.5); NEUTROPHILS % 76.9 % (36.0-66.0); PLATELET COUNT, AUTOMATED 212 10^3/uL (150-450); RED BLOOD COUNT 3.61 10^6/uL (4.00-5.40)
[2024-05-25 10:26] LABS: LIPASE 21 U/L (12-53)
[2024-05-25 10:28] LABS: CPK CREATINE PHOSPHOKINASE 42 U/L (34-145)
[2024-05-25 10:29] LABS: ALBUMIN 2.9 G/DL (3.2-5.2); ALKALINE PHOSPHATASE 57 U/L (35-104); ALT/SGPT < 9 U/L (7.0-40); AST/SGOT < 8 U/L (<34); BILIRUBIN,DIRECT < 0.1 MG/DL (<0.4); BILIRUBIN,TOTAL 0.4 MG/DL (0.3-1.2); BLOOD UREA NITROGEN 6 MG/DL (9-23); CALCIUM LEVEL 8.6 MG/DL (8.5-10.1); CARBON DIOXIDE LEVEL 22 MMOL/L (20-31); CHLORIDE LEVEL 107 MMOL/L (98-107); CREATININE FOR GFR 0.47 MG/DL (0.55-1.30); GLOMERULAR FILTRATION RATE > 60.0 (>60); GLUCOSE, FASTING 79 MG/DL (60-100); POTASSIUM SERUM 3.6 MMOL/L (3.5-5.1); SODIUM LEVEL 138 MMOL/L (136-145); TOTAL PROTEIN 6.2 G/DL (5.7-8.2)
[2024-05-25 10:32] LABS: CK-MB VALUE MASS < 1.0 NG/ML (<3.6); MB/CK RELATIVE INDEX 2.38 (< OR =4)
[2024-05-25 12:30] VITALS: BP 110/53; TEMP 97.8; O2SAT 100
== END 2024-05-25 12:47 | disposition home or self-care (01) ==
LOC: M ED 09:11 → EDBD 09:11 → M ED 12:47
DX: O26.892 Other specified pregnancy related conditions, second trimester (principal); O99.212 Obesity complicating pregnancy, second trimester; O99.512 Diseases of the respiratory system complicating pregnancy, second trimester; O99.612 Diseases of the digestive system complicating pregnancy, second trimester; O99.342 Other mental disorders complicating pregnancy, second trimester; Z3A.00 Weeks of gestation of pregnancy not specified

== ENCOUNTER 2024-05-27 21:02 | Emergency (ER) | payer OTHER ==
[~2024-05-27 21:02] MED LIST changes: +ASPI81CH48
== END 2024-05-27 21:20 | disposition admitted as inpatient to this hospital (09) ==
LOC: M ED 21:02 → EDBD 21:02 → M ED 21:20
DX: O9A.212 Injury, poisoning and certain other consequences of external causes complicating pregnancy, second trimester (principal); Z53.21 Procedure and treatment not carried out due to patient leaving prior to being seen by health care provider

== ENCOUNTER 2024-06-04 21:20 | Outpatient (CLI) | payer OTHER ==
[~2024-06-04] VITALS: Ht 167.6 cm; Wt 120.0 kg
[2024-06-04] MEDS ORDERED: REGL10TA6 PO (21:55)
[2024-06-04] MEDS ORDERED: PROMETHAZINE (21:57)
[2024-06-04 22:07] VITALS: BP 100/55
[2024-06-05 00:01] LABS: KETONE, URINE AUTO RFX NEGATIVE (NEGATIVE); LEUKOCYTE ESTERASE UR AUTO RFX NEGATIVE (NEGATIVE)
[2024-06-05 08:00] LABS: Trichomonas vaginalis (AMP) NOT DETECTED (NEGATIVE)
[2024-06-05 08:24] LABS: GC DNA AMPLIFICATION NEGATIVE (NEGATIVE)
== END 2024-06-04 23:25 | disposition home or self-care (01) ==
LOC: M LDO 21:20
PROVIDERS: ATTEND Obstetrics & Gynecology
DX: O26.852 Spotting complicating pregnancy, second trimester (principal); O09.32 Supervision of pregnancy with insufficient antenatal care, second trimester; Z3A.21 21 weeks gestation of pregnancy
CPT/HCPCS: 76815; 81001; 87661; 87810; 87850; G0463

== ENCOUNTER 2024-06-12 21:55 | Emergency (ER) | payer OTHER ==
[~2024-06-12] VITALS: Ht 167.6 cm; Wt 121.0 kg
[~2024-06-12 21:55] MED LIST changes: +PROMETHAZINE; +REGL10TA6 PO
[2024-06-12 22:04] VITALS: BP 109/55; TEMP 98.7; O2SAT 99
[2024-06-12] MEDS ORDERED: ACET-683 PO (22:14)
[2024-06-13] MEDS ORDERED: OSEL75CA PO (01:22)
== END 2024-06-12 22:30 | disposition admitted as inpatient to this hospital (09) ==
LOC: M ED 21:55
DX: R11.2 Nausea with vomiting, unspecified (principal); Z53.9 Procedure and treatment not carried out, unspecified reason

== ENCOUNTER 2024-06-12 22:38 | Outpatient (CLI) | payer OTHER ==
[~2024-06-12] VITALS: Ht 167.6 cm; Wt 120.9 kg
[2024-06-12 22:55] VITALS: BP 98/57; O2SAT 99
[2024-06-12 23:06] VITALS: BP 98/56
[2024-06-12 23:16] VITALS: BP 85/47
[2024-06-12 23:26] VITALS: O2SAT 100
[2024-06-13] MEDS: PROMETHAZINE 25MG/ML 1ML VIAL IV PRN (00:03)
[2024-06-13] MEDS: LACTATED RINGER'S 1000 ML IV STA (00:03)
[2024-06-13 00:11] LABS: HEMATOCRIT 30.7 % (36.0-47.0); HEMOGLOBIN 10.5 g/dl (12.0-15.5); MEAN CORPUSCULAR HEMOGLOBIN 29.4 pg (27.0-33.0); MEAN CORPUSCULAR HGB CONC 34.2 g/dl (32.0-36.5); PLATELET COUNT, AUTOMATED 195 10^3/uL (150-450); RED BLOOD COUNT 3.57 10^6/uL (4.00-5.40); WHITE BLOOD COUNT 7.5 10^3/uL (4.0-10.0)
[2024-06-13 00:19] LABS: LIPASE 21 U/L (12-53)
[2024-06-13 00:20] LABS: AMYLASE 23 U/L (30-118)
[2024-06-13 00:28] LABS: ALBUMIN 3.1 G/DL (3.2-5.2); ALKALINE PHOSPHATASE 79 U/L (35-104); ALT/SGPT < 9 U/L (7.0-40); AST/SGOT < 8 U/L (<34); BILIRUBIN,TOTAL 0.5 MG/DL (0.3-1.2); BLOOD UREA NITROGEN < 5 MG/DL (9-23); CALCIUM LEVEL 8.9 MG/DL (8.5-10.1); CARBON DIOXIDE LEVEL 22 MMOL/L (20-31); CHLORIDE LEVEL 107 MMOL/L (98-107); CREATININE FOR GFR 0.46 MG/DL (0.55-1.30); GLOMERULAR FILTRATION RATE > 60.0 (>60); GLUCOSE, FASTING 75 MG/DL (60-100); POTASSIUM SERUM 3.7 MMOL/L (3.5-5.1); SODIUM LEVEL 139 MMOL/L (136-145); TOTAL PROTEIN 6.3 G/DL (5.7-8.2)
[2024-06-13 00:29] LABS: RSV AMPLIFICATION NEGATIVE (NEGATIVE)
[2024-06-13] MEDS: LR 1,000 ML IV SCH (01:01)
[2024-06-13] MEDS ORDERED: OSEL75CA PO (01:22)
[2024-06-13] MEDS ORDERED: HOME MED LIST COMPLETE! XX SCH (01:25)
[2024-06-13] MEDS: ACETAMINOPHEN 500 MG TAB PO ONE (01:30)
[2024-06-13] MEDS: OSELTAMIVIR PHOSPHATE 75 MG CAP (TAMIFLU) PO ONE (01:30)
[2024-06-13 02:41] VITALS: BP 101/56
== END 2024-06-13 02:45 | disposition home or self-care (01) ==
LOC: M LDO 22:38
PROVIDERS: ATTEND Obstetrics & Gynecology
DX: O99.512 Diseases of the respiratory system complicating pregnancy, second trimester (principal); O26.892 Other specified pregnancy related conditions, second trimester; J09.X2 Influenza due to identified novel influenza A virus with other respiratory manifestations; R10.31 Right lower quadrant pain; Z3A.22 22 weeks gestation of pregnancy
CPT/HCPCS: 76705; 80053; 82150; 83690; 85027; 87631; 96374; G0463; J2550

== ENCOUNTER → 2024-06-16 | Outpatient (CLI) | payer OTHER ==
[2024-06-16 16:04] LABS: HIV 1&2 SCREEN NEGATIVE (NEGATIVE)
[2024-06-16 16:11] LABS: HEPATITIS C VIRUS ABY INDEX 0.04 INDEX (<0.8)
[2024-06-16 20:13] LABS: HEMATOCRIT 32.3 % (36.0-47.0); HEMOGLOBIN 10.9 g/dl (12.0-15.5); MEAN CORPUSCULAR HEMOGLOBIN 29.5 pg (27.0-33.0); MEAN CORPUSCULAR HGB CONC 33.7 g/dl (32.0-36.5); MEAN CORPUSCULAR VOLUME 87.3 fl (80.0-96.0); PLATELET COUNT, AUTOMATED 229 10^3/uL (150-450); WHITE BLOOD COUNT 8.4 10^3/uL (4.0-10.0)
== END ==
LOC: M PLALAB 10:40
PROVIDERS: ATTEND Nurse Practitioner Family
DX: Z34.80 Encounter for supervision of other normal pregnancy, unspecified trimester (principal)

== ENCOUNTER → 2024-06-16 | Outpatient (REF) | payer OTHER ==
[2024-06-16 14:33] LABS: TOTAL PROTEIN,RANDOM URINE 21.9 MG/DL (0.0-14.0)
[2024-06-16 14:37] LABS: CREATININE,RANDOM URINE 227.2 MG/DL
[2024-06-16 15:49] LABS: GC DNA AMPLIFICATION NEGATIVE (NEGATIVE)
[2024-06-16 19:59] LABS: LDH LACTATE DEHYDROGENASE 228 U/L (120-246)
[2024-06-16 20:00] LABS: ALT/SGPT 13 U/L (7.0-40); AST/SGOT 12 U/L (<34); BILIRUBIN,TOTAL 0.3 MG/DL (0.3-1.2); GLOMERULAR FILTRATION RATE > 60.0 (>60)
[2024-06-16 20:01] LABS: URIC ACID 2.8 MG/DL (3.1-7.8)
== END ==
LOC: M PLALAB 11:39
PROVIDERS: ATTEND Nurse Practitioner Family
DX: Z34.80 Encounter for supervision of other normal pregnancy, unspecified trimester (principal); E66.01 Morbid (severe) obesity due to excess calories

== ENCOUNTER → 2024-06-17 | Outpatient (CLI) | payer OTHER | LOC: M RAD 07:35 | PROVIDERS: ATTEND Nurse Practitioner Family | DX: Z34.82 Encounter for supervision of other normal pregnancy, second trimester (principal); Z3A.22 22 weeks gestation of pregnancy ==

== ENCOUNTER 2024-06-24 22:25 | Outpatient (CLI) | payer OTHER ==
[~2024-06-24] VITALS: Ht 167.6 cm; Wt 120.9 kg
[2024-06-24] MEDS ORDERED: HOME MED LIST COMPLETE! XX SCH (22:45)
== END 2024-06-24 23:49 | disposition home or self-care (01) ==
LOC: M LDO 22:25
PROVIDERS: ATTEND Advanced Practice Midwife
DX: O26.892 Other specified pregnancy related conditions, second trimester (principal); O99.212 Obesity complicating pregnancy, second trimester; O09.32 Supervision of pregnancy with insufficient antenatal care, second trimester; M25.551 Pain in right hip; N89.8 Other specified noninflammatory disorders of vagina; E66.01 Morbid (severe) obesity due to excess calories; Z3A.23 23 weeks gestation of pregnancy; Y92.9 Unspecified place or not applicable; Y93.9 Activity, unspecified; Y99.9 Unspecified external cause status

== ENCOUNTER 2024-07-10 18:50 | Outpatient (CLI) | payer OTHER ==
[2024-07-10 19:08] VITALS: BP 108/55
[2024-07-10] MEDS: FAMOTIDINE 20 MG TAB PO ONE (19:40)
== END 2024-07-10 20:08 | disposition home or self-care (01) ==
LOC: M LDO 18:50
PROVIDERS: ATTEND Specialist
DX: O26.892 Other specified pregnancy related conditions, second trimester (principal); O09.32 Supervision of pregnancy with insufficient antenatal care, second trimester; O99.212 Obesity complicating pregnancy, second trimester; O99.342 Other mental disorders complicating pregnancy, second trimester; R10.10 Upper abdominal pain, unspecified; F41.9 Anxiety disorder, unspecified; E66.9 Obesity, unspecified; Z3A.26 26 weeks gestation of pregnancy
CPT/HCPCS: 59025; G0463

== ENCOUNTER → 2024-07-16 | Outpatient (CLI) | payer OTHER | LOC: M PLALAB 08:41 | PROVIDERS: ATTEND Nurse Practitioner Family | DX: Z34.80 Encounter for supervision of other normal pregnancy, unspecified trimester (principal) ==

== ENCOUNTER 2024-07-21 04:47 | Outpatient (CLI) | payer OTHER ==
[~2024-07-21] VITALS: Ht 167.6 cm; Wt 121.2 kg
[2024-07-21 04:53] VITALS: BP 118/61; O2SAT 98
[2024-07-21 06:13] VITALS: BP 119/59
[2024-07-21] MEDS: ONDANSETRON 4MG 2ML VIAL IV PRN (06:13)
[2024-07-21] MEDS ORDERED: LR 1,000 ML IV ONE (06:20)
[2024-07-21 06:41] LABS: KETONE, URINE AUTO RFX TRACE mg/dL (NEGATIVE); LEUKOCYTE ESTERASE UR AUTO RFX NEGATIVE (NEGATIVE); MUCUS, URINE RFX SMALL (NEGATIVE); NITRITE, URINE AUTO RFX NEGATIVE (NEGATIVE); RBC, URINE AUTO RFX 2 /HPF (0-3); SQUAM EPITHELIAL CELL UR AURFX 2 /HPF (0-6); WBC, URINE AUTO RFX 5 /HPF (0-3)
[2024-07-21] MEDS: ONDANSETRON 4MG 2ML VIAL IV ONE (07:55)
[2024-07-21 08:51] VITALS: BP 111/54
[2024-07-21 09:15] LABS: HEMATOCRIT 30.5 % (36.0-47.0); HEMOGLOBIN 10.1 g/dl (12.0-15.5); MEAN CORPUSCULAR HEMOGLOBIN 28.4 pg (27.0-33.0); MEAN CORPUSCULAR HGB CONC 33.1 g/dl (32.0-36.5); MEAN CORPUSCULAR VOLUME 85.7 fl (80.0-96.0); PLATELET COUNT, AUTOMATED 209 10^3/uL (150-450); RED BLOOD COUNT 3.56 10^6/uL (4.00-5.40); WHITE BLOOD COUNT 10.8 10^3/uL (4.0-10.0)
[2024-07-21 09:27] LABS: LIPASE 23 U/L (12-53)
[2024-07-21 09:29] LABS: AMYLASE 29 U/L (30-118)
[2024-07-21 09:30] LABS: ALBUMIN 2.8 G/DL (3.2-5.2); ALKALINE PHOSPHATASE 85 U/L (35-104); ALT/SGPT < 9 U/L (7.0-40); AST/SGOT < 8 U/L (<34); BILIRUBIN,TOTAL 0.4 MG/DL (0.3-1.2); BLOOD UREA NITROGEN 8 MG/DL (9-23); CALCIUM LEVEL 8.7 MG/DL (8.5-10.1); CARBON DIOXIDE LEVEL 24 MMOL/L (20-31); CHLORIDE LEVEL 108 MMOL/L (98-107); CREATININE FOR GFR 0.42 MG/DL (0.55-1.30); GLOMERULAR FILTRATION RATE > 60.0 (>60); GLUCOSE, FASTING 82 MG/DL (60-100); PHOSPHORUS LEVEL 3.2 MG/DL (2.5-4.9); POTASSIUM SERUM 3.8 MMOL/L (3.5-5.1); SODIUM LEVEL 141 MMOL/L (136-145)
[2024-07-21] MEDS ORDERED: ACETAMINOPHEN 500 MG TAB PO ONE (11:25)
[2024-07-21] MEDS: PROMETHAZINE 25MG/ML 1ML VIAL IV ONE (12:09)
[2024-07-21 12:12] VITALS: BP 99/53
[2024-07-21] MEDS: MULTIVITAMIN -ADULT INJECTION 10 ML, THIAMINE INJection 100 MG, FOLIC ACID 1 MG in NS (... IV ONE (13:50)
== END 2024-07-21 14:48 | disposition home or self-care (01) ==
LOC: M LDO 04:47
PROVIDERS: ATTEND Advanced Practice Midwife
DX: O99.612 Diseases of the digestive system complicating pregnancy, second trimester (principal); O99.213 Obesity complicating pregnancy, third trimester; O99.333 Smoking (tobacco) complicating pregnancy, third trimester; O09.33 Supervision of pregnancy with insufficient antenatal care, third trimester; K52.9 Noninfective gastroenteritis and colitis, unspecified; E66.9 Obesity, unspecified; F17.290 Nicotine dependence, other tobacco product, uncomplicated; Z3A.27 27 weeks gestation of pregnancy
CPT/HCPCS: 36415; 59025; 80053; 80069; 81001; 82150; 83690; 85027; 96365; 96374; 96376; G0463; J2405; J2550; J3411

== ENCOUNTER → 2024-07-23 | Outpatient (REF) | payer OTHER ==
[2024-07-23 20:18] LABS: Trichomonas vaginalis (AMP) NOT DETECTED (NEGATIVE)
[2024-07-23 20:42] LABS: GC DNA AMPLIFICATION NEGATIVE (NEGATIVE)
== END ==
LOC: M SFHCWAGY 17:03
PROVIDERS: ATTEND Obstetrics & Gynecology
DX: Z34.83 Encounter for supervision of other normal pregnancy, third trimester (principal)

== ENCOUNTER 2024-08-08 18:35 | Outpatient (CLI) | payer OTHER ==
[~2024-08-08] VITALS: Ht 167.6 cm; Wt 120.4 kg
[2024-08-08] MEDS ORDERED: HOME MED LIST COMPLETE! XX SCH (18:45)
[2024-08-08] MEDS ORDERED: ACET-907 PO (18:45)
[2024-08-08 18:56] VITALS: BP 100/55
== END 2024-08-08 19:30 | disposition home or self-care (01) ==
LOC: M LDO 18:35
PROVIDERS: ATTEND Specialist
DX: O36.8130 Decreased fetal movements, third trimester, not applicable or unspecified (principal); O99.213 Obesity complicating pregnancy, third trimester; O09.33 Supervision of pregnancy with insufficient antenatal care, third trimester; E66.01 Morbid (severe) obesity due to excess calories; Z3A.30 30 weeks gestation of pregnancy
CPT/HCPCS: 59025; G0463

== ENCOUNTER 2024-09-01 18:34 | Outpatient (CLI) | payer OTHER ==
[~2024-09-01] VITALS: Ht 168.9 cm; Wt 119.5 kg
[~2024-09-01 18:34] MED LIST changes: +ACET-907 PO
[2024-09-01] MEDS ORDERED: PROM25TA12 PO (18:53)
[2024-09-01] MEDS ORDERED: PEPC1TAB5 PO (18:55)
[2024-09-01] MEDS ORDERED: HOME MED LIST COMPLETE! XX SCH (19:00)
[2024-09-01 19:02] VITALS: BP 108/54; O2SAT 97
== END 2024-09-01 20:25 | disposition home or self-care (01) ==
LOC: M LDO 18:34
PROVIDERS: ATTEND Obstetrics & Gynecology
DX: O47.03 False labor before 37 completed weeks of gestation, third trimester (principal); Z3A.33 33 weeks gestation of pregnancy
CPT/HCPCS: 59025; G0463

== ENCOUNTER 2024-09-02 23:09 | Outpatient (CLI) | payer OTHER ==
[~2024-09-02] VITALS: Ht 167.6 cm; Wt 119.5 kg
[~2024-09-02 23:09] MED LIST changes: +PEPC1TAB5 PO; +PROM25TA12 PO
[2024-09-02 23:21] VITALS: BP 116/64
[2024-09-02] MEDS ORDERED: HOME MED LIST COMPLETE! XX SCH (23:25)
== END 2024-09-03 00:15 | disposition home or self-care (01) ==
LOC: M LDO 23:09
PROVIDERS: ATTEND Advanced Practice Midwife
DX: O26.893 Other specified pregnancy related conditions, third trimester (principal); O99.213 Obesity complicating pregnancy, third trimester; O09.33 Supervision of pregnancy with insufficient antenatal care, third trimester; R10.2 Pelvic and perineal pain; E66.01 Morbid (severe) obesity due to excess calories; Z3A.33 33 weeks gestation of pregnancy
CPT/HCPCS: 59025; G0463

== ENCOUNTER 2024-09-09 20:57 | Outpatient (CLI) | payer OTHER ==
[2024-09-09 21:05] VITALS: BP 109/60
== END 2024-09-09 21:30 | disposition home or self-care (01) ==
LOC: M LDO 20:57
PROVIDERS: ATTEND Advanced Practice Midwife
DX: O26.893 Other specified pregnancy related conditions, third trimester (principal); O09.33 Supervision of pregnancy with insufficient antenatal care, third trimester; O99.213 Obesity complicating pregnancy, third trimester; O99.333 Smoking (tobacco) complicating pregnancy, third trimester; O09.213 Supervision of pregnancy with history of pre-term labor, third trimester; E66.01 Morbid (severe) obesity due to excess calories; R10.2 Pelvic and perineal pain; Z36.85 Encounter for antenatal screening for Streptococcus B; F17.290 Nicotine dependence, other tobacco product, uncomplicated; Z3A.34 34 weeks gestation of pregnancy
CPT/HCPCS: 59025; 87081; G0463

== ENCOUNTER 2024-09-16 03:36 | Outpatient (CLI) | payer OTHER ==
[~2024-09-16] VITALS: Ht 167.6 cm; Wt 119.5 kg
[2024-09-16 03:48] VITALS: BP 101/63; O2SAT 100
[2024-09-16] MEDS ORDERED: HOME MED LIST COMPLETE! XX SCH (03:55)
[2024-09-16 06:47] VITALS: BP 92/51
== END 2024-09-16 07:30 | disposition home or self-care (01) ==
LOC: M LDO 03:36
PROVIDERS: ATTEND Obstetrics & Gynecology
DX: O47.03 False labor before 37 completed weeks of gestation, third trimester (principal); O09.33 Supervision of pregnancy with insufficient antenatal care, third trimester; O99.213 Obesity complicating pregnancy, third trimester; O99.333 Smoking (tobacco) complicating pregnancy, third trimester; E66.01 Morbid (severe) obesity due to excess calories; F17.290 Nicotine dependence, other tobacco product, uncomplicated; Z3A.35 35 weeks gestation of pregnancy
CPT/HCPCS: 59025; G0463

== ENCOUNTER 2024-09-19 16:25 | Outpatient (CLI) | payer OTHER ==
[~2024-09-19] VITALS: Ht 167.6 cm; Wt 118.4 kg
[2024-09-19] MEDS ORDERED: REGL10TA6 PO (16:35)
[2024-09-19 16:42] VITALS: BP 111/63
[2024-09-19 19:18] VITALS: BP 113/61
== END 2024-09-19 19:15 | disposition home or self-care (01) ==
LOC: M LDO 16:25
PROVIDERS: ATTEND Specialist
DX: O47.03 False labor before 37 completed weeks of gestation, third trimester (principal); Z3A.36 36 weeks gestation of pregnancy
CPT/HCPCS: 59025; G0463

== ENCOUNTER 2024-09-21 16:13 | Outpatient (CLI) | payer OTHER ==
[~2024-09-21] VITALS: Ht 167.6 cm; Wt 119.0 kg
[2024-09-21 16:26] VITALS: BP 116/66
[2024-09-21 19:18] VITALS: BP 107/59
[2024-09-21] MEDS ORDERED: HOME MED LIST COMPLETE! XX SCH (19:40)
== END 2024-09-21 20:00 | disposition home or self-care (01) ==
LOC: M LDO 16:13
PROVIDERS: ATTEND Advanced Practice Midwife
DX: O47.03 False labor before 37 completed weeks of gestation, third trimester (principal); O09.33 Supervision of pregnancy with insufficient antenatal care, third trimester; O99.213 Obesity complicating pregnancy, third trimester; O99.333 Smoking (tobacco) complicating pregnancy, third trimester; E66.01 Morbid (severe) obesity due to excess calories; F17.290 Nicotine dependence, other tobacco product, uncomplicated; Z3A.36 36 weeks gestation of pregnancy
CPT/HCPCS: 59025; G0463

== ENCOUNTER 2024-09-22 02:56 | Outpatient (CLI) | payer OTHER ==
[~2024-09-22] VITALS: Ht 167.6 cm; Wt 119.0 kg
[2024-09-22 03:01] VITALS: BP 111/60
== END 2024-09-22 15:09 | disposition home or self-care (01) ==
LOC: M LDO 02:56
PROVIDERS: ATTEND Advanced Practice Midwife
DX: O47.03 False labor before 37 completed weeks of gestation, third trimester (principal); O99.213 Obesity complicating pregnancy, third trimester; O09.33 Supervision of pregnancy with insufficient antenatal care, third trimester; O99.333 Smoking (tobacco) complicating pregnancy, third trimester; E66.01 Morbid (severe) obesity due to excess calories; O09.213 Supervision of pregnancy with history of pre-term labor, third trimester; F17.290 Nicotine dependence, other tobacco product, uncomplicated; Z3A.36 36 weeks gestation of pregnancy
CPT/HCPCS: 59025; G0463

== ENCOUNTER 2024-09-24 18:44 | Outpatient (CLI) | payer OTHER ==
[2024-09-24 21:28] VITALS: BP 109/57
== END 2024-09-24 21:26 | disposition home or self-care (01) ==
LOC: M LDO 18:44
PROVIDERS: ATTEND Obstetrics & Gynecology
DX: O47.1 False labor at or after 37 completed weeks of gestation (principal); O99.213 Obesity complicating pregnancy, third trimester; O09.33 Supervision of pregnancy with insufficient antenatal care, third trimester; O99.333 Smoking (tobacco) complicating pregnancy, third trimester; O09.213 Supervision of pregnancy with history of pre-term labor, third trimester; E66.01 Morbid (severe) obesity due to excess calories; F17.290 Nicotine dependence, other tobacco product, uncomplicated; Z3A.37 37 weeks gestation of pregnancy
CPT/HCPCS: 59025; G0463

== ENCOUNTER 2024-09-27 16:50 | Outpatient (CLI) | payer OTHER ==
[~2024-09-27] VITALS: Ht 167.6 cm; Wt 119.0 kg
[2024-09-27 16:57] VITALS: BP 120/70
== END 2024-09-27 18:30 | disposition home or self-care (01) ==
LOC: M LDO 16:50
PROVIDERS: ATTEND Obstetrics & Gynecology
DX: O26.893 Other specified pregnancy related conditions, third trimester (principal); R25.2 Cramp and spasm; N89.8 Other specified noninflammatory disorders of vagina; Z3A.37 37 weeks gestation of pregnancy; Z79.82 Long term (current) use of aspirin
CPT/HCPCS: 59025; G0463

== ENCOUNTER 2024-10-02 21:53 | Outpatient (CLI) | payer OTHER ==
[~2024-10-02 21:53] MED LIST changes: +BUPR-670; -BUPR1TAB52; +OLAN7.5T38; -OLAN7.5T8
[2024-10-02 22:04] VITALS: BP 112/67
[2024-10-02] MEDS ORDERED: ONDANSETRON 4MG ORAL DISINTEGRATING TAB PO ONE (23:00)
== END 2024-10-03 00:32 | disposition home or self-care (01) ==
LOC: M LDO 21:53
PROVIDERS: ATTEND Advanced Practice Midwife
DX: O47.1 False labor at or after 37 completed weeks of gestation (principal); O21.2 Late vomiting of pregnancy; O99.333 Smoking (tobacco) complicating pregnancy, third trimester; O99.213 Obesity complicating pregnancy, third trimester; O09.213 Supervision of pregnancy with history of pre-term labor, third trimester; F17.290 Nicotine dependence, other tobacco product, uncomplicated; E66.01 Morbid (severe) obesity due to excess calories; Z3A.38 38 weeks gestation of pregnancy
CPT/HCPCS: 59025; G0463

== ENCOUNTER 2024-10-03 03:23 | Inpatient (IN) | payer OTHER ==
[2024-10-03] VITALS (18 sets, daily range): BP systolic 87–132; BP diastolic 50–75; O2SAT 98–99
[~2024-10-03] VITALS: Ht 167.6 cm; Wt 120.0 kg
[2024-10-03] MEDS ORDERED: HOME MED LIST COMPLETE! XX SCH (03:40)
[2024-10-03] MEDS ORDERED: OXYTOCIN DRIP 30 UNITS in IV 1 EA IV PRN (04:55)
[2024-10-03] MEDS ORDERED: CARBOPROST TROMETHAMINE 250 MCG/ML AMP IM PRN (04:55)
[2024-10-03] MEDS ORDERED: LIDOCAINE 1% MDV 20ML VIAL INFIL PRN (04:55)
[2024-10-03] MEDS ORDERED: TRANEXAMIC ACID INJection 1,000 MG in NS 100 ML IV PRN (04:55)
[2024-10-03] MEDS ORDERED: METHYLERGONOVINE MALEATE 0.2MG/ML 1ML VIAL IM PRN (04:55)
[2024-10-03 05:12] LABS: HEMATOCRIT 28.3 % (36.0-47.0); HEMOGLOBIN 9.1 g/dl (12.0-15.5); MEAN CORPUSCULAR HEMOGLOBIN 24.7 pg (27.0-33.0); MEAN CORPUSCULAR HGB CONC 32.2 g/dl (32.0-36.5); MEAN CORPUSCULAR VOLUME 76.9 fl (80.0-96.0); PLATELET COUNT, AUTOMATED 221 10^3/uL (150-450); RED BLOOD COUNT 3.68 10^6/uL (4.00-5.40); WHITE BLOOD COUNT 7.7 10^3/uL (4.0-10.0)
[2024-10-03] MEDS: LR 1,000 ML IV SCH (06:00)
[2024-10-03] MEDS: OXYTOCIN DRIP 30 UNITS in IV 1 EA IV SCH ×2 (06:00→09:15)
[2024-10-03] MEDS ORDERED: LR 500 ML IV PRN (06:15)
[2024-10-03] MEDS ORDERED: ONDANSETRON 4MG 2ML VIAL IV PRN (06:15)
[2024-10-03] MEDS ORDERED: diphenhydrAMINE 50MG/ML VIAL IV PRN (06:15)
[2024-10-03] MEDS ORDERED: NALOXONE INJ 0.4MG/1ML VIAL IV PRN (06:15)
[2024-10-03] MEDS ORDERED: ePHEDrine SULFATE 25 MG/5 ML(5MG/ML) SYRINGE IVP PRN (06:15)
[2024-10-03] MEDS ORDERED: EPIDURAL/PCA KEYS XX PRN (06:15)
[2024-10-03] MEDS: FENTANYL/ROPIVACAINE/NACL BAG 100 ML EPIDURAL SCH (06:29)
[2024-10-03] MEDS ORDERED: RHOGAM 300MCG (1500IU) INJ IM SCH (09:15)
[2024-10-03] MEDS ORDERED: METHYLERGONOVINE MALEATE 0.2 MG TAB PO PRN (09:15)
[2024-10-03] MEDS ORDERED: MOM 30ML SUSPENSION UDC PO PRN (09:15)
[2024-10-03] MEDS ORDERED: DIBUCAINE 1% OINTMENT 30GM TOP PRN (09:15)
[2024-10-03] MEDS ORDERED: ANUSOL HC CREAM 30GM TOP PRN (09:15)
[2024-10-03] MEDS ORDERED: CALCIUM CARBONATE 500 MG CHEW U/D PO PRN (09:15)
[2024-10-03] MEDS: IBUPROFEN 600MG TAB PO PRN (17:46)
[2024-10-03] MEDS: ACETAMINOPHEN 325 MG TAB PO PRN (21:03)
[2024-10-04 02:23] VITALS: BP 118/68; O2SAT 98
[2024-10-04] MEDS: ONDANSETRON 4MG 2ML VIAL IV PRN (02:41)
[2024-10-04] MEDS: IBUPROFEN 800 MG TAB PO PRN (04:19)
[2024-10-04 06:15] VITALS: BP 110/59; O2SAT 98
[2024-10-04] MEDS: PRENATAL VITAMINS CHEWABLE TABLET PO SCH (08:09)
[2024-10-04] MEDS: DOCUSATE SODIUM 100MG CAPSULE PO PRN (13:17)
[2024-10-04 15:06] LABS: HEPATITIS C VIRUS ABY INDEX 0.02 INDEX (<0.8)
[2024-10-04 18:00] VITALS: BP 118/63; O2SAT 98
[2024-10-04] MEDS: ACETAMINOPHEN 500 MG TAB PO PRN (18:00)
[2024-10-05 06:00] VITALS: BP 103/56; O2SAT 99
[2024-10-05] MEDS: MEASLES,MUMPS,RUBELLA VACCINE INJ (MMR-II) SC.IMMUN ONE (09:00)
[2024-10-05] MEDS ORDERED: IBUP80TA PO (10:25)
[2024-10-05] MEDS ORDERED: ACET-683 PO (10:26)
== END 2024-10-05 14:57 | disposition home or self-care (01) | DRG 560 ==
LOC: M LDO 03:23 → M LDI 04:41 → M OBS 11:51
PROVIDERS: ADMIT Advanced Practice Midwife; ATTEND Advanced Practice Midwife
PROC: 10E0XZZ Delivery of Products of Conception, External Approach (ICD-10-PCS; principal; 2024-10-03)
DX: O80 Encounter for full-term uncomplicated delivery (principal); Z37.0 Single live birth; Z3A.38 38 weeks gestation of pregnancy

== ENCOUNTER 2024-12-19 18:52 | Emergency (ER) | payer OTHER ==
[~2024-12-19] VITALS: Ht 167.6 cm; Wt 116.8 kg
[2024-12-19] MEDS ORDERED: BUDE90AE INH (19:14)
[2024-12-19 21:16] LABS: BASO # 0.0 10^3/uL (0.0-0.2); BASO % 0.3 % (0.0-1.0); EOS # 0.1 10^3/uL (0.0-0.5); EOS % 0.5 % (0.0-3.0); LYMPH # 1.9 10^3/uL (1.5-5.0); LYMPH % 16.6 % (24.0-44.0); MONO # 0.8 10^3/uL (0.0-0.8); MONO % 6.7 % (2.0-8.0); NEUTROPHILS # 8.7 10^3/uL (1.5-8.5); NEUTROPHILS % 75.6 % (36.0-66.0); PLATELET COUNT, AUTOMATED 253 10^3/uL (150-450)
[2024-12-19 21:45] LABS: CALCIUM LEVEL 9.2 MG/DL (8.5-10.1); CARBON DIOXIDE LEVEL 26 MMOL/L (20-31); CHLORIDE LEVEL 105 MMOL/L (98-107); CK-MB VALUE MASS < 1.0 NG/ML (<3.6); CREATININE FOR GFR 0.61 MG/DL (0.55-1.30); GLOMERULAR FILTRATION RATE > 90.0 (>60); POTASSIUM SERUM 4.0 MMOL/L (3.5-5.1); SODIUM LEVEL 143 MMOL/L (136-145)
[2024-12-19 21:58] LABS: CPK CREATINE PHOSPHOKINASE 58 U/L (34-145)
[2024-12-19 23:46] VITALS: BP 144/75; TEMP 98
[2024-12-19 23:52] VITALS: O2SAT 99
[2024-12-20] MEDS: IBUPROFEN 600 MG TAB PO ONE
== END 2024-12-20 00:07 | disposition home or self-care (01) ==
LOC: M ED 18:52
DX: R07.9 Chest pain, unspecified (principal); J45.909 Unspecified asthma, uncomplicated; F32.A Depression, unspecified; F41.9 Anxiety disorder, unspecified; Z91.048 Other nonmedicinal substance allergy status; Z79.51 Long term (current) use of inhaled steroids; Z79.899 Other long term (current) drug therapy

== ENCOUNTER 2024-12-23 17:50 | Emergency (ER) | payer OTHER ==
[~2024-12-23] VITALS: Ht 167.6 cm; Wt 115.7 kg
[~2024-12-23 17:50] MED LIST changes: +BUDE90AE INH
[2024-12-23 17:59] VITALS: TEMP 97.3
[2024-12-23 19:06] LABS: BASO # 0.1 10^3/uL (0.0-0.2); BASO % 0.7 % (0.0-1.0); EOS # 0.1 10^3/uL (0.0-0.5); EOS % 1.8 % (0.0-3.0); LYMPH # 2.0 10^3/uL (1.5-5.0); LYMPH % 26.7 % (24.0-44.0); MONO # 0.6 10^3/uL (0.0-0.8); MONO % 7.4 % (2.0-8.0); NEUTROPHILS # 4.7 10^3/uL (1.5-8.5); NEUTROPHILS % 63.1 % (36.0-66.0); PLATELET COUNT, AUTOMATED 279 10^3/uL (150-450)
[2024-12-23 19:35] LABS: CALCIUM LEVEL 8.9 MG/DL (8.5-10.1); CARBON DIOXIDE LEVEL 24 MMOL/L (20-31); CHLORIDE LEVEL 106 MMOL/L (98-107); CK-MB VALUE MASS < 1.0 NG/ML (<3.6); CREATININE FOR GFR 0.63 MG/DL (0.55-1.30); GLOMERULAR FILTRATION RATE > 90.0 (>60); POTASSIUM SERUM 4.3 MMOL/L (3.5-5.1); SODIUM LEVEL 142 MMOL/L (136-145)
[2024-12-23 19:37] LABS: CPK CREATINE PHOSPHOKINASE 61 U/L (34-145)
[2024-12-23] MEDS ORDERED: ISOVUE-370 76% 100 ML VIAL As Ordered ONE (21:18)
[2024-12-23] MEDS: KETOROLAC 30 MG/ML 1 ML VIAL IV ONE (21:42)
[2024-12-23 22:30] VITALS: BP 130/77
[2024-12-23 22:35] VITALS: O2SAT 96
== END 2024-12-23 22:39 | disposition left against medical advice (07) ==
LOC: M ED 17:50 → EDBD 17:50 → M ED 22:39
DX: R07.9 Chest pain, unspecified (principal); K21.9 Gastro-esophageal reflux disease without esophagitis; J45.998 Other asthma; Z91.048 Other nonmedicinal substance allergy status; Z79.51 Long term (current) use of inhaled steroids; Z53.9 Procedure and treatment not carried out, unspecified reason
CPT/HCPCS: 71275; 80048; 82550; 82553; 84484; 85025; 93005; 96374; 99284; J1885; Q9967

== ENCOUNTER 2025-01-12 20:53 | Emergency (ER) | payer OTHER ==
[~2025-01-12] VITALS: Ht 170.2 cm; Wt 117.5 kg
[2025-01-13 01:48] VITALS: BP 116/83; TEMP 97.1; O2SAT 99
== END 2025-01-13 01:49 | disposition home or self-care (01) ==
LOC: M ED 20:53
DX: S60.932A Unspecified superficial injury of left thumb, initial encounter (principal); W22.8XXA Striking against or struck by other objects, initial encounter; Y92.009 Unspecified place in unspecified non-institutional (private) residence as the place of occurrence of the external cause; Y93.9 Activity, unspecified; Y99.9 Unspecified external cause status; K21.9 Gastro-esophageal reflux disease without esophagitis; J45.909 Unspecified asthma, uncomplicated; Z79.899 Other long term (current) drug therapy

== ENCOUNTER 2025-02-16 15:50 | Emergency (ER) | payer OTHER ==
[~2025-02-16] VITALS: Ht 168.9 cm; Wt 118.7 kg
[~2025-02-16 15:50] MED LIST changes: -IBUP-1022 PO; +IBUP600T42 PO
[2025-02-16 19:03] LABS: PLATELET COUNT, AUTOMATED 266 10^3/uL (150-450)
[2025-02-16] MEDS ORDERED: ISOVUE-370 76% 100 ML VIAL As Ordered ONE (19:38)
[2025-02-16 19:50] LABS: HCG, SERUM QUALITATIVE NEGATIVE (NEGATIVE)
[2025-02-16 21:06] VITALS: BP 112/62; TEMP 97.4; O2SAT 100
[2025-02-16] MEDS ORDERED: METH-1165 PO (21:16)
[2025-02-16] MEDS ORDERED: IBUP600T42 PO (21:16)
== END 2025-02-16 21:29 | disposition home or self-care (01) ==
LOC: M ED 15:50
DX: S13.4XXA Sprain of ligaments of cervical spine, initial encounter (principal); S43.402A Unspecified sprain of left shoulder joint, initial encounter; T74.11XA Adult physical abuse, confirmed, initial encounter; Y04.8XXA Assault by other bodily force, initial encounter; Y92.009 Unspecified place in unspecified non-institutional (private) residence as the place of occurrence of the external cause; Y93.9 Activity, unspecified; Y99.9 Unspecified external cause status; J30.2 Other seasonal allergic rhinitis; Z79.899 Other long term (current) drug therapy
CPT/HCPCS: 70450; 70491; 72125; 73030; 80047; 84703; 85027; 99284; Q9967

== ENCOUNTER → 2025-02-17 | Outpatient (REF) ==
[~2025-02-17] MED LIST changes: +METH-1165 PO
== END ==
LOC: M PLAIMG 10:47
PROVIDERS: ATTEND Internal Medicine
DX: M54.50 Low back pain, unspecified (principal)

== ENCOUNTER 2025-03-26 22:24 | Emergency (ER) | payer OTHER ==
[~2025-03-26] VITALS: Ht 167.6 cm; Wt 121.4 kg
[2025-03-27 00:16] LABS: BASO # 0.1 10^3/uL (0.0-0.2); BASO % 0.6 % (0.0-1.0); EOS # 0.3 10^3/uL (0.0-0.5); EOS % 2.6 % (0.0-3.0); LYMPH # 2.8 10^3/uL (1.5-5.0); LYMPH % 28.2 % (24.0-44.0); MONO # 1.0 10^3/uL (0.0-0.8); MONO % 10.6 % (2.0-8.0); NEUTROPHILS # 5.7 10^3/uL (1.5-8.5); NEUTROPHILS % 57.7 % (36.0-66.0); PLATELET COUNT, AUTOMATED 247 10^3/uL (150-450)
[2025-03-27 00:22] LABS: HCG, SERUM QUANTITATIVE < 2.6 MIU/ML (<4.2)
[2025-03-27 00:24] LABS: CALCIUM LEVEL 9.1 MG/DL (8.5-10.1); CARBON DIOXIDE LEVEL 26 MMOL/L (20-31); CHLORIDE LEVEL 108 MMOL/L (98-107); CREATININE FOR GFR 0.65 MG/DL (0.55-1.30); GLOMERULAR FILTRATION RATE > 90.0 (>60); POTASSIUM SERUM 4.4 MMOL/L (3.5-5.1); SODIUM LEVEL 143 MMOL/L (136-145)
[2025-03-27 02:36] VITALS: BP 129/76; TEMP 97; O2SAT 100
== END 2025-03-27 02:52 | disposition left against medical advice (07) ==
LOC: M ED 22:24
DX: Z53.21 Procedure and treatment not carried out due to patient leaving prior to being seen by health care provider (principal)

== ENCOUNTER 2025-03-27 09:40 | Emergency (ER) | payer OTHER ==
[~2025-03-27] VITALS: Ht 167.6 cm; Wt 124.4 kg
[2025-03-27] MEDS: ACETAMINOPHEN 500 MG TAB PO ONE (10:48)
[2025-03-27 10:54] LABS: BASO # 0.1 10^3/uL (0.0-0.2); BASO % 0.8 % (0.0-1.0); EOS # 0.2 10^3/uL (0.0-0.5); EOS % 3.0 % (0.0-3.0); LYMPH # 1.8 10^3/uL (1.5-5.0); LYMPH % 26.6 % (24.0-44.0); MONO # 0.8 10^3/uL (0.0-0.8); MONO % 11.3 % (2.0-8.0); NEUTROPHILS # 3.9 10^3/uL (1.5-8.5); NEUTROPHILS % 58.1 % (36.0-66.0); PLATELET COUNT, AUTOMATED 233 10^3/uL (150-450)
[2025-03-27] MEDS: IBUPROFEN 600 MG TAB PO ONE (11:04)
[2025-03-27 11:15] VITALS: BP 106/69; O2SAT 99
[2025-03-27 11:32] VITALS: TEMP 97.6
== END 2025-03-27 11:43 | disposition home or self-care (01) ==
LOC: M ED 09:40
DX: N93.8 Other specified abnormal uterine and vaginal bleeding (principal); Z97.5 Presence of (intrauterine) contraceptive device; K21.9 Gastro-esophageal reflux disease without esophagitis; J45.909 Unspecified asthma, uncomplicated; Z79.899 Other long term (current) drug therapy

== ENCOUNTER 2025-03-28 06:20 | Emergency (ER) | payer OTHER ==
[~2025-03-28] VITALS: Ht 167.6 cm; Wt 121.3 kg
[2025-03-28 06:53] LABS: BASO # 0.1 10^3/uL (0.0-0.2); BASO % 0.9 % (0.0-1.0); EOS # 0.3 10^3/uL (0.0-0.5); EOS % 4.2 % (0.0-3.0); LYMPH # 2.0 10^3/uL (1.5-5.0); LYMPH % 29.7 % (24.0-44.0); MONO # 0.6 10^3/uL (0.0-0.8); MONO % 9.1 % (2.0-8.0); NEUTROPHILS # 3.7 10^3/uL (1.5-8.5); NEUTROPHILS % 55.8 % (36.0-66.0); PLATELET COUNT, AUTOMATED 240 10^3/uL (150-450)
[2025-03-28 07:22] LABS: CALCIUM LEVEL 8.8 MG/DL (8.5-10.1); CARBON DIOXIDE LEVEL 28 MMOL/L (20-31); CHLORIDE LEVEL 107 MMOL/L (98-107); CK-MB VALUE MASS < 1.0 NG/ML (<3.6); CPK CREATINE PHOSPHOKINASE 62 U/L (34-145); CREATININE FOR GFR 0.64 MG/DL (0.55-1.30); GLOMERULAR FILTRATION RATE > 90.0 (>60); POTASSIUM SERUM 4.2 MMOL/L (3.5-5.1); SODIUM LEVEL 143 MMOL/L (136-145)
[2025-03-28 08:04] LABS: CK-MB VALUE MASS 1.0 NG/ML (<3.6)
[2025-03-28 08:05] LABS: APPEARANCE, URINE CLEAR (CLEAR); BACTERIA, URINE AUTO NEGATIVE (NEGATIVE); BILIRUBIN, URINE AUTO NEGATIVE (NEGATIVE); BLOOD, URINE BLOOD 2+ (NEGATIVE); GLUCOSE, URINE (UA) AUTO NEGATIVE (NEGATIVE); KETONE, URINE AUTO NEGATIVE (NEGATIVE); LEUKOCYTE ESTERASE, URINE AUTO NEGATIVE (NEGATIVE); MUCUS, URINE SMALL (NEGATIVE); NITRITE, URINE AUTO NEGATIVE (NEGATIVE); PROTEIN, URINE AUTO NEGATIVE (NEGATIVE); RBC, URINE AUTO 1 /HPF (0-3); SPECIFIC GRAVITY URINE AUTO 1.018 (1.002-1.035); SQUAMOUS EPITHELIAL CELL UR AU 1 /HPF (0-6); UROBILINOGEN, URINE AUTO 0.2 mg/dL (0.0-2.0); WBC, URINE AUTO 1 /HPF (0-3)
[2025-03-28 08:08] LABS: CPK CREATINE PHOSPHOKINASE 60 U/L (34-145); MB/CK RELATIVE INDEX 1.66 (< OR =4)
[2025-03-28] MEDS: PANTOPRAZOLE 40MG VIAL IV ONE (08:29)
[2025-03-28] MEDS: KETOROLAC 30 MG/ML 1 ML VIAL IV ONE (08:30)
[2025-03-28 08:34] LABS: HCG, SERUM QUALITATIVE NEGATIVE (NEGATIVE)
[2025-03-28 12:01] VITALS: BP 124/87
[2025-03-28 12:05] VITALS: TEMP 96.9; O2SAT 100
== END 2025-03-28 12:15 | disposition home or self-care (01) ==
LOC: EDBD 06:20 → M ED 06:20
DX: T83.32XA Displacement of intrauterine contraceptive device, initial encounter (principal); K21.9 Gastro-esophageal reflux disease without esophagitis; F41.9 Anxiety disorder, unspecified; F32.A Depression, unspecified; J30.2 Other seasonal allergic rhinitis; Z79.899 Other long term (current) drug therapy
CPT/HCPCS: 71045; 76830; 76856; 80048; 81001; 82550; 82553; 84484; 84703; 85025; 87086; 93005; 93976; 96374; 96375; 99284; J1885; J2470

== ENCOUNTER → 2025-05-20 | Outpatient (REF) | payer OTHER | LOC: M SFHCWAGY 13:08 | PROVIDERS: ATTEND Obstetrics & Gynecology | DX: Z12.4 Encounter for screening for malignant neoplasm of cervix (principal) ==

== ENCOUNTER 2025-05-26 16:37 | Emergency (ER) | payer OTHER ==
[~2025-05-26] VITALS: Ht 167.6 cm; Wt 123.6 kg
[2025-05-26 20:08] VITALS: BP 133/83; TEMP 96.5; O2SAT 99
== END 2025-05-26 20:10 | disposition home or self-care (01) ==
LOC: M ED 16:39
DX: S93.401A Sprain of unspecified ligament of right ankle, initial encounter (principal); W00.0XXA Fall on same level due to ice and snow, initial encounter; Y92.009 Unspecified place in unspecified non-institutional (private) residence as the place of occurrence of the external cause; Y93.9 Activity, unspecified; Y99.9 Unspecified external cause status; F17.200 Nicotine dependence, unspecified, uncomplicated

== ENCOUNTER 2025-06-05 20:32 | Emergency (ER) | payer OTHER ==
[~2025-06-05] VITALS: Ht 167.6 cm; Wt 127.2 kg
[2025-06-05 21:13] LABS: SOFIA COVID ANTIGEN NEGATIVE (NEGATIVE)
[2025-06-05] MEDS: BENZONATATE 100 MG CAPSULE PO ONE (23:36)
[2025-06-05] MEDS: LIDOCAINE VISCOUS 2% SOLN 15 ML UDC SS ONE (23:36)
[2025-06-05] MEDS: KETOROLAC 60 MG/2 ML VIAL IM ONE (23:38)
[2025-06-06] MEDS ORDERED: AMOX500C PO (01:17)
[2025-06-06] MEDS ORDERED: LIDO15SO8 PO (01:17)
[2025-06-06] MEDS ORDERED: BENZ200C70 PO (01:17)
[2025-06-06] MEDS ORDERED: ALBU8.5H INH (01:19)
[2025-06-06] MEDS ORDERED: BREAMIS10 MC (01:19)
[2025-06-06 01:22] VITALS: BP 133/73; TEMP 97.6; O2SAT 98
[2025-06-06] MEDS: AMOXICILLIN 500 MG CAP PO ONE (01:25)
== END 2025-06-06 01:35 | disposition home or self-care (01) ==
LOC: M ED 20:32 → EDBD 20:32 → M ED 06-06 01:35
DX: J02.0 Streptococcal pharyngitis (principal); J45.909 Unspecified asthma, uncomplicated; K21.9 Gastro-esophageal reflux disease without esophagitis; F31.9 Bipolar disorder, unspecified; Z79.899 Other long term (current) drug therapy
CPT/HCPCS: 71046; 87428; 87880; 96372; 99284; J1885